=== PATIENT | male | born 1990 | race Caucasian/White ===

== ENCOUNTER 2023-06-27 20:00 | Inpatient (IN) | payer SELFPAY ==
[2023-06-27] VITALS (11 sets, daily range): BP systolic 121–145; BP diastolic 60–82; PULSE 11–70; RESP 13–21; O2SAT 98–100; BMI 26.2
--- NOTE | 2023-06-27 20:37 | P.HP_ITS ---
Providers/Chief Complaint Admitting Physician: Junior Germain MD Primary Care Provider: Juvenal Lancaster Chief Complaint: DKA History of Present Illness Juanjo Baron is a 33 year old male with no pertinent past medical history, who presents to [facility] for polyuria, polydipsia, polyphagia, fatigue, malaise. Patient tells me that he does not have a past medical history of diabetes, he is on to has type 2 diabetes, he has a history of alcoholism, but he quit drinking alcohol roughly 6 months ago, he has a cardiac condition of childhood he is not exactly sure what it was but he followed up with a photographic lithographer and did need a coronary angiogram, once he turned 20 he stopped following up with him. He tells me for the last month or so he has been feeling fatigue, malaise, polyuria, polydipsia, polyphagia, no fevers, no chills, did have some abdominal pain, diffuse, with nausea, patient was transferred from [facility], on his last blood work at 1504 his sodium was 136, potassium 4.1, CO2 11, blood sugar level 414, anion gap 26, last blood sugar at 1741 was 259. Review of Systems Const: Denies: fever(s) or chills Card: Denies: chest pain Resp: Denies: dyspnea GI: Reports: abdominal pain and nausea : Reports: urinary frequency; Denies: difficulty urinating Musc: Denies: back pain Neuro: Denies: headache(s) Medications/Allergies Allergies Allergy/AdvReac Type Severity Reaction Status Date / Time No Known Allergies Allergy Verified 06/27/23 20:22 PFSH Acute PFSH: Medical History (Updated 06/27/23 @ 20:50 by Isaac Nance MD) No pertinent past medical history Surgical History (Updated 06/27/23 @ 20:46 by Isaac Nance MD) History of cardiac catheterization Family History (Updated 06/27/23 @ 20:47 by Isaac Nance MD) Family/Other Diabetes Social History (Updated 06/27/23 @ 20:47 by Isaac Nance MD) Smoking and tobacco status: never smoked Alcohol intake: former Substance/Drug Use: never Vitals/I&O/Wt Weight last 48 hrs Weight 92.533 kg Physical Exam Const: COMMON NORMALS: no acute distress and patient oriented x3 HENMT: COMMON NORMALS: normocephalic HEAD & SCALP: normocephalic Eye: COMMON NORMALS: Equal, round and reactive pupils present and EOMs intact bilaterally Neck/C-Spine: COMMON NORMALS: no JVD Lymph: LYMPHATIC: no lymphadenopathy noted Chest: COMMONS NORMALS: normal inspection of the chest Resp: COMMON NORMALS: normal respiratory effort, No retractions, No use of accessory muscles and clear to auscultation bilaterally AUSCULTATION: clear to auscultation bilaterally Cardio: COMMON NORMALS: regular rate, regular rhythm, S1 normal heart sound present and S2 normal heart sound present RATE: regular rate RHYTHM: regular rhythm HEART SOUNDS: S1 normal heart sound present and S2 normal heart sound present GI: COMMON NORMALS: Normal to inspection, nondistended, normoactive bowel sounds present, Soft to palpation and non-tender : COMMON NORMALS: Yes no CVA tenderness Extremity: COMMON NORMALS: no calf tenderness and no pedal edema Neuro: COMMON NORMALS: patient oriented x3, CN's II-XII intact bilaterally, moves all extremities and no focal motor deficits Psych: COMMON NORMALS: mental status grossly normal A&P Assessment and plan (1) Diabetic ketoacidosis: (2) Elevated blood pressure reading: Plan Diabetic ketoacidosis -Type I versus type 2 diabetes -A1c 13.2 -DKA protocol -Monitor in ICU -Start D5 half-normal saline with 20 KCl at 125 cc an hour -Continue insulin drip -BMP, mag, Phos every 4 hours -Once anion gap closes, transition to subcu insulin, with long-acting insulin -Replete potassium if less than 4.5 if drops below 4.5, hold drip and replete -Currently he is alert awake, following all commands, no headache, blurry vision, no nausea, no vomiting, no chest pain Does have a systolic murmur on examination, will order cardiac echocardiogram Elevated blood pressures, monitor, consider adding blood pressure medications, no history of hypertension Serial EKGs, troponins, telemetry monitoring Attestations Medical Necessity Statement*: Patient requires hospitalization, inpatient, greater than 2 midnights, for diabetic ketoacidosis, Coding Level of Care Code Critical Care >/= 30 minutes Critical care time (in minutes): 45 The high probability of a clinically significant, sudden or life threatening d eterioration, as referenced in this documentation, required my full and direct attention, intervention and personal management. The critical care time shown is in addition to time spent performing any reported separately billable procedures and includes the following: [x] Data and vital sign review and interpretation [x ] Patient assessment, examination and intervention [x] Medication orders and management [x] Patient/Family updates as able [x] Care Coordination and Documentation. Diagnoses Diabetic ketoacidosis E11.10 Elevated blood pressure reading R03.0
[2023-06-27 20:38] LABS: Glucose Point of Care 167 mg/dL (70-110)
[2023-06-27] MEDS: insulin regular-human 250 UNIT in sodium chloride 0.9% 250 ML 6.26 UNIT IV (21:11)
--- NOTE | 2023-06-27 21:21 | PC.NURSE ---
Insulin Humalog drip started at 6.2 units/ hr , the same dose that [facility] last had it at per Dr. Nance's orders. Orders were given to not give Bolus. Orders were also given to keep Dextrose 5% running at 125 ml/hr
[2023-06-27 21:41] LABS: Anion Gap 16.5 (5-19); Blood Urea Nitrogen 7 mg/dL (6-20); Calcium 8.4 mg/dL (8.5-10.5); Carbon Dioxide 18 mmol/L (22-29); Chloride 108 mmol/L (98-107); Glomerular Filtration Rate 87.2 mL/min (90-130); Glucose 150 mg/dL (65-115); Magnesium 2.3 mg/dL (1.7-2.3); Osmolality Calculated 289 mOsm/kg (285-295); Potassium 3.5 mmol/L (3.5-5.1); Sodium 139 mmol/L (136-145)
[2023-06-27 21:48] LABS: Procalcitonin 0.05 ng/mL (0-0.5)
[2023-06-27 21:49] LABS: Thyroid Stimulating Hormone 0.59 uIU/mL (0.27-4.20)
[2023-06-27 21:56] LABS: Troponin(5th) Baseline 15 ng/L (0-15)
[2023-06-27] MEDS: potassium phosphate (mEq K) 40 MEQ in sodium chloride 0.9% (100 ml) 100 ML 27.27 MEQ IV (22:00)
[2023-06-27] MEDS: pantoprazole 40 mg SDV IVP (22:00)
[2023-06-27] MEDS: enoxaparin 40 mg/0.4 mL Syringe SUBCUT (22:01)
[2023-06-27] MEDS: D5-NS 0.45% + KCL 20 mEq 20 MEQ/1,000 ML BAG 100 MEQ IV (22:19)
[2023-06-27 22:51] LABS: Glucose Point of Care 136 mg/dL (70-110)
--- NOTE | 2023-06-27 23:31 | ECG_ITS ---
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 Measurements Intervals [place] Rate: 68 P: 77 [place]: 134 QRS: 60 QRSD: 109 T: 52 QT: 448 QTc: 478 Interpretive Statements SINUS RHYTHM INCOMPLETE RIGHT BUNDLE BRANCH BLOCK [90+ ms QRS DURATION, TERMINAL R IN V1/V2, 40+ ms S IN I/aVL/V4/V5/V6] PROLONGED QT INTERVAL No previous ECG available for comparison Electronically Signed On 06-28-2023 22:58:37 CDT by Michele Jimenez M.D. [email or web address] [email or web address].Ryzing/store/[id number]
[2023-06-27 23:42] LABS: Troponin 5 2HR 15.56 ng/L (0-15)
[2023-06-27 23:43] LABS: Troponin 5 2HR Delta 0.56 ABS# (0-10)
[2023-06-27 23:59] LABS: Glucose Point of Care 166 mg/dL (70-110)
[2023-06-28] VITALS (44 sets, daily range): BP systolic 124–159; BP diastolic 64–95; PULSE 46–73; RESP 11–26; TEMP 36.1–36.9; O2SAT 97–100
[2023-06-28 00:35] LABS: Glucose Point of Care 197 mg/dL (70-110)
[2023-06-28 01:49] LABS: Glucose Point of Care 208 mg/dL (70-110)
[2023-06-28 02:09] LABS: Blood Urea Nitrogen 8 mg/dL (6-20); Calcium 8.6 mg/dL (8.5-10.5); Carbon Dioxide 16 mmol/L (22-29); Chloride 104 mmol/L (98-107); Glomerular Filtration Rate 98.4 mL/min (90-130); Glucose 204 mg/dL (65-115); Magnesium 2.1 mg/dL (1.7-2.3); Osmolality Calculated 290 mOsm/kg (285-295); Phosphorus 3.4 mg/dL (2.5-4.5); Sodium 138 mmol/L (136-145)
[2023-06-28 02:12] LABS: Anion Gap 22.2 (5-19); Potassium 4.2 mmol/L (3.5-5.1)
--- NOTE | 2023-06-28 02:53 | ECG_ITS ---
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 Measurements Intervals [place] Rate: 60 P: 64 NC: 135 QRS: 60 QRSD: 114 T: 29 QT: 459 QTc: 461 Interpretive Statements SINUS RHYTHM INCOMPLETE RIGHT BUNDLE BRANCH BLOCK [90+ ms QRS DURATION, TERMINAL R IN V1/V2, 40+ ms S IN I/aVL/V4/V5/V6] NONSPECIFIC T-WAVE ABNORMALITY Compared to ECG 06/27/2023 23:31:16 T-wave abnormality now present Prolonged QT interval no longer present Electronically Signed On 06-28-2023 22:58:17 CDT by Michele Jimenez M.D. [email or web address].[email or web address]/store/[id number]
[2023-06-28 03:41] LABS: Glucose Point of Care 194 mg/dL (70-110)
[2023-06-28 03:55] LABS: Troponin 5 6HR 13.73 ng/L (0-15); Troponin 5 6HR Delta -1.27 ng/L (0-12)
[2023-06-28 04:04] LABS: Glucose Point of Care 203 mg/dL (70-110)
[2023-06-28 04:04] LABS: Glucose Point of Care 247 mg/dL (70-110)
[2023-06-28 05:01] LABS: Glucose Point of Care 184 mg/dL (70-110)
[2023-06-28 05:51] LABS: Anion Gap 17.8 (5-19); Blood Urea Nitrogen 7 mg/dL (6-20); Calcium 8.4 mg/dL (8.5-10.5); Carbon Dioxide 17 mmol/L (22-29); Chloride 111 mmol/L (98-107); Glomerular Filtration Rate 87.2 mL/min (90-130); Glucose 184 mg/dL (65-115); Magnesium 2.3 mg/dL (1.7-2.3); Osmolality Calculated 297 mOsm/kg (285-295); Phosphorus 1.5 mg/dL (2.5-4.5); Potassium 3.8 mmol/L (3.5-5.1); Sodium 142 mmol/L (136-145)
[2023-06-28 06:06] LABS: Glucose Point of Care 158 mg/dL (70-110)
[2023-06-28 06:37] LABS: Glucose Point of Care 184 mg/dL (70-110)
[2023-06-28 07:54] LABS: Glucose Point of Care 214 mg/dL (70-110)
[2023-06-28 08:43] LABS: Glucose Point of Care 200 mg/dL (70-110)
[2023-06-28] MEDS: D5-NS 0.45% + KCL 20 mEq 20 MEQ/1,000 ML BAG 100 MEQ IV (08:45)
[2023-06-28 09:21] LABS: Anion Gap 23.1 (5-19); Blood Urea Nitrogen 7 mg/dL (6-20); Calcium 8.8 mg/dL (8.5-10.5); Carbon Dioxide 16 mmol/L (22-29); Chloride 105 mmol/L (98-107); Glomerular Filtration Rate 87.2 mL/min (90-130); Glucose 226 mg/dL (65-115); Osmolality Calculated 295 mOsm/kg (285-295); Phosphorus 2.4 mg/dL (2.5-4.5); Potassium 4.1 mmol/L (3.5-5.1); Sodium 140 mmol/L (136-145)
[2023-06-28 09:38] LABS: Glucose Point of Care 242 mg/dL (70-110)
[2023-06-28 11:05] LABS: Glucose Point of Care 231 mg/dL (70-110)
[2023-06-28 12:16] LABS: Anion Gap 25.3 (5-19); Blood Urea Nitrogen 6 mg/dL (6-20); Calcium 8.7 mg/dL (8.5-10.5); Carbon Dioxide 13 mmol/L (22-29); Chloride 104 mmol/L (98-107); Glomerular Filtration Rate 78.1 mL/min (90-130); Glucose 254 mg/dL (65-115); Osmolality Calculated 292 mOsm/kg (285-295); Phosphorus 2.1 mg/dL (2.5-4.5); Potassium 4.3 mmol/L (3.5-5.1); Sodium 138 mmol/L (136-145)
[2023-06-28 13:33] LABS: Glucose Point of Care 231 mg/dL (70-110)
[2023-06-28 14:43] LABS: Glucose Point of Care 246 mg/dL (70-110)
[2023-06-28 15:30] LABS: Glucose Point of Care 220 mg/dL (70-110)
--- NOTE | 2023-06-28 16:15 | P.PN_ITS ---
Subjective Subjective: It appears Lab had closed at around 5 AM this morning at which point insulin drip was turned off, however it does not appear he received a subcutaneous insulin thereafter. Repeat gap Checked at 8:30 AM at 23 with bicarb back at 13. Insulin drip has been restarted with his anion gap reopening. Medications: Reviewed: Yes Vitals/I&O/Wt Last Vital Signs Temp 98.5 F 06/28/23 08:00 Pulse 57 L 06/28/23 15:32 Resp 15 06/28/23 15:01 BP 146/84 06/28/23 15:01 Pulse Ox 98 06/28/23 15:01 O2 Del Method Room Air 06/28/23 15:01 06/28/23 06/28/23 06/28/23 06:59 14:59 22:59 Intake Total 17.953 / 33.289 1031.902 / 1031.902 0.976 / 1032.878 Output Total 2200 / 2200 Balance 17.953 / 33.289 -1168.098 / -1168.098 0.976 / -1167.122 Weight last 48 hrs Weight 92.533 kg Weight 92.533 kg Physical Exam Narrative: General: No acute distress, AO x3 HEENT: PERRLA, pupils bilaterally equal and reactive, pallors not present Chest: Normal vesicular breath sounds, no added sounds, equal good air entry b ilaterally CVS: S1-S2 regular, no murmurs, no tachycardia, no gallops, no rubs Abdomen: Soft, nontender, no organomegaly, bowel sounds present Neuro: No focal deficits, no facial deformity, AO x3, power 5/5 in all limbs Data 06/28/23 11:47 A&P Assessment and plan (1) Diabetic ketoacidosis: Plan Diabetic ketoacidosis -Type I versus type 2 diabetes, unknown past history -Hb A1c 13.2 consistent with a diagnosis of diabetes mellitus -DKA protocol to resume -Monitor in ICU -Continue D5 half-normal saline with 20 KCl at 125 cc an hour -Restart insulin drip -BMP, mag, Phos every 4 hours -Once anion gap closes, transition to subcu insulin, with long-acting insulin -Replete potassium if less than 4.5 if drops below 4.5, hold drip and replete -Currently he is alert awake, following all commands, no headache, blurry vision, no nausea, no vomiting, no chest pain. No obvious precipitant for DKA other than not being on treatment for diabetes mellitus -Continue n.p.o. while he remains on the correct Elevated blood pressures, monitor, consider adding blood pressure medications if persistently elevated Serial EKGs, troponins, telemetry monitoring without evidence of ACS Attestations Medical Necessity Statement*: Continued ICU care needed in view of DKA, need for ongoing insulin drip. Coding Level of Care Code Acute Code for Chg Fwd High MDM includes number and complexity of problems actively addressed during encounter, amount and/or complexity of data reviewed/ordered and described risk of complication, morbidity or mortality of management as documented Diagnoses Diabetic ketoacidosis E11.10
[2023-06-28 16:29] LABS: Glucose Point of Care 200 mg/dL (70-110)
[2023-06-28 17:02] LABS: Alanine Aminotransferase 25 U/L (0-41); Albumin Level 4.3 g/dL (3.5-5.2); Alkaline Phosphatase 103 U/L (40-130); Anion Gap 22.2 (5-19); Aspartate Amino Transferase 17 U/L (0-40); Blood Urea Nitrogen 6 mg/dL (6-20); Calcium 8.7 mg/dL (8.5-10.5); Carbon Dioxide 15 mmol/L (22-29); Chloride 106 mmol/L (98-107); Globulin 2.7 g/dL (1.3-4.6); Glomerular Filtration Rate 78.1 mL/min (90-130); Glucose 243 mg/dL (65-115); Osmolality Calculated 294 mOsm/kg (285-295); Phosphorus 1.9 mg/dL (2.5-4.5); Potassium 4.2 mmol/L (3.5-5.1); Sodium 139 mmol/L (136-145); Total Bilirubin 0.3 mg/dL (0.15-1.2)
[2023-06-28 17:32] LABS: Glucose Point of Care 236 mg/dL (70-110)
[2023-06-28] MEDS: dextrose 10% 1,000 ML 75 ML IV (17:34)
[2023-06-28 18:40] LABS: Glucose Point of Care 223 mg/dL (70-110)
--- NOTE | 2023-06-28 18:42 | PC.NURSE ---
Shift summary: Pt rested in bed throughout the shift. He did make 3 trips to restroom. He remains NPO at this time, unable to advance diet due to anion gap. He denies abdominal pain, nausea or vomiting, or other pains. He is a very difficult finger stick due to calluses. He remains on insulin gtt, adjusted per protocol. Dr Castañeda gave order to have iit run at least at 0.5 unit/hour. IV fluids changed to D10%. . His blood sugars have been 200-254mg/dl this shift. Last anion gap at 22.2. Pt has voided 2200ml of clear pale yellow urine.
[2023-06-28 19:22] LABS: Glucose Point of Care 226 mg/dL (70-110)
[2023-06-28 20:34] LABS: Glucose Point of Care 234 mg/dL (70-110)
[2023-06-28 21:11] LABS: Anion Gap 23.2 (5-19); Blood Urea Nitrogen 6 mg/dL (6-20); Calcium 8.8 mg/dL (8.5-10.5); Carbon Dioxide 16 mmol/L (22-29); Chloride 104 mmol/L (98-107); Glomerular Filtration Rate 78.1 mL/min (90-130); Glucose 262 mg/dL (65-115); Osmolality Calculated 295 mOsm/kg (285-295); Potassium 4.2 mmol/L (3.5-5.1); Sodium 139 mmol/L (136-145)
[2023-06-28] MEDS: enoxaparin 40 mg/0.4 mL Syringe SUBCUT (21:32)
[2023-06-28] MEDS: pantoprazole 40 mg SDV IVP (21:32)
[2023-06-28 21:35] LABS: Glucose Point of Care 211 mg/dL (70-110)
--- NOTE | 2023-06-28 22:04 | PC.NURSE ---
Hospitalist notified of upward trending Anion Gap along with blood glucose holding in an non-titratable insulin pattern. Nurse encouraged addition of dextrose fluids but received orders to decrease d10 to 50ml/hr as hospitalist is concerned patient is receiving too much.
[2023-06-28 22:35] LABS: Glucose Point of Care 221 mg/dL (70-110)
[2023-06-28 23:46] LABS: Glucose Point of Care 240 mg/dL (70-110)
[2023-06-28 23:56] LABS: Alanine Aminotransferase 23 U/L (0-41); Albumin Level 4.3 g/dL (3.5-5.2); Alkaline Phosphatase 96 U/L (40-130); Anion Gap 22.1 (5-19); Aspartate Amino Transferase 16 U/L (0-40); Blood Urea Nitrogen 6 mg/dL (6-20); Calcium 8.7 mg/dL (8.5-10.5); Carbon Dioxide 17 mmol/L (22-29); Chloride 104 mmol/L (98-107); Globulin 2.3 g/dL (1.3-4.6); Glomerular Filtration Rate 78.1 mL/min (90-130); Glucose 277 mg/dL (65-115); Osmolality Calculated 296 mOsm/kg (285-295); Potassium 4.1 mmol/L (3.5-5.1); Sodium 139 mmol/L (136-145); Total Bilirubin 0.4 mg/dL (0.15-1.2); Total Protein 6.6 g/dL (6.6-8.7)
[2023-06-29] VITALS (27 sets, daily range): BP systolic 107–167; BP diastolic 54–96; PULSE 42–62; RESP 11–25; TEMP 36.5–37.1; O2SAT 95–100
[2023-06-29 00:49] LABS: Glucose Point of Care 239 mg/dL (70-110)
[2023-06-29 01:49] LABS: Glucose Point of Care 253 mg/dL (70-110)
[2023-06-29 02:37] LABS: Glucose Point of Care 292 mg/dL (70-110)
[2023-06-29 03:48] LABS: Glucose Point of Care 251 mg/dL (70-110)
[2023-06-29 04:28] LABS: Alanine Aminotransferase 21 U/L (0-41); Albumin Level 4.1 g/dL (3.5-5.2); Alkaline Phosphatase 96 U/L (40-130); Anion Gap 17.5 (5-19); Aspartate Amino Transferase 19 U/L (0-40); Blood Urea Nitrogen 7 mg/dL (6-20); Calcium 8.6 mg/dL (8.5-10.5); Carbon Dioxide 18 mmol/L (22-29); Chloride 105 mmol/L (98-107); Globulin 2.4 g/dL (1.3-4.6); Glomerular Filtration Rate 87.2 mL/min (90-130); Glucose 229 mg/dL (65-115); Osmolality Calculated 289 mOsm/kg (285-295); Potassium 3.5 mmol/L (3.5-5.1); Sodium 137 mmol/L (136-145); Total Bilirubin 0.4 mg/dL (0.15-1.2); Total Protein 6.5 g/dL (6.6-8.7)
[2023-06-29 04:47] LABS: Glucose Point of Care 185 mg/dL (70-110)
--- NOTE | 2023-06-29 05:19 | PC.NURSE ---
Hospitalist notified of morning labs concerning DKA treatment. Nurse received orders to replace potassium and resume insulin drip protocol once administered. Critical message to nurse placed.
[2023-06-29] MEDS: lidocaine 1% 5 ML in potassium chloride premix 100 ML 25 ML IV (05:24)
[2023-06-29 05:42] LABS: Glucose Point of Care 205 mg/dL (70-110)
[2023-06-29 06:53] LABS: Glucose Point of Care 205 mg/dL (70-110)
[2023-06-29 07:49] LABS: Glucose Point of Care 193 mg/dL (70-110)
[2023-06-29] MEDS: potassium chloride ER 20 mEq Tablet PO (08:26)
[2023-06-29] MEDS: insulin lispro 100 unit/1 mL SUBCUT ×4 (08:26→20:45)
[2023-06-29] MEDS: insulin glargine 100 units/1 mL 10 UNIT SUBCUT (08:26)
[2023-06-29 08:57] LABS: Glucose Point of Care 187 mg/dL (70-110)
[2023-06-29 09:44] LABS: Glucose Point of Care 192 mg/dL (70-110)
--- NOTE | 2023-06-29 09:59 | PM.PN ---
Subjective Subjective: Patient is initially sleeping but awakens to verbal stimulation. He denies any fevers, chills, nausea or emesis. Endorses appetite. Discussed plan of care for the day and he is in agreement. Medications: Reviewed: Yes Vitals/I&O/Wt Last Vital Signs Temp 98.8 F 06/29/23 07:30 Pulse 50 L 06/29/23 09:00 Resp 12 06/29/23 09:00 BP 160/90 06/29/23 09:00 Pulse Ox 100 06/29/23 09:00 O2 Del Method Room Air 06/29/23 09:00 06/28/23 06/29/23 06/29/23 22:59 06:59 14:59 Intake Total 1242.114 / 2274.016 10.874 / 2284.890 710.978 / 710.978 Output Total 575 / 2775 800 / 3575 700 / 700 Balance 667.114 / -500.984 -789.126 / -1290.110 10.978 / 10.978 Weight last 48 hrs Weight 92.533 kg Weight 92.533 kg Physical Exam Narrative: General: Patient is slightly lethargic but awakens to stimulation. Head: Normocephalic. Neck: No JVD. Cardiovascular: No gallops. No murmurs. No peripheral edema. Hypertensive. Bradycardic. Lungs: Breath sounds are slightly diminished bilateral bases, no use of accessory muscles, no crackles or wheezes. Skin: No jaundice. No rashes. Abdomen: Hypoactive bowel sounds, abdomen soft and nontender. Genito Urinary: Genital exam not performed since complaints not related. Rectal: Rectal exam not performed since no symptoms indicated blood loss. Extremities: No cyanosis or clubbing. Musculoskeletal: No swollen or erythematous joints. Neurological: Moves all 4 extremities. No myoclonus. Data 06/29/23 03:58 A&P Assessment and plan (1) Diabetic ketoacidosis: Patient on IV insulin infusion Now closed Start Lantus 10 units Overlap insulins by 2 hours Start sliding scale insulin correction with meals Start diet Discontinue IV fluids after oral intake improves (2) Diabetes mellitus: A1c 13.2 at outside hospital Unclear type Management as above RD consult for education Insulin education Diabetes education (3) Hypertension: Blood pressure remains elevated Start JAIRO inhibitor Plan DVT prophylaxis: Lovenox CODE STATUS: Assume full code Attestations Medical Necessity Statement*: Patient requires ongoing hospitalization for transition of IV insulin infusion to subcutaneous insulins in the setting of DKA and newly diagnosed uncontrolled diabetes mellitus. Critical Care Time: The high probability of a clinically significant, sudden or life threatening deterioration of the patient's endocrine system(s) required my full and direct attention, intervention and personal management. The critical care time is as shown. This time is in addition to time spent performing any reported procedures but includes the following: [x] Data and vital sign review and interpretation [x] Patient assessment, examination and intervention [x] Documentation [x] Medication orders and management Critical Care Time (min): 35 Coding Level of Care Code Acute Code for [facility] Fwd Diagnoses Diabetic ketoacidosis E11.10 Diabetes mellitus E11.9 Hypertension I10
[2023-06-29] MEDS: lisinopril 10 mg Tablet PO (10:32)
[2023-06-29 12:04] LABS: Glucose Point of Care 229 mg/dL (70-110)
--- NOTE | 2023-06-29 12:10 | PC.NURSE ---
Diabetes education: Discussed and demonstrated insulin syringe use, How to read the numbers draw back plunger,injection sites and injections. Pt able to verbalize and demonstrate understanding of reading insulin syringe numbers and self-injecting in abdomen.
[2023-06-29 12:25] LABS: Albumin Level 4.1 g/dL (3.5-5.2); Anion Gap 17.1 (5-19); Blood Urea Nitrogen 7 mg/dL (6-20); Calcium 8.8 mg/dL (8.5-10.5); Carbon Dioxide 19 mmol/L (22-29); Chloride 101 mmol/L (98-107); Glomerular Filtration Rate 98.4 mL/min (90-130); Glucose 230 mg/dL (65-115); Potassium 4.1 mmol/L (3.5-5.1); Sodium 133 mmol/L (136-145)
[2023-06-29 17:45] LABS: Glucose Point of Care 209 mg/dL (70-110)
--- NOTE | 2023-06-29 18:16 | PC.NURSE ---
Diabetes education: Pt was able to read insulin syringe with 8 unit and self inject without any difficulties. He declined going over diet for diabetes at this time.
--- NOTE | 2023-06-29 18:19 | PC.NURSE ---
Shift summary: Pt rested in bed throughout the shift except for using restroom. Anion gap 17.5 and blood sugars trending down this am. Pt transitioned to high sliding scale and Lantus. He is tolerating well. His last anion gap at 1230 was 17.1 and his bicarb 19. He had demonstrated insulin syringe reading and injections. No nausea, vomiting or abdominal pains noted after restarting solid foods. VSS. Remains sinus bradycardia on moniker. He has been up to bathroom3-4 times for a total urine ouput of 1950. Bm noted today.
[2023-06-29] MEDS: enoxaparin 40 mg/0.4 mL Syringe SUBCUT (20:43)
[2023-06-29 20:47] LABS: Glucose Point of Care 271 mg/dL (70-110)
[2023-06-30] VITALS (15 sets, daily range): BP systolic 94–124; BP diastolic 47–76; PULSE 48–65; RESP 12–27; TEMP 36.4–36.5; O2SAT 96–99
[2023-06-30 04:46] LABS: Albumin Level 3.7 g/dL (3.5-5.2); Blood Urea Nitrogen 12 mg/dL (6-20); Calcium 8.7 mg/dL (8.5-10.5); Carbon Dioxide 26 mmol/L (22-29); Chloride 102 mmol/L (98-107); Glomerular Filtration Rate 98.4 mL/min (90-130); Glucose 147 mg/dL (65-115); Phosphorus 3.2 mg/dL (2.5-4.5); Sodium 137 mmol/L (136-145)
[2023-06-30] MEDS: potassium chloride ER 20 mEq Tablet 40 MEQ PO ×2 (07:53→12:31)
[2023-06-30] MEDS: insulin lispro 100 unit/1 mL SUBCUT ×2 (08:00→12:31)
[2023-06-30] MEDS: insulin glargine 100 units/1 mL 10 UNIT SUBCUT (08:01)
[2023-06-30] MEDS: lisinopril 10 mg Tablet PO (08:03)
--- NOTE | 2023-06-30 10:00 | P.DS_ITS ---
Discharge Providers Date of Admission: 06/27/23 20:00 Date of Discharge: June 30, 2023 Attending Provider at Admission: Junior Germain MD Attending Provider at Discharge: Kobi Lujan MD Primary Care Provider: Juvenal Lancaster Diagnoses at Discharge Discharge Diagnosis (1) Diabetic ketoacidosis: Status: Acute (2) Diabetes mellitus: Status: Acute (3) Hypertension: Status: Acute Reason for Visit Reason for Visit: DKA Hospital Course Hospital Course Juanjo Baron is a 33-year-old male with a past medical history significant for alcohol use disorder in early remission and childhood cardiac condition of unclear etiology who transferred from [facility] after present with polyuria, polydipsia, polyphagia, fatigue, and malaise. Patient found to have A1c of 13.2 and be in DKA at outside hospital. Patient transferred to [facility] ICU for higher level of care. He was found to have newly diagnosed diabetes mellitus. He was treated with IV insulin drip with DKA resolving. Patient started on long acting Lantus 10 units subcutaneous injection nightly. He was noted to have a reading impairment. He was provided extensive counseling on diabetes, diet, and insulin management/administration. He demonstrated proficiency on his Lantus injections. Patient started on low dose metformin at discharge. This is to be titrated over time. He was started on a JAIRO inhibitor. His urine microalbumin level will need assessed with clinic follow up. Lipid level is pending at time of discharge, he will likely benefit from statin in the future. Symptoms improved and patient discharged to home in stable condition. He will need to establish with PCP for continued diabetes care. Physical Exam Narrative: General: Patient is awake and alert. Pleasant. Head:? Normocephalic. Neck: No JVD. Cardiovascular: No gallops. No murmurs. No peripheral edema.? Lungs: Breath sounds are slightly diminished bilateral bases, no use of accessory muscles, no crackles or wheezes. Skin: No jaundice. No rashes. Abdomen: Normal bowel sounds, abdomen soft and nontender. Extremities: No cyanosis or clubbing. Musculoskeletal: No swollen or erythematous joints. Neurological: Moves all 4 extremities. No myoclonus. Discharge Data Studies Completed and Pending Laboratory Results Sodium 137 mmol/L (136-145) 06/30/23 04:18 Potassium 3.0 mmol/L (3.5-5.1) L 10/10/23 04:18 Chloride 102 mmol/L (98-107) 06/30/23 04:18 Carbon Dioxide 26 mmol/L (22-29) 06/30/23 04:18 Anion Gap 12.0 (5-19) 06/30/23 04:18 BUN 12 mg/dL (6-20) 06/30/23 04:18 Creatinine 0.9 mg/dL (0.7-1.2) 06/30/23 04:18 GFR Calculation 98.4 mL/min (90-130) 06/30/23 04:18 Glucose 147 mg/dL (65-115) H 06/30/23 04:18 POC Glucose 271 mg/dL (70-110) H 06/29/23 20:39 Calculated Osmolality 289 mOsm/kg (285-295) 06/29/23 03:58 Calcium 8.7 mg/dL (8.5-10.5) 06/30/23 04:18 Phosphorus 3.2 mg/dL (2.5-4.5) D 06/30/23 04:18 Magnesium 2.0 mg/dL (1.7-2.3) 06/28/23 16:31 Total Bilirubin 0.4 mg/dL (0.15-1.2) 06/29/23 03:58 AST 19 U/L (0-40) 06/29/23 03:58 ALT 21 U/L (0-41) 06/29/23 03:58 Alkaline Phosphatase 96 U/L (40-130) 06/29/23 03:58 Troponin T Baseline 15 ng/L (0-15) 06/27/23 21:06 Troponin T 120 Minute 15.56 ng/L (0-15) H 06/27/23 23:15 Delta Troponin T 0.56 ABS# (0-10) 06/27/23 23:15 Troponin T Hi Sens 6Hr 13.73 ng/L (0-15) 06/28/23 02:48 Troponin T Hi Sens 6Hr Delta -1.27 ng/L (0-12) L 06/28/23 02:48 Total Protein 6.5 g/dL (6.6-8.7) L 06/29/23 03:58 Albumin 3.7 g/dL (3.5-5.2) 06/30/23 04:18 Globulin 2.4 g/dL (1.3-4.6) 06/29/23 03:58 Procalcitonin 0.05 ng/mL (0-0.5) 06/27/23 21:06 TSH 0.59 uIU/mL (0.27-4.20) 06/27/23 21:06 Vitals Last Vital Signs Temp 97.7 F 06/30/23 08:00 Pulse 57 L 06/30/23 09:00 Resp 21 H 06/30/23 09:00 BP 122/67 06/30/23 09:00 Pulse Ox 96 06/30/23 09:00 O2 Del Method Room Air 06/30/23 09:00 Discharge Plan Discharge Patient Disposition: Home Condition: Stable Prescriptions: New insulin glargine 100 unit/mL Solution 10 unit SUBCUT BEDTIME 90 Days Qty: 9 0RF lisinopril 10 mg Tablet 10 mg PO DAILY 90 Days Qty: 90 0RF metformin 500 mg tablet 500 mg PO BIDWMEAL 90 Days Qty: 180 0RF No Action No Known Home Medications Discharge Orders: Discharge Order (Routine); Ordered 06/30/23 Ordered By: Kobi Lujan Referrals: Tracy June [Other] (She is a Enrollment Contracting Analyst w/ Medicaid and should be able to help with medicaid application.) Family Practice [Provider Group] - 4-7 days Discharge Diet: Diabetic Discharge Activity: Resume usual activity and Increase activity as tolerated Patient Instructions: Lisinopril (By mouth), Metformin (By mouth), Insulin Lispro Protamine/Insulin Lispro (By injection) (HumaLOG Mix..., Insulin Glargine (By injection) (Lantus, Lantus SoloStar, Toujeo, Semglee), Opioid Safety Activity Restrictions/Additional Instructions: 1. Increase activity as tolerated. 2. Take medications as precribed. 3. Monitor blood glucose levels. Keep log of fasting level in AM. Discharge Attestations Time Spent in Discharge Care*: greater than 30 min Quality Metrics Clinical Quality Measures [ No reported AMI, CVA or VTE this stay] Coding Level of Care Code Acute Code for [facility] Fwd Diagnoses Diabetic ketoacidosis E11.10 Diabetes mellitus E11.9 Hypertension I10
[2023-06-30 10:54] LABS: Chol HDL Ratio 2.97 mg/dL (1.0-5.00); Cholesterol 110 mg/dL (0-200); HDL Cholesterol 37 mg/dL (60-100); LDL Cholesterol Calculated 54 mg/dL (50-129); LDL HDL Ratio 1.46 RATIO (0.00-3.22); Triglycerides 94 mg/dL (0-150)
[2023-06-30 12:24] LABS: Glucose Point of Care 199 mg/dL (70-110)
[2023-06-30 12:26] LABS: Glucose Point of Care 214 mg/dL (70-110)
--- NOTE | 2023-06-30 13:28 | PC.NURSE ---
Patient discharged. Bilateral IVs removed. Education provided on upcoming appointments, medications, and diet. Patient has been administering his insulin injections while here to get comfortable with self administering insulin. Nurse set up glucometer and had patient check blood sugar, and nurse demonstrated how to use lantus insulin pen. CUrrently waiting on patient's friend to show up to give ride home.
== END 2023-06-30 15:27 | disposition home or self-care (01) | DRG 639 ==
PROVIDERS: Family Medicine; Student in an Organized Health Care Education/Training Program; Admitting Provider Student in an Organized Health Care Education/Training Program; PCP Nurse Practitioner Family; Visit Provider Internal Medicine
DX: E11.10 Type 2 diabetes mellitus with ketoacidosis without coma (principal); I10 Essential (primary) hypertension; F10.11 Alcohol abuse, in remission; R01.1 Cardiac murmur, unspecified
CPT/HCPCS: 36415; 36416; 80048; 80053; 80061; 80069; 82962; 83735; 84100; 84145; 84443; 84484; 93005; 94664; 96372; 96376; C9113; J1650; J1815; J3480; J7050

== ENCOUNTER → 2023-09-24 16:20 | Outpatient (BNVA) | payer SELFPAY | PROVIDERS: PCP Nurse Practitioner Family; Visit Provider Nurse Practitioner Family | DX: E11.9 Type 2 diabetes mellitus without complications (principal) | CPT/HCPCS: 80053; 83036 ==

== ENCOUNTER 2024-06-07 19:33 | Inpatient (IN) | payer SELFPAY ==
[2024-06-07] VITALS (18 sets, daily range): BP systolic 113–150; BP diastolic 49–96; PULSE 78–114; RESP 16–35; TEMP 36.3; O2SAT 94–100; BMI 26.2
--- NOTE | 2024-06-07 19:35 | PC.NURSE ---
Arrival to ICU 1: Pt arrived to ICU 1 @1930. Continuous cardiac monitoring continued. Pt reporting 8/10 abdominal pain. BG unable to reading HI via fingerstick. Arrived w/ Levophed running @2mcg/min. Levophed stopped @2022. Dr. Nance on unit to see pt shortly after arrival.
--- NOTE | 2024-06-07 20:00 | XRR_ITS ---
PROCEDURE INFORMATION: Exam: XR Chest Exam date and time: 06/07/2024 8:16 PM Age: 34 years old Clinical indication: Shortness of breath; Additional info: SOB TECHNIQUE: Imaging protocol: Radiologic exam of the chest. Views: 1 view. COMPARISON: CR XR chest 1V [id number] 06/27/2023 12:55 PM FINDINGS: Lungs: Unremarkable. No consolidation. Pleural spaces: Unremarkable. No pleural effusion. No pneumothorax. Heart/Mediastinum: Unremarkable. No cardiomegaly. Bones/joints: Unremarkable. XR/XR chest 1V portable [id number] IMPRESSION: No acute findings.
[2024-06-07] MEDS: sodium chloride 0.9% 1,000 ML 150 ML IV (20:21)
[2024-06-07] MEDS: INSULIN REGULAR IN 0.9 % NACL 100 UNIT/100 ML BAG 8.5 UNIT IV (20:24)
[2024-06-07] MEDS: pantoprazole 40 mg SDV IVP (20:31)
[2024-06-07] MEDS: ondansetron 2 mg/ML SDV 2 mL 4 MG IVP (20:38)
--- NOTE | 2024-06-07 20:44 | ECG_ITS ---
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 Measurements Intervals [place] Rate: 106 P: 71 [place]: 139 QRS: 33 QRSD: 97 T: 42 QT: 342 QTc: 456 Interpretive Statements SINUS TACHYCARDIA No previous ECG available for comparison Electronically Signed On 06-08-2024 8:21:19 CDT by Michele Jimenez M.D. [id number]
[2024-06-07 20:52] LABS: Basophils # 0.1 10^3/uL (0.0-0.1); Basophils % 0.4 %; Hematocrit 42.4 % (37-53); Lymphocytes # 0.7 10^3/uL (0.8-4.8); Lymphocytes % 4.8 %; Mean Corpuscular HGB Conc 33.5 g/dL (30-55); Mean Corpuscular Volume 86.5 fl (82-101); Monocytes # 0.5 10^3/uL (0.2-0.9); Monocytes % 3.9 %; Neutrophils # 12.11 10^3/uL (1.8-7.7); Neutrophils % 89.3 %; Nucleated Red Blood Cells % 0 %; Platelet Count 245 10^3/cmm (157-399); Red Cell Distribution Width 11.8 % (12.1-15.1); White Blood Count 13.56 10^3/uL (3.29-11.43)
[2024-06-07 20:52] LABS: ABG PCO2 20.7 mmHg (35-45); Arterial Blood Gas Hematocrit 45.7 % (42-52); Base Excess ABG -18.8 mmol/L (-2.0-2.0); Blood Gas Allen Test Pos; Blood Gas Sample Type Arterial; HCO3 ABG 7.6 mmol/L (22-26)
[2024-06-07 20:53] LABS: ABG PH Result 7.17 (7.35-7.45); Blood Gas Operator Identificat ED; Blood Gas Sample Site Radial, right; Oxygen Device ROOM AIR; PO2 FiO2 Ratio Arterial Blood 576
--- NOTE | 2024-06-07 21:00 | P.HP_ITS ---
Providers/Chief Complaint 2 Admitting Physician: Itzel Woods MD Primary Care Provider: Juanjo Lancaster Chief Complaint: DKA History of Present Illness Juanjo Baron is a 34 year old male with a past medical history of type 2 diabetes mellitus, hypertension, who presents to [facility] for nausea, vomiting, abdominal pain. Patient tells me that for the last day he has had nausea, vomiting, abdominal pain, felt lightheaded, felt dizzy, no constipation no diarrhea, no bloody or black stools. He was transferred from [facility] for concerns for diabetic ketoacidosis started on insulin drip, he was given fluid therapy, he was noted to be persistently hypotensive there so he was placed on Levophed, on Levophed of 2, currently he is normotensive off Levophed, on room air, respiratory rate 22, pulse 97, alert oriented x 4, following all commands, only significant plan is abdominal pain, denies alcoholism Review of Systems 2 Const: Reports: fatigue and malaise; Denies: fever(s) or chills Card: Denies: chest pain Resp: Denies: dyspnea GI: Reports: abdominal pain, nausea and vomiting Medications/Allergies Home Medications Medication Instructions Recorded Confirmed Last Taken Type blood sugar diagnostic (Blood #100 ea 06/30/23 10/22/23 Unknown Rx Glucose Test strips) blood-glucose meter #1 ea 06/30/23 10/22/23 Unknown Rx lancets #100 ea 06/30/23 10/22/23 Unknown Rx blood-glucose meter,continuous #1 ea 07/09/23 10/22/23 Unknown Rx (Dexcom G6 Animal Laboratory Technician) blood-glucose sensor (Dexcom G6 #3 ea 07/09/23 10/22/23 Unknown Rx Sensor device) blood-glucose transmitter (Dexcom #1 ea 07/09/23 10/22/23 Unknown Rx G6 Transmitter device) insulin glargine 100 unit/mL 10 unit SUBCUT DAILY 09/24/23 09/24/23 Unknown History subcutaneous solution (Lantus U-100 Insulin) lisinopril 10 mg tablet 10 mg PO DAILY 09/24/23 06/07/24 06/07/24 History metformin 500 mg tablet 500 mg PO BID 09/24/23 06/07/24 06/07/24 History trazodone 50 mg tablet 50 mg PO .hs PRN sleep #30 tabs 10/22/23 10/22/23 Unknown Rx lisinopril 10 mg tablet 10 mg PO DAILY #90 tabs 10/27/23 Unknown Rx insulin glargine 100 unit/mL (3 25 unit (0.25 mL) SUBCUT DAILY #15 12/09/23 Unknown Rx mL) subcutaneous pen (Lantus mL Solostar U-100 Insulin) metformin 500 mg tablet 500 mg PO BID #180 tabs 12/09/23 Unknown Rx Allergies Allergy/AdvReac Type Severity Reaction Status Date / Time No Known Allergies Allergy Verified 06/07/24 20:09 PFSH Acute 2 PFSH: Medical History (Updated 06/07/24 @ 21:05 by Isaac Nance MD) Diabetic ketoacidosis Elevated blood pressure reading Surgical History History of cardiac catheterization Family History Family/Other Diabetes Denies family history of Heart disease Cancer Social History Smoking and tobacco/nicotine status: never used tobacco/nicotine Alcohol intake: former Substance/Drug Use: never Adopted: No Caregiver/support person: No Lives independently: No Household members: friend(s) service: No Current occupational status: unemployed Current gender identity: Male Vitals/I&O/Wt Last Vital Signs Temp 97.4 F L 06/07/24 20:01 Pulse 97 06/07/24 20:01 Resp 27 H 06/07/24 20:01 BP 118/50 06/07/24 20:01 Pulse Ox 96 06/07/24 20:54 O2 Del Method Room Air 06/07/24 20:54 06/07/24 06/07/24 06/07/24 06:59 14:59 22:59 Output Total 725 / 725 Balance -725 / -725 Weight last 48 hrs Weight 87.589 kg Physical Exam 2 Const: COMMON NORMALS: no acute distress and patient oriented x3 HENMT: COMMON NORMALS: normocephalic HEAD & SCALP: normocephalic Neck/C-Spine: COMMON NORMALS: no JVD Resp: COMMON NORMALS: normal respiratory effort, No retractions, No use of accessory muscles and clear to auscultation bilaterally AUSCULTATION: clear to auscultation bilaterally Cardio: COMMON NORMALS: no JVD, regular rate, regular rhythm, S1 normal heart sound present and S2 normal heart sound present RATE: regular rate RHYTHM: regular rhythm HEART SOUNDS: S1 normal heart sound present and S2 normal heart sound present GI: COMMON NORMALS: Normal to inspection, nondistended, normoactive bowel sounds present, Soft to palpation and non-tender Extremity: COMMON NORMALS: no calf tenderness and no pedal edema Neuro: COMMON NORMALS: patient oriented x3, CN's II-XII intact bilaterally, moves all extremities and no focal motor deficits Psych: COMMON NORMALS: mental status grossly normal Sepsis: Is patient septic: Yes Focused sepsis exam performed: Yes F ocused sepsis exam: DP PT pulses palpable, cap refill greater than 2 seconds no mottling lower extremities Date exam was performed: 06/07/24 Time exam was performed: 21:10 Data 06/07/24 20:32 06/07/24 20:18 Micro: Microbiology 06/07/24 20:32 Blood Culture - Preliminary Blood SPECIMEN COLLECTED 06/07/24 20:18 Blood Culture - Preliminary Blood SPECIMEN COLLECTED A&P Assessment and plan (1) Diabetic ketoacidosis: (2) Shock: (3) UTI (urinary tract infection): (4) Abdominal pain: (5) Lactic acidosis: Plan Diabetic ketoacidosis ? At outside hospital, pH 7.19, WBC 31.7, sodium 105, potassium 7.3, lipase 145, lactic acid 4.4, blood sugar 500, I do not see that a serum ketone was ordered, anion gap 40, bicarb 5, blood sugar 1207 ? UA with evidence of a UTI no antibiotics were given ? No imaging of the abdomen done at outside hospital ? Blood pressure 84/38 on arrival ? Was on Levophed at 2 currently off ? Plan ? DKA protocol ? Continue insulin drip ? Continue normal saline at 150 cc an hour ? Currently Levophed on hold, MAP is greater than 65 ? Monitor blood sugar q. hourly ? BMP every 4 hours ? Once anion gap is around 14, overlap with long-acting insulin, stop drip within an hour, switch to subcu insulin ? Once blood sugars less than 200 switch to D5 half-normal saline with 20 KCl ? Potassium was over 7.3 at outside hospital recheck potassium levels ? Pseudohyponatremia at 105, recheck serum sodium ? Lactic acid outside hospital 4.4 recheck here ? Repeat ABG ? Repeat CBC, BMP, liver function, Pro-Sagar, CRP, repeat UA, repeat chest x-ray ? Full code -Lovenox for DVT prophylaxis Shock -Requiring Levophed -Currently off Levophed -MAP greater than 65 -Repeat chest x-ray, UA, CRP, Pro-Sagar, lactic acid -Monitor hemodynamics closely -Has evidence of UTI, Zosyn Elevated lipase, check lipid panel, repeat liver function, lipase, alcohol levels Abdominal pain CT scan abdomen pelvis Full code Lovenox for DVT prophylaxis Attestations 2 Medical Necessity Statement*: Patient requires hospitalization, inpatient, greater than 2 midnights, for diabetic ketoacidosis, shock, UTI, lactic acidosis, hyperkalemia hyponatremia, leukocytosis Diagnoses Diabetic ketoacidosis E11.10 Shock R57.9 UTI (urinary tract infection) N39.0 Abdominal pain R10.9 Lactic acidosis E87.20
[2024-06-07 21:01] LABS: Glucose Urine UA 4+ (Normal); Protein Urine Trace (Negative); Specific Gravity, Urine 1.015 (1.005-1.030); Urine Appearance Clear (CLEAR); Urine Color Yellow (Yellow); pH Urine 5 (5-7)
[2024-06-07 21:02] LABS: Add Urine Culture? Yes; Add Urine Microscopic? YES; Bacteria Urine TRACE /hpf; Bilirubin Urine Neg (Negative); Blood Urine 2+ (Negative); Ketones Urine 2+ (Negative); Leukocyte Esterase Urine Negative (Negative); Mucus Urine TRACE /hpf; Nitrate Urine Negative (Negative); RBC Urine 0-4 /hpf (0-2); Urobilinogen Urine Neg (Negative); WBC Urine 0-4 /hpf (0-5)
--- NOTE | 2024-06-07 21:04 | CTR_ITS ---
PROCEDURE INFORMATION: Exam: CT Abdomen And Pelvis With Contrast Exam date and time: 06/07/2024 10:13 PM Age: 34 years old Clinical indication: Abdominal pain TECHNIQUE: Imaging protocol: Computed tomography of the abdomen and pelvis with contrast. Radiation optimization: All CT scans at this facility use at least one of these dose optimization techniques: automated exposure control; mA and/or kV adjustment per patient size (includes targeted exams where dose is matched to clinical indication); or iterative reconstruction. Contrast material: OMNI 350; Contrast volume: 100 ml; Contrast route: INTRAVENOUS (IV); COMPARISON: CT abdomen pelvis wo con [id number] 06/27/2023 1:09 PM RADIATION DOSE METRICS: Total DLP (mGy-cm): 1334 FINDINGS: Liver: Numerous branching air densities are seen within the liver, most pronounced along the periphery, compatible with portal venous gas. Gallbladder and biliary ducts: Normal. No calcified stones. No ductal dilation. Pancreas: Normal. No ductal dilation. Spleen: Normal. No splenomegaly. Adrenal glands: Normal. No mass. Kidneys and ureters: Normal. No hydronephrosis. Stomach and bowel: The stomach is moderately to markedly distended with fluid and air. Numerous dilated small bowel loops are seen throughout the abdomen and pelvis. Bowel loops in the lower abdomen and pelvis demonstrate pneumatosis in decreased mural enhancement compared with nondilated small bowel loops. There appears to be a transition point in the right mid abdomen (for example on series 10, image 52). The distal most small bowel appears decompressed, though there is fecalization of the intraluminal contrast. The colon is largely decompressed. Appendix: No evidence of appendicitis. Intraperitoneal space: No fluid collections. Vasculature: Scattered gas seen within the portal venous system, including in the left hemiabdomen (for example on series 10, image 56). No abdominal aortic aneurysm. Lymph nodes: Unremarkable. No enlarged lymph nodes. Urinary bladder: The urinary bladder is moderately distended. Reproductive: Unremarkable as visualized. Bones/joints: Unremarkable. No acute fracture. Soft tissues: Unremarkable. CT/CT abdomen pelvis w con* [id number] IMPRESSION: 1. Findings consistent with high-grade small bowel obstruction with small bowel ischemia, including bowel loops with pneumatosis and presence of portal venous gas. There appears to be a transition point in the right hemiabdomen. Recommend emergent surgical consultation. 2. The distal most small bowel is decompressed. Fecalization of intraluminal contents can be seen with hypomotility. 3. Moderately to markedly dilated stomach filled with fluid and air. Patient may benefit from nasogastric tube decompression.
[2024-06-07 21:05] LABS: Amphetamines Screen Urine Negative (Negative); Barbiturates Screen Urine Negative (Negative); Benzodiazepines Screen Urine Negative (Negative); Cocaine Screen Urine Negative (Negative); Opiate Screen Urine Negative (Negative); PCP Screen Urine Negative (Negative); THC Screen Urine Negative (Negative)
[2024-06-07 21:08] LABS: Glucose Point of Care > 600 mg/dL (70-110)
[2024-06-07] MEDS: acetaminophen 325 mg Tablet 650 MG PO (21:08)
[2024-06-07 21:20] LABS: Lactic Sepsis W/Reflex 2.1 mmol/L (0.5-2.2)
[2024-06-07 21:21] LABS: Troponin(5th) Baseline 26 ng/L (0-15)
[2024-06-07 21:30] LABS: Alanine Aminotransferase 23 U/L (0-41); Albumin Level 4.3 g/dL (3.5-5.2); Alkaline Phosphatase 129 U/L (40-130); Anion Gap 42.6 (5-19); Aspartate Amino Transferase 19 U/L (0-40); Blood Urea Nitrogen 45 mg/dL (6-20); C Reactive Protein 12.6 mg/L (0.0-4.9); Calcium 7.6 mg/dL (8.5-10.5); Chloride 75 mmol/L (98-107); Creatinine Clr Calc Pharmacy 48.9574; Glomerular Filtration Rate 30.1 mL/min (90-130); Lipase 83 U/L (13-60); NT Pro B Type Natriuretic Pept 565 pg/mL (0-125); Potassium 4.6 mmol/L (3.5-5.1); Sodium 120 mmol/L (136-145); Total Bilirubin 0.4 mg/dL (0.15-1.2); Total Protein 6.3 g/dL (6.6-8.7)
[2024-06-07 21:39] LABS: Ketone (Acetest) Serum Positive (Negative); Osmolality Calculated 307 mOsm/kg (285-295)
[2024-06-07 21:42] LABS: Alcohol Level < 10 mg/dL (0-10)
[2024-06-07 21:44] LABS: Carbon Dioxide 7 mmol/L (22-29); Glucose 911 mg/dL (65-115)
[2024-06-07 21:53] LABS: Chol HDL Ratio 4.63 mg/dL (1.0-5.00); Cholesterol 176 mg/dL (0-200); HDL Cholesterol 38 mg/dL (60-100); LDL Cholesterol Calculated 69 mg/dL (50-129); LDL HDL Ratio 1.82 RATIO (0.00-3.22); Triglycerides 346 mg/dL (0-150)
[2024-06-07 21:55] LABS: Estmated Average Glucose 326
[2024-06-07 21:57] LABS: Magnesium 2.2 mg/dL (1.7-2.3); Phosphorus 5.6 mg/dL (2.5-4.5)
[2024-06-07] MEDS: morphine 4 mg/mL SDV 1 mL 1 MG IVP (21:58)
[2024-06-07] MEDS: iohexol 350 mg/mL 500 mL Btl (per mL) IV (22:16)
[2024-06-07 22:26] LABS: Anion Gap 37.8 (5-19); Blood Urea Nitrogen 41 mg/dL (6-20); Calcium 7.7 mg/dL (8.5-10.5); Carbon Dioxide 10 mmol/L (22-29); Chloride 80 mmol/L (98-107); Creatinine Clr Calc Pharmacy 50.9973; Glomerular Filtration Rate 31.5 mL/min (90-130); Osmolality Calculated 304 mOsm/kg (285-295); Potassium 3.8 mmol/L (3.5-5.1); Sodium 124 mmol/L (136-145)
[2024-06-07 22:27] LABS: Troponin 5 2HR 28.37 ng/L (0-15); Troponin 5 2HR Delta 2.37 ABS# (0-10)
--- NOTE | 2024-06-07 22:30 | PC.NURSE ---
IV Infiltrate: R AC IV infiltrated w/ about 70ml of contrast dye, per Tobin from CT. Unable to aspirate, IV removed. Pharmacy notified, reported to place ice pack on affected extremity and elevate arm. Dr. Nance notified @4153.
[2024-06-07 22:34] LABS: Reflex Lactate Order REFLEX LACTIC ORDERD
[2024-06-07 23:09] LABS: Glucose 737 mg/dL (65-115)
[2024-06-07 23:29] LABS: Glucose Point of Care 513 mg/dL (70-110)
[2024-06-07 23:29] LABS: Glucose Point of Care 514 mg/dL (70-110)
--- NOTE | 2024-06-07 23:33 | PC.NURSE ---
NG: Unable to place NG tube at this time. [address] to [address] in both nares. Dr. Romo at bedside and made aware.
[2024-06-07] MEDS: piperacillin-tazobactam 3.375 GM in sodium chloride 0.9% (plus) 50 ML IV (23:42)
--- NOTE | 2024-06-07 23:45 | P.CONIM_ITS ---
Providers/Reason For Consult 2 Consulting Physician/Specialty*: General surgery Reason for Consult*: Small bowel obstruction Attending Physician: Isaac Nance MD Primary Care Provider: Juanjo Lancaster History of Present Illness History of Present Illness Juanjo Baron is a 34 year old male admitted to the hospital with DKA, after hospital admission patient complaining of significant abdominal pain and nausea. A CT scan of the abdomen and pelvis was immediately obtained. CT show evidence of high-grade small bowel obstruction, with evidence of bowel ischemia including pneumatosis and portal venous gas. On my examination of the patient he reports mild to moderate abdominal pain, states that he feels dizzy and has some nausea. Review of Systems 2 General: Reports: 10 or more systems reviewed and unremarkable except in HPI and below Medications/Allergies Home Medications Medication Instructions Recorded Confirmed Last Taken Type blood sugar diagnostic (Blood #100 ea 06/30/23 10/22/23 Unknown Rx Glucose Test strips) blood-glucose meter #1 ea 06/30/23 10/22/23 Unknown Rx lancets #100 ea 06/30/23 10/22/23 Unknown Rx blood-glucose meter,continuous #1 ea 07/09/23 10/22/23 Unknown Rx (Dexcom G6 Account Receivable Clerk) blood-glucose sensor (Dexcom G6 #3 ea 07/09/23 10/22/23 Unknown Rx Sensor device) blood-glucose transmitter (Dexcom #1 ea 07/09/23 10/22/23 Unknown Rx G6 Transmitter device) insulin glargine 100 unit/mL 10 unit SUBCUT DAILY 09/24/23 09/24/23 Unknown History subcutaneous solution (Lantus U-100 Insulin) lisinopril 10 mg tablet 10 mg PO DAILY 09/24/23 06/07/24 06/07/24 History metformin 500 mg tablet 500 mg PO BID 09/24/23 06/07/24 06/07/24 History trazodone 50 mg tablet 50 mg PO .hs PRN sleep #30 tabs 10/22/23 10/22/23 Unknown Rx lisinopril 10 mg tablet 10 mg PO DAILY #90 tabs 10/27/23 Unknown Rx insulin glargine 100 unit/mL (3 25 unit (0.25 mL) SUBCUT DAILY #15 12/09/23 Unknown Rx mL) subcutaneous pen (Lantus mL Solostar U-100 Insulin) metformin 500 mg tablet 500 mg PO BID #180 tabs 12/09/23 Unknown Rx Allergies Allergy/AdvReac Type Severity Reaction Status Date / Time No Known Allergies Allergy Verified 06/07/24 20:09 Current Medications Generic Name Dose Route Start Last Admin Trade Name Freq PRN Reason Stop Dose Admin Acetaminophen 650 mg 06/07/24 19:57 06/07/24 21:08 Acetaminophen 325 Mg Tablet PO 650 mg Q6H PRN Administration Mild/Mod Pain Or Temp >/= 101 Sodium Chloride 1,000 mls @ 150 mls/hr 06/07/24 20:00 06/07/24 23:39 Sodium Chloride 0.9% IV 150 mls/hr .Q6H40M ANA MARÍA Infusion Insulin Human Regular 100 unit in 100 mls @ 0 mls/hr 06/07/24 20:15 06/07/24 23:23 Myxredlin 100 Unit/100 Ml Bag IV 4 unit/hr PROTOCOL ANA MARÍA 4 mls/hr Titration Protocol Per Protocol Piperacillin Sod/Tazobactam 50 mls @ 12.5 mls/hr 06/07/24 23:00 06/07/24 23:42 Sod 3.375 gm/ Sodium Chloride IV 12.5 mls/hr Q8H ANA MARÍA Administration Morphine Sulfate 1 mg 06/07/24 19:57 06/07/24 21:58 Morphine 4 Mg/Ml Sdv 1 Ml IVP 1 mg Q4H PRN Administration SEVERE PAIN Ondansetron HCl 4 mg 06/07/24 19:57 06/07/24 20:38 Ondansetron 2 Mg/Ml Sdv 2 Ml IVP 4 mg Q8H PRN Administration vomiting, or N/V if npo Pantoprazole Sodium 40 mg 06/07/24 21:00 06/07/24 20:31 Pantoprazole 40 Mg Sdv IVP 40 mg Q24H ANA MARÍA Administration PFSH Acute 2 PFSH: Medical History (Updated 06/07/24 @ 23:48 by Aleksandar Romo MD) Diabetic ketoacidosis Elevated blood pressure reading Surgical History History of cardiac catheterization Family History Family/Other Diabetes Denies family history of Heart disease Cancer Social History Smoking and tobacco/nicotine status: never used tobacco/nicotine Alcohol intake: former Substance/Drug Use: never Adopted: No Caregiver/support person: No Lives independently: No Household members: friend(s) service: No Current occupational status: unemployed Current gender identity: Male Vitals/I&O/Wt Last Vital Signs Temp 97.4 F L 06/07/24 20:01 Pulse 93 06/07/24 22:00 Resp 24 H 06/07/24 22:00 BP 126/71 06/07/24 22:00 Pulse Ox 95 06/07/24 22:00 O2 Del Method Room Air 06/07/24 22:00 06/07/24 06/07/24 06/08/24 14:59 22:59 06:59 Intake Total 191.9 / 191.9 337.7 / 529.6 Output Total 1900 / 1900 Balance -1708.1 / -1708.1 337.7 / -1370.4 Weight last 48 hrs Weight 193 lb 1.6 oz Physical Exam 2 Narrative: General : Patient is alert and oriented, he does require some encouragement to answer questions. Head : Normal cephalic, a-traumatic. Nose : Mucous membranes are without erythema. Lungs : Equal chest rise bilaterally, no use of accessory muscles, trachea is midline. CV : Rate and rhythm are normal. Abdomen : Abdominal exam at this moment is benign the abdomen is soft mildly distended mildly tender Extremities : No edema. Upper extremities are normal bilaterally. Back : non-tender to palpation, no CVA tenderness. Data 06/07/24 20:32 06/07/24 21:59 Micro: Microbiology 06/07/24 20:32 Blood Culture - Preliminary Blood SPECIMEN COLLECTED 06/07/24 20:18 Blood Culture - Preliminary Blood SPECIMEN COLLECTED A&P Assessment and plan (1) Abdominal pain: (2) Hypertension: (3) Shock: (4) Diabetic ketoacidosis: (5) Lactic acidosis: (6) Nonocclusive mesenteric ischemia: Plan 34-year-old male admitted with diabetic ketoacidosis, CT of the abdomen pelvis was obtained due to significant abdominal pain, CT was concerning for findings of portal venous gas, small bowel obstruction and hypoattenuation of some of the bowel loops as well as pneumatosis concerning for the possibility of bowel ischemia. While his clinical examination appears to be benign and his lactate level is not exceedingly elevated the radiological impression of ischemic bowel with portal venous gas mandates operative exploration, in the setting of DKA the most likely cause for these imaging findings is nonocclusive mesenteric ischemia. I have offered the patient exploratory laparotomy with possible bowel resection and likely open abdomen, I have explained to the patient the risks of benefits of the procedure, I have explained to the patient that this procedure carries a high risk of mortality due to his clinical condition, I have explained the risks of injury to surrounding structures, need for additional abrasions, ostomy creation, need for resection of large amount of intestine resulting in short-bowel syndrome, coagulopathy and , sepsis, hernia formation, bleeding. Patient shows understanding and is agreeable to proceed. I have also talk over the phone with the patient brother who is listed as a person of contact and have informed him of the patient's clinical condition. He shows understanding is agreeable with us proceeding with a laparotomy. Coding Level of Care Code 48262 Diagnoses Abdominal pain R10.9 Hypertension I10 Shock R57.9 Diabetic ketoacidosis E11.10 Lactic acidosis E87.20 Nonocclusive mesenteric ischemia K55.059
--- NOTE | 2024-06-07 23:53 | ANES.PREANE2 ---
Pre-Anesthetic Assessment Height/Weight: Height 6 ft Weight 193 lb 1.6 oz Temp Pulse Resp BP Pulse Ox O2 Del Method 97.4 F L 93 24 H 126/71 95 Room Air 06/07/24 20:01 06/07/24 22:00 06/07/24 22:00 06/07/24 22:00 06/07/24 22:00 06/07/24 22:00 Preop Diagnosis: Bowel obstruction Was Beta Lulu taken within 24 hours: N/A Was Clonidine taken within 24 hours: N/A Last intake: 24 hours ago Social No alcohol and No tobacco Exam alert, oriented x 3, clear to auscultation bilaterally and regular rate & rhythm Airway Submandibular: within normal limits Cervical ROM: within normal limits Mallampati: Class IV Dentition: other (Missing teeth) Anesthetic Plan ASA status: 4E Anesthesia: General Other: No prior known anesthetic history Very sick individual, presents with small bowel obstruction and DKA History of hypertension Labs reviewed today WBC 13.5, hemoglobin 14.2 Sodium 124, K+ 3.8, anion gap 37.8, creatinine 2.4 Glucose 737, currently on insulin gtt. EKG showing sinus tachycardia Spoke with hospitalist, requesting central line and arterial line access Plan for GETA with a line. Patient will most likely remain intubated following procedure Medications/Allergies Home Medications Medication Instructions Recorded Confirmed Last Taken Type blood sugar diagnostic (Blood #100 ea 06/30/23 10/22/23 Unknown Rx Glucose Test strips) blood-glucose meter #1 ea 06/30/23 10/22/23 Unknown Rx lancets #100 ea 06/30/23 10/22/23 Unknown Rx blood-glucose meter,continuous #1 ea 07/09/23 10/22/23 Unknown Rx (Dexcom G6 Retail Manager In Training) blood-glucose sensor (Dexcom G6 #3 ea 07/09/23 10/22/23 Unknown Rx Sensor device) blood-glucose transmitter (Dexcom #1 ea 07/09/23 10/22/23 Unknown Rx G6 Transmitter device) insulin glargine 100 unit/mL 10 unit SUBCUT DAILY 09/24/23 09/24/23 Unknown History subcutaneous solution (Lantus U-100 Insulin) lisinopril 10 mg tablet 10 mg PO DAILY 09/24/23 06/07/24 06/07/24 History metformin 500 mg tablet 500 mg PO BID 09/24/23 06/07/24 06/07/24 History trazodone 50 mg tablet 50 mg PO .hs PRN sleep #30 tabs 10/22/23 10/22/23 Unknown Rx lisinopril 10 mg tablet 10 mg PO DAILY #90 tabs 10/27/23 Unknown Rx insulin glargine 100 unit/mL (3 25 unit (0.25 mL) SUBCUT DAILY #15 12/09/23 Unknown Rx mL) subcutaneous pen (Lantus mL Solostar U-100 Insulin) metformin 500 mg tablet 500 mg PO BID #180 tabs 12/09/23 Unknown Rx Allergies Allergy/AdvReac Type Severity Reaction Status Date / Time No Known Allergies Allergy Verified 06/07/24 20:09 Current Medications Generic Name Dose Route Start Last Admin Trade Name Freq PRN Reason Stop Dose Admin Acetaminophen 650 mg 06/07/24 19:57 06/07/24 21:08 Acetaminophen 325 Mg Tablet PO 650 mg Q6H PRN Administration Mild/Mod Pain Or Temp >/= 101 Sodium Chloride 1,000 mls @ 150 mls/hr 06/07/24 20:00 06/07/24 23:39 Sodium Chloride 0.9% IV 150 mls/hr .Q6H40M ANA MARÍA Infusion Insulin Human Regular 100 unit in 100 mls @ 0 mls/hr 06/07/24 20:15 06/07/24 23:23 Myxredlin 100 Unit/100 Ml Bag IV 4 unit/hr PROTOCOL ANA MARÍA 4 mls/hr Titration Protocol Per Protocol Piperacillin Sod/Tazobactam 50 mls @ 12.5 mls/hr 06/07/24 23:00 06/07/24 23:42 Sod 3.375 gm/ Sodium Chloride IV 12.5 mls/hr Q8H ANA MARÍA Administration Morphine Sulfate 1 mg 06/07/24 19:57 06/07/24 21:58 Morphine 4 Mg/Ml Sdv 1 Ml IVP 1 mg Q4H PRN Administration SEVERE PAIN Ondansetron HCl 4 mg 06/07/24 19:57 06/07/24 20:38 Ondansetron 2 Mg/Ml Sdv 2 Ml IVP 4 mg Q8H PRN Administration vomiting, or N/V if npo Pantoprazole Sodium 40 mg 06/07/24 21:00 06/07/24 20:31 Pantoprazole 40 Mg Sdv IVP 40 mg Q24H ANA MARÍA Administration PFSH Anesthesia Medical History (Updated 06/07/24 @ 23:48 by Aleksandar Romo MD) Diabetic ketoacidosis Elevated blood pressure reading Surgical History History of cardiac catheterization Family History Family/Other Diabetes Denies family history of Heart disease Cancer Social History Smoking and tobacco/nicotine status: never used tobacco/nicotine Alcohol intake: former Substance/Drug Use: never Adopted: No Caregiver/support person: No Lives independently: No Household members: friend(s) service: No Current occupational status: unemployed Current gender identity: Male Data Anesthesia 06/07/24 20:32 06/08/24 00:15 Short CBC 06/07/24 Range/Units 20:32 WBC 13.56 H (3.29-11.43) 10^3/uL Hgb 14.20 (11.27-16.99) g/dL Hct 42.4 (37-53) % MCV 86.5 (82-101) fl Plt Count 245 (157-399) 10^3/cmm Neut % (Auto) 89.3 % Neut # (Auto) 12.11 H (1.8-7.7) 10^3/uL BMP 06/07/24 06/07/24 06/07/24 20:18 20:32 21:59 Sodium Cancelled 120 L 124 L Potassium Cancelled 4.6 3.8 Chloride Cancelled 75 L 80 L Carbon Dioxide Cancelled 7 L* 10 L BUN Cancelled 45 H 41 H Creatinine Cancelled 2.5 H 2.4 H Glucose Cancelled 911 H* 737 H* Calcium Cancelled 7.6 L 7.7 L Cardiac Enzymes 06/07/24 06/07/24 06/07/24 Range/Units 20:18 20:32 21:59 Troponin T Baseline 26 H (0-15) ng/L Troponin T 120 Minute 28.37 H (0-15) ng/L Delta Troponin T 2.37 (0-10) ABS# NT-Pro-B Natriuret Pep 565 H (0-125) pg/mL Liver Function 06/07/24 Range/Units 20:32 Total Bilirubin 0.4 (0.15-1.2) mg/dL Direct Bilirubin 0.20 (0.00-0.30) mg/dL AST 19 (0-40) U/L ALT 23 (0-41) U/L Alkaline Phosphatase 129 (40-130) U/L Albumin 4.3 (3.5-5.2) g/dL Urine 06/07/24 Range/Units 20:41 Urine Color Yellow (Yellow) Urine Appearance Clear (CLEAR) Urine pH 5 (5-7) Ur Specific [place] 1.015 (1.005-1.030) Urine Protein Trace (Negative) Urine Glucose (UA) 4+ H (Normal) Urine Ketones 2+ H (Negative) Urine Nitrate Negative (Negative) Urine Bilirubin Neg (Negative) Ur Leukocyte Esterase Negative (Negative) Urine RBC 0-4 H (0-2) /hpf Urine WBC 0-4 H (0-5) /hpf Coags 06/07/24 20:32 C-Reactive Protein 12.6 H ABG 06/07/24 20:42 Specimen Type Arterial Sample Site Radial, right ABG pH 7.17 L* ABG pCO2 20.7 L ABG pO2 121.0 H ABG PO2/FiO2 Ratio 576 ABG HCO3 7.6 L ABG Base Excess -18.8 L O2 Delivery Device Room air FiO2 21.0 Microbiology 06/07/24 20:32 Blood Culture - Preliminary Blood SPECIMEN COLLECTED 06/07/24 20:18 Blood Culture - Preliminary Blood SPECIMEN COLLECTED Cardiac Studies: No Data to Display
[2024-06-08] VITALS (97 sets, daily range): BP systolic 88–150; BP diastolic 44–93; PULSE 86–128; RESP 14–25; TEMP 36.6–38.7; O2SAT 93–100
[2024-06-08 00:16] LABS: Glucose Point of Care 446 mg/dL (70-110)
[2024-06-08] MEDS: lidocaine 1% 5 ML in potassium chloride premix 100 ML 25 ML IV (00:27)
--- NOTE | 2024-06-08 00:42 | PC.NURSE ---
Addendum entered by Marlene March RN 06/08/24 05:32: @0315 Dr. Nance at bedside, pt began to wake up/increased agitation, approved sedation to be titrated up greater than protocol to reach Pino sedation score goal. Addendum entered by Marlene March RN 06/08/24 03:55: Pt returned from surgery @0252 to ICU 2, continuous cardiac monitoring continued. Levophed running @16mcg/min, verbal order from anaesthesia to place order in chart and change to premixed bag, see MAR . Dr. Nance on unit shortly after return to see pt. Original Note: Surgery: Left for surgery @0030. Verbal order from Dr. Son for propofol and fentanyl drip post opverative.
[2024-06-08 00:55] LABS: Anion Gap 28.6 (5-19); Blood Urea Nitrogen 36 mg/dL (6-20); Carbon Dioxide 14 mmol/L (22-29); Chloride 89 mmol/L (98-107); Creatinine Clr Calc Pharmacy 61.1967; Glomerular Filtration Rate 38.9 mL/min (90-130); Glucose 494 mg/dL (65-115); Osmolality Calculated 296 mOsm/kg (285-295); Potassium 3.6 mmol/L (3.5-5.1); Sodium 128 mmol/L (136-145)
[2024-06-08 00:56] LABS: Lactic Acid level (Lactate) 1.7 mmol/L (0.5-2.2)
--- NOTE | 2024-06-08 02:01 | ECG_ITS ---
[facility] Test Date: 2024-06-08 Pat Name: Juanjo Baron Department: Room: ICU02 Gender: Male [employer] Design: : 1990 Requested By: Isaac Nance Order Number: [id number] Celso MD: Shalonda Storey M.D. Measurements Intervals Gans Rate: 89 P: 73 VA: 127 QRS: 51 QRSD: 96 T: 51 QT: 332 QTc: 405 Interpretive Statements SINUS RHYTHM INDETERMINATE AXIS INCOMPLETE RIGHT BUNDLE BRANCH BLOCK [90+ ms QRS DURATION, TERMINAL R IN V1/V2, 40+ ms S IN I/aVL/V4/V5/V6] Compared to ECG 06/07/2024 20:44:03 Indeterminate axis now present Incomplete right bundle-branch block now present Sinus tachycardia no longer present Electronically Signed On 06-09-2024 0:26:43 CDT by Shalonda Storey M.D. [id number]
--- NOTE | 2024-06-08 02:11 | PM.OP ---
Operative Report Date of procedure: June 08, 2024 Pre-op diagnosis: Small bowel obstruction Post-op diagnosis: Nonocclusive mesenteric ischemia Post-op findings: There was around 100 cm of devitalized small bowel, the small bowel had several patches of necrosis with no evidence of perforation. Stomach duodenum proximal jejunum were healthy terminal ileum was healthy as well as the colon. Procedure done: Exploratory laparotomy, bowel resection and ABThera placement Specimens removed/disposition: Portion of the small bowel Surgeon: Aleksandar Romo MD Estimated blood loss: 10 cc Complications: None apparent Brief History: 34-year-old male with DKA who presented with abdominal pain CT scan done show evidence of pneumatosis intestinalis and suspected ischemia as well as portal gas, exploratory laparotomy was indicated, after discussion of all risk and benefits with the patient and family members decided to proceed. Procedure: Patient was brought into the OR, he was placed in the supine position. General anesthesia was given. Arterial line and Ye catheter were placed. The abdomen was prepped and draped in the usual sterile fashion. Timeout was conducted. I made a 20 cm laparotomy incision in the midline, the incision was carried down to the level of the fascia with electrocautery, the fascia was opened in the level of the linea alba with electrocautery, no evidence of visceral injury during entry was noted, once the laparotomy was created and Roberto wound retractor was placed. I then proceeded to every serrated the small bowel, the small bowel was ran from the ligament of Treitz to the level of the terminal ileum. The bowel was noted to be distended up to the level of the distal jejunum, at this point it tapered down to a normal caliber without any obvious transition point, after extensive evaluation of the bowel I noted several patches of ischemia and early necrotic changes in the mid jejunum, this changes unfortunately involves almost the majority of the jejunum. I proceeded to wrap the bowel with some warm compresses to allow for return of circulation, after 5 minutes of wrapping there was no changes in the bowel, no visible peristalsis and several areas of the all appear devitalized. I therefore proceeded with a resection of this segment of bowel, I did this using a 75 mm blue load RUMA stapler to transect at the proximal and distal margins of viability. I then used LigaSure to transect the mesentery and the specimen was liberated. The specimen measured a total of 130 cm. I then proceeded to reexamining the small bowel, around the bowel from the level of the ligament of Treitz to the area of transection and it appeared healthy with no evidence of necrosis and then from the area of distal transection to the terminal ileum the bowel also appeared healthy there was no evidence of pathology at this level. The colon was examined and was normal the stomach was examined and was normal and the position of the NG tube was verified. The liver appeared normal to palpation. At this point we decided to proceed with ABThera placement to return to the OR in the next 48 hours for second look some possible bowel anastomosis. The ABThera wound VAC was placed in the standard fashion and seal was verified. At the end of the procedure all counts were correct, the patient tolerated well the procedure and remained in the operative room for central line placement by anesthesia team. Patient will be then transferred to the ICU intubated and with open abdomen.
--- NOTE | 2024-06-08 02:30 | ANES.PROC ---
Anesthesia Procedures Procedure/Date: 06/08/24 Central Venous Insert: Time Out Performed: Yes Consent: requested by attending/covering physician Central Line: New Anesthesia monitors: pulse oximetry, EKG, BP cuff and oxygen Vein cannulated: right internal jugular Ultrasound used: to identify patency to vessel and to visualize needle entry to vein Post procedure: Obtain Chest X-Ray
--- NOTE | 2024-06-08 02:53 | XRR_ITS ---
PROCEDURE INFORMATION: Exam: XR Chest Exam date and time: 06/08/2024 3:40 AM Age: 34 years old Clinical indication: Other vascular access device placement or adjustment; Central line, non-tunnelled; Additional info: Verify central line placement TECHNIQUE: Imaging protocol: Radiologic exam of the chest. Views: 1 view. COMPARISON: CR (CHEST, ) 06/07/2024 8:16 PM FINDINGS: Tubes, catheters and devices: Interval placement of right central venous catheter with tip at the distal superior vena cava. Interval placement endotracheal tube which projects 3.0 cm from the marialuisa. Interval placement of enteric tube, side fenestration and catheter tip not within field of view. Lungs: Unremarkable. No consolidation. Pleural spaces: Unremarkable. No pleural effusion. No pneumothorax. Heart/Mediastinum: Unremarkable. No cardiomegaly. Bones/joints: Unremarkable. XR/XR chest 1V portable [id number] IMPRESSION: 1. Medical devices as above, intervally placed. 2. No acute cardiopulmonary findings.
[2024-06-08] MEDS: propofol 1,000 MG/100 ML INJ 5.26 MG IV (02:58)
[2024-06-08] MEDS: fentaNYL 1,000 MCG/100 ML BAG 2.5 MCG IV (02:59)
--- NOTE | 2024-06-08 03:01 | ANE.PACU2 ---
Inpatient post-anesthesia follow up: Airway intact: No Vital signs: Temperature 101.6 F Pulse Rate 120 Respiratory Rate 16 Blood Pressure 99/59 Pulse Oximetry 93 Oxygen Delivery Me thod Mechanical Ventila tion Oxygen Flow Rate Fraction of Inspir ed Oxygen 21 Hydration adequate: Yes Nausea and vomiting: No Pain level: 1 Mental status: Baseline Additional Comments: Patient remains intubated on vasopressor support
[2024-06-08 03:27] LABS: Glucose Point of Care 400 mg/dL (70-110)
[2024-06-08 03:27] LABS: Glucose Point of Care 396 mg/dL (70-110)
[2024-06-08 03:53] LABS: Troponin 5 6HR 27.49 ng/L (0-15); Troponin 5 6HR Delta 1.49 ng/L (0-12)
[2024-06-08 03:53] LABS: Anion Gap 23.5 (5-19); Blood Urea Nitrogen 36 mg/dL (6-20); Calcium 7.1 mg/dL (8.5-10.5); Carbon Dioxide 18 mmol/L (22-29); Chloride 97 mmol/L (98-107); Creatinine Clr Calc Pharmacy 64.4176; Glomerular Filtration Rate 41.3 mL/min (90-130); Glucose 380 mg/dL (65-115); Osmolality Calculated 302 mOsm/kg (285-295); Potassium 4.5 mmol/L (3.5-5.1); Sodium 134 mmol/L (136-145)
[2024-06-08] MEDS: norepinephrine 4 MG/250 ML BAG 60 MG IV (04:02)
[2024-06-08 04:22] LABS: Glucose Point of Care 385 mg/dL (70-110)
[2024-06-08 04:22] LABS: Glucose Point of Care 346 mg/dL (70-110)
[2024-06-08] MEDS: sodium chloride 0.9% 1,000 ML 150 ML IV (04:39)
[2024-06-08 05:03] LABS: ABG PCO2 34.6 mmHg (35-45); ABG PH Result 7.32 (7.35-7.45); Arterial Blood Gas Hematocrit 42.6 % (42-52); Base Excess ABG -7.3 mmol/L (-2.0-2.0); Blood Gas Sample Type Arterial; Carboxyhemoglobin < 0.3 %THgb (0.4-20.1); HCO3 ABG 17.9 mmol/L (22-26); HGB O2 Sat 94.9 % (95-100); Methemoglobin 1.5 % (0.4-1.5); Oxygen Saturation ABG 95.9; Potassium Level - ABG 3.5 mmol/L (3.5-5.0); Total Hemoglobin 13.9 g/dL (14-18)
[2024-06-08 05:05] LABS: Alveolar-Arterial Oxygen Gradi 2.5 mmHg (5-10); Blood Gas Operator Identificat ED; Blood Gas Sample Site Not specified; Oxygen Device VENT; PO2 FiO2 Ratio Arterial Blood 445
--- NOTE | 2024-06-08 05:18 | PM.CCNAC ---
Critical Care Event Note The high probability of a clinically significant, sudden or life threatening deterioration of the patient's [] system(s) required my full and direct attention, intervention and personal management. The critical care time is as shown. This time is in addition to time spent performing any reported procedures but includes the following: [x] Data and vital sign review and interpretation [x] Patient assessment, examination and intervention [x] Documentation [x] Medication orders and management Critical Care Time Code activated: No Critical Care Time (min): 35 Additional information about critical care time: -Spoke to anesthesia about placing a central line, arterial line, will remain intubated after procedure plan on ABThera placement - Spoke to general surgery, patient was found to have 100 cm of devitalized small bowel, with several patches of necrosis, no evidence of perforation, status post exploratory laparotomy and bowel resection ABThera placement -Patient will be moved to the ICU, with ABThera in place, plan on going back for closure in 48 hours and second look -Patient was examined postoperatively -Currently intubated, sedated on propofol, fentanyl -He is on 16 of Levophed, septic shock, DP PT pulses palpable, mild mottling bilateral lower extremity, cap refill greater than 2 seconds -Receiving IV fluids, potassium -Surgical site looks clean and dry -Intubated, sedated, on 35% FiO2 -Discussed with nursing staff to monitor blood sugar q. hourly, repeat BMP -Zosyn added for antibiotic coverage, added vancomycin -Monitor for fevers -Intubated, sedated on mechanical ventilation, minimize tidal volume, otherwise FiO2 -Repeat ABG ? Ye catheter placed, monitor urine output ? Arterial line in place, central line in place Coding Level of Care Code Acute Code for Chg Fwd
[2024-06-08 06:05] LABS: Glucose Point of Care 307 mg/dL (70-110)
[2024-06-08 06:05] LABS: Glucose Point of Care 279 mg/dL (70-110)
[2024-06-08 06:05] LABS: Glucose Point of Care 261 mg/dL (70-110)
[2024-06-08] MEDS: vancomycin 2,000 MG/400 ML PIGGYBACK 200 MG IV (06:16)
[2024-06-08] MEDS: piperacillin-tazobactam 3.375 GM in sodium chloride 0.9% (plus) 50 ML IV ×3 (06:24→21:38)
[2024-06-08] MEDS: propofol 1,000 MG/100 ML INJ 26.28 MG IV ×2 (06:27→10:33)
[2024-06-08] MEDS: enoxaparin 40 mg/0.4 mL Syringe SUBCUT (06:28)
[2024-06-08 06:48] LABS: Basophils % 0.2 %; Mean Platelet Volume 9.7 fL (7.4-10.4); Nucleated Red Blood Cells % 0 %; Red Cell Distribution Width 11.9 % (12.1-15.1)
[2024-06-08 06:56] LABS: Hematocrit 37.8 % (37-53); Lymphocytes # 0.3 10^3/uL (0.8-4.8); Mean Corpuscular HGB Conc 35.7 g/dL (30-55); Mean Corpuscular Hemoglobin 29.3 pg (27-33); Mean Corpuscular Volume 82.2 fl (82-101); Monocytes # 0.9 10^3/uL (0.2-0.9); Monocytes % 9.2 %; Neutrophils # 8.47 10^3/uL (1.8-7.7); Neutrophils % 87.1 %; Platelet Count 217 10^3/cmm (157-399); White Blood Count 9.72 10^3/uL (3.29-11.43)
--- NOTE | 2024-06-08 06:57 | PHA.VACGOAL ---
Vancomycin Goal - Goal Vancomycin Goal:: 15-20 mg/L Vancomycin Indication:: Other (SEPSIS) - Therapy Current therapy:: Pip/Tazo Day of therpy:: Day [1]of [] . Actual body weight (kg): 85.321 kg - Data Labs: WBC 13.56 10^3/uL (3.29-11.43) H 06/07/24 20:32 RBC 4.90 10^6/uL (3.85-5.65) 06/07/24 20:32 Hgb 14.20 g/dL (11.27-16.99) 06/07/24 20:32 Hct 42.4 % (37-53) 06/07/24 20:32 MCV 86.5 fl (82-101) 06/07/24 20:32 MCH 29.0 pg (27-33) 06/07/24 20:32 MCHC 33.5 g/dL (30-55) 06/07/24 20:32 RDW 11.8 % (12.1-15.1) L 06/07/24 20:32 Sodium 134 mmol/L (136-145) L 06/08/24 03:09 Potassium 4.5 mmol/L (3.5-5.1) 06/08/24 03:09 Chloride 97 mmol/L (98-107) L 06/08/24 03:09 Carbon Dioxide 18 mmol/L (22-29) L 06/08/24 03:09 Anion Gap 23.5 (5-19) H 06/08/24 03:09 BUN 36 mg/dL (6-20) H 06/08/24 03:09 Creatinine 1.9 mg/dL (0.7-1.2) H 06/08/24 03:09 GFR Calculation 41.3 mL/min (90-130) L 06/08/24 03:09 Treatment plan:: new consult Regimen:: Telepharmacy dosing. Comments: 1250 mg IV Q24hr (infused over 1.5 hr) AUC/ELIAZAR 546 mcg*hr/mL (goal 400 to 600 mcg*hr/mL) Peak 27.4 mcg/mL Trough 18.6 mcg/m Serum Creatinine: 1.9 CrCL: 64.4176 Indication: SEPSIS Dose (mg): 1250MG Frequency: Q24 HOURS Height (cm): 182.88 CM Weight (kg): 87.589 KG Age (Years): 34 Did you include on daily report?: Yes First Dose Time and Date: LOADING DOSE 2000MG 06/08 0600
[2024-06-08 07:23] LABS: Slide Review Slide Review Perform
[2024-06-08] MEDS: norepinephrine 4 MG/250 ML BAG 48.75 MG IV (07:44)
--- NOTE | 2024-06-08 08:14 | P.PN_ITS ---
Subjective 2 Subjective: Operative day 0 status post proctoscopy laparotomy bowel resection for possible nonocclusive mesenteric ischemia due to DKA. Patient is doing well, is intubated breath is waking up and following commands, does not complain of significant abdominal pain, ABThera output has been 150 cc since we left OR. Vitals/I&O/Wt Last Vital Signs Temp 97.8 F 06/08/24 03:15 Pulse 103 H 06/08/24 06:46 Resp 16 06/08/24 07:47 BP 113/67 06/08/24 06:46 Pulse Ox 94 06/08/24 07:47 O2 Del Method Mechanical Ventilation 06/08/24 06:46 FiO2 21 06/08/24 07:47 06/07/24 06/08/24 06/08/24 22:59 06:59 14:59 Intake Total 191.9 / 191.9 1421.109 / 1613.009 77.275 / 77.275 Output Total 1900 / 1900 1550 / 3450 Balance -1708.1 / -1708.1 -128.891 / -1836.991 77.275 / 77.275 Weight last 48 hrs Weight 188 lb 1.6 oz Weight 193 lb 1.6 oz Physical Exam 2 Narrative: Patient is intubated, following commands and opening eyes. No significant abdominal pain, abdomen is nondistended, ABThera dressing is in place effluent is serosanguineous. NG tube is in place has had additional 500 cc of bilious fluid overnight Urinary Catheter Management: Ye: Cath Placed During This Visit: yes Reason for Continuing Indwelling Catheter: Accurate Measurement of Urinary Output in Critically Ill Patients Urinary Catheter Date of Insertion: 06/08/24 Urinary Catheter Time of Insertion: 00:50 Data 06/08/24 03:04 06/08/24 03:09 Micro: Microbiology 06/07/24 20:32 Blood Culture - Preliminary Blood SPECIMEN COLLECTED 06/07/24 20:18 Blood Culture - Preliminary Blood SPECIMEN COLLECTED A&P Assessment and plan (1) Abdominal pain: (2) Nonocclusive mesenteric ischemia: (3) Shock: (4) Lactic acidosis: Plan 34-year-old male with DKA and suspected nonocclusive mesenteric ischemia requiring exploratory laparotomy and bowel resection. Patient is doing well overnight, vital signs are improving as well as laboratory workup. The plan from the general surgery standpoint will be to return to the OR tomorrow for reexploration and possible anastomosis and closure. All other management per hospitalist team. Attestations 2 Medical Necessity Statement*: Per hospitalist team Coding Level of Care Code Acute Code for Chg Fwd Diagnoses Abdominal pain R10.9 Nonocclusive mesenteric ischemia K55.059 Shock R57.9 Lactic acidosis E87.20
[2024-06-08 08:40] LABS: Glucose Point of Care 162 mg/dL (70-110)
[2024-06-08 08:40] LABS: Glucose Point of Care 235 mg/dL (70-110)
[2024-06-08 08:44] LABS: Anion Gap 18.9 (5-19); Blood Urea Nitrogen 26 mg/dL (6-20); Calcium 7.2 mg/dL (8.5-10.5); Carbon Dioxide 20 mmol/L (22-29); Chloride 102 mmol/L (98-107); Creatinine Clr Calc Pharmacy 80.6884; Glomerular Filtration Rate 54.2 mL/min (90-130); Glucose 195 mg/dL (65-115); Osmolality Calculated 294 mOsm/kg (285-295); Potassium 3.9 mmol/L (3.5-5.1); Sodium 137 mmol/L (136-145)
[2024-06-08] MEDS: dextrose 5%-ns + KCl 20 20 MEQ/1,000 ML BAG 150 MEQ IV ×2 (09:44→17:19)
[2024-06-08 09:45] LABS: Glucose Point of Care 179 mg/dL (70-110)
[2024-06-08] MEDS: fentaNYL 1,000 MCG/100 ML BAG 10 MCG IV ×2 (10:07→10:12)
[2024-06-08 10:22] LABS: Iron 20 ug/dL (59-158); Percent Saturation 12.5 % (20-50); Total Iron Binding Capacity 160 mcg/dl; Unsaturated Iron Binding 140 ug/dL (112-347)
[2024-06-08 10:35] LABS: Procalcitonin 6.68 ng/mL (0-0.5); Vitamin B12 1930 pg/mL (232-1245)
[2024-06-08] MEDS: acetaminophen 1,000 MG/100 ML PIGGYBACK 400 MG IV (12:21)
[2024-06-08 12:22] LABS: Glucose Point of Care 206 mg/dL (70-110)
[2024-06-08 12:32] LABS: Anion Gap 21.1 (5-19); Blood Urea Nitrogen 22 mg/dL (6-20); Calcium 7.2 mg/dL (8.5-10.5); Carbon Dioxide 18 mmol/L (22-29); Chloride 100 mmol/L (98-107); Creatinine Clr Calc Pharmacy 86.4519; Glomerular Filtration Rate 58.7 mL/min (90-130); Glucose 271 mg/dL (65-115); Osmolality Calculated 293 mOsm/kg (285-295); Potassium 4.1 mmol/L (3.5-5.1); Sodium 135 mmol/L (136-145)
[2024-06-08] MEDS: INSULIN REGULAR IN 0.9 % NACL 100 UNIT/100 ML BAG IV (12:44)
[2024-06-08] MEDS: ipratropium-albuterol 3 mL Neb INHALATION ×2 (13:01→19:40)
--- NOTE | 2024-06-08 13:05 | PC.NURSE ---
Patient has an Art line, but it is not functional. Showing blood pressures much lower than the non invasive BP cuff. Nurse zeroed artline but it did not resolve the discrepancy. Nurse checked a manual blood pressure and it matches the automated NIBP which is within normal limits. Another nurse checked a manual blood pressure to double check and it matches the automated NIBP. NIBP also raises or lowers with the titration of levophed while the art line BP does not. Nurse is titrating levophed using NIBP recordings.
--- NOTE | 2024-06-08 13:10 | PC.NURSE ---
Addendum entered by Ruddy Swan RN 06/08/24 19:30: Patient has had multiple visitors today, most related through marriage or friends. Received conflicting stories on patient's living arrangements and locations of brothers previously mentioned (see amended note). Different visitors wanting different people added or removed from the contact list. I cannot remember which family/friend i have told this to, but I advised that i will keep Renay Baltazar (niece) as the primary contact as she is the only blood relative to have physically been here, is easy to reach, and is comfortable making medical decisions, and I am Keeping Guillaume Baron (uncle) as he is also a relative. Will remove other names/contacts. It is getting too confusing and time consuming to update multiple people who may receive different updates as the condition changes, also concerns for privacy as we are receiving conflicting stories on who is a relative. Original Note: Niece Renay Baltazar will be decision maker for the patient, she is the closest living blood relative we can contact. Patient's parents are , he has a daughter but she is a child, his brother is in [place] [facility] at an unknown location, patient has a younger brother but no one knows where he is or how to reach him. Renay is over 18, and states she is comfortable making decisions since the patient is incapacitated temporarily. Patient has not made any wishes known to her before hospitalization. Added Ignacio to contact list
[2024-06-08] MEDS: norepinephrine 4 MG/250 ML BAG 45 MG IV (13:24)
[2024-06-08 13:35] LABS: Glucose Point of Care 269 mg/dL (70-110)
[2024-06-08 13:35] LABS: Glucose Point of Care 254 mg/dL (70-110)
--- NOTE | 2024-06-08 13:49 | P.PN_ITS ---
Subjective 2 Subjective: Admitted overnight. H&P and labs appreciated. On examination patient intubated and sedated. Currently on 100 of fentanyl, 45 of propofol, 2 of Levophed, 0.5 of insulin drip. Current ventilator settings of FiO2 of 24, tidal 0.500 with PEEP of 5 saturating 95%. Tmax of 100.3. Mean artery pressure maintained at 65 mmHg. Urine output of around 3.7 L since admission. Vitals/I&O/Wt Last Vital Signs Temp 100.3 F H 06/08/24 12:30 Pulse 99 06/08/24 13:01 Resp 16 06/08/24 13:05 BP 105/55 06/08/24 13:00 Pulse Ox 95 06/08/24 13:05 O2 Del Method Mechanical Ventilation 06/08/24 13:01 FiO2 21 06/08/24 13:05 06/07/24 06/08/24 06/08/24 22:59 06:59 14:59 Intake Total 191.9 / 191.9 1421.109 / 6414.480 6949.141 / 1547.141 Output Total 1900 / 1900 1550 / 3450 250 / 250 Balance -1708.1 / -1708.1 -128.891 / -1379.661 7797.141 / 1297.141 Weight last 48 hrs Weight 85.321 kg Weight 87.589 kg Physical Exam 2 Narrative: General: Intubated, sedated, on wound VAC HEENT: PERRLA, pupils bilaterally equal and reactive Chest: Normal vesicular breath sounds, no added sounds, equal good air entry bilaterally CVS: S1-S2 regular, no murmurs, no tachycardia, no gallops, no rubs Abdomen: Central wound VAC present, bowel sounds sluggish Neuro: Intubated, sedated Urinary Catheter Management: Ye: Cath Placed During This Visit: yes Reason for Continuing Indwelling Catheter: Accurate Measurement of Urinary Output in Critically Ill Patients Urinary Catheter Date of Insertion: 06/08/24 Urinary Catheter Time of Insertion: 00:50 Data 06/08/24 03:04 06/08/24 11:59 Micro: Microbiology 06/08/24 07:58 Gram Stain - Final Sputum - Endotracheal Tube Aspirate 06/07/24 20:41 Bacterial Antigens - Final Urine Kidney 06/07/24 20:32 Blood Culture - Preliminary Blood SPECIMEN COLLECTED 06/07/24 20:18 Blood Culture - Preliminary Blood SPECIMEN COLLECTED A&P Assessment and plan (1) Shock: (2) Diabetic ketoacidosis: (3) Nonocclusive mesenteric ischemia: (4) S/P exploratory laparotomy: (5) S/P small bowel resection: (6) Lactic acidosis: Plan Diabetic ketoacidosis: A1c of 13. Continue with insulin drip for now. Monitor potassium and BMP every 4 hours. Target potassium over 4. Continue with normal saline at 150 cc/h. Switch to D5 NS once blood sugar less than 250. Monitor anion gap. NPO. Septic shock: Most likely in setting of nonocclusive mesenteric ischemia. Cannot rule out peritonitis. Keep mean artery pressure 65. Wean Levophed accordingly. Follow-up blood culture, check MRSA swab. Follow-up urine culture. Continue with empiric vancomycin and Zosyn for now. Mesenteric ischemia: Nonocclusive: Post exploratory laparotomy and small bowel resection day 0. Wound VAC in place. Possible repeat visit to the OR in next 24 hours. Appreciate surgical recommendations. Anticoagulation as per surgical team. Keep n.p.o. for now. Respiratory failure: Currently on minimal ventilator settings. Will keep ventilated without sedation vacation for next 24 hours as patient would most likely go back to the OR. Maintain fentanyl over 100 for pain control. Wean propofol accordingly. Anesthesia: Propofol, fentanyl Glycemic control: Insulin drip Nutrition: N.p.o. CODE STATUS: Full code PUD prophylaxis: Protonix DVT prophylaxis: SCD Discharge planning: Depending on the clinical picture going forward. Continue with care at ICU This documentation was created by [employer] cnc mill set up operator software. Every effort was made to ensure accuracy of cnc mill set up operator. Any obvious errors or omissions should be clarified with the author of the document. Patient's care discussed in detail with niece Ms. Niño over the phone. Patient does not have a direct family relation available. Has a daughter but is minor. Parents are . Has a brother whose whereabouts are unknown. Ms. Niño is agreeable to make medical decisions. All the questions were answered. Attestations 2 Medical Necessity Statement*: Requires further hospitalization for management of septic shock, DKA in setting of mesenteric ischemia post laparotomy and bowel resection as patient remains mechanically ventilated and will need repeat visit to the OR Critical Care Time: The high probability of a clinically significant, sudden or life threatening deterioration of the patient's [endocrine, respiratory, GI, ID] system(s) required my full and direct attention, intervention and personal management. The critical care time is as shown. This time is in addition to time spent performing any reported procedures but includes the following: [x] Data and vital sign review and interpretation [x] Patient assessment, examination and intervention [x] Documentation [x] Medication orders and management Critical Care Time (min): 90 Coding Level of Care Code Critical Care >/= 30 minutes Critical care time (in minutes): 90 The high probability of a clinically significant, sudden or life threatening deterioration, as referenced in this documentation, required my full and direct attention, intervention and personal management. The critical care time shown is in addition to time spent performing any reported separately billable procedures and includes the following: [x] Data and vital sign review and interpretation [x ] Patient assessment, examination and intervention [x] Medication orders and management [x] Patient/Family updates as able [x] Care Coordination and Documentation. Other Coding Information This patient has a high probability of clinically significant, sudden or life threatening deterioration of the patient's (neurological/pulmonary/cardiac/renal/ID/endocrine) systems required my full, direct attention, the highest level of physician preparedness for urgent intervention and personal management. I managed/supervised life or organ supporting interventions that required frequent physician assessment. I devoted my full attention in the ICU to the direct care of this patient for the period of time indicated above. Time I spent with family or surrogate(s) is included only if the patient was incapable of providing necessary information or participating in decision making. This time includes the following services provided: Telemetry review Mechanical Ventilation Hemodynamic interpretation, assessment and management Review and interpretation of CXR Review and interpretation of lab values Review and interpretation of microbiologic data and culture results Review of medications and administration Review and interpretation of Nutrition requirements and management Discussion of management with other consultants and services Clinical update to family members Diagnoses Shock R57.9 Diabetic ketoacidosis E11.10 Nonocclusive mesenteric ischemia K55.059 S/P exploratory laparotomy Z98.890 S/P small bowel resection Z90.49 Lactic acidosis E87.20
--- NOTE | 2024-06-08 13:58 | USCV_ITS ---
Juanjo Baron Age: 34 Gender: M : 1990 Exam Date: 06/08/2024 19:10 Ordering Phys: Junior Germain MD Technologist: AMILCAR Exam Location: [facility] [place] Indication: septic shock s/p exploratory laparotomy with 130mm of necrotic bowel excision. Patien is on ventilator in ICU 2. BP: 105 / 54 HR: 107 Rhythm: Sinus Technical Quality: Adequate MEASUREMENTS (Male / Female) Normal Values 2D ECHO LV Diastolic Diameter PLAX 3.9 cm 4.2 - 5.9 / 3.9 - 5.3 cm IVS Diastolic Thickness 1.4 cm 0.6 - 1.0 / 0.6 - 0.9 cm IVS Systolic Thickness 1.6 cm LVPW Diastolic Thickness 1.0 cm 0.6 - 1.0 / 0.6 - 0.9 cm LVPW Systolic Thickness 1.4 cm LVOT Diameter 1.7 cm LV Ejection Fraction 2D Teich 67.7 % LV Ejection Fraction MOD 4C 59.6 % LV Ejection Fraction MOD 2C 38.3 % LV Ejection Fraction 2C AL 36.5 % LA Diameter 2.6 cm Aorta at Sinotubular Diameter 2.0 cm IVC Diameter 1.0 cm M-MODE LA Ao Ratio MM 1.0 AV Cusp Separation MM 2.5 cm DOPPLER AV Peak Velocity 203.0 cm/s LVOT Peak Velocity 152.0 cm/s AV Area Cont Eq vti 1.8 cm squared AV Area Cont Eq pk 1.7 cm squared MV Area PHT 4.4 cm squared Mitral E to A Ratio 0.8 TR Peak Velocity 214.0 cm/s TR Peak Gradient 18.3 mmHg TV Peak E Velocity 43.0 cm/s Right Atrial Pressure 3.0 mmHg Pulmonary Artery Systolic Pressu 21.3 mmHg PV Peak Velocity 201.0 cm/s FINDINGS Left Ventricle Technically limited quality echocardiogram because of tachycardia. Left ventricle is normal in size. LV systolic function is grossly normal. Right Ventricle Grossly normal Right Atrium Normal in size Left Atrium Normal in size Mitral Valve Structurally normal mitral valve. Aortic Valve Grossly normal Tricuspid Valve Insufficient TR jet to calculate RVSP Pulmonic Valve Not well visualized Pericardium Possible small sized pericardial effusion Aorta Normal in size IVC Appears to be normal CONCLUSIONS Technically limited quality echocardiogram because of tachycardia. LV systolic function is grossly normal. Possible small sized pericardial effusion. No gross valvular abnormalities. No comparison studies are available. Michele Jimenez MD (Electronically Signed) Final Date: 09 June 2024 12:26 S
[2024-06-08] MEDS: propofol 1,000 MG/100 ML INJ 28.9 MG IV (14:24)
[2024-06-08 14:52] LABS: Glucose Point of Care 248 mg/dL (70-110)
[2024-06-08 14:52] LABS: Glucose Point of Care 213 mg/dL (70-110)
[2024-06-08 15:53] LABS: Glucose Point of Care 256 mg/dL (70-110)
[2024-06-08 15:56] LABS: ABG PCO2 37.4 mmHg (35-45); ABG PH Result 7.39 (7.35-7.45); Alveolar-Arterial Oxygen Gradi 2.6 mmHg (5-10); Arterial Blood Gas Hematocrit 40.8 % (42-52); Base Excess ABG -2.1 mmol/L (-2.0-2.0); Blood Gas Sample Type Arterial; Carboxyhemoglobin 0.9 %THgb (0.4-20.1); HCO3 ABG 22.5 mmol/L (22-26); Methemoglobin 2.3 % (0.4-1.5); Oxygen Saturation ABG 97.1; PO2 ABG 82.3 mmHg (80.0-100.0); Potassium Level - ABG 3.8 mmol/L (3.5-5.0); Total Hemoglobin 13.3 g/dL (14-18)
[2024-06-08 16:01] LABS: Blood Gas Operator Identificat MONRO; Blood Gas Sample Site A LINE; Oxygen Device VENT; PO2 FiO2 Ratio Arterial Blood 391
[2024-06-08 16:09] LABS: Anion Gap 17.2 (5-19); Blood Urea Nitrogen 21 mg/dL (6-20); Calcium 7.2 mg/dL (8.5-10.5); Carbon Dioxide 21 mmol/L (22-29); Chloride 104 mmol/L (98-107); Creatinine Clr Calc Pharmacy 86.4519; Glomerular Filtration Rate 58.7 mL/min (90-130); Glucose 301 mg/dL (65-115); Osmolality Calculated 300 mOsm/kg (285-295); Potassium 4.2 mmol/L (3.5-5.1); Sodium 138 mmol/L (136-145)
[2024-06-08] MEDS: propofol 1,000 MG/100 ML INJ 31.53 MG IV ×2 (17:26→20:35)
[2024-06-08] MEDS: fentaNYL 1,000 MCG/100 ML BAG 12.5 MCG IV (18:15)
[2024-06-08 18:32] LABS: Glucose Point of Care 239 mg/dL (70-110)
[2024-06-08 18:32] LABS: Glucose Point of Care 284 mg/dL (70-110)
[2024-06-08 19:05] LABS: Glucose Point of Care 235 mg/dL (70-110)
--- NOTE | 2024-06-08 19:22 | PC.NURSE ---
SHift SUmmary: remains intubated. On levophed, requirements ranging between 8-12 mcg/min. Sedated with propofol and fentanyl. WIll open eyes to his name, answer yes/no questions, follow basic commands. Fever today as high as 101.6, treated with IV tylenol. Urine output: 1375mL NG tube output: 250mL WOund vac: 350mL Woundvac drainage has changed in quality throughout the day. Started off serosanguinous, slowly changed to contain more blood. Nurse would still describe as serousanguinous, but it is significantly more bloody. Physician made aware, CBC ordered at 8pm. Lovenox orders placed on hold. Elevated heart rate has delayed echocardiogram, HR is 115-120. Physician made aware, was advised to not delay echo for tachycardia.
[2024-06-08] MEDS: norepinephrine 4 MG/250 ML BAG 37.5 MG IV (19:49)
[2024-06-08 20:14] LABS: Glucose Point of Care 190 mg/dL (70-110)
[2024-06-08] MEDS: pantoprazole 40 mg SDV IVP (20:23)
[2024-06-08 20:41] LABS: Mean Corpuscular HGB Conc 34.7 g/dL (30-55); Mean Corpuscular Volume 86.5 fl (82-101); Mean Platelet Volume 9.5 fL (7.4-10.4); Platelet Count 172 10^3/cmm (157-399); Red Blood Count 4.16 10^6/uL (3.85-5.65); White Blood Count 8.13 10^3/uL (3.29-11.43)
[2024-06-08 20:59] LABS: Blood Urea Nitrogen 19 mg/dL (6-20); Calcium 7.1 mg/dL (8.5-10.5); Carbon Dioxide 21 mmol/L (22-29); Chloride 106 mmol/L (98-107); Creatinine Clr Calc Pharmacy 100.8605; Glomerular Filtration Rate 70.2 mL/min (90-130); Glucose 256 mg/dL (65-115); Osmolality Calculated 293 mOsm/kg (285-295); Sodium 136 mmol/L (136-145)
[2024-06-08 21:03] LABS: Anion Gap 13.1 (5-19); Potassium 4.1 mmol/L (3.5-5.1)
[2024-06-08 21:27] LABS: Slide Review Slide Review Perform
--- NOTE | 2024-06-08 21:27 | PC.NURSE ---
Stop Insulin Drip: Dr. Nance notified of new BMP results @2119. New order @2122 to stop IV fluids (D5NS w/ KCL), stop insulin drip, and start low dose sliding scale insulin TID and bedtime. See MAR for medication start and stop times.
[2024-06-08 21:28] LABS: Absolute Segmented Neutrophil 4.1 10/cmm (1.6-7.1); Eosinophils 0 %; Lymphocytes 4 %; Monocytes Absolute 0.2 10^3/cmm (0.1-0.6); Total Cells Counted 100 (0-100)
[2024-06-08 21:29] LABS: Platelet Estimate Normal (Normal)
[2024-06-08 21:32] LABS: Segmented Neutrophils 50 %
[2024-06-08 21:34] LABS: Absolute Neutrophil 7.2 10^3/cmm (1.4-6.5); Band Neutrophils Absolute 3.1 10^3/cmm (0.0-1.2)
[2024-06-08 21:50] LABS: Glucose Point of Care 220 mg/dL (70-110)
[2024-06-08 22:11] LABS: Glucose Point of Care 237 mg/dL (70-110)
[2024-06-08] MEDS: insulin lispro 100 unit/1 mL SUBCUT (22:14)
[2024-06-09] VITALS (91 sets, daily range): BP systolic 90–143; BP diastolic 44–73; PULSE 89–110; RESP 16–17; TEMP 36.6–37.5; O2SAT 93–98
[2024-06-09 00:11] LABS: Glucose Point of Care 219 mg/dL (70-110)
[2024-06-09 01:00] LABS: Blood Urea Nitrogen 17 mg/dL (6-20); Calcium 7.3 mg/dL (8.5-10.5); Carbon Dioxide 23 mmol/L (22-29); Chloride 105 mmol/L (98-107); Creatinine Clr Calc Pharmacy 100.8605; Glomerular Filtration Rate 70.2 mL/min (90-130); Glucose 246 mg/dL (65-115); Osmolality Calculated 296 mOsm/kg (285-295); Sodium 138 mmol/L (136-145)
[2024-06-09 01:01] LABS: Anion Gap 13.9 (5-19); Potassium 3.9 mmol/L (3.5-5.1)
[2024-06-09] MEDS: fentaNYL 1,000 MCG/100 ML BAG 12.5 MCG IV ×2 (02:14→21:09)
[2024-06-09] MEDS: ipratropium-albuterol 3 mL Neb INHALATION ×4 (02:22→19:24)
[2024-06-09] MEDS: propofol 1,000 MG/100 ML INJ 31.53 MG IV ×2 (02:51)
[2024-06-09] MEDS: norepinephrine 4 MG/250 ML BAG 15 MG IV (03:21)
[2024-06-09 04:27] LABS: Basophils % 0.1 %; Eosinophils % 0.2 %; Hematocrit 34.9 % (37-53); Lymphocytes # 0.8 10^3/uL (0.8-4.8); Lymphocytes % 8.9 %; Mean Corpuscular HGB Conc 35.2 g/dL (30-55); Mean Corpuscular Hemoglobin 29.7 pg (27-33); Mean Corpuscular Volume 84.3 fl (82-101); Mean Platelet Volume 9.8 fL (7.4-10.4); Monocytes # 0.6 10^3/uL (0.2-0.9); Monocytes % 7.6 %; Neutrophils % 82.7 %; Nucleated Red Blood Cells % 0 %; Platelet Count 146 10^3/cmm (157-399); Red Blood Count 4.14 10^6/uL (3.85-5.65); White Blood Count 8.46 10^3/uL (3.29-11.43)
[2024-06-09 04:28] LABS: ABG PCO2 39.4 mmHg (35-45); Alveolar-Arterial Oxygen Gradi 1.6 mmHg (5-10); Base Excess ABG -0.3 mmol/L (-2.0-2.0); Blood Gas Operator Identificat JDB; Blood Gas Sample Site Not specified; Blood Gas Sample Type Arterial; Carboxyhemoglobin 0.9 %THgb (0.4-20.1); HCO3 ABG 24.4 mmol/L (22-26); HGB O2 Sat 94.6 % (95-100); Ionized Calcium Level - ABG 1.1 mmol/L (1.1-1.4); Oxygen Device VENT; Oxygen Saturation ABG 97.4; PO2 ABG 87.2 mmHg (80.0-100.0); Potassium Level - ABG 3.7 mmol/L (3.5-5.0); Total Hemoglobin 12.4 g/dL (14-18)
[2024-06-09 04:29] LABS: PO2 FiO2 Ratio Arterial Blood 415
[2024-06-09 05:01] LABS: Lactic Sepsis W/Reflex 0.9 mmol/L (0.5-2.2)
[2024-06-09 05:05] LABS: Magnesium 1.9 mg/dL (1.7-2.3)
[2024-06-09 05:06] LABS: Albumin Level 3.1 g/dL (3.5-5.2); Alkaline Phosphatase 64 U/L (40-130); Blood Urea Nitrogen 14 mg/dL (6-20); Calcium 7.3 mg/dL (8.5-10.5); Carbon Dioxide 23 mmol/L (22-29); Chloride 104 mmol/L (98-107); Creatinine Clr Calc Pharmacy 110.0296; Globulin 1.6 g/dL (1.3-4.6); Glomerular Filtration Rate 77.6 mL/min (90-130); Glucose 246 mg/dL (65-115); Osmolality Calculated 297 mOsm/kg (285-295); Sodium 139 mmol/L (136-145); Total Bilirubin 0.3 mg/dL (0.15-1.2); Total Protein 4.7 g/dL (6.6-8.7)
[2024-06-09 05:09] LABS: Slide Review Slide Review Perform
[2024-06-09 05:21] LABS: Folate Level 5.5 ng/mL (4.5-32.2)
[2024-06-09] MEDS: propofol 1,000 MG/100 ML INJ 28.9 MG IV ×4 (06:11→21:58)
[2024-06-09] MEDS: piperacillin-tazobactam 3.375 GM in sodium chloride 0.9% (plus) 50 ML IV ×3 (06:15→23:21)
[2024-06-09 06:17] LABS: Anion Gap 16.1 (5-19); Potassium 4.1 mmol/L (3.5-5.1)
[2024-06-09 06:18] LABS: Alanine Aminotransferase 19 U/L (0-41); Aspartate Amino Transferase 32 U/L (0-40)
[2024-06-09 06:22] LABS: Vancomycin Random < 4.0 ug/mL (20.0-40.0)
[2024-06-09] MEDS: vancomycin 1,250 MG/250 ML PIGGYBACK 166.67 MG IV (07:31)
--- NOTE | 2024-06-09 08:00 | XRR_ITS ---
PROCEDURE INFORMATION: Exam: XR Chest Exam date and time: 06/09/2024 7:48 AM Age: 34 years old Clinical indication: Device placement; Ett placement (vent status) TECHNIQUE: Imaging protocol: Radiologic exam of the chest. Views: 1 view. COMPARISON: CR (CHEST, ) 06/08/2024 3:40 AM FINDINGS: Tubes, catheters and devices: Enteric tube traverses midline, catheter tip and side frustration not within field of view. Endotracheal tube projects 3.8 cm from the marialuisa. Right internal jugular central venous line is present, catheter tip at the distal superior vena cava. Lungs: No interval change to the lung leach. Pleural spaces: Unremarkable. No pleural effusion. No pneumothorax. Heart/Mediastinum: No interval change to the cardiomediastinal silhouette. Bones/joints: No interval change to the visualized osseous structures. XR/XR chest 1V portable [id number] IMPRESSION: 1. Medical devices as above. 2. No acute change from most recent prior comparison.
[2024-06-09 08:52] LABS: Glucose Point of Care 217 mg/dL (70-110)
[2024-06-09 09:50] LABS: Anion Gap 19.1 (5-19); Blood Urea Nitrogen 13 mg/dL (6-20); Calcium 7.5 mg/dL (8.5-10.5); Carbon Dioxide 20 mmol/L (22-29); Chloride 104 mmol/L (98-107); Creatinine Clr Calc Pharmacy 120.4338; Glomerular Filtration Rate 86.6 mL/min (90-130); Glucose 294 mg/dL (65-115); Osmolality Calculated 299 mOsm/kg (285-295); Potassium 4.1 mmol/L (3.5-5.1); Sodium 139 mmol/L (136-145)
[2024-06-09] MEDS: insulin lispro 100 unit/1 mL SUBCUT ×4 (09:52→23:46)
[2024-06-09] MEDS: sodium chloride 0.9% 1,000 ML 75 ML IV ×2 (09:53→21:08)
[2024-06-09] MEDS: fentaNYL 1,000 MCG/100 ML BAG 10 MCG IV (11:52)
[2024-06-09 12:09] LABS: Glucose Point of Care 214 mg/dL (70-110)
[2024-06-09 12:21] LABS: Blood Urea Nitrogen 13 mg/dL (6-20); Calcium 7.8 mg/dL (8.5-10.5); Carbon Dioxide 23 mmol/L (22-29); Chloride 103 mmol/L (98-107); Creatinine Clr Calc Pharmacy 120.4338; Glomerular Filtration Rate 86.6 mL/min (90-130); Glucose 238 mg/dL (65-115); Osmolality Calculated 296 mOsm/kg (285-295); Sodium 139 mmol/L (136-145)
[2024-06-09 12:42] LABS: Anion Gap 17.2 (5-19); Potassium 4.2 mmol/L (3.5-5.1)
--- NOTE | 2024-06-09 13:24 | W.PM.OPSFHP ---
Same Day Surgery H&P Indication for Procedure/HPI DATE OF PROCEDURE: June 09, 2024 CHIEF COMPLAINT/INDICATIONFOR SURGICAL PROCEDURE: 34-year-old male currently admitted with DKA and was noted to have intestinal ischemia with pneumatosis and portal venous gas, he underwent exploratory laparotomy bowel resection was left with an open abdomen, patient will return to the OR for washout possible bowel anastomosis and possible abdominal wall closure. I have discussed the case with Guillaume Baron who is the patient's ankle and who has provided consent to the procedure. I discussed all recent benefits of the procedure including the risks of bleeding, infection, need for additional operations, possibility of , hernia, short-bowel syndrome, need for additional bowel resection, intra-abdominal access. Patient shows understanding agrees. PREOP DIAGNOSIS: Bowel obstruction PLANNED PROCEDURE: Operation Date: 06/08/24 00:45 Proposed Procedures p Exploratory Laparotomy(Not Applicable) - Aleksandar Romo MD Operation Date: 06/09/24 12:00 Proposed Procedures p Exploratory Laparotomy(Not Applicable) - Aleksandar Romo MD s Possible bowel Resection w/ Anastomosis(Not Applicable) - Aleksandar Romo MD Medications/Allergies* Home Medications Medication Instructions Recorded Confirmed Type lisinopril 10 mg tablet 10 mg PO DAILY 09/24/23 06/07/24 History metformin 500 mg tablet 500 mg PO BID 09/24/23 06/07/24 History Allergies/Adverse Reactions Allergy/AdvReac Type Severity Reaction Status Date / Time No Known Allergies Allergy Verified 06/07/24 20:09 Current Medications: Generic Name Dose Route Start Last Admin Trade Name Freq PRN Reason Stop Dose Admin Acetaminophen 650 mg 06/07/24 19:57 06/07/24 21:08 Acetaminophen 325 Mg Tablet PO 650 mg Q6H PRN Administration Mild/Mod Pain Or Temp >/= 101 Albuterol/Ipratropium 3 ml 06/08/24 14:00 06/09/24 07:43 Ipratropium-Albuterol 3 Ml Neb INHALATION 3 ml Q6H.RESP ANA MARÍA Administration Chlorhexidine Gluconate 1 applic 06/09/24 01:00 06/09/24 04:08 Chlorhexidine Gluconate 4% Btl 118 Ml TOPICAL Not Given Q24H ANA MARÍA Piperacillin Sod/Tazobactam 50 mls @ 12.5 mls/hr 06/07/24 23:00 06/09/24 10:31 Sod 3.375 gm/ Sodium Chloride IV Infused Q8H ANA MARÍA Infusion Propofol 1,000 mg in 100 mls @ 0 mls/hr 06/08/24 00:45 06/09/24 12:59 Diprivan IV 55 mcg/kg/min .Q0M ANA MARÍA 28.9 mls/hr Administration Protocol Per Protocol Fentanyl 1,000 mcg in 100 mls @ 0 mls/hr 06/08/24 00:45 06/09/24 11:52 Sublimaze IV 100 mcg/hr .Q0M ANA MARÍA 10 mls/hr Administration Protocol Per Protocol Norepinephrine Bitartrate 4 mg in 250 mls @ 0 mls/hr 06/08/24 03:00 06/09/24 04:51 Levophed IV 0 mcg/min .Q0M ANA MARÍA 0 mls/hr Titration Protocol Per Protocol Vancomycin HCl 1,250 mg in 250 mls @ 166.667 mls/hr 06/09/24 06:00 06/09/24 07:31 Vancocin IV 166.67 mls/hr Q24H ANA MARÍA Administration Sodium Chloride 1,000 mls @ 75 mls/hr 06/09/24 08:45 06/09/24 09:53 Sodium Chloride 0.9% IV 75 mls/hr .[id number] ANA MARÍA Administration Insulin Human Lispro 0 unit 06/08/24 22:00 06/09/24 11:57 Insulin Lispro 100 Unit/1 Ml SUBCUT 4 unit WM&BEDTIME ANA MARÍA Administration Protocol Morphine Sulfate 1 mg 06/07/24 19:57 06/07/24 21:58 Morphine 4 Mg/Ml Sdv 1 Ml IVP 1 mg Q4H PRN Administration SEVERE PAIN Ondansetron HCl 4 mg 06/07/24 19:57 06/07/24 20:38 Ondansetron 2 Mg/Ml Sdv 2 Ml IVP 4 mg Q8H PRN Administration vomiting, or N/V if npo Pantoprazole Sodium 40 mg 06/07/24 21:00 06/08/24 20:23 Pantoprazole 40 Mg Sdv IVP 40 mg Q24H ANA MARÍA Administration Pertinent History/Comorbid Conditions* Medical History (Updated 06/08/24 @ 13:58 by Junior Germain MD) Diabetic ketoacidosis Elevated blood pressure reading Surgical History (Updated 06/08/24 @ 13:52 by Junior Germain MD) 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 History of cardiac catheterization Family History (Updated 09/24/23 @ 15:00 by Marlene Penaloza LPN) Diabetes Family/Other Denies family history of Heart disease Cancer Social History Smoking and tobacco/nicotine status: never used tobacco/nicotine Alcohol intake: former Substance/Drug Use: never Adopted: No Caregiver/support person: No Lives independently: No Household members: friend(s) service: No Current occupational status: unemployed Current gender identity: Male Pertinent Exam Findings alert (intubated but follows commands), clear to auscultation bilaterally and regular rate & rhythm Recommendations Surgery/Procedure today Other Plans: for OR today Coding Level of Care Code Acute Code for Sravan Oliver
--- NOTE | 2024-06-09 13:56 | PM.PN ---
Subjective Subjective: No acute events overnight. Levophed has been turned off. Currently on examination patient is on ventilator settings with tidal volume of 500, PEEP of 5, FiO2 of 21% saturating more than 95%. Mean artery pressure have maintained over 65. Levophed was turned off. Currently on fentanyl of 100, propofol of 55. Insulin drip was discontinued Vitals/I&O/Wt Last Vital Signs Temp 99.5 F 06/09/24 12:30 Pulse 93 06/09/24 13:36 Resp 16 06/09/24 13:36 BP 90/52 06/09/24 13:00 Pulse Ox 97 06/09/24 13:36 O2 Del Method Mechanical Ventilation 06/09/24 13:36 FiO2 21 06/09/24 13:36 06/08/24 06/09/24 06/09/24 22:59 06:59 14:59 Intake Total 2524.995 / 4172.428 591.334 / 4763.762 315.423 / 315.423 Output Total 700 / 2075 1500 / 3575 975 / 975 Balance 1824.995 / 2097.428 -908.666 / 1188.762 -659.577 / -659.577 Weight last 48 hrs Weight 84.323 kg Weight 85.321 kg Weight 87.589 kg Physical Exam Narrative: General: Intubated, sedated, on wound VAC, on waking up following simple directions HEENT: PERRLA, pupils bilaterally equal and reactive Chest: Normal vesicular breath sounds, no added sounds, equal good air entry bilaterally CVS: S1-S2 regular, no murmurs, no tachycardia, no gallops, no rubs Abdomen: Central wound VAC present, bowel sounds sluggish Neuro: Intubated, sedated Urinary Catheter Management: Ye: Cath Placed During This Visit: yes Reason for Continuing Indwelling Catheter: Accurate Measurement of Urinary Output in Critically Ill Patients Urinary Catheter Date of Insertion: 06/08/24 Urinary Catheter Time of Insertion: 00:50 Data 06/09/24 04:01 06/09/24 11:55 Micro: Microbiology 06/08/24 07:58 Gram Stain - Final Sputum - Endotracheal Tube Aspirate Sputum Culture - Preliminary 06/07/24 20:41 Urine Culture - Preliminary Urine,Clean Catch 06/07/24 20:32 Blood Culture - Preliminary Blood NEGATIVE TO DATE 06/07/24 20:18 Blood Culture - Preliminary Blood NEGATIVE TO DATE 06/07/24 20:41 Bacterial Antigens - Final Urine Kidney A&P Assessment and plan (1) Shock: (2) Diabetic ketoacidosis: (3) Nonocclusive mesenteric ischemia: (4) S/P exploratory laparotomy: (5) S/P small bowel resection: (6) Lactic acidosis: Plan Diabetic ketoacidosis: A1c of 13. DKA resolved. Anion gap resolved. Continue to monitor BMP every 8 hours. Restart normal saline at 75 cc/h. Continue with insulin sliding scale low-dose protocol Q6 hourly. NPO. Septic shock: Resolved His brother most likely in setting of nonocclusive mesenteric ischemia. Cannot rule out peritonitis. Keep mean artery pressure 65. Wean Levophed accordingly. Follow-up blood culture, MRSA swab pending. Follow-up urine culture. Continue with empiric vancomycin and Zosyn for now. Strict and proper charting. Try to maintain euvolemic. In last 24 hours patient ins and outs have almost been similar. Mesenteric ischemia: Nonocclusive: Post exploratory laparotomy and small bowel resection day 1. Plan for revisit to the OR today for further reexploration and possible reanastomosis Wound VAC in place. Appreciate surgical recommendations. Anticoagulation as per surgical team. Keep n.p.o. for now. Respiratory failure: Currently on minimal ventilator settings. Will keep ventilated without sedation vacation for next 24 hours as patient would most likely go back to the OR. Sedation vacation. Plan for further weaning once patient is more stable surgically. Anesthesia: Propofol, fentanyl Glycemic control: Insulin drip Nutrition: N.p.o. will discuss further with surgical team regarding TPN if there is any further plan for revisit to the OR after today as DKA has resolved. CODE STATUS: Full code PUD prophylaxis: Protonix DVT prophylaxis: SCD Discharge planning: Depending on the clinical picture going forward. Continue with care at ICU This documentation was created by [employer] co founder and chief strategy officer software. Every effort was made to ensure accuracy of co founder and chief strategy officer. Any obvious errors or omissions should be clarified with the author of the document. Patient's care discussed in detail with niece Ms. Niño over the phone. Patient does not have a direct family relation available. Has a daughter but is minor. Parents are . Has a brother whose whereabouts are unknown. Ms. Niño is agreeable to make medical decisions. All the questions were answered. Attestations Medical Necessity Statement*: Requires further hospitalization for management of mesenteric ischemia post expiratory laparotomy with bowel resection as patient requires further reexploration, on mechanical ventilation, resolving diabetic ketoacidosis in setting of uncontrolled type 2 diabetes mellitus. Critical Care Time: The high probability of a clinically significant, sudden or life threatening deterioration of the patient's [cardiac, pulmonary, renal, ID, GI, endocrine] system(s) required my full and direct attention, intervention and personal management. The critical care time is as shown. This time is in addition to time spent performing any reported procedures but includes the following: [x] Data and vital sign review and interpretation [x] Patient assessment, examination and intervention [x] Documentation [x] Medication orders and management Critical Care Time (min): 90 Coding Level of Care Code Critical Care >/= 30 minutes Critical care time (in minutes): 90 The high probability of a clinically significant, sudden or life threatening deterioration, as referenced in this documentation, required my full and direct attention, intervention and personal management. The critical care time shown is in addition to time spent performing any reported separately billable procedures and includes the following: [x] Data and vital sign review and interpretation [x] Patient assessment, examination and intervention [x] Medication orders and management [x] Patient/Family updates as able [x] Care Coordination and Documentation. Other Coding Information This patient has a high probability of clinically significant, sudden or life threatening deterioration of the patient's (neurological/pulmonary/cardiac/renal/ID/endocrine) systems required my full, direct attention, the highest level of physician preparedness for urgent intervention and personal management. I managed/supervised life or organ supporting interventions that required frequent physician assessment. I devoted my full attention in the ICU to the direct care of this patient for the period of time indicated above. Time I spent with family or surrogate(s) is included only if the patient was incapable of providing necessary information or participating in decision making. This time includes the following services provided: Telemetry review Mechanical Ventilation Hemodynamic interpretation, assessment and management Review and interpretation of CXR Review and interpretation of lab values Review and interpretation of microbiologic data and culture results Review of medications and administration Review and interpretation of Nutrition requirements and management Discussion of management with other consultants and services Clinical update to family members Diagnoses Shock R57.9 Diabetic ketoacidosis E11.10 Nonocclusive mesenteric ischemia K55.059 S/P exploratory laparotomy Z98.890 S/P small bowel resection Z90.49 Lactic acidosis E87.20
--- NOTE | 2024-06-09 14:20 | ANES.PAUD2 ---
Pre-Anesthetic Update Pre-Anesthetic Assessment: Date of Surgery/Procedure: 06/09/24 Preop Diagnosis: Bowel obstruction Proposed Procedure: Operation Date: 06/08/24 00:45 Proposed Procedures p Exploratory Laparotomy(Not Applicable) - Aleksandar Romo MD Operation Date: 06/09/24 12:00 Proposed Procedures p Exploratory Laparotomy(Not Applicable) - Aleksandar Romo MD s Possible bowel Resection w/ Anastomosis(Not Applicable) - Aleksandar Romo MD Changes from Pre-Anesthetic Assessment: Patient remains intubated and sedated on propofol and fentanyl DKA has resolved with a closed anion gap Off Levophed currently, ICU using the NIPPV due to in discrepancy with radial arterial line. Requesting we place femoral arterial line IntraOp Labs reviewed today pH 7.4, pCO2 39 Kidney function has rebounded Spoke with patient's uncle Guillaume who consented for anesthesia Plan for GETA, patient will remain intubated following surgery and go back to the ICU Labs Last 48hrs: Short CBC 06/07/24 06/08/24 06/08/24 Range/Units 20:32 03:04 20:16 WBC 13.56 H 9.72 8.13 (3.29-11.43) 10^ 3/uL Hgb 14.20 13.50 12.50 (11.27-16.99) g/ dL Hct 42.4 37.8 36.0 L (37-53) % MCV 86.5 82.2 86.5 D (82-101) fl Plt Count 245 217 172 (157-399) 10^3/c mm Neut % (Auto) 89.3 87.1 % Neut # (Auto) 12.11 H 8.47 H (1.8-7.7) 10^3/u L 06/09/24 Range/Units 04:01 WBC 8.46 (3.29-11.43) 10^ 3/uL Hgb 12.30 (11.27-16.99) g/ dL Hct 34.9 L (37-53) % MCV 84.3 (82-101) fl Plt Count 146 L (157-399) 10^3/c mm Neut % (Auto) 82.7 % Neut # (Auto) 7.00 (1.8-7.7) 10^3/u L BMP 06/07/24 06/07/2406/07/24 20:18 20:32 21:59 Sodium Cancelled 120 L 124 L Potassium Cancelled 4.6 3.8 Chloride Cancelled 75 L 80 L Carbon Dioxide Cancelled 7 L* 10 L BUN Cancelled 45 H 41 H Creatinine Cancelled 2.5 H 2.4 H Glucose Cancelled 911 H* 737 H* Calcium Cancelled 7.6 L 7.7 L 06/08/24 06/08/24 06/08/24 00:15 03:09 08:19 Sodium 128 L 134 L 137 Potassium 3.6 4.5 3.9 Chloride 89 L 97 L 102 Carbon Dioxide 14 L 18 L 20 L BUN 36 H 36 H 26 H Creatinine 2.0 H 1.9 H 1.5 H Glucose 494 H 380 H 195 H Calcium 8.0 L 7.1 L 7.2 L 06/08/24 06/08/24 06/08/24 11:59 15:36 20:16 Sodium 135 L 138 136 Potassium 4.1 4.2 4.1 Chloride 100 104 106 Carbon Dioxide 18 L 21 L 21 L BUN 22 H 21 H 19 Creatinine 1.4 H 1.4 H 1.2 Glucose 271 H 301 H 256 H Calcium 7.2 L 7.2 L 7.1 L 06/08/24 06/09/24 06/09/24 23:53 04:01 08:59 Sodium 138 139 139 Potassium 3.9 4.1 4.1 Chloride 105 104 104 Carbon Dioxide 23 23 20 L BUN 17 14 13 Creatinine 1.2 1.1 1.0 Glucose 246 H 246 H 294 H Calcium 7.3 L 7.3 L 7.5 L 06/09/24 11:55 Sodium 139 Potassium 4.2 Chloride 103 Carbon Dioxide 23 BUN 13 Creatinine 1.0 Glucose 238 H Calcium 7.8 L Cardiac Enzymes 06/07/24 06/07/24 06/07/24 Range/Units 20:18 20:32 21:59 Troponin T Baselin e 26 H (0-15) ng/L Troponin T 120 Min t[place] 28.37 H (0-15) ng/L Delta Troponin T 2.37 (0-10) ABS# Troponin T Hi Sens 6Hr (0-15) ng/L Troponin T Hi Sens 6Hr Delta (0-12) ng/L NT-Pro-B Natriuret Pep 565 H (0-125) pg/mL 06/08/24 Range/Units 03:04 Troponin T Baselin e (0-15) ng/L Troponin T 120 Min [place] (0-15) ng/L Delta Troponin T (0-10) ABS# Troponin T Hi Sens 6Hr 27.49 H (0-15) ng/L Troponin T Hi Sens 6Hr Delta 1.49 (0-12) ng/L NT-Pro-B Natriuret Pep (0-125) pg/mL Liver Function 06/07/24 06/09/24 Range/Units 20:32 04:01 Total Bilirubin 0.4 0.3 (0.15-1.2) mg/dL Direct Bilirubin 0.20 (0.00-0.30) mg/d L AST 19 32 (0-40) U/L ALT 23 19 (0-41) U/L Alkaline Phosphata se 129 64 (40-130) U/L Albumin 4.3 3.1 L (3.5-5.2) g/dL Urine 06/07/24 Range/Units 20:41 Urine Color Yellow (Yellow) Urine Appearance Clear (CLEAR) Urine pH 5 (5-7) Ur Specific Gravit y 1.015 (1.005-1.030) Urine Protein Trace (Negative) Urine Glucose (UA) 4+ H (Normal) Urine Ketones 2+ H (Negative) Urine Nitrate Negative (Negative) Urine Bilirubin Neg (Negative) Ur Leukocyte Krystal ase Negative (Negative) Urine RBC 0-4 H (0-2) /hpf Urine WBC 0-4 H (0-5) /hpf Coags 06/07/24 20:32 C-Reactive Protein 12.6 H ABG 06/07/24 06/08/24 06/08/24 20:42 04:53 15:45 Specimen Type Arterial Arterial Arterial Sample Site Radial, right Not specified A line ABG pH 7.17 L* 7.32 L 7.39 ABG pCO2 20.7 L 34.6 L 37.4 ABG pO2 121.0 H 107.0 H 82.3 ABG PO2/FiO2 Ratio 576 445 391 ABG HCO3 7.6 L 17.9 L 22.5 ABG O2 Saturation 95.9 97.1 ABG Base Excess -18.8 L -7.3 L -2.1 L A-a O2 Gradient 2.5 L 2.6 L O2 Delivery Device Room air Vent Vent FiO2 21.0 24.0 21.0 Tidal Volume 0.50 0.50 PEEP 5.0 5.0 06/09/24 04:08 Specimen Type Arterial Sample Site Not specified ABG pH 7.40 ABG pCO2 39.4 ABG pO2 87.2 ABG PO2/FiO2 Ratio 415 ABG HCO3 24.4 ABG O2 Saturation 97.4 ABG Base Excess -0.3 A-a O2 Gradient 1.6 L O2 Delivery Device Vent FiO2 21.0 Tidal Volume 0.50 PEEP 5.0 Vitals: Temperature 99.5 F 06/09/24 12:30 Temperature Source Axillary 06/09/24 12:30 Pulse Rate 93 06/09/24 13:36 Pulse Rhythm Regular 06/08/24 20:00 Pulse Strength 3+ Normal 06/09/24 12:00 Respiratory Rate 16 06/09/24 13:36 Respiratory Effort Spontaneous, Non- Labored 06/09/24 12:00 Respiratory Depth Normal 06/09/24 12:00 Blood Pressure 90/52 06/09/24 13:00 Blood Pressure Rula n 64 06/09/24 13:00 Blood Pressure Pos ition Semi Fowlers 06/09/24 12:30 Pulse Oximetry 97 06/09/24 13:36 Oxygen Delivery Me thod Mechanical Ventil ation 06/09/24 13:36 Fraction of Inspir ed Oxygen 21 06/09/24 13:36 Sepsis Action Take n by Nursing Physician Notifie d 06/07/24 19:57 Cardiac Studies: Echocardiogram 06/08/24
--- NOTE | 2024-06-09 16:07 | PM.OP ---
Operative Report Date of procedure: June 09, 2024 Pre-op diagnosis: Small bowel obstruction Post-op diagnosis: Mesenteric ischemia Post-op findings: There was a new focus of transmural necrosis at the level of the terminal ileum involving about 20 cm of the small bowel, there was a local inflammatory reaction in the pelvis due to this area of necrosis with a very small abscess forming around it. The proximal and distal staple lines of the small bowel that were done during the previous surgical intervention were viable, no additional bowel necrosis was noted. Procedure done: Ileocecectomy, exploratory laparotomy, ABThera VAC placement Specimens removed/disposition: Terminal ileum and cecum Surgeon: Aleksandar Romo MD Clinical Documentation Clerk: YRIS OR STaff Estimated blood loss: 150cc Complications: none Brief History: 34-year-old male admitted with DKA and noted to have small bowel obstruction, and the CT scan show evidence of pneumatosis intestinalis and portal venous gas. Patient is status post prior to laparotomy bowel resection and open abdomen, has been doing okay over the last 24 hours and decided to proceed to the OR for possible anastomosis and closure. Procedure: Patient was brought into the OR, he was already intubated, general anesthesia was given. ABThera VAC was removed. The abdomen was prepped and draped in the usual sterile fashion. A timeout was conducted. The inner portion of the ABThera VAC was then removed. I then proceeded with systematic exploration of the abdomen, the proximal bowel and the proximal staple line appeared healthy, distal staple line appeared healthy I then ran the bowel from the level of the distal staple line to the terminal ileum once I was approaching the terminal ileum I realized that there was some inflammatory adhesions in the right lower quadrant as well as a local inflammatory reaction, with careful blunt dissection I was able to mobilize the terminal ileum towards the midline and it was immediately apparent that there was transmural necrosis of the terminal ileum on a portion of about 10 to 15 cm, to the local inflammatory reaction there was also a small abscess forming at this level. I then proceeded to examine the colon which appeared healthy. Due to this finding of additional necrotic intestine I decided that the best option was to proceed with additional resection and to keep the patient in discontinuity with the plans of anastomosis once we come back to the OR for possible closure. While ideally I wanted to preserve the ileocecal valve, the area of necrosis was too close to the bowel for me to be able to preserve it, therefore I decided to proceed with ileocecectomy. I proceeded to mildly lyse the right colon by sharply incising the white line of Toldt, I then bluntly dissected the colon and mesocolon towards the midline until enough mobilization was achieved to be able to approximate the colon to the midline incision. I then proceeded to identify the proximal margin of resection, 15 cm of the terminal ileum that had several areas of necrosis and an additional 5 cm were significantly thickened and with superficial changes, I decided to proceed with transection proximal to this level, I did this by creating a window of the mesentery with a hemostat and then I proceeded to transect the small bowel using a 100 mm blue load RUMA stapler. I then proceeded to create a window behind the ascending colon trying to preserve as much colon length as possible. The window was created with a hemostat and then I passed 100 mm blue load RUMA stapler and proceeded with transection. The mesentery and the mesocolon of the specimen were then taken down using LigaSure, I remain very close to the small bowel and the colon to try to preserve as much vascularity of the mesentery. The specimen was then passed to be sent as a pathology specimen. At this point I decided to irrigate the abdomen, I profusely irrigated the 4 quadrants of the abdomen with saline. I then verified hemostasis. At this point I will check 1 more time in the whole small bowel no evidence of additional necrosis was noted, the staple lines from the distal small bowel and descending colon appear intact. At this point we proceeded with a count which was correct. I then proceeded to place the ABThera dressing in in the standard fashion. At the end of the procedure all counts were correct the patient tolerated the procedure was transferred to the ICU in critical but stable condition
--- NOTE | 2024-06-09 16:18 | ANE.PACU2 ---
Inpatient post-anesthesia follow up: Airway intact: No Vital signs: Temperature 99.5 F Pulse Rate 126 Respiratory Rate 20 Blood Pressure 109/50 Pulse Oximetry 93 Oxygen Delivery Me thod Mechanical Ventila tion Oxygen Flow Rate Fraction of Inspir ed Oxygen 28 Hydration adequate: Yes Nausea and vomiting: No Pain level: 1 Mental status: Baseline
[2024-06-09 16:40] LABS: Glucose Point of Care 183 mg/dL (70-110)
[2024-06-09 16:45] LABS: Blood Gas CCRB By MAHMI; Blood Gas CCRB Time 2052
[2024-06-09 16:52] LABS: Basophils # 0.1 10^3/uL (0.0-0.1); Basophils % 0.8 %; Eosinophils % 0.2 %; Hematocrit 36.1 % (37-53); Lymphocytes # 0.9 10^3/uL (0.8-4.8); Lymphocytes % 8.6 %; Mean Corpuscular HGB Conc 34.3 g/dL (30-55); Mean Corpuscular Volume 87.2 fl (82-101); Mean Platelet Volume 9.7 fL (7.4-10.4); Monocytes # 0.3 10^3/uL (0.2-0.9); Monocytes % 3.5 %; Neutrophils # 8.51 10^3/uL (1.8-7.7); Neutrophils % 86.5 %; Nucleated Red Blood Cells % 0 %; Platelet Count 170 10^3/cmm (157-399); Red Blood Count 4.14 10^6/uL (3.85-5.65); Red Cell Distribution Width 13.7 % (12.1-15.1); White Blood Count 9.84 10^3/uL (3.29-11.43)
[2024-06-09] MEDS: vancomycin 1,500 MG/300 ML PIGGYBACK 200 MG IV (16:54)
[2024-06-09 17:21] LABS: Albumin Level 2.9 g/dL (3.5-5.2); Alkaline Phosphatase 70 U/L (40-130); Anion Gap 18.2 (5-19); Blood Urea Nitrogen 12 mg/dL (6-20); Calcium 7.7 mg/dL (8.5-10.5); Carbon Dioxide 21 mmol/L (22-29); Chloride 105 mmol/L (98-107); Creatinine Clr Calc Pharmacy 133.8153; Globulin 2.4 g/dL (1.3-4.6); Glomerular Filtration Rate 97.8 mL/min (90-130); Glucose 204 mg/dL (65-115); Osmolality Calculated 296 mOsm/kg (285-295); Potassium 4.2 mmol/L (3.5-5.1); Sodium 140 mmol/L (136-145); Total Bilirubin 0.3 mg/dL (0.15-1.2); Total Protein 5.3 g/dL (6.6-8.7)
[2024-06-09 18:02] LABS: Slide Review Slide Review Perform
[2024-06-09 18:07] LABS: Alanine Aminotransferase 27 U/L (0-41); Aspartate Amino Transferase 54 U/L (0-40)
[2024-06-09 18:07] LABS: Lactic Sepsis W/Reflex 0.9 mmol/L (0.5-2.2)
--- NOTE | 2024-06-09 19:09 | PC.NURSE ---
REceived patient back from surgery at 1610. Patient is unresponsive, on a ventilator. Levophed at 8mcg/min. propofol at 30, and fentanyl at 100mcg/hr. BP: 108/53, SPO2: 100%, Temp: 97.9. RR: 16 (mechanical ventilation). Wound vac is functional at 125mm hg and serousanguinous drainage. over the next 30-45 minutes, Levophed was titrated off. Patient has gradually began to wake up more, propofol was increased as indicated per protocol. Patient now is calm, sleeping mostly, will occasionally open eyes and look in direction of noise. When asked if he is in pain he shakes his head no. Will follow commands. Radial art line nonfuncitonal. REmoved per Dr cordon orders.
--- NOTE | 2024-06-09 19:15 | PC.NURSE ---
Addendum entered by Ruddy Swan RN 06/09/24 19:30: SHift SUmmary: went to surgery, another 7 inches of necrotic bowel removed. CUrrent plan is likely to do another washout/revision on thursday. Has remained off of levophed except when in surgery. total urine output: 1450 Abdomen wound vac output: 250 Vanc trough is ordered before the morning dose of vancomycin is due. Original Note: SHift SUmmary: went to surgery, another 7 inches of necrotic bowel removed. CUrrent plan is likely to do another washout/revision on thursday. Has remained off of levophed except when in surgery.
[2024-06-09] MEDS: propofol 1,000 MG/100 ML INJ 23.65 MG IV (19:36)
[2024-06-09] MEDS: pantoprazole 40 mg SDV IVP (21:08)
[2024-06-09 23:43] LABS: Glucose Point of Care 194 mg/dL (70-110)
[2024-06-09] MEDS: chlorhexidine gluconate 4% Btl 118 mL 1 APPLIC TOPICAL (23:47)
[2024-06-10] VITALS (106 sets, daily range): BP systolic 81–137; BP diastolic 43–89; PULSE 83–126; RESP 14–22; TEMP 37.4–39.4; O2SAT 90–100
[2024-06-10] MEDS: propofol 1,000 MG/100 ML INJ 28.9 MG IV (01:34)
[2024-06-10] MEDS: ipratropium-albuterol 3 mL Neb INHALATION ×4 (01:50→20:23)
[2024-06-10] MEDS: acetaminophen 650 mg Supp PR (03:18)
[2024-06-10] MEDS: fentaNYL 1,000 MCG/100 ML BAG 15 MCG IV ×4 (03:26→21:53)
--- NOTE | 2024-06-10 03:53 | PC.NURSE ---
Dr. Nance notified of 101.1 temp. order received for 650mg Tylenol AL
[2024-06-10 04:09] LABS: Basophils # 0.1 10^3/uL (0.0-0.1); Eosinophils % 0.4 %; Hematocrit 33.7 % (37-53); Lymphocytes # 0.7 10^3/uL (0.8-4.8); Lymphocytes % 9.3 %; Mean Corpuscular HGB Conc 32.9 g/dL (30-55); Mean Corpuscular Hemoglobin 29.9 pg (27-33); Mean Corpuscular Volume 90.8 fl (82-101); Mean Platelet Volume 9.8 fL (7.4-10.4); Monocytes # 0.3 10^3/uL (0.2-0.9); Monocytes % 3.8 %; Neutrophils # 6.65 10^3/uL (1.8-7.7); Neutrophils % 85.2 %; Nucleated Red Blood Cells % 0 %; Platelet Count 135 10^3/cmm (157-399); Red Blood Count 3.71 10^6/uL (3.85-5.65); Red Cell Distribution Width 14.2 % (12.1-15.1); White Blood Count 7.81 10^3/uL (3.29-11.43)
[2024-06-10 04:27] LABS: ABG PCO2 36.6 mmHg (35-45); Alveolar-Arterial Oxygen Gradi 9.4 mmHg (5-10); Arterial Blood Gas Hematocrit 34.6 % (42-52); Base Excess ABG -7.6 mmol/L (-2.0-2.0); Blood Gas Allen Test Pos; Blood Gas Sample Site Brachial, right; Blood Gas Sample Type Arterial; HCO3 ABG 18.1 mmol/L (22-26); Ionized Calcium Level - ABG 1.2 mmol/L (1.1-1.4); Methemoglobin 2.3 % (0.4-1.5); Oxygen Device VENT; Oxygen Saturation ABG 96.1; PO2 ABG 79.8 mmHg (80.0-100.0); PO2 FiO2 Ratio Arterial Blood 285; Potassium Level - ABG 4.2 mmol/L (3.5-5.0); Total Hemoglobin 11.3 g/dL (14-18)
[2024-06-10 04:44] LABS: Lactic Sepsis W/Reflex 1.1 mmol/L (0.5-2.2); Vancomycin Random 4.4 ug/mL (20.0-40.0)
[2024-06-10 04:45] LABS: Alanine Aminotransferase 23 U/L (0-41); Albumin Level 2.6 g/dL (3.5-5.2); Alkaline Phosphatase 57 U/L (40-130); Anion Gap 23.3 (5-19); Aspartate Amino Transferase 51 U/L (0-40); Blood Urea Nitrogen 12 mg/dL (6-20); Calcium 7.9 mg/dL (8.5-10.5); Carbon Dioxide 18 mmol/L (22-29); Chloride 103 mmol/L (98-107); Creatinine Clr Calc Pharmacy 109.4853; Globulin 2.8 g/dL (1.3-4.6); Glomerular Filtration Rate 77.6 mL/min (90-130); Glucose 199 mg/dL (65-115); Magnesium 2.1 mg/dL (1.7-2.3); Osmolality Calculated 295 mOsm/kg (285-295); Potassium 4.3 mmol/L (3.5-5.1); Sodium 140 mmol/L (136-145); Total Bilirubin 0.3 mg/dL (0.15-1.2); Total Protein 5.4 g/dL (6.6-8.7)
[2024-06-10 04:53] LABS: Slide Review Slide Review Perform
[2024-06-10] MEDS: propofol 1,000 MG/100 ML INJ 31.53 MG IV ×5 (05:08→17:18)
[2024-06-10] MEDS: vancomycin 2,000 MG/400 ML PIGGYBACK 200 MG IV ×3 (05:09→20:38)
[2024-06-10 05:29] LABS: Glucose Point of Care 177 mg/dL (70-110)
[2024-06-10] MEDS: insulin lispro 100 unit/1 mL SUBCUT ×2 (06:02→12:37)
[2024-06-10] MEDS: piperacillin-tazobactam 3.375 GM in sodium chloride 0.9% (plus) 50 ML IV (06:02)
--- NOTE | 2024-06-10 08:00 | XR_ITS ---
WS: [id number] Portable AP upright chest, 06/10/2024 Clinical Data: vent Comparison: Portable chest, 06/09/2024 Findings: The endotracheal tube remains above the marialuisa. The right internal jugular venous catheter and monitor leads remain the same. The nasogastric tube appears to end in the body of the stomach. Th e heart is normal. No pneumonia or pneumothorax is seen. The pulmonary vascularity is not remarkable. No nodules, masses or effusions are seen. XR/XR chest 1V portable [id number] Impression: No change in position of multiple tubes and lines.
[2024-06-10] MEDS: sodium chloride 0.9% 1,000 ML 999 ML IV ×2 (09:14→10:30)
[2024-06-10] MEDS: meropenem 1,000 mg SDV 1000 MG IVP ×2 (09:19→16:41)
[2024-06-10] MEDS: fluconazole premix 200 MG/100 ML PREMIX 100 MG IV (09:27)
--- NOTE | 2024-06-10 09:28 | PM.PN ---
Subjective Subjective: 34-year-old male who was admitted with DKA and was noted to have a small bowel obstruction with pneumatosis and portal venous gas, he was taken to the OR for laparotomy was found to have around 100 cm of devitalized bowel that was resected he was left with an upper abdomen, he was taken back to the operating room yesterday for possible anastomosis and closure, unfortunately additional that bowel was noted with about 20 cm of the terminal ileum compromise, therefore I proceeded with a ileocecectomy and left the patient with an open abdomen with the plan to return to the OR tomorrow for possible anastomosis. In the last 24 hours he has remained slightly acidotic, he is tachycardic and has been spiking low-grade fevers. Clinical condition remains guarded. Currently off pressors. Vitals/I&O/Wt Last Vital Signs Temp 99.5 F 06/10/24 05:19 Pulse 115 H 06/10/24 08:30 Resp 16 06/10/24 08:35 BP 109/50 06/10/24 06:00 Pulse Ox 96 06/10/24 08:35 O2 Del Method Mechanical Ventilation 06/10/24 08:00 FiO2 28 06/10/24 08:35 06/09/24 06/10/24 06/10/24 22:59 06:59 14:59 Intake Total 1707.363 / 2022.786 391.250 / 2414.036 140.090 / 140.090 Output Total 800 / 1775 1850 / 3625 Balance 907.363 / 247.786 -1458.750 / -1210.964 140.090 / 140.090 Weight last 48 hrs Weight 187 lb Weight 185 lb 14.4 oz Physical Exam Narrative: Patient is intubated and sedated, without sedation he does open the eyes and follows commands. Abdominal examination is benign at this point there is an ABThera VAC that has serosanguineous effluent. Urinary Catheter Management: Ye: Cath Placed During This Visit: yes Reason for Continuing Indwelling Catheter: Accurate Measurement of Urinary Output in Critically Ill Patients Urinary Catheter Date of Insertion: 06/08/24 Urinary Catheter Time of Insertion: 00:50 Data 06/10/24 03:39 06/10/24 03:39 Micro: Microbiology 06/07/24 20:41 Urine Culture - Final Urine,Clean Catch 06/08/24 07:58 Gram Stain - Final Sputum - Endotracheal Tube Aspirate Sputum Culture - Preliminary A&P Assessment and plan (1) Nonocclusive mesenteric ischemia: (2) S/P exploratory laparotomy: (3) S/P small bowel resection: (4) Diabetic ketoacidosis: Plan Plan is to return to the OR tomorrow for possible anastomosis and closure, I had had extensive discussion with the family members regarding the patient clinical condition, I have explained to the family members that his condition is guarded, even if we return to the operating room tomorrow and there is no any additional that bowel and were able to create anastomosis patient is high risk for postoperative complications including anastomotic leak due to clinical condition. We have explained to the family that his prognosis is guarded. I discussed with Gamal who is his brother all the risk and benefits of returning to the OR including the risks of need for additional resection, need for open abdomen, hernia formation, intra-abdominal abscess formation, wound infection, injury to surrounding structures, anastomotic leakage, family member shows understanding and agrees to proceed to the OR. In the interim we will proceed with fluid resuscitate shown and supportive care by ICU team to correct acidosis. Patient will remain on broad-spectrum antibiotics. Attestations Medical Necessity Statement*: Per medical team Coding Level of Care Code Acute Code for [facility] Fwd Diagnoses Nonocclusive mesenteric ischemia K55.059 S/P exploratory laparotomy Z98.890 S/P small bowel resection Z90.49 Diabetic ketoacidosis E11.10
[2024-06-10] MEDS: sodium chloride 0.9% 1,000 ML 150 ML IV (09:45)
[2024-06-10] MEDS: acetaminophen 1,000 MG/100 ML PIGGYBACK 400 MG IV (09:51)
[2024-06-10 12:41] LABS: Glucose Point of Care 200 mg/dL (70-110)
[2024-06-10 13:25] LABS: Blood Urea Nitrogen 11 mg/dL (6-20); Calcium 7.8 mg/dL (8.5-10.5); Carbon Dioxide 11 mmol/L (22-29); Chloride 106 mmol/L (98-107); Creatinine Clr Calc Pharmacy 92.8717; Glucose 236 mg/dL (65-115); Osmolality Calculated 301 mOsm/kg (285-295); Sodium 142 mmol/L (136-145)
[2024-06-10 13:29] LABS: Anion Gap 29.7 (5-19); Potassium 4.7 mmol/L (3.5-5.1)
[2024-06-10 14:14] LABS: Blood Urea Nitrogen 11 mg/dL (6-20); Calcium 7.8 mg/dL (8.5-10.5); Carbon Dioxide 10 mmol/L (22-29); Chloride 108 mmol/L (98-107); Glomerular Filtration Rate 70.2 mL/min (90-130); Glucose 218 mg/dL (65-115); Osmolality Calculated 300 mOsm/kg (285-295); Sodium 142 mmol/L (136-145)
[2024-06-10] MEDS: dextrose 5%-sod chloride 0.9% 1,000 ML 150 ML IV (14:18)
[2024-06-10 14:21] LABS: Anion Gap 28.6 (5-19); Potassium 4.6 mmol/L (3.5-5.1)
[2024-06-10] MEDS: INSULIN REGULAR IN 0.9 % NACL 100 UNIT/100 ML BAG IV (14:25)
[2024-06-10 15:03] LABS: Glucose Point of Care 162 mg/dL (70-110)
--- NOTE | 2024-06-10 15:16 | P.PN_ITS ---
Subjective 2 Subjective: No acute events overnight. Patient underwent OR for the second time yesterday in which he was found to have further bowel necrosis and further bowel resection was done. Overnight patient has remained on 60 of propofol, 175 of fentanyl. He has not required any further Levophed. Urine output of 3100 cc with 425 through the wound VAC. He remains on minimal ventilator settings with PEEP of 5, tidal volume of 500, FiO2 28%. Vitals/I&O/Wt Last Vital Signs Temp 102.9 F H 06/10/24 07:00 Pulse 111 H 06/10/24 13:16 Resp 22 H 06/10/24 13:16 BP 113/48 06/10/24 10:30 Pulse Ox 98 06/10/24 13:16 O2 Del Method Mechanical Ventilation 06/10/24 13:16 FiO2 28 06/10/24 13:16 06/10/24 06/10/24 06/10/24 06:59 14:59 22:59 Intake Total 391.250 / 2414.036 3479.692 / 3479.692 0.817 / 3480.509 Output Total 1850 / 3625 1100 / 1100 Balance -1458.750 / -5269.484 3577.692 / 2379.692 0.817 / 2380.509 Weight last 48 hrs Weight 84.822 kg Weight 84.323 kg Physical Exam 2 Narrative: General: Intubated, sedated, on wound VAC, on waking up following simple directions HEENT: PERRLA, pupils bilaterally equal and reactive Chest: Normal vesicular breath sounds, no added sounds, equal good air entry bilaterally CVS: S1-S2 regular, no murmurs, no tachycardia, no gallops, no rubs Abdomen: Central wound VAC present, bowel sounds sluggish Neuro: Intubated, sedated Urinary Catheter Management: Ye: Cath Placed During This Visit: yes Reason for Continuing Indwelling Catheter: Accurate Measurement of Urinary Output in Critically Ill Patients Urinary Catheter Date of Insertion: 06/08/24 Urinary Catheter Time of Insertion: 00:50 Data 06/10/24 03:39 06/10/24 13:54 Micro: Microbiology 06/10/24 12:40 Blood Culture - Preliminary Blood SPECIMEN COLLECTED 06/10/24 12:36 Blood Culture - Preliminary Blood SPECIMEN COLLECTED 06/08/24 07:58 Gram Stain - Final Sputum - Endotracheal Tube Aspirate Sputum Culture - Preliminary Coag positive Staphylococcus 06/07/24 20:41 Urine Culture - Final Urine,Clean Catch A&P Assessment and plan (1) Shock: (2) Diabetic ketoacidosis: (3) Nonocclusive mesenteric ischemia: (4) S/P exploratory laparotomy: (5) S/P small bowel resection: (6) Lactic acidosis: Plan Diabetic ketoacidosis: A1c of 13. Patient seems to be going back in diabetic ketoacidosis today. ABG showing acidosis, anion gap of 23. Patient net negative of around 2 L yesterday. Will give 2 L of IV fluid bolus after which we will repeat BMP in 2 hours. If continues to have worsening acidosis and anion gap will start on insulin drip. If goes back on insulin drip will need to check BMP every 4 hours to monitor potassium. Increase fluid to normal saline at 150 cc/h. Switch to D5 NS at 150 cc/h with blood sugar less than 250. Continue NPO. If not in DKA will start on TPN otherwise we will hold off. Septic shock: Resolved Most likely in setting of nonocclusive mesenteric ischemia. Cannot rule out peritonitis. Keep mean artery pressure 65. Levophed weaned off. Follow-up blood culture, urine culture. MRSA swab not collected. Patient continues to spike high-grade fever going up to 102. Repeat blood culture. Continue vancomycin. Escalate Zosyn to meropenem. Start on IV fluconazole 200 mg daily to cover for fungal infection given possibility of peritonitis Mesenteric ischemia: Nonocclusive: Post exploratory laparotomy and small bowel resection on 06/08 and 06/09. Required further bowel resection on the second visit to the OR. Given significant nonocclusive mesenteric ischemia seen in the OR will check for CORAL panel. Appreciate surgical recommendations. Possible revisit to the OR next 24 hours for further reexploration and possible reanastomosis. Wound VAC in place. Respiratory failure: Currently on minimal ventilator settings. Will keep ventilated without sedation vacation for next 24 hours as patient would most likely go back to the OR. Sedation vacation. Plan for further weaning once patient is more stable surgically. Anesthesia: Propofol, fentanyl Glycemic control: Insulin drip Nutrition: N.p.o. hold off on TPN with concerns for DKA CODE STATUS: Full code PUD prophylaxis: Protonix DVT prophylaxis: SCD Discharge planning: Depending on the clinical picture going forward. Continue with care at ICU This documentation was created by [employer] early childhood services coordinator software. Every effort was made to ensure accuracy of early childhood services coordinator. Any obvious errors or omissions should be clarified with the author of the document. Patient's care discussed in detail with niece Ms. Niño over the phone. Patient does not have a direct family relation available. Has a daughter but is minor. Parents are . Has a brother whose whereabouts are unknown. Ms. Niño is agreeable to make medical decisions. All the questions were answered. 06/10: Patient's brother Gamal is available today along with his significant other. Gamal is agreeable to make patient's medical decision. He will be the DPOA going forward. We discussed in detail given significantly guarded prognosis with concerns for further bowel necrosis seen on the second visit to the OR. Gamal phone number of [phone] present in the chart. All the questions were answered. Attestations 2 Medical Necessity Statement*: Requires further hospitalization for management of postoperative care and patient who underwent expiratory laparotomy, bowel resection currently on mechanical ventilation, DKA Critical Care Time: The high probability of a clinically significant, sudden or life threatening deterioration of the patient's [GI, surgical, endocrine, pulmonary, renal] s ystem(s) required my full and direct attention, intervention and personal management. The critical care time is as shown. This time is in addition to time spent performing any reported procedures but includes the following: [x] Data and vital sign review and interpretation [x] Patient assessment, examination and intervention [x] Documentation [x] Medication orders and management Critical Care Time (min): 80 Coding Level of Care Code Critical Care >/= 30 minutes Critical care time (in minutes): 80 The high probability of a clinically significant, sudden or life threatening deterioration, as referenced in this documentation, required my full and direct attention, intervention and personal management. The critical care time shown is in addition to time spent performing any reported separately billable procedures and includes the following: [x] Data and vital sign review and interpretation [x ] Patient assessment, examination and intervention [x] Medication orders and management [x] Patient/Family updates as able [x] Care Coordination and Documentation. Other Coding Information This patient has a high probability of clinically significant, sudden or life threatening deterioration of the patient's (neurological/pulmonary/cardiac/renal/ID/endocrine) systems required my full, direct attention, the highest level of physician preparedness for urgent intervention and personal management. I managed/supervised life or organ supporting interventions that required frequent physician assessment. I devoted my full attention in the ICU to the direct care of this patient for the period of time indicated above. Time I spent with family or surrogate(s) is included only if the patient was incapable of providing necessary information or participating in decision making. This time includes the following services provided: Telemetry review Mechanical Ventilation Hemodynamic interpretation, assessment and management Review and interpretation of CXR Review and interpretation of lab values Review and interpretation of microbiologic data and culture results Review of medications and administration Review and interpretation of Nutrition requirements and management Discussion of management with other consultants and services Clinical update to family members Diagnoses Shock R57.9 Diabetic ketoacidosis E11.10 Nonocclusive mesenteric ischemia K55.059 S/P exploratory laparotomy Z98.890 S/P small bowel resection Z90.49 Lactic acidosis E87.20
[2024-06-10 15:19] LABS: Glucose Point of Care 178 mg/dL (70-110)
[2024-06-10 16:23] LABS: Glucose Point of Care 186 mg/dL (70-110)
[2024-06-10 17:39] LABS: Glucose Point of Care 178 mg/dL (70-110)
[2024-06-10 18:00] LABS: Blood Urea Nitrogen 9 mg/dL (6-20); Calcium 7.9 mg/dL (8.5-10.5); Carbon Dioxide 15 mmol/L (22-29); Chloride 110 mmol/L (98-107); Creatinine Clr Calc Pharmacy 109.7575; Glomerular Filtration Rate 77.6 mL/min (90-130); Glucose 194 mg/dL (65-115); Osmolality Calculated 300 mOsm/kg (285-295); Sodium 143 mmol/L (136-145)
[2024-06-10 18:30] LABS: Glucose Point of Care 193 mg/dL (70-110)
[2024-06-10 19:08] LABS: Glucose Point of Care 188 mg/dL (70-110)
--- NOTE | 2024-06-10 19:10 | PC.NURSE ---
SHift SUmmary: patient received 2L fluid bolus in the morning. Started on insulin drip due to anion gap increasing to 29.7. TMAX of 102.9, received IV tylenol. Cooling blanket available in ICU if needed (see critical care message to nurse order). SUrgery tommorow morning.
[2024-06-10] MEDS: propofol 1,000 MG/100 ML INJ 34.16 MG IV ×2 (20:37→23:28)
[2024-06-10] MEDS: pantoprazole 40 mg SDV IVP (20:37)
[2024-06-10] MEDS: dextrose 5%-sod chloride 0.9% 1,000 ML 175 ML IV (20:38)
[2024-06-10 20:53] LABS: Glucose Point of Care 174 mg/dL (70-110)
[2024-06-10 22:02] LABS: Glucose Point of Care 189 mg/dL (70-110)
[2024-06-10 22:05] LABS: Blood Urea Nitrogen 8 mg/dL (6-20); Calcium 7.9 mg/dL (8.5-10.5); Carbon Dioxide 17 mmol/L (22-29); Chloride 111 mmol/L (98-107); Creatinine Clr Calc Pharmacy 120.7332; Glomerular Filtration Rate 86.6 mL/min (90-130); Glucose 207 mg/dL (65-115); Osmolality Calculated 300 mOsm/kg (285-295); Sodium 143 mmol/L (136-145)
[2024-06-10 22:15] LABS: Anion Gap 19.1 (5-19); Potassium 4.1 mmol/L (3.5-5.1)
[2024-06-10 23:03] LABS: Glucose Point of Care 192 mg/dL (70-110)
[2024-06-11] VITALS (75 sets, daily range): BP systolic 95–141; BP diastolic 46–89; PULSE 60–96; RESP 16–18; TEMP 36.4–37.4; O2SAT 93–98
[2024-06-11 00:18] LABS: Glucose Point of Care 176 mg/dL (70-110)
[2024-06-11] MEDS: meropenem 1,000 mg SDV 1000 MG IVP ×3 (01:17→16:42)
[2024-06-11 01:27] LABS: Glucose Point of Care 205 mg/dL (70-110)
[2024-06-11 02:07] LABS: Anion Gap 17.8 (5-19); Blood Urea Nitrogen 7 mg/dL (6-20); Calcium 7.8 mg/dL (8.5-10.5); Carbon Dioxide 18 mmol/L (22-29); Chloride 112 mmol/L (98-107); Creatinine Clr Calc Pharmacy 120.7332; Glomerular Filtration Rate 86.6 mL/min (90-130); Glucose 213 mg/dL (65-115); Osmolality Calculated 302 mOsm/kg (285-295); Potassium 3.8 mmol/L (3.5-5.1); Sodium 144 mmol/L (136-145)
[2024-06-11] MEDS: propofol 1,000 MG/100 ML INJ 34.16 MG IV (02:14)
[2024-06-11] MEDS: dextrose 5%-sod chloride 0.9% 1,000 ML 175 ML IV ×2 (02:42→09:01)
[2024-06-11] MEDS: fentaNYL 1,000 MCG/100 ML BAG 15 MCG IV (02:45)
[2024-06-11 02:57] LABS: Glucose Point of Care 202 mg/dL (70-110)
[2024-06-11] MEDS: ipratropium-albuterol 3 mL Neb INHALATION ×3 (03:20→19:54)
[2024-06-11 04:28] LABS: Hematocrit 30.7 % (37-53); Mean Corpuscular HGB Conc 30.9 g/dL (30-55); Mean Corpuscular Hemoglobin 29.4 pg (27-33); Mean Platelet Volume 9.5 fL (7.4-10.4); Platelet Count 142 10^3/cmm (157-399); Red Blood Count 3.23 10^6/uL (3.85-5.65); Red Cell Distribution Width 15.4 % (12.1-15.1); White Blood Count 9.76 10^3/uL (3.29-11.43)
[2024-06-11 04:34] LABS: Glucose Point of Care 189 mg/dL (70-110)
[2024-06-11 04:41] LABS: Alanine Aminotransferase 24 U/L (0-41); Albumin Level 2.5 g/dL (3.5-5.2); Alkaline Phosphatase 70 U/L (40-130); Anion Gap 17.7 (5-19); Aspartate Amino Transferase 45 U/L (0-40); Blood Urea Nitrogen 6 mg/dL (6-20); Calcium 7.7 mg/dL (8.5-10.5); Carbon Dioxide 18 mmol/L (22-29); Chloride 112 mmol/L (98-107); Globulin 1.9 g/dL (1.3-4.6); Glomerular Filtration Rate 97.8 mL/min (90-130); Glucose 210 mg/dL (65-115); Magnesium 1.8 mg/dL (1.7-2.3); Osmolality Calculated 302 mOsm/kg (285-295); Potassium 3.7 mmol/L (3.5-5.1); Sodium 144 mmol/L (136-145); Total Bilirubin 0.3 mg/dL (0.15-1.2); Total Protein 4.4 g/dL (6.6-8.7)
[2024-06-11 04:43] LABS: Lactic Sepsis W/Reflex 0.7 mmol/L (0.5-2.2)
[2024-06-11 04:45] LABS: Slide Review Slide Review Perform
[2024-06-11 04:48] LABS: Absolute Neutrophil 9.1 10^3/cmm (1.4-6.5); Absolute Segmented Neutrophil 7.3 10/cmm (1.6-7.1); Band Neutrophils Absolute 1.8 10^3/cmm (0.0-1.2); Eosinophils 0 %; Lymphocytes 5 %; Lymphocytes Absolute 0.5 10^3/cmm (1.2-3.4); Monocytes Absolute 0.2 10^3/cmm (0.1-0.6); Platelet Estimate Normal (Normal); Segmented Neutrophils 75 %; Total Cells Counted 100 (0-100)
[2024-06-11] MEDS: propofol 1,000 MG/100 ML INJ 31.53 MG IV ×5 (05:07→21:10)
[2024-06-11] MEDS: vancomycin 2,000 MG/400 ML PIGGYBACK 200 MG IV ×2 (05:29→16:43)
[2024-06-11 05:50] LABS: Anion Gap 20.6 (5-19); Blood Urea Nitrogen 6 mg/dL (6-20); Carbon Dioxide 16 mmol/L (22-29); Chloride 113 mmol/L (98-107); Glomerular Filtration Rate 97.8 mL/min (90-130); Glucose 221 mg/dL (65-115); Osmolality Calculated 306 mOsm/kg (285-295); Potassium 3.6 mmol/L (3.5-5.1); Sodium 146 mmol/L (136-145); Vancomycin Trough 10.9 ug/mL (10-15)
[2024-06-11 06:03] LABS: Glucose Point of Care 190 mg/dL (70-110)
--- NOTE | 2024-06-11 07:18 | P.HP_ITS ---
Same Day Surgery H&P Indication for Procedure/HPI DATE OF PROCEDURE: June 11, 2024 CHIEF COMPLAINT/INDICATIONFOR SURGICAL PROCEDURE: bowel ischemia PREOP DIAGNOSIS: Bowel obstruction PLANNED PROCEDURE: Operation Date: 06/08/24 00:45 Proposed Procedures p Exploratory Laparotomy(Not Applicable) - Aleksandar Romo MD Operation Date: 06/09/24 12:00 Proposed Procedures p Exploratory Laparotomy(Not Applicable) - Aleksandar Romo MD s Possible bowel Resection w/ Anastomosis(Not Applicable) - Aleksandar Romo MD Operation Date: 06/11/24 08:00 Proposed Procedures p Exploratory Laparotomy(Not Applicable) - Aleksandar Romo MD s Possible bowel Resection w/ Anastomosis(Not Applicable) - Aleksandar Romo MD Medications/Allergies* Home Medications Medication Instructions Recorded Confirmed Type lisinopril 10 mg tablet 10 mg PO DAILY 09/24/23 06/07/24 History metformin 500 mg tablet 500 mg PO BID 09/24/23 06/07/24 History Allergies/Adverse Reactions 3 Allergy/AdvReac Type Severity Reaction Status Date / Time No Known Allergies Allergy Verified 06/07/24 20:09 Current Medications: Generic Name Dose Route Start Last Admin Trade Name Freq PRN Reason Stop Dose Admin Albuterol/Ipratropium 3 ml 06/08/24 14:00 06/11/24 03:20 Ipratropium-Albuterol 3 Ml Neb INHALATION 3 ml Q6H.RESP ANA MARÍA Administration Chlorhexidine Gluconate 1 applic 06/09/24 01:00 06/11/24 02:16 Chlorhexidine Gluconate 4% Btl 118 Ml TOPICAL Not Given Q24H ANA MARÍA Propofol 1,000 mg in 100 mls @ 0 mls/hr 06/08/24 00:45 06/11/24 05:07 Diprivan IV 60 mcg/kg/min .Q0M ANA MARÍA 31.53 mls/hr Administration Protocol Per Protocol Fentanyl 1,000 mcg in 100 mls @ 0 mls/hr 06/08/24 00:45 06/11/24 02:45 Sublimaze IV 06/11/24 09:00 150 mcg/hr .Q0M ANA MARÍA 15 mls/hr Administration Protocol Per Protocol Norepinephrine Bitartrate 4 mg in 250 mls @ 0 mls/hr 06/08/24 03:00 06/10/24 20:16 Levophed IV Infused .Q0M ANA MARÍA Titration Protocol Per Protocol Sodium Chloride 1,000 mls @ 150 mls/hr 06/09/24 08:45 06/10/24 14:18 Sodium Chloride 0.9% IV 0 mls/hr .Q6H40M ANA MARÍA Infusion Vancomycin HCl 2,000 mg in 400 mls @ 200 mls/hr 06/10/24 05:15 06/11/24 05:29 Vancocin IV 200 mls/hr Q8H ANA MARÍA Administration Acetaminophen 1,000 mg in 100 mls @ 400 mls/hr 06/10/24 08:38 06/10/24 11:45 Acetaminophen IV Infused Q8H PRN Infusion ALLERGIES Fluconazole 200 mg in 100 mls @ 100 mls/hr 06/10/24 09:00 06/10/24 11:45 Diflucan Premix IV Infused Q24H ANA MARÍA Infusion Insulin Human Regular 100 unit in 100 mls @ 0 mls/hr 06/10/24 13:45 06/11/24 06:03 Myxredlin 100 Unit/100 Ml Bag IV 1 unit/hr PROTOCOL ANA MARÍA 1 mls/hr Titration Protocol Per Protocol Dextrose/Sodium Chloride 1,000 mls @ 175 mls/hr 06/10/24 13:43 06/11/24 02:42 Dextrose 5%-Sod Chloride 0.9% IV 175 mls/hr .Q5H43M PRN Administration blood glucose less than or equal to 250 mg/dL Meropenem 1,000 mg 06/10/24 09:00 06/11/24 01:17 Meropenem 1,000 Mg Sdv IVP 1,000 mg Q8H ANA MARÍA Administration Protocol Ondansetron HCl 4 mg 06/07/24 19:57 06/07/24 20:38 Ondansetron 2 Mg/Ml Sdv 2 Ml IVP 4 mg Q8H PRN Administration vomiting, or N/V if npo Pantoprazole Sodium 40 mg 06/07/24 21:00 06/10/24 20:37 Pantoprazole 40 Mg Sdv IVP 40 mg Q24H ANA MARÍA Administration Pertinent History/Comorbid Conditions* Medical History (Updated 06/08/24 @ 13:58 by Junior Germain MD) Diabetic ketoacidosis Elevated blood pressure reading Surgical History (Updated 06/08/24 @ 13:52 by Junior Germain MD) 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 History of cardiac catheterization Family History (Updated 09/24/23 @ 15:00 by Marlene Penaloza LPN) Diabetes Family/Other Denies family history of Heart disease Cancer Social History Smoking and tobacco/nicotine status: never used tobacco/nicotine Alcohol intake: former Substance/Drug Use: never Adopted: No Caregiver/support person: No Lives independently: No Household members: friend(s) service: No Current occupational status: unemployed Current gender identity: Male Pertinent Exam Findings alert (intubated but follows commands), clear to auscultation bilaterally and regular rate & rhythm Recommendations Surgery/Procedure today Coding Level of Care Code Acute Code for [facility]
[2024-06-11 07:39] LABS: Glucose Point of Care 249 mg/dL (70-110)
--- NOTE | 2024-06-11 08:00 | XRR_ITS ---
PROCEDURE INFORMATION: Exam: XR Chest Exam date and time: 06/11/2024 4:31 AM Age: 34 years old Clinical indication: Prior surgery; Surgery date: 6+ months; Surgery type: Coronary stent; Patient HX: F/u resp failure. Intubated. ; Additional info: Vent TECHNIQUE: Imaging protocol: Radiologic exam of the chest. Views: 1 view. COMPARISON: CR XR chest 1V portable [id number] 06/10/2024 8:49 AM FINDINGS: Lungs: Mild bibasilar atelectasis. Pleural spaces: Unremarkable. No pleural effusion. No pneumothorax. Heart/Mediastinum: Unremarkable. No cardiomegaly. Bones/joints: Unremarkable. Other findings: Stable life support lines. XR/XR chest 1V portable [id number] IMPRESSION: Bibasilar hypoventilatory changes.
[2024-06-11 08:15] LABS: Anti-Double Strand DNA AB <1 IU/mL; Jo-1 Antibody <1.0 NEG AI (<1.0 NEG); SS-B/LA IGG <1.0 NEG AI (<1.0 NEG); Scleroderma Ab(Scl-70) Ab <1.0 NEG AI (<1.0 NEG); Ss-A/Ro Igg <1.0 NEG AI (<1.0 NEG)
[2024-06-11] MEDS: fluconazole premix 200 MG/100 ML PREMIX 100 MG IV (08:31)
[2024-06-11 08:50] LABS: Glucose Point of Care 176 mg/dL (70-110)
[2024-06-11] MEDS: fentaNYL 2,500 MCG/250 ML BAG 15 MCG IV (09:01)
[2024-06-11 09:24] LABS: ABG PCO2 40.9 mmHg (35-45); ABG PH Result 7.22 (7.35-7.45); Alveolar-Arterial Oxygen Gradi 6.1 mmHg (5-10); Arterial Blood Gas Hematocrit 30.5 % (42-52); Base Excess ABG -10.6 mmol/L (-2.0-2.0); Blood Gas Allen Test Pos; Blood Gas Operator Identificat CAK; Blood Gas Sample Site Radial, left; Blood Gas Sample Type Arterial; Carboxyhemoglobin 0.9 %THgb (0.4-20.1); HCO3 ABG 16.6 mmol/L (22-26); HGB O2 Sat 94.6 % (95-100); Ionized Calcium Level - ABG 1.3 mmol/L (1.1-1.4); Methemoglobin 2.4 % (0.4-1.5); Oxygen Device VENT; Oxygen Saturation ABG 97.8; PO2 FiO2 Ratio Arterial Blood 357; Potassium Level - ABG 3.2 mmol/L (3.5-5.0)
--- NOTE | 2024-06-11 09:28 | P.ANESUD_ITS ---
Pre-Anesthetic Update Pre-Anesthetic Assessment: Date of Surgery/Procedure: 06/11/24 Preop Danielle gnosis: Bowel obstruction Proposed Procedure: Operation Date: 06/08/24 00:45 Proposed Procedures p Exploratory Laparotomy(Not Applicable) - Aleksandar Romo MD Operation Date: 06/09/24 12:00 Proposed Procedures p Exploratory Laparotomy(Not Applicable) - Aleksandar Romo MD s Possible bowel Resection w/ Anastomosis(Not Applicable) - Aleksandar Romo MD Operation Date: 06/11/24 08:00 Proposed Procedures p Exploratory Laparotomy(Not Applicable) - Aleksandar Romo MD s Possible bowel Resection w/ Anastomosis(Not Applicable) - Aleksandar Romo MD Any changes to Pre-Anesthetic Assessment?: Yes Changes from Pre- Anesthetic Assessment: worsening DKA Labs Last 48hrs: Short CBC 06/09/24 06/10/24 06/11/24 Range/Units 16:35 03:39 03:44 WBC 9.84 7.81 9.76 (3.29-11.43) 10^ 3/uL Hgb 12.40 11.10 L 9.50 L (11.27-16.99) g/ dL Hct 36.1 L 33.7 L 30.7 L (37-53) % MCV 87.2 90.8 95.0 (82-101) fl Plt Count 170 135 L 142 L (157-399) 10^3/c mm Neut % (Auto) 86.5 85.2 % Neut # (Auto) 8.51 H 6.65 (1.8-7.7) 10^3/u L BMP 06/09/24 06/09/24 06/09/24 08:59 11:55 16:35 Sodium 139 139 140 Potassium 4.1 4.2 4.2 Chloride 104 103 105 Carbon Dioxide 20 L 23 21 L BUN 13 13 12 Creatinine 1.0 1.0 0.9 Glucose 294 H 238 H 204 H Calcium 7.5 L 7.8 L 7.7 L 06/10/24 06/10/24 06/10/24 03:39 12:36 13:54 Sodium 140 142 142 Potassium 4.3 4.7 4.6 Chloride 103 106 108 H Carbon Dioxide 18 L 11 L 10 L BUN 12 11 11 Creatinine 1.1 1.3 H 1.2 Glucose 199 H 236 H 218 H Calcium 7.9 L 7.8 L 7.8 L 06/10/24 06/10/24 06/10/24 17:25 17:25 17:25 Sodium 143 Cancelled Potassium 4.0 Cancelled Chloride 110 H Carbon Dioxide BUN Creatinine Glucose Calcium 06/10/24 06/10/24 06/10/24 17:25 17:25 17:25 Sodium Potassium Chloride Cancelled Carbon Dioxide 15 L Cancelled BUN 9 Cancelled Creatinine 1.1 Glucose Calcium 06/10/24 06/10/24 06/10/24 17:25 17:25 17:25 Sodium Potassium Chloride Carbon Dioxide BUN Creatinine Cancelled Glucose 194 H Cancelled Calcium 7.9 L Cancelled 06/10/24 06/11/24 06/11/24 21:28 01:28 03:44 Sodium 143 144 144 Potassium 4.1 3.8 3.7 Chloride 111 H 112 H 112 H Carbon Dioxide 17 L 18 L 18 L BUN 8 7 6 Creatinine 1.0 1.0 0.9 Glucose 207 H 213 H 210 H Calcium 7.9 L 7.8 L 7.7 L 06/11/24 05:23 Sodium 146 H Potassium 3.6 Chloride 113 H Carbon Dioxide 16 L BUN 6 Creatinine 0.9 Glucose 221 H Calcium 8.0 L Liver Function 06/09/24 06/10/24 06/11/24 Range/Units 16:35 03:39 03:44 Total Bilirubin 0.3 0.3 0.3 (0.15-1.2) mg/dL AST 54 H 51 H 45 H (0-40) U/L ALT 27 23 24 (0-41) U/L Alkaline Phosphata se 70 57 70 (40-130) U/L Albumin 2.9 L 2.6 L 2.5 L (3.5-5.2) g/dL ABG 06/07/24 06/10/24 06/11/24 20:42 04:15 09:12 Specimen Type Arterial Arterial Arterial Sample Site Radial, right Brachial, right Radial, left ABG pH 7.17 L* 7.30 L 7.22 L ABG pCO2 20.7 L 36.6 40.9 ABG pO2 121.0 H 79.8 L 100.0 ABG PO2/FiO2 Ratio 576 285 357 ABG HCO3 7.6 L 18.1 L 16.6 L ABG O2 Saturation 96.1 97.8 ABG Base Excess -18.8 L -7.6 L -10.6 L A-a O2 Gradient 9.4 6.1 O2 Delivery Device Room air Vent Vent FiO2 21.0 28.0 28.0 Tidal Volume 0.50 0.50 PEEP 5.0 5.0 Vitals: Temperature 98.2 F 06/11/24 05:54 Temperature Source Core 06/11/24 05:54 Pulse Rate 71 06/11/24 08:00 Pulse Rhythm Regular 06/10/24 20:00 Pulse Strength 3+ Normal 06/10/24 20:00 Respiratory Rate 16 06/11/24 08:00 Respiratory Effort Mechanically Vent ilated 06/10/24 20:00 Respiratory Depth Normal 06/10/24 20:00 Blood Pressure 121/61 06/11/24 05:45 Blood Pressure Rula n 81 06/11/24 05:45 Blood Pressure Pos ition Semi Fowlers 06/10/24 18:30 Pulse Oximetry 97 06/11/24 08:00 Oxygen Delivery Me thod Mechanical Ventil ation 06/11/24 08:00 Fraction of Inspir ed Oxygen 28 06/11/24 08:00 Sepsis Action Take n by Nursing Physician Notifie d 06/07/24 19:57 Exam: Pre-Anes Outpt Exam: alert, oriented x 3, clear to auscultation bilaterally and regular rate & rhythm Cardiac Studies: Echocardiogram 06/08/24
[2024-06-11 09:33] LABS: Glucose Point of Care 201 mg/dL (70-110)
[2024-06-11 09:57] LABS: Anion Gap 19.3 (5-19); Blood Urea Nitrogen 6 mg/dL (6-20); Carbon Dioxide 17 mmol/L (22-29); Chloride 114 mmol/L (98-107); Creatinine Clr Calc Pharmacy 151.2908; Glucose 226 mg/dL (65-115); Osmolality Calculated 309 mOsm/kg (285-295); Potassium 3.3 mmol/L (3.5-5.1); Sodium 147 mmol/L (136-145)
[2024-06-11] MEDS: lidocaine 1% 5 ML in potassium chloride premix 100 ML 26.25 ML IV ×2 (09:59→16:44)
--- NOTE | 2024-06-11 11:21 | PC.NURSE ---
To OR with OR staff
--- NOTE | 2024-06-11 14:24 | PM.OP ---
Operative Report Date of procedure: June 11, 2024 Pre-op diagnosis: Small bowel obstruction Post-op diagnosis: Mesenteric ischemia Post-op findings: No further necrotic bowel, no intra-abdominal abscess, bowel was ran from the ligament of Treitz to the terminal ileum all segments appear viable, total of 150 cm of viable bowel was left. Procedure done: Exploratory laparotomy, enteroenteric anastomosis, enterocolonic anastomosis, abdominal wall closure Specimens removed/disposition: Enteroenteric anastomosis residual tissue, enterocolonic anastomosis residual tissue Surgeon: Aleksandar Romo MD Estimated blood loss: 50 Complications: none Brief History: 34-year-old male with suspected nonocclusive mesenteric ischemia due to DKA, he has come to the OR for laparotomy 2 times on each time necrotic bowel was noted the first time he underwent a small bowel resection the second time he required an ileocecectomy. Return to the OR today for possible anastomosis and closure. Procedure: Patient was brought into the OR, he was already intubated, general anesthesia was given. ABThera bag was removed and the abdomen was prepped and draped in usual sterile fashion. Timeout was conducted. The inner portion of the ABThera VAC was removed. The abdominal cavity was explored, no evidence of necrotic viscera was noted, staple lines appeared healthy, no evidence of intra-abdominal abscess was noted. I then proceeded with anastomosis. I started with the anastomosis between the ileum and ascending colon, I aligned the limbs of the ascending colon with the small bowel, #3-0 Vicryl was used to put some stay sutures to keep this alignment. I then proceeded to transect the edges of the staple line about the ascending colon and the small bowel, adequate access to the lumen of the colon and the bowel was verified with a clamp. And then advanced a 100 mm blue load RUMA stapler into the newly created enterotomies, adequate alignment was achieved, the mesentery on the back was completely free and then I proceeded to fire the stapler, after the stapler was fired no evidence of bleeding from the staple line was noted. The common channel enterotomy was then aligned using Allis clamps, I then used a 60 mm blue load TA stapler to staple the common channel enterotomy, residual tissue was cut with a scalpel and the TA was released. The anastomosis appeared intact, no evidence of significant bleeding. Due to high risk in this patient I decided to reinforce the anastomosis with #3-0 Vicryl interrupted sutures, I then closed the mesenteric defect with #3-0 Vicryl. We changed gloves and instruments, I then placed my attention to the proximal small bowel where enteric enteric anastomosis was required between the proximal jejunum and mid jejunum this anastomosis was completed in a standard fashion. Follow-up using the same steps as we did with the ileocolonic anastomosis. Once anastomosis was created there was no evidence of bleeding from the staple line I decided to reinforce the corners and areas were multiple staple lines came together with #3-0 Vicryl and I closed the mesentery with #3-0 Vicryl. We change gloves, I then proceeded to washout the abdomen, four-quadrant irrigation was done around 6 L of saline was used for this. Hemostasis was verified. A 19 Mongolian channel drain was then placed in the right paracolic gutter and pelvis and delivered through the abdominal wall of the right lower quadrant. The drain was fixed to the skin with #2-0 nylon. Due to the high risk nature of this patient I decided to ring for the anastomotic lines with fibrin glue. I did this on the enterocolonic anastomosis and the enteroenteric anastomosis. I then proceeded with closure of the abdomen, I used omentum to completely cover the small bowel and the enterocolic anastomosis, I then closed the abdominal wall using #1 looped PDS for the fascia. The subcutaneous tissue was profusely irrigated with saline and the skin was closed with a helena leaving some spacing between 4/2 inch iodoform packing. A sterile dressing was then applied. No significant contamination was noted in the abdomen during anastomosis creation. At the end of the procedure all counts were correct, the patient tolerated well the procedure was transferred to the ICU in critical but stable condition still intubated.
--- NOTE | 2024-06-11 14:34 | PC.NURSE ---
Back from OR Pt back from OR with OR team. Pt remains intubated, ng to right nare, IV drips remain the same levels as sending to OR. gruber to gravity. Wound vac is removed and incision closed. abdominal incision unable to visualize due to abdominal binder in place. CIARA drain noted to bulb suction with serosangineous fluid noted.
[2024-06-11 14:54] LABS: ABG PCO2 38.9 mmHg (35-45); ABG PH Result 7.26 (7.35-7.45); Alveolar-Arterial Oxygen Gradi 4.8 mmHg (5-10); Arterial Blood Gas Hematocrit 30.7 % (42-52); Base Excess ABG -9.1 mmol/L (-2.0-2.0); Blood Gas Operator Identificat CAK; Blood Gas Sample Site ALINE; Blood Gas Sample Type Arterial; Carboxyhemoglobin 1.1 %THgb (0.4-20.1); HCO3 ABG 17.4 mmol/L (22-26); HGB O2 Sat 95.2 % (95-100); Ionized Calcium Level - ABG 1.3 mmol/L (1.1-1.4); Oxygen Device VENT; Oxygen Saturation ABG 98.3; PO2 FiO2 Ratio Arterial Blood 403; Potassium Level - ABG 3.4 mmol/L (3.5-5.0)
[2024-06-11 15:02] LABS: Basophils # 0.1 10^3/uL (0.0-0.1); Basophils % 0.9 %; Eosinophils # 0.1 10^3/uL (0.0-0.8); Eosinophils % 1.4 %; Hematocrit 33.2 % (37-53); Lymphocytes # 0.7 10^3/uL (0.8-4.8); Lymphocytes % 9.1 %; Mean Corpuscular Hemoglobin 29.3 pg (27-33); Mean Corpuscular Volume 94.3 fl (82-101); Mean Platelet Volume 9.5 fL (7.4-10.4); Monocytes # 0.3 10^3/uL (0.2-0.9); Neutrophils # 5.94 10^3/uL (1.8-7.7); Neutrophils % 78.3 %; Nucleated Red Blood Cells % 0 %; Platelet Count 179 10^3/cmm (157-399); Red Blood Count 3.52 10^6/uL (3.85-5.65); Red Cell Distribution Width 15.7 % (12.1-15.1); White Blood Count 7.59 10^3/uL (3.29-11.43)
[2024-06-11 15:18] LABS: Alanine Aminotransferase 25 U/L (0-41); Albumin Level 2.3 g/dL (3.5-5.2); Alkaline Phosphatase 70 U/L (40-130); Anion Gap 19.7 (5-19); Aspartate Amino Transferase 43 U/L (0-40); Blood Urea Nitrogen 5 mg/dL (6-20); Calcium 7.9 mg/dL (8.5-10.5); Carbon Dioxide 15 mmol/L (22-29); Chloride 115 mmol/L (98-107); Creatinine Clr Calc Pharmacy 172.9037; Glomerular Filtration Rate 130.7 mL/min (90-130); Glucose 218 mg/dL (65-115); Osmolality Calculated 306 mOsm/kg (285-295); Potassium 3.7 mmol/L (3.5-5.1); Sodium 146 mmol/L (136-145); Total Bilirubin 0.2 mg/dL (0.15-1.2); Total Protein 5.3 g/dL (6.6-8.7)
[2024-06-11 15:21] LABS: Glucose Point of Care 239 mg/dL (70-110)
[2024-06-11 15:21] LABS: Glucose Point of Care 199 mg/dL (70-110)
--- NOTE | 2024-06-11 15:38 | PM.PN ---
Subjective Subjective: No acute vents overnight. Patient has remained hemodynamically stable. Tmax in last 24 hours 100.6 Fahrenheit. Fever curve improving. Has remained on 175 of fentanyl and 60 of propofol. Currently on minimal ventilator settings with FiO2 28%, tidal volume of 500. Continues to remain on insulin drip of 1. Appreciate intake output. 300 cc from the wound VAC. Urine output of around 4.5 L Vitals/I&O/Wt Last Vital Signs Temp 97.5 F L 06/11/24 14:45 Pulse 84 06/11/24 15:15 Resp 16 06/11/24 15:15 BP 137/81 06/11/24 15:15 Pulse Ox 98 06/11/24 15:15 O2 Del Method Mechanical Ventilation 06/11/24 15:15 O2 Flow Rate 15 06/11/24 14:34 FiO2 28 06/11/24 15:15 06/11/24 06/11/24 06/11/24 06:59 14:59 22:59 Intake Total 1768.239 / 8147.598 2090.433 / 2090.433 109.367 / 2199.800 Output Total 2125 / 5220 1780 / 1780 Balance -356.761 / 2927.598 310.433 / 310.433 109.367 / 419.800 Weight last 48 hrs Weight 85.321 kg Weight 84.822 kg Physical Exam Narrative: General: Intubated, sedated, on wound VAC, on waking up following simple directions HEENT: PERRLA, pupils bilaterally equal and reactive Chest: Normal vesicular breath sounds, no added sounds, equal good air entry bilaterally CVS: S1-S2 regular, no murmurs, no tachycardia, no gallops, no rubs Abdomen: Central wound VAC present, bowel sounds sluggish Neuro: Intubated, sedated Urinary Catheter Management: Ye: Cath Placed During This Visit: yes Reason for Continuing Indwelling Catheter: Accurate Measurement of Urinary Output in Critically Ill Patients Urinary Catheter Date of Insertion: 06/08/24 Urinary Catheter Time of Insertion: 00:50 Data 06/11/24 14:47 06/11/24 14:47 Micro: Microbiology 06/10/24 12:40 Blood Culture - Preliminary Blood NEGATIVE TO DATE 06/10/24 12:36 Blood Culture - Preliminary Blood NEGATIVE TO DATE 06/08/24 07:58 Gram Stain - Final Sputum - Endotracheal Tube Aspirate Sputum Culture - Final Methicillin Resis Staph Aureus A&P Assessment and plan (1) Shock: (2) Diabetic ketoacidosis: (3) Nonocclusive mesenteric ischemia: (4) S/P exploratory laparotomy: (5) S/P small bowel resection: (6) Lactic acidosis: Plan Diabetic ketoacidosis: A1c of 13. Patient seems to be going back in diabetic ketoacidosis today. Repeat ABG. Anion gap improving. Continue to monitor BMP every 4 hours. Showing mild hypernatremia today. Switch to D5 half NS. Increase fluids 200 cc/h. Strict intake and output. Continue with insulin drip. Maintain potassium around 4. Replete with 80 mg of IV for now. Septic shock: Resolved Most likely in setting of nonocclusive mesenteric ischemia. Cannot rule out peritonitis. Keep mean artery pressure 65. Levophed weaned off. Follow-up blood culture, urine culture. MRSA swab not collected. Patient continues to spike high-grade fever going up to 102. Repeat blood culture. Continue vancomycin, meropenem. Continue with fluconazole. Will plan to continue overall 7 to 10 days of antimicrobials. Will de-escalate as per culture results if any positive. Mesenteric ischemia: Nonocclusive: Post exploratory laparotomy and small bowel resection on 06/08 and 06/09. Plan for revisit to the OR today for possible closure anastomosis. Appreciate surgical recommendations. Wound VAC in place. Respiratory failure: Currently on minimal ventilator settings. Will keep ventilated without sedation vacation for next 24 hours as patient would most likely go back to the OR. Sedation vacation. Plan for further weaning once patient is more stable surgically. Hypernatremia Hypokalemia Anesthesia: Propofol, fentanyl Glycemic control: Insulin drip Nutrition: N.p.o. hold off on TPN with concerns for DKA CODE STATUS: Full code PUD prophylaxis: Protonix DVT prophylaxis: SCD Discharge planning: Depending on the clinical picture going forward. Continue with care at ICU This documentation was created by [employer] information services vice president software. Every effort was made to ensure accuracy of information services vice president. Any obvious errors or omissions should be clarified with the author of the document. Patient's care discussed in detail with niece Ms. Niño over the phone. Patient does not have a direct family relation available. Has a daughter but is minor. Parents are . Has a brother whose whereabouts are unknown. Ms. Niño is agreeable to make medical decisions. All the questions were answered. 06/10: Patient's brother Gamal is available today along with his significant other. Gamal is agreeable to make patient's medical decision. He will be the DPOA going forward. We discussed in detail given significantly guarded prognosis with concerns for further bowel necrosis seen on the second visit to the OR. Gamal phone number of [phone] present in the chart. All the questions were answered. Attestations Medical Necessity Statement*: Requires further hospitalization for management of DKA, postoperative care in a patient with nonocclusive mesenteric ischemia postop care for expert laparotomy and bowel resection, hypernatremia, hypokalemia Critical Care Time: The high probability of a clinically significant, sudden or life threatening deterioration of the patient's [surgical, endocrine, pulmonary, renal] system(s) required my full and direct attention, intervention and personal management. The critical care time is as shown. This time is in addition to time spent performing any reported procedures but includes the following: [x] Data and vital sign review and interpretation [x] Patient assessment, examination and intervention [x] Documentation [x] Medication orders and management Critical Care Time (min): 80 Coding Level of Care Code Critical Care >/= 30 minutes Critical care time (in minutes): 80 The high probability of a clinically significant, sudden or life threatening deterioration, as referenced in this documentation, required my full and direct attention, intervention and personal management. The critical care time shown is in addition to time spent performing any reported separately billable procedures and includes the following: [x] Data and vital sign review and interpretation [x] Patient assessment, examination and intervention [x] Medication orders and management [x] Patient/Family updates as able [x] Care Coordination and Documentation. Other Coding Information This patient has a high probability of clinically significant, sudden or life threatening deterioration of the patient's (neurological/pulmonary/cardiac/renal/ID/endocrine) systems required my full, direct attention, the highest level of physician preparedness for urgent intervention and personal management. I managed/supervised life or organ supporting interventions that required frequent physician assessment. I devoted my full attention in the ICU to the direct care of this patient for the period of time indicated above. Time I spent with family or surrogate(s) is included only if the patient was incapable of providing necessary information or participating in decision making. This time includes the following services provided: Telemetry review Mechanical Ventilation Hemodynamic interpretation, assessment and management Review and interpretation of CXR Review and interpretation of lab values Review and interpretation of microbiologic data and culture results Review of medications and administration Review and interpretation of Nutrition requirements and management Discussion of management with other consultants and services Clinical update to family members Diagnoses Shock R57.9 Diabetic ketoacidosis E11.10 Nonocclusive mesenteric ischemia K55.059 S/P exploratory laparotomy Z98.890 S/P small bowel resection Z90.49 Lactic acidosis E87.20
[2024-06-11] MEDS: dextrose 5%-sod chloride 0.45% 1,000 ML 200 ML IV ×2 (16:16→21:48)
[2024-06-11 17:18] LABS: Glucose Point of Care 201 mg/dL (70-110)
[2024-06-11 18:40] LABS: Anion Gap 16.6 (5-19); Blood Urea Nitrogen 5 mg/dL (6-20); Calcium 7.8 mg/dL (8.5-10.5); Carbon Dioxide 17 mmol/L (22-29); Chloride 115 mmol/L (98-107); Creatinine Clr Calc Pharmacy 151.2908; Glucose 231 mg/dL (65-115); Osmolality Calculated 305 mOsm/kg (285-295); Potassium 3.6 mmol/L (3.5-5.1); Sodium 145 mmol/L (136-145)
[2024-06-11 19:16] LABS: Glucose Point of Care 208 mg/dL (70-110)
[2024-06-11 20:17] LABS: Glucose Point of Care 204 mg/dL (70-110)
[2024-06-11 21:05] LABS: Glucose Point of Care 204 mg/dL (70-110)
[2024-06-11] MEDS: pantoprazole 40 mg SDV IVP (21:07)
[2024-06-11 21:59] LABS: Glucose Point of Care 194 mg/dL (70-110)
[2024-06-11 23:30] LABS: Glucose Point of Care 220 mg/dL (70-110)
[2024-06-12] VITALS (71 sets, daily range): BP systolic 100–166; BP diastolic 50–97; PULSE 77–124; RESP 0–26; TEMP 36.4–39; O2SAT 93–100
[2024-06-12 00:09] LABS: Glucose Point of Care 220 mg/dL (70-110)
[2024-06-12] MEDS: propofol 1,000 MG/100 ML INJ 31.53 MG IV ×5 (00:34→12:57)
[2024-06-12] MEDS: fentaNYL 2,500 MCG/250 ML BAG 17.5 MCG IV ×2 (00:44→14:12)
[2024-06-12] MEDS: vancomycin 2,000 MG/400 ML PIGGYBACK 200 MG IV ×4 (00:47→23:53)
[2024-06-12] MEDS: ipratropium-albuterol 3 mL Neb INHALATION ×4 (01:04→20:28)
[2024-06-12 01:17] LABS: Anion Gap 17.8 (5-19); Blood Urea Nitrogen 5 mg/dL (6-20); Carbon Dioxide 18 mmol/L (22-29); Chloride 110 mmol/L (98-107); Creatinine Clr Calc Pharmacy 151.2908; Glucose 253 mg/dL (65-115); Osmolality Calculated 300 mOsm/kg (285-295); Potassium 3.8 mmol/L (3.5-5.1); Sodium 142 mmol/L (136-145)
[2024-06-12 01:35] LABS: Glucose Point of Care 232 mg/dL (70-110)
[2024-06-12 02:23] LABS: Glucose Point of Care 212 mg/dL (70-110)
[2024-06-12] MEDS: meropenem 1,000 mg SDV 1000 MG IVP ×3 (03:04→18:30)
[2024-06-12 03:24] LABS: Glucose Point of Care 229 mg/dL (70-110)
[2024-06-12 04:06] LABS: ABG PCO2 38.7 mmHg (35-45); ABG PH Result 7.31 (7.35-7.45); Alveolar-Arterial Oxygen Gradi 5.4 mmHg (5-10); Arterial Blood Gas Hematocrit 30.2 % (42-52); Base Excess ABG -6.4 mmol/L (-2.0-2.0); Blood Gas Allen Test Pos; Blood Gas Sample Site ARTLINE; Blood Gas Sample Type Arterial; Carboxyhemoglobin 0.9 %THgb (0.4-20.1); HCO3 ABG 19.4 mmol/L (22-26); HGB O2 Sat 95.5 % (95-100); Ionized Calcium Level - ABG 1.2 mmol/L (1.1-1.4); Methemoglobin 2.1 % (0.4-1.5); Oxygen Device VENT; Oxygen Saturation ABG 98.4; PO2 FiO2 Ratio Arterial Blood 385; Potassium Level - ABG 3.6 mmol/L (3.5-5.0); Total Hemoglobin 9.8 g/dL (14-18)
[2024-06-12 04:13] LABS: Glucose Point of Care 227 mg/dL (70-110)
[2024-06-12 04:31] LABS: Basophils # 0.1 10^3/uL (0.0-0.1); Eosinophils # 0.2 10^3/uL (0.0-0.8); Eosinophils % 3.1 %; Hematocrit 30.4 % (37-53); Lymphocytes # 0.8 10^3/uL (0.8-4.8); Lymphocytes % 10.9 %; Mean Corpuscular HGB Conc 31.6 g/dL (30-55); Mean Platelet Volume 9.4 fL (7.4-10.4); Monocytes # 0.4 10^3/uL (0.2-0.9); Monocytes % 5.4 %; Neutrophils # 5.38 10^3/uL (1.8-7.7); Neutrophils % 70.7 %; Nucleated Red Blood Cells % 0 %; Platelet Count 196 10^3/cmm (157-399); White Blood Count 7.62 10^3/uL (3.29-11.43)
[2024-06-12] MEDS: acetaminophen 1,000 MG/100 ML PIGGYBACK 400 MG IV (04:53)
[2024-06-12 05:04] LABS: Alanine Aminotransferase 23 U/L (0-41); Albumin Level 2.3 g/dL (3.5-5.2); Alkaline Phosphatase 69 U/L (40-130); Aspartate Amino Transferase 28 U/L (0-40); Blood Urea Nitrogen 5 mg/dL (6-20); C Reactive Protein 258.2 mg/L (0.0-4.9); Calcium 7.7 mg/dL (8.5-10.5); Carbon Dioxide 18 mmol/L (22-29); Chloride 115 mmol/L (98-107); Creatinine Clr Calc Pharmacy 134.4807; Globulin 2.7 g/dL (1.3-4.6); Glomerular Filtration Rate 97.8 mL/min (90-130); Glucose 264 mg/dL (65-115); Osmolality Calculated 312 mOsm/kg (285-295); Sodium 148 mmol/L (136-145); Total Bilirubin 0.2 mg/dL (0.15-1.2)
[2024-06-12 05:07] LABS: Anion Gap 18.9 (5-19); Potassium 3.9 mmol/L (3.5-5.1)
[2024-06-12] MEDS: dextrose 5%-sod chloride 0.45% 1,000 ML 200 ML IV (05:12)
[2024-06-12 05:23] LABS: Slide Review Slide Review Perform
[2024-06-12 05:23] LABS: Glucose Point of Care 238 mg/dL (70-110)
[2024-06-12 06:45] LABS: Glucose Point of Care 219 mg/dL (70-110)
[2024-06-12 07:11] LABS: Glucose Point of Care 229 mg/dL (70-110)
--- NOTE | 2024-06-12 09:03 | P.PN_ITS ---
Subjective 2 Subjective: Postoperative day4 status post exploratory laparotomy and bowel resection, postoperative day 3 status post washout and ileocecectomy and now postoperative day 1 status post exploratory laparotomy creation of enteroenteric anastomosis enterocolic anastomosis washout and closure. Patient remains intubated and sedated, continues to be with acidosis and continues to be febrile. Effluent from the CIARA drain has been clear around 40 cc overnight. Vitals/I&O/Wt Last Vital Signs Temp 101.7 F H 06/12/24 06:00 Pulse 100 06/12/24 07:40 Resp 16 06/12/24 07:38 BP 109/56 06/12/24 06:00 Pulse Ox 96 06/12/24 07:38 O2 Del Method Mechanical Ventilation 06/12/24 07:37 O2 Flow Rate 15 06/11/24 14:34 FiO2 28 06/12/24 07:38 06/11/24 06/12/24 06/12/24 22:59 06:59 14:59 Intake Total 1877.215 / 4681.815 1966.073 / 6647.888 2.566 / 2.566 Output Total 1710 / 3490 615 / 4105 Balance 167.215 / 6292.871 7654.073 / 2542.888 2.566 / 2.566 Weight last 48 hrs Weight 206 lb 2.115 oz Weight 188 lb 1.6 oz Physical Exam 2 GI: OTHER: Surgical incision covered with dressing, packing was removed and replaced no evidence of current infection at this level. CIARA drain effluent appears to be serous. Urinary Catheter Management: Ye: Cath Placed During This Visit: yes Reason for Continuing Indwelling Catheter: Accurate Measurement of Urinary Output in Critically Ill Patients Urinary Catheter Date of Insertion: 06/08/24 Urinary Catheter Time of Insertion: 00:50 Data 06/12/24 04:19 06/12/24 04:19 Micro: Microbiology 06/10/24 12:40 Blood Culture - Preliminary Blood NEGATIVE TO DATE 06/10/24 12:36 Blood Culture - Preliminary Blood NEGATIVE TO DATE 06/08/24 07:58 Gram Stain - Final Sputum - Endotracheal Tube Aspirate Sputum Culture - Final Methicillin Resis Staph Aureus A&P Assessment and plan (1) Abdominal pain: (2) Nonocclusive mesenteric ischemia: (3) S/P exploratory laparotomy: (4) S/P small bowel resection: (5) Lactic acidosis: Plan Patient is stable from the general surgery standpoint, continues to spike fevers, at this moment it is difficult to determine if these are inflammatory or infectious in nature, is too early after laparotomy for the fevers to be justified for an intra-abdominal source. He is NG effluent has been around 400 cc over the last 12 hours CIARA effluent has been serous and about 40 cc overnight. No other significant findings from the surgical standpoint, we we will continue management with broad-spectrum antibiotics, NG to low intermittent suction and we will attempt to wean of ventilation. The plan will be to wait for return of bowel function before we can start p.o. intake. Patient is high risk for intra- abdominal complications after surgery due to baseline pathology and need to return to the OR for multiple trips during this week. I will continue to follow-up on a daily basis. -N.p.o. with NG tube to low intermittent wall suction -Continue to trend labs -Will monitor CIARA drain output -Pain control -Weane off sedation as tolerated -We appreciate management per medical ICU team Attestations 2 Medical Necessity Statement*: Per medical ICU Coding Level of Care Code Acute Code for Chg Fwd Diagnoses Abdominal pain R10.9 Nonocclusive mesenteric ischemia K55.059 S/P exploratory laparotomy Z98.890 S/P small bowel resection Z90.49 Lactic acidosis E87.20
[2024-06-12] MEDS: fluconazole premix 200 MG/100 ML PREMIX 100 MG IV (10:03)
[2024-06-12] MEDS: dextrose 5% 1,000 ML 200 ML IV (10:04)
[2024-06-12] MEDS: ketorolac 30 mg/mL INJ IVP (10:13)
[2024-06-12 10:56] LABS: Glucose Point of Care 237 mg/dL (70-110)
[2024-06-12 10:56] LABS: Glucose Point of Care 228 mg/dL (70-110)
[2024-06-12 10:56] LABS: Glucose Point of Care 250 mg/dL (70-110)
[2024-06-12 10:56] LABS: Glucose Point of Care 239 mg/dL (70-110)
[2024-06-12 12:12] LABS: Glucose Point of Care 236 mg/dL (70-110)
[2024-06-12 13:46] LABS: Blood Urea Nitrogen 5 mg/dL (6-20); Calcium 7.9 mg/dL (8.5-10.5); Carbon Dioxide 13 mmol/L (22-29); Chloride 109 mmol/L (98-107); Creatinine Clr Calc Pharmacy 139.9333; Glomerular Filtration Rate 97.8 mL/min (90-130); Glucose 268 mg/dL (65-115); Osmolality Calculated 303 mOsm/kg (285-295); Sodium 143 mmol/L (136-145)
[2024-06-12 13:47] LABS: Vancomycin Trough 9.7 ug/mL (10-15)
--- NOTE | 2024-06-12 13:48 | P.PN_ITS ---
Subjective 2 Subjective: No acute events overnight. Patient has remained hemodynamically stable. Tmax in last 24 hours 101.7 Fahrenheit. Patient is not on Levophed. Underwent anastomosis and closure with OR yesterday. Remains on 1 of insulin. Currently on 150 of fentanyl, 60 of propofol. On minimal ventilator settings. Vitals/I&O/Wt Last Vital Signs Temp 101.7 F H 06/12/24 06:00 Pulse 100 06/12/24 07:40 Resp 19 H 06/12/24 12:00 BP 109/56 06/12/24 06:00 Pulse Ox 95 06/12/24 11:25 O2 Del Method Mechanical Ventilation 06/12/24 07:37 O2 Flow Rate 15 06/11/24 14:34 FiO2 28 06/12/24 11:25 06/11/24 06/12/24 06/12/24 22:59 06:59 14:59 Intake Total 1877.215 / 4681.815 1966.073 / 6647.888 1798.423 / 1798.423 Output Total 1710 / 3490 615 / 4105 Balance 167.215 / 3576.775 0744.073 / 2542.888 1798.423 / 1798.423 Weight last 48 hrs Weight 93.5 kg Weight 85.321 kg Physical Exam 2 Narrative: General: Intubated, sedated, on wound VAC, on waking up following simple directions HEENT: PERRLA, pupils bilaterally equal and reactive Chest: Normal vesicular breath sounds, no added sounds, equal good air entry bilaterally CVS: S1-S2 regular, no murmurs, no tachycardia, no gallops, no rubs Abdomen: Central wound VAC present, bowel sounds sluggish Neuro: Intubated, sedated Urinary Catheter Management: Ye: Cath Placed During This Visit: yes Reason for Continuing Indwelling Catheter: Accurate Measurement of Urinary Output in Critically Ill Patients Urinary Catheter Date of Insertion: 06/08/24 Urinary Catheter Time of Insertion: 00:50 Data 06/12/24 04:19 06/12/24 12:31 Micro: Microbiology 06/10/24 12:40 Blood Culture - Preliminary Blood NEGATIVE TO DATE 06/10/24 12:36 Blood Culture - Preliminary Blood NEGATIVE TO DATE A&P Assessment and plan (1) Shock: (2) Diabetic ketoacidosis: (3) Nonocclusive mesenteric ischemia: (4) S/P exploratory laparotomy: (5) S/P small bowel resection: (6) Lactic acidosis: Plan Diabetic ketoacidosis: A1c of 13. Anion gap improving. pH improving. Continue with insulin drip for now. Patient having mild hypernatremia. Switch to D5W at 200 cc/h. Monitor BMP 4 hours. Target potassium around 4. Replete accordingly. Strict input output charting. Currently patient's 24 hours intake and output is almost equal. If anion gap closes for now plan will be to continue with insulin drip and D5W fluid because of ongoing hypernatremia and as patient cannot be started on free water flushes for now given post bowel resection and anastomosis status. If anion gap closes can possibly transition over to TPN along with insulin drip within next 24 hours. Septic shock: Resolved Most likely in setting of nonocclusive mesenteric ischemia. Cannot rule out peritonitis. Keep mean artery pressure 65. Levophed weaned off. Follow-up blood culture, urine culture. Sputum culture growing MRSA.. Patient continues to spike high-grade fever going up to 102. High concerns for noninfectious or inflammatory fevers. Will give a trial of 1 dose of Toradol. Confirm with surgeon given postoperative status. Continue vancomycin, meropenem. Continue with fluconazole. Will plan to continue overall 7 to 10 days of antimicrobials. Will de-escalate as per culture results if any positive. Mesenteric ischemia: Nonocclusive: Post exploratory laparotomy and small bowel resection on 06/08 and 06/09 and enterocolonic enteroenteric anastomosis along with abdominal wall closure on 06/11. CIARA drain in place. Appreciate surgical recommendations. Wound care as per surgical team. Respiratory failure: Currently on minimal ventilator settings. Plan for sedation vacation in next 24 hours. For now we will plan to continue to remain on mechanical ventilator for next 24 to 48 hours to facilitate healing of abdominal wound. Sputum culture growing MRSA. Current IV antibiotics. Hypernatremia: Treatment as above. Switching fluid to D5W. Hypokalemia Anesthesia: Propofol, fentanyl Glycemic control: Insulin drip Nutrition: N.p.o. hold off on TPN with concerns for DKA CODE STATUS: Full code PUD prophylaxis: Protonix DVT prophylaxis: SCD Discharge planning: Depending on the clinical picture going forward. Continue with care at ICU This documentation was created by [employer] controller software. Every effort was made to ensure accuracy of chemical equipment controller. Any obvious errors or omissions should be clarified with the author of the document. Patient's care discussed in detail with niece Ms. Niño over the phone. Patient does not have a direct family relation available. Has a daughter but is minor. Parents are . Has a brother whose whereabouts are unknown. Ms. Niño is agreeable to make medical decisions. All the questions were answered. 06/10: Patient's brother Gamal is available today along with his significant other. Gamal is agreeable to make patient's medical decision. He will be the DPOA going forward. We discussed in detail given significantly guarded prognosis with concerns for further bowel necrosis seen on the second visit to the OR. Gamal phone number of [phone] present in the chart. All the questions were answered. Attestations 2 Medical Necessity Statement*: Requires further hospitalization for management of diabetic ketoacidosis leading to nonocclusive mesenteric ischemia post bowel resection expiratory laparotomy, enterocolonic and enteroenteric anastomosis as patient remains critically sick on mechanical ventilator Critical Care Time: The high probability of a clinically significant, sudden or life threatening deterioration of the patient's [cardiac, pulmonary, endocrine, GI, renal] s ystem(s) required my full and direct attention, intervention and personal management. The critical care time is as shown. This time is in addition to time spent performing any reported procedures but includes the following: [x] Data and vital sign review and interpretation [x] Patient assessment, examination and intervention [x] Documentation [x] Medication orders and management Critical Care Time (min): 80 Coding Level of Care Code Critical Care >/= 30 minutes Critical care time (in minutes): 80 The high probability of a clinically significant, sudden or life threatening deterioration, as referenced in this documentation, required my full and direct attention, intervention and personal management. The critical care time shown is in addition to time spent performing any reported separately billable procedures and includes the following: [x] Data and vital sign review and interpretation [x ] Patient assessment, examination and intervention [x] Medication orders and management [x] Patient/Family updates as able [x] Care Coordination and Documentation. Other Coding Information This patient has a high probability of clinically significant, sudden or life threatening deterioration of the patient's (neurological/pulmonary/cardiac/renal/ID/endocrine) systems required my full, direct attention, the highest level of physician preparedness for urgent intervention and personal management. I managed/supervised life or organ supporting interventions that required frequent physician assessment. I devoted my full attention in the ICU to the direct care of this patient for the period of time indicated above. Time I spent with family or surrogate(s) is included only if the patient was incapable of providing necessary information or participating in decision making. This time includes the following services provided: Telemetry review Mechanical Ventilation Hemodynamic interpretation, assessment and management Review and interpretation of CXR Review and interpretation of lab values Review and interpretation of microbiologic data and culture results Review of medications and administration Review and interpretation of Nutrition requirements and management Discussion of management with other consultants and services Clinical update to family members Diagnoses Shock R57.9 Diabetic ketoacidosis E11.10 Nonocclusive mesenteric ischemia K55.059 S/P exploratory laparotomy Z98.890 S/P small bowel resection Z90.49 Lactic acidosis E87.20
[2024-06-12 13:59] LABS: Anion Gap 24.6 (5-19); Potassium 3.6 mmol/L (3.5-5.1)
[2024-06-12 14:11] LABS: Glucose Point of Care 256 mg/dL (70-110)
[2024-06-12 14:11] LABS: Glucose Point of Care 260 mg/dL (70-110)
[2024-06-12] MEDS: D5-NS 0.45% + KCL 20 mEq 20 MEQ/1,000 ML BAG 200 MEQ IV ×2 (14:28→19:58)
[2024-06-12 15:07] LABS: Glucose Point of Care 234 mg/dL (70-110)
[2024-06-12] MEDS: propofol 1,000 MG/100 ML INJ 36.79 MG IV ×3 (16:03→23:37)
[2024-06-12 17:11] LABS: Glucose Point of Care 228 mg/dL (70-110)
[2024-06-12 17:11] LABS: Glucose Point of Care 266 mg/dL (70-110)
[2024-06-12 18:21] LABS: Adenovirus Not Detected (NOT DETECT); Chlamydia Pneumoniae Not Detected (NOT DETECT); Coronavirus 229E,HKU1,NL63,OC4 Not Detected (NOT DETECT); Human Metapneumovirus Not Detected (NOT DETECT); Human Rhinovirus/Enterovirus Not Detected (NOT DETECT); Influenza A Not Detected (NOT DETECT); Influenza A H1 Not Detected (NOT DETECT); Influenza A H1-2009 Not Detected (NOT DETECT); Influenza A H3 Not Detected (NOT DETECT); Influenza B Not Detected (NOT DETECT); Mycoplasma Pneumoniae Not Detected (NOT DETECT); Parainfluenza Virus Type 1 Not Detected (NOT DETECT); Parainfluenza Virus Type 2 Not Detected (NOT DETECT); Parainfluenza Virus Type 3 Not Detected (NOT DETECT); Parainfluenza Virus Type 4 Not Detected (NOT DETECT); Respiratory Syncytial Virus A Not Detected (NOT DETECT); Respiratory Syncytial Virus B Not Detected (NOT DETECT); SARS-COV-2 Not Detected (NOT DETECT)
[2024-06-12 18:25] LABS: Anion Gap 25.4 (5-19); Blood Urea Nitrogen 6 mg/dL (6-20); Calcium 7.9 mg/dL (8.5-10.5); Carbon Dioxide 12 mmol/L (22-29); Chloride 111 mmol/L (98-107); Creatinine Clr Calc Pharmacy 139.9333; Glomerular Filtration Rate 97.8 mL/min (90-130); Glucose 280 mg/dL (65-115); Osmolality Calculated 308 mOsm/kg (285-295); Potassium 3.4 mmol/L (3.5-5.1); Sodium 145 mmol/L (136-145)
[2024-06-12 19:21] LABS: Glucose Point of Care 286 mg/dL (70-110)
[2024-06-12 19:21] LABS: Glucose Point of Care 293 mg/dL (70-110)
[2024-06-12] MEDS: lidocaine 1% 5 ML in potassium chloride premix 100 ML 26.25 ML IV (20:01)
--- NOTE | 2024-06-12 20:03 | PC.NURSE ---
Shift summary: Pt rested in bed throughout the shift. He spontaneously opens his eyes. Does not track people does not follow commands or appear to hear people speaking to him. He does localizes to some discomfort like biting the Yankuer or Jese swab and bending his neck towards the CVL when dressing change (tape removed) was being done. CVL dressing, biopatch and hep caps changed today. He was febrile this am, did not respond to the Tylenol given by manager night. Toradol admin for inflammation fever went from 102.2 to 101.8. Cooling blanket started. Laid across pt at first, he became agitated and squirming. He tolerated it underneath him. Sedation needed increased this shift due to his agitation. It helped some. Removing gown , just having sheet across him private area, helped his comfort. He remains on Fentanyl, Propofol and Insulin.. IV fluids changed twice today due to his anion gap. 2200 ml of urine output this shift. NG drainage green, slightly brown, 275 ml of output. Incision dressing changed by Dr philip, helena intact. CIARA draining pink tinges yellow fluid, 190ml output. No BM or flatus noted. RLQ bowel sounds greater than the other 3 quadrants, but all remain hypoactive.
[2024-06-12 20:14] LABS: Glucose Point of Care 302 mg/dL (70-110)
[2024-06-12] MEDS: pantoprazole 40 mg SDV IVP (20:30)
[2024-06-12] MEDS: INSULIN REGULAR IN 0.9 % NACL 100 UNIT/100 ML BAG 7.5 UNIT IV (20:30)
[2024-06-12] MEDS: propofol 1,000 MG/100 ML INJ 42.04 MG IV (21:03)
[2024-06-12 21:04] LABS: Glucose Point of Care 294 mg/dL (70-110)
[2024-06-12 22:18] LABS: Glucose Point of Care 290 mg/dL (70-110)
[2024-06-12 23:17] LABS: Glucose Point of Care 283 mg/dL (70-110)
[2024-06-12 23:56] LABS: Glucose Point of Care 319 mg/dL (70-110)
[2024-06-13] VITALS (58 sets, daily range): BP systolic 95–140; BP diastolic 45–72; PULSE 65–125; RESP 10–22; TEMP 36.3–39; O2SAT 93–100
[2024-06-13 00:38] LABS: Blood Urea Nitrogen 8 mg/dL (6-20); Chloride 112 mmol/L (98-107); Creatinine Clr Calc Pharmacy 114.4909; Glomerular Filtration Rate 77.6 mL/min (90-130); Glucose 343 mg/dL (65-115); Osmolality Calculated 312 mOsm/kg (285-295); Sodium 145 mmol/L (136-145)
[2024-06-13 00:46] LABS: Anion Gap 28.9 (5-19); Carbon Dioxide 9 mmol/L (22-29); Potassium 4.9 mmol/L (3.5-5.1)
[2024-06-13] MEDS: D5-NS 0.45% + KCL 20 mEq 20 MEQ/1,000 ML BAG 200 MEQ IV (00:58)
[2024-06-13 01:10] LABS: Glucose Point of Care 327 mg/dL (70-110)
[2024-06-13 01:11] LABS: ABG PCO2 27.6 mmHg (35-45); Arterial Blood Gas Hematocrit 30.4 % (42-52); Base Excess ABG -20.5 mmol/L (-2.0-2.0); Blood Gas Allen Test Pos; Blood Gas Sample Type Arterial; HCO3 ABG 8.1 mmol/L (22-26)
[2024-06-13 01:15] LABS: Blood Gas Operator Identificat SAM; Blood Gas Sample Site Radial, left; Oxygen Device VENT; PO2 FiO2 Ratio Arterial Blood 453
[2024-06-13] MEDS: sodium chloride 0.9% 1,000 ML 200 ML IV (01:41)
[2024-06-13] MEDS: meropenem 1,000 mg SDV 1000 MG IVP ×3 (01:58→17:05)
[2024-06-13 02:14] LABS: Glucose Point of Care 277 mg/dL (70-110)
[2024-06-13] MEDS: sodium bicarbonate 50 MEQ in sodium chloride 0.45% 1,000 ML 200 MEQ IV (02:27)
[2024-06-13] MEDS: propofol 1,000 MG/100 ML INJ 31.53 MG IV ×3 (02:27→12:02)
[2024-06-13] MEDS: ipratropium-albuterol 3 mL Neb INHALATION ×4 (02:36→20:07)
[2024-06-13] MEDS: fentaNYL 2,500 MCG/250 ML BAG 15 MCG IV (02:46)
[2024-06-13 03:05] LABS: Glucose Point of Care 235 mg/dL (70-110)
[2024-06-13 04:01] LABS: MRSA PCR OZH (swab) NOT DETECTED (Negative)
[2024-06-13 04:11] LABS: Glucose Point of Care 194 mg/dL (70-110)
[2024-06-13] MEDS: SODIUM CHLORIDE 0.45% IV (04:42)
[2024-06-13] MEDS: DEXTROSE 5% IV ×2 (04:42→15:39)
[2024-06-13] MEDS: SODIUM BICARBONATE 50 MEQ IV (04:42)
[2024-06-13 05:03] LABS: Glucose Point of Care 172 mg/dL (70-110)
[2024-06-13 06:12] LABS: ABG PCO2 32.2 mmHg (35-45); ABG PH Result 7.26 (7.35-7.45); Alveolar-Arterial Oxygen Gradi 8.8 mmHg (5-10); Arterial Blood Gas Hematocrit 20.4 % (42-52); Base Excess ABG -11.5 mmol/L (-2.0-2.0); Blood Gas Allen Test Pos; Blood Gas Operator Identificat SAM; Blood Gas Sample Site Radial, left; Blood Gas Sample Type Arterial; Carboxyhemoglobin 1.1 %THgb (0.4-20.1); HCO3 ABG 14.5 mmol/L (22-26); HGB O2 Sat 95.8 % (95-100); Ionized Calcium Level - ABG 1.2 mmol/L (1.1-1.4); Methemoglobin 1.4 % (0.4-1.5); Oxygen Device VENT; Oxygen Saturation ABG 98.2; PO2 ABG 89.9 mmHg (80.0-100.0); PO2 FiO2 Ratio Arterial Blood 321; Total Hemoglobin 6.7 g/dL (14-18)
[2024-06-13 06:15] LABS: Glucose Point of Care 196 mg/dL (70-110)
[2024-06-13 06:45] LABS: Glucose Point of Care 182 mg/dL (70-110)
[2024-06-13 06:48] LABS: Hematocrit 28.3 % (37-53); Mean Corpuscular HGB Conc 30.7 g/dL (30-55); Mean Corpuscular Hemoglobin 29.5 pg (27-33); Mean Corpuscular Volume 95.9 fl (82-101); Mean Platelet Volume 9.4 fL (7.4-10.4); Platelet Count 228 10^3/cmm (157-399); Red Blood Count 2.95 10^6/uL (3.85-5.65); Red Cell Distribution Width 15.7 % (12.1-15.1); White Blood Count 6.27 10^3/uL (3.29-11.43)
[2024-06-13 07:08] LABS: Alanine Aminotransferase 20 U/L (0-41); Albumin Level 2.3 g/dL (3.5-5.2); Alkaline Phosphatase 82 U/L (40-130); Anion Gap 16.3 (5-19); Aspartate Amino Transferase 20 U/L (0-40); Blood Urea Nitrogen 9 mg/dL (6-20); Calcium 7.9 mg/dL (8.5-10.5); Carbon Dioxide 17 mmol/L (22-29); Chloride 120 mmol/L (98-107); Globulin 2.7 g/dL (1.3-4.6); Glomerular Filtration Rate 86.6 mL/min (90-130); Glucose 200 mg/dL (65-115); Osmolality Calculated 316 mOsm/kg (285-295); Sodium 151 mmol/L (136-145); Total Bilirubin 0.2 mg/dL (0.15-1.2)
[2024-06-13 07:11] LABS: Potassium 2.3 mmol/L (3.5-5.1)
[2024-06-13] MEDS: lidocaine 1% 5 ML in potassium chloride premix 100 ML 26.25 ML IV ×3 (07:15→22:41)
--- NOTE | 2024-06-13 07:20 | PC.NURSE ---
0049 --Notified Dr. Goldsmith of CO2 of 9 on current BMP and Anion gap continues to increase and is [id number]. Notified of currently insulin drip at 10 units/hr and current IVF D51/2 with 20meq KCL at 200mL/h. Order given to change IVF to NS at 200mL/h and obtain an ABG. 0203 -- ABG results pH 7.08 and HCO3 8.1. Notified Dr. Goldsmith, IVF changed to 1/2NS with 50meq HCO3 at 200mL/h. 0408 -- Blood Glucose 194, changed IVF to D51/2NS with 50meq HCO3 at 20mL/h.
--- NOTE | 2024-06-13 07:23 | PC.NURSE ---
Critical potassium of 2.3 was passed on to Dr. Nance. Doctor ordered to stop insulin drip and give 80 meq of potassium.
[2024-06-13 07:30] LABS: Slide Review Slide Review Perform
[2024-06-13] MEDS: vancomycin 2,000 MG/400 ML PIGGYBACK 200 MG IV ×3 (07:34→23:30)
[2024-06-13 07:35] LABS: Absolute Eosinophils 0.1 10^3/cmm (0.0-0.7); Band Neutrophils Absolute 0.6 10^3/cmm (0.0-1.2); Eosinophils 2 %; Lymphocytes 10 %; Lymphocytes Absolute 0.7 10^3/cmm (1.2-3.4); Monocytes Absolute 0.4 10^3/cmm (0.1-0.6); Segmented Neutrophils 48 %; Total Cells Counted 100 (0-100)
[2024-06-13 07:36] LABS: Absolute Neutrophil 3.6 10^3/cmm (1.4-6.5); Platelet Estimate Normal (Normal)
[2024-06-13] MEDS: norepinephrine 4 MG/250 ML BAG 7.5 MG IV (07:41)
[2024-06-13] MEDS: propofol 1,000 MG/100 ML INJ 28.9 MG IV (09:13)
[2024-06-13] MEDS: fluconazole premix 200 MG/100 ML PREMIX 100 MG IV (09:16)
[2024-06-13 10:36] LABS: Glucose Point of Care 248 mg/dL (70-110)
[2024-06-13 10:36] LABS: Glucose Point of Care 173 mg/dL (70-110)
[2024-06-13 10:36] LABS: Glucose Point of Care 235 mg/dL (70-110)
[2024-06-13 11:12] LABS: ABG PH Result 7.08 (7.35-7.45)
[2024-06-13 11:55] LABS: Glucose Point of Care 218 mg/dL (70-110)
[2024-06-13 14:24] LABS: Anion Gap 28.4 (5-19); Blood Urea Nitrogen 9 mg/dL (6-20); Chloride 115 mmol/L (98-107); Creatinine Clr Calc Pharmacy 112.0364; Glomerular Filtration Rate 77.6 mL/min (90-130); Glucose 260 mg/dL (65-115); Osmolality Calculated 312 mOsm/kg (285-295); Potassium 5.4 mmol/L (3.5-5.1); Sodium 147 mmol/L (136-145)
[2024-06-13 14:35] LABS: Carbon Dioxide 9 mmol/L (22-29)
[2024-06-13] MEDS: dexmedeTOMIDine 0.9 % NaCL 400 MCG/100 ML PREMIX IV (15:15)
[2024-06-13] MEDS: SOD CHLORIDE 0.45% IV (15:39)
[2024-06-13] MEDS: SODIUM BICARBONATE IV (15:39)
[2024-06-13 15:52] LABS: Glucose Point of Care 241 mg/dL (70-110)
[2024-06-13 16:14] LABS: Glucose Point of Care 248 mg/dL (70-110)
[2024-06-13] MEDS: fentaNYL 2,500 MCG/250 ML BAG 17.5 MCG IV (16:46)
[2024-06-13] MEDS: propofol 1,000 MG/100 ML INJ 34.16 MG IV ×2 (17:48→21:06)
[2024-06-13 17:50] LABS: Glucose Point of Care 263 mg/dL (70-110)
--- NOTE | 2024-06-13 18:00 | P.PN_ITS ---
Subjective 2 Subjective: Postoperative day5 status post exploratory laparotomy and bowel resection, postoperative day 4 status post washout and ileocecectomy and now postoperative day 2 status post exploratory laparotomy creation of enteroenteric anastomosis enterocolic anastomosis washout and closure. Patient remains intubated and sedated, has been stable and afebrile in the last 12 hours. Vitals/I&O/Wt Last Vital Signs Temp 102.2 F H 06/13/24 16:30 Pulse 125 H 06/13/24 16:30 Resp 17 06/13/24 17:03 BP 126/61 06/13/24 16:30 Pulse Ox 96 06/13/24 17:03 O2 Del Method Mechanical Ventilation 06/13/24 16:30 O2 Flow Rate 06/13/24 13:57 FiO2 06/13/24 17:03 06/13/24 06/13/24 06/13/24 06:59 14:59 22:59 Intake Total 2262.183 / 7030.602 1643.622 / 1643.622 276.407 / 1920.029 Output Total 2415 / 6155 2180 / 2180 Balance -152.817 / 875.602 -536.378 / -536.378 276.407 / -259.971 Weight last 48 hrs Weight 196 lb 3.382 oz Weight 206 lb 2.115 oz Physical Exam 2 GI: OTHER: Surgical incision covered with dressing, packing was removed and replaced no evidence of current infection at this level. CIARA drain effluent appears to be serosanguinous. Urinary Catheter Management: Ye: Cath Placed During This Visit: yes Reason for Continuing Indwelling Catheter: Accurate Measurement of Urinary Output in Critically Ill Patients Urinary Catheter Date of Insertion: 06/08/24 Urinary Catheter Time of Insertion: 00:50 Data 06/13/24 06:20 06/13/24 14:01 Micro: Microbiology 06/07/24 20:32 Blood Culture - Final Blood NO GROWTH AFTER 5 DAYS 06/07/24 20:18 Blood Culture - Final Blood NO GROWTH AFTER 5 DAYS A&P Assessment and plan (1) Abdominal pain: (2) Nonocclusive mesenteric ischemia: (3) S/P exploratory laparotomy: (4) S/P small bowel resection: (5) Lactic acidosis: Plan Patient is stable from the general surgery standpoint, fever has improved, abdominal exam is benign. No other significant findings from the surgical standpoint, we we will continue management with broad-spectrum antibiotics, NG to low intermittent suction and we will attempt to wean of ventilation. The plan will be to wait for return of bowel function before we can start p.o. intake. Patient is high risk for intra-abdominal complications after surgery due to baseline pathology and need to return to the OR for multiple trips during this week. I will continue to follow-up on a daily basis. -N.p.o. with NG tube to low intermittent wall suction -Continue to trend labs -Will monitor CIARA drain output -Pain control -Weane off sedation as tolerated plan is to attempt extubation in the next 48 hours -We appreciate management per medical ICU team Attestations 2 Medical Necessity Statement*: per medical ICU Coding Level of Care Code Acute Code for Chg Fwd Diagnoses Abdominal pain R10.9 Nonocclusive mesenteric ischemia K55.059 S/P exploratory laparotomy Z98.890 S/P small bowel resection Z90.49 Lactic acidosis E87.20
[2024-06-13 18:40] LABS: Glucose Point of Care 274 mg/dL (70-110)
--- NOTE | 2024-06-13 18:55 | P.PN_ITS ---
Subjective 2 Subjective: Patient was seen this morning, currently intubated on sedation, he does move his head from [id number], pupils equal round reactive to light, afebrile throughout the night, on 28% FiO2, off pressors, c currently insulin drip is on hold as potassium is being repleted, Vitals/I&O/Wt Last Vital Signs Temp 100 F H 06/13/24 18:00 Pulse 108 H 06/13/24 18:00 Resp 17 06/13/24 17:03 BP 137/61 06/13/24 18:00 Pulse Ox 96 06/13/24 18:00 O2 Del Method Mechanical Ventilation 06/13/24 18:00 O2 Flow Rate 28 06/13/24 13:57 FiO2 28 06/13/24 18:00 06/13/24 06/13/24 06/13/24 06:59 14:59 22:59 Intake Total 2262.183 / 7030.602 1643.622 / 1643.622 278.007 / 1921.629 Output Total 2415 / 6155 2180 / 2180 Balance -152.817 / 875.602 -536.378 / -536.378 278.007 / -258.371 Weight last 48 hrs Weight 89 kg Weight 93.5 kg Physical Exam 2 Const: COMMON NORMALS: no acute distress Eye: COMMON NORMALS: Equal, round and reactive pupils present PUPIL: Yes Equal, round and reactive pupils present Resp: COMMON NORMALS: normal respiratory effort, No retractions, No use of accessory muscles and clear to auscultation bilaterally AUSCULTATION: clear to auscultation bilaterally Cardio: COMMON NORMALS: regular rate, regular rhythm, S1 normal heart sound present and S2 normal heart sound present RATE: regular rate RHYTHM: r egular rhythm HEART SOUNDS: S1 normal heart sound present and S2 normal heart sound present GI: COMMON NORMALS: Normal to inspection, nondistended, normoactive bowel sounds present and non-tender OTHER: Surgical site looks clean and dry, CIARA drain in place, good bowel sounds Extremity: COMMON NORMALS: no pedal edema Neuro: OTHER: Withdraws from pain, and rotates his head from [id number] does not follow commands Psych: COMMON NORMALS: mental status grossly normal Urinary Catheter Management: Ye: Cath Placed During This Visit: yes Reason for Continuing Indwelling Catheter: Accurate Measurement of Urinary Output in Critically Ill Patients Urinary Catheter Date of Insertion: 06/08/24 Urinary Catheter Time of Insertion: 00:50 Data 06/13/24 06:20 06/13/24 14:01 Micro: Microbiology 06/07/24 20:32 Blood Culture - Final Blood NO GROWTH AFTER 5 DAYS 06/07/24 20:18 Blood Culture - Final Blood NO GROWTH AFTER 5 DAYS A&P Assessment and plan (1) Shock: (2) Diabetic ketoacidosis: (3) Nonocclusive mesenteric ischemia: (4) S/P exploratory laparotomy: (5) S/P small bowel resection: (6) Lactic acidosis: Plan Diabetic ketoacidosis: A1c of 13. Monitor anion gap, once less than 14 will turn off insulin drip pH 7.26 Drip on hold as potassium is being repleted, resume thereafter continue with insulin drip for now. Monitor BMP every 4 hours Strict input output charting. Currently patient's 24 hours intake and output is almost equal. Septic shock: Resolved Continues to have intermittent fevers Most likely in setting of nonocclusive mesenteric ischemia. Cannot rule out peritonitis. Keep mean artery pressure 65. Levophed weaned off. Follow-up blood culture, urine culture. Sputum culture growing MRSA.. Continue vancomycin, meropenem. Continue with fluconazole. Will plan to continue overall 7 to 10 days of antimicrobials. Will de-escalate as per culture results if any positive. Mesenteric ischemia: Nonocclusive: Post exploratory laparotomy and small bowel resection on 06/08 and 06/09 and enterocolonic enteroenteric anastomosis along with abdominal wall closure on 06/11. CIARA drain in place. Appreciate surgical recommendations. Wound care as per surgical team. Respiratory failure: Currently on minimal ventilator settings. Plan for sedation vacation in next 24 hours. For now we will plan to continue to remain on mechanical ventilator for next 24 to 48 hours to facilitate healing of abdominal wound. Sputum culture growing MRSA. Current IV antibiotics. Hypernatremia: Treatment as above. Off D5 water Hypokalemia replace IV Anesthesia: Propofol, fentanyl Glycemic control: Insulin drip Nutrition: N.p.o. hold off on TPN with concerns for DKA CODE STATUS: Full code PUD prophylaxis: Protonix DVT prophylaxis: SCD Discharge planning: Depending on the clinical picture going forward. Continue with care at ICU Plan for today replace IV potassium, resume insulin drip thereafter, wean off sedation, monitor blood pressures, continue IV antibiotics, spontaneous breathing trial monitor BMP every 6 hours, order venous ultrasound for DVT, start Lovenox Attestations 2 Medical Necessity Statement*: Patient requires hospitalization for diabetic ketoacidosis, acute respiratory failure, septic shock, mesenteric ischemia hyponatremia, hypokalemia Coding Level of Care Code Critical Care >/= 30 minutes Critical care time (in minutes): 45 The high probability of a clinically significant, sudden or life threatening deterioration, as referenced in this documentation, required my full and direct attention, intervention and personal management. The critical care time shown is in addition to time spent performing any reported separately billable procedures and includes the following: [x] Data and vital sign review and interpretation [x ] Patient assessment, examination and intervention [x] Medication orders and management [x] Patient/Family updates as able [x] Care Coordination and Documentation. Diagnoses Shock R57.9 Diabetic ketoacidosis E11.10 Nonocclusive mesenteric ischemia K55.059 S/P exploratory laparotomy Z98.890 S/P small bowel resection Z90.49 Lactic acidosis E87.20
--- NOTE | 2024-06-13 19:00 | USCV_ITS ---
Juanjo Baron Age: 34 Gender: M : 1990 Exam Date: 06/13/2024 20:42 Ordering Phys: Isaac Nance MD Technologist: AMILCAR Exam Location: [facility] – [place] Indication: dvt - Patient is s/p exploratory bowel surgery and excision of 130mm of necrotic bowel. Patient is on ventilator in ICU-2 HISTORY: dvt - Patient is s/p exploratory bowel surgery and excision of 130mm of necrotic bowel. Patient is on ventilator in ICU-2 PROCEDURES: Venous duplex imaging was performed in bilateral lower extremities. The following venous structures were evaluated: common femoral vein, profunda vein, proximal portion of the greater saphenous vein, superficial femoral vein, and the popliteal vein. In addition, the posterior tibial veins were evaluated. FINDINGS: Normal 2-D Doppler and augmentation and compressibility throughout the lower extremity venous structures. Additional imaging through the proximal calf veins also reveals no thrombus. Limited evaluation of the greater saphenous vein is patent with no thrombus. CONCLUSIONS No DVT bilateral lower extremities. Dr. Jeri Calloway DO (Electronically Signed) Final Date: 14 June 2024 07:21 S
--- NOTE | 2024-06-13 19:12 | PC.NURSE ---
Patient was trialled for a sedation vacation. This nurse was able to titrate propofol down to 20 mcg per protocol but patient was beginning to run tachycardic in the 120 HR range. Patient was trying to pull too big of volumes apart from the ventilator and was not taking breaths therapeutically. Respiratory therapist was informed and they talked to Dr. Nance which ordered to sedate patient again until 4 am and try to start titrating the sedation back down and try to titrate fentanyl down to 25 mcg. Patient is resting in bed.
[2024-06-13 19:40] LABS: Glucose Point of Care 199 mg/dL (70-110)
[2024-06-13] MEDS: enoxaparin 40 mg/0.4 mL Syringe SUBCUT (19:44)
[2024-06-13 20:29] LABS: Glucose Point of Care 202 mg/dL (70-110)
[2024-06-13] MEDS: pantoprazole 40 mg SDV IVP (20:29)
[2024-06-13 21:37] LABS: Glucose Point of Care 182 mg/dL (70-110)
[2024-06-13 22:08] LABS: Anion Gap 25.8 (5-19); Blood Urea Nitrogen 9 mg/dL (6-20); Calcium 7.8 mg/dL (8.5-10.5); Carbon Dioxide 10 mmol/L (22-29); Chloride 116 mmol/L (98-107); Glomerular Filtration Rate 70.2 mL/min (90-130); Glucose 241 mg/dL (65-115); Osmolality Calculated 313 mOsm/kg (285-295); Potassium 3.8 mmol/L (3.5-5.1); Sodium 148 mmol/L (136-145)
[2024-06-13 22:48] LABS: Glucose Point of Care 205 mg/dL (70-110)
[2024-06-13] MEDS: INSULIN REGULAR IN 0.9 % NACL 100 UNIT/100 ML BAG IV (23:31)
[2024-06-13 23:53] LABS: Glucose Point of Care 209 mg/dL (70-110)
[2024-06-14] VITALS (58 sets, daily range): BP systolic 87–130; BP diastolic 40–83; PULSE 68–92; RESP 11–22; TEMP 36.1–38.2; O2SAT 94–100
[2024-06-14] MEDS: propofol 1,000 MG/100 ML INJ 26.28 MG IV (00:33)
[2024-06-14 00:36] LABS: Glucose Point of Care 211 mg/dL (70-110)
[2024-06-14] MEDS: chlorhexidine gluconate 4% Btl 118 mL 1 APPLIC TOPICAL (01:24)
[2024-06-14 01:28] LABS: Glucose Point of Care 196 mg/dL (70-110)
[2024-06-14] MEDS: meropenem 1,000 mg SDV 1000 MG IVP ×3 (01:35→17:54)
[2024-06-14] MEDS: SOD CHLORIDE 0.45% IV ×2 (01:50→12:59)
[2024-06-14] MEDS: SODIUM BICARBONATE IV ×2 (01:50→12:59)
[2024-06-14] MEDS: DEXTROSE 5% IV ×2 (01:50→12:59)
[2024-06-14] MEDS: ipratropium-albuterol 3 mL Neb INHALATION ×4 (02:06→20:25)
[2024-06-14 02:23] LABS: Glucose Point of Care 209 mg/dL (70-110)
[2024-06-14 03:07] LABS: ABG PCO2 38.2 mmHg (35-45); ABG PH Result 7.23 (7.35-7.45); Arterial Blood Gas Hematocrit 27.7 % (42-52); Base Excess ABG -10.6 mmol/L (-2.0-2.0); Blood Gas Allen Test Pos; Blood Gas Sample Type Arterial; Carboxyhemoglobin 0.9 %THgb (0.4-20.1); HCO3 ABG 16.1 mmol/L (22-26); HGB O2 Sat 95.7 % (95-100); Ionized Calcium Level - ABG 1.2 mmol/L (1.1-1.4); Methemoglobin 2.2 % (0.4-1.5); Oxygen Saturation ABG 98.7; Potassium Level - ABG 3.3 mmol/L (3.5-5.0)
[2024-06-14 03:10] LABS: Alveolar-Arterial Oxygen Gradi 2.6 mmHg (5-10); Blood Gas Operator Identificat ED; Oxygen Device VENT; PO2 FiO2 Ratio Arterial Blood 460
[2024-06-14 03:16] LABS: Basophils % 0.4 %; Eosinophils # 0.1 10^3/uL (0.0-0.8); Eosinophils % 2.3 %; Hematocrit 28.2 % (37-53); Lymphocytes # 0.9 10^3/uL (0.8-4.8); Mean Corpuscular HGB Conc 30.9 g/dL (30-55); Mean Corpuscular Hemoglobin 29.9 pg (27-33); Mean Corpuscular Volume 96.9 fl (82-101); Mean Platelet Volume 9.1 fL (7.4-10.4); Monocytes # 0.4 10^3/uL (0.2-0.9); Monocytes % 7.2 %; Neutrophils # 2.58 10^3/uL (1.8-7.7); Neutrophils % 45.4 %; Nucleated Red Blood Cells % 0.7 %; Platelet Count 288 10^3/cmm (157-399); Red Blood Count 2.91 10^6/uL (3.85-5.65); Red Cell Distribution Width 15.7 % (12.1-15.1); White Blood Count 5.68 10^3/uL (3.29-11.43)
[2024-06-14 03:44] LABS: Lactate (Lactic Acid level) 0.5 mmol/L (0.5-2.2)
[2024-06-14 04:11] LABS: NT Pro B Type Natriuretic Pept 340 pg/mL (0-125); Procalcitonin 0.37 ng/mL (0-0.5)
[2024-06-14 04:22] LABS: Alanine Aminotransferase 19 U/L (0-41); Albumin Level 2.4 g/dL (3.5-5.2); Alkaline Phosphatase 65 U/L (40-130); Anion Gap 19.4 (5-19); Aspartate Amino Transferase 14 U/L (0-40); Blood Urea Nitrogen 8 mg/dL (6-20); C Reactive Protein 164.3 mg/L (0.0-4.9); Calcium 7.8 mg/dL (8.5-10.5); Carbon Dioxide 14 mmol/L (22-29); Chloride 118 mmol/L (98-107); Creatine Phosphokinase 198 U/L (39-308); Creatinine Clr Calc Pharmacy 112.0364; Globulin 2.9 g/dL (1.3-4.6); Glomerular Filtration Rate 77.6 mL/min (90-130); Glucose 225 mg/dL (65-115); Osmolality Calculated 311 mOsm/kg (285-295); Phosphorus 1.3 mg/dL (2.5-4.5); Potassium 3.4 mmol/L (3.5-5.1); Sodium 148 mmol/L (136-145); Total Bilirubin 0.2 mg/dL (0.15-1.2); Total Protein 5.3 g/dL (6.6-8.7)
[2024-06-14 04:31] LABS: Slide Review Slide Review Perform
[2024-06-14] MEDS: lidocaine 1% 5 ML in potassium chloride premix 100 ML 26.26 ML IV ×2 (04:33→22:29)
[2024-06-14 04:36] LABS: Glucose Point of Care 208 mg/dL (70-110)
[2024-06-14 04:36] LABS: Glucose Point of Care 205 mg/dL (70-110)
[2024-06-14 05:58] LABS: Glucose Point of Care 223 mg/dL (70-110)
[2024-06-14] MEDS: propofol 1,000 MG/100 ML INJ 5.26 MG IV (06:24)
[2024-06-14 06:29] LABS: Glucose Point of Care 218 mg/dL (70-110)
--- NOTE | 2024-06-14 07:00 | XRR_ITS ---
PROCEDURE INFORMATION: Exam: XR Chest Exam date and time: 06/14/2024 7:06 AM Age: 34 years old Clinical indication: Shortness of breath; Prior surgery; Surgery date: 6+ months; Surgery type: Cardiac stents; Additional info: SOB TECHNIQUE: Imaging protocol: Radiologic exam of the chest. Views: 1 view. COMPARISON: CR XR chest 1V portable [id number] 06/11/2024 4:31 AM FINDINGS: Tubes, catheters and devices: Endotracheal tube is present with its tip 4.8 cm above the marialuisa. Nasogastric tube is present with its tip below the level of the film. Central venous catheter seen on the right with its tip overlying the SVC. Lungs: There is retrocardiac infiltrate or atelectasis. Lungs are otherwise clear. Pleural spaces: Unremarkable. No pleural effusion. No pneumothorax. Heart/Mediastinum: Unremarkable. No cardiomegaly. Bones/joints: Unremarkable. XR/XR chest 1V portable [id number] IMPRESSION: 1. Retrocardiac infiltrate and/or atelectasis.
[2024-06-14 07:46] LABS: Glucose Point of Care 203 mg/dL (70-110)
[2024-06-14] MEDS: vancomycin 2,000 MG/400 ML PIGGYBACK 200 MG IV ×2 (08:04→15:09)
[2024-06-14] MEDS: fluconazole premix 200 MG/100 ML PREMIX 100 MG IV (08:04)
[2024-06-14] MEDS: dexmedeTOMIDine 0.9 % NaCL 400 MCG/100 ML PREMIX 8.9 MCG IV (08:08)
[2024-06-14 08:57] LABS: Glucose Point of Care 206 mg/dL (70-110)
[2024-06-14 09:35] LABS: Blood Urea Nitrogen 8 mg/dL (6-20); Calcium 7.9 mg/dL (8.5-10.5); Carbon Dioxide 19 mmol/L (22-29); Chloride 118 mmol/L (98-107); Creatinine Clr Calc Pharmacy 135.2667; Glomerular Filtration Rate 97.8 mL/min (90-130); Glucose 225 mg/dL (65-115); Osmolality Calculated 315 mOsm/kg (285-295); Sodium 150 mmol/L (136-145)
[2024-06-14] MEDS: dextrose 5%-ns 0.45% + KCl 40 1,000 ML 50 MEQ IV (10:07)
[2024-06-14] MEDS: fentaNYL 2,500 MCG/250 ML BAG IV (10:07)
[2024-06-14 10:15] LABS: Glucose Point of Care 188 mg/dL (70-110)
--- NOTE | 2024-06-14 13:42 | P.PN_ITS ---
Subjective 2 Subjective: Postoperative day6 status post exploratory laparotomy and bowel resection, postoperative day 5 status post washout and ileocecectomy and now postoperative day 3 status post exploratory laparotomy creation of enteroenteric anastomosis enterocolic anastomosis washout and closure. Patient remains intubated and sedated, has been stable and afebrile in the last 12 hours. Vitals/I&O/Wt Last Vital Signs Temp 99.3 F 06/14/24 12:00 Pulse 78 06/14/24 13:10 Resp 12 06/14/24 13:10 BP 114/62 06/14/24 13:00 Pulse Ox 96 06/14/24 13:10 O2 Del Method Mechanical Ventilation 06/14/24 13:10 O2 Flow Rate 06/13/24 13:57 FiO2 28 06/14/24 13:10 06/13/24 06/14/24 06/14/24 22:59 06:59 14:59 Intake Total 949.547 / 2693.169 1929.710 / 4622.879 1711.946 / 1711.946 Output Total 1970 / 4150 1025 / 5175 Balance -1020.453 / -1456.831 904.710 / -930.478 8119.946 / 1711.946 Weight last 48 hrs Weight 190 lb 11.198 oz Weight 196 lb 3.382 oz Physical Exam 2 GI: OTHER: Surgical incision covered with dressing, packing was removed and replaced no evidence of current infection at this level. CIARA drain effluent appears to be serosanguinous. Urinary Catheter Management: Ye: Cath Placed During This Visit: yes Reason for Continuing Indwelling Catheter: Accurate Measurement of Urinary Output in Critically Ill Patients Urinary Catheter Date of Insertion: 06/08/24 Urinary Catheter Time of Insertion: 00:50 Data 06/14/24 03:01 06/14/24 08:52 A&P Assessment and plan (1) Abdominal pain: (2) Nonocclusive mesenteric ischemia: (3) S/P exploratory laparotomy: (4) S/P small bowel resection: (5) Lactic acidosis: Plan Patient is stable from the general surgery standpoint, fever has improved, abdominal exam is benign. No other significant findings from the surgical standpoint, we we will continue management with broad-spectrum antibiotics, NG to low intermittent suction and we will attempt to wean of ventilation. The plan will be to wait for return of bowel function before we can start p.o. intake. -N.p.o. with NG tube to low intermittent wall suction -Continue to trend labs -Will monitor CIARA drain output -Pain control -Wean off sedation as tolerated plan is to attempt extubation in the next 48 hours -We appreciate management per medical ICU team Attestations 2 Medical Necessity Statement*: per ICU team Coding Level of Care Code Acute Code for Chg Fwd Diagnoses Abdominal pain R10.9 Nonocclusive mesenteric ischemia K55.059 S/P exploratory laparotomy Z98.890 S/P small bowel resection Z90.49 Lactic acidosis E87.20
[2024-06-14 13:58] LABS: Glucose Point of Care 243 mg/dL (70-110)
[2024-06-14 14:25] LABS: Blood Gas Sample Site aline
--- NOTE | 2024-06-14 14:54 | P.PN_ITS ---
Subjective 2 Subjective: Patient was examined multiple times throughout the morning -Early in the morning he was seen, afebr ile throughout the night -He is requiring Levophed at 4 -Insulin drip is running -Still sedated, weaning off propofol, on Precedex and fentanyl -Blood sugars in the 200s -Still on 28% FiO2 -Later in the morning he was examined, h e moves his head from [id number] he follows my voice, pupils equal round reactive to light, withdraws from pain, has a pupillary reflex, has a gag reflex, withdraws from pain, Babinski's upward going bilaterally -Spoke to nursing staff, respiratory the rapy, continue spontaneous breathing trial -Last anion gap 17, continue insulin dri p, add on D5 half-normal saline with 20 KCl, will consider D5 water as sodium is going up to 150 Vitals/I&O/Wt Last Vital Signs Temp 99.3 F 06/14/24 12:00 Pulse 78 06/14/24 13:10 Resp 12 06/14/24 13:10 BP 114/62 06/14/24 13:00 Pulse Ox 96 06/14/24 13:10 O2 Del Method Mechanical Ventilation 06/14/24 13:10 O2 Flow Rate 28 06/13/24 13:57 FiO2 28 06/14/24 13:10 06/13/24 06/14/24 06/14/24 22:59 06:59 14:59 Intake Total 949.547 / 2693.169 1929.710 / 4622.879 1711.946 / 1711.946 Output Total 1970 / 4150 1025 / 5175 Balance -1020.453 / -1456.831 904.710 / -361.133 8090.946 / 1711.946 Weight last 48 hrs Weight 86.5 kg Weight 89 kg Physical Exam 2 Const: COMMON NORMALS: no acute distress ORIENTATION/CONSCIOUSNESS: Yes awake Eye: COMMON NORMALS: Equal, round and reactive pupils present PUPIL: Yes Equal, round and reactive pupils present Neck/C-Spine: COMMON NORMALS: no lymphadenopathy Resp: COMMON NORMALS: normal respiratory effort, No retractions, No use of accessory muscles and clear to auscultation bilaterally AUSCULTATION: clear to auscultation bilaterally Cardio: COMMON NORMALS: regular rate, regular rhythm, S1 normal heart sound present and S2 normal heart sound present RATE: regular rate RHYTHM: r egular rhythm HEART SOUNDS: S1 normal heart sound present and S2 normal heart sound present GI: COMMON NORMALS: Normal to inspection, nondistended, normoactive bowel sounds present and non-tender OTHER: Abdominal binder in place, CIARA drain in place, surgical site looks clean and dry Psych: COMMON NORMALS: mental status grossly normal Urinary Catheter Management: Ye: Cath Placed During This Visit: yes Reason for Continuing Indwelling Catheter: Accurate Measurement of Urinary Output in Critically Ill Patients Urinary Catheter Date of Insertion: 06/08/24 Urinary Catheter Time of Insertion: 00:50 Data 06/14/24 03:01 06/14/24 08:52 A&P Assessment and plan (1) Shock: (2) Diabetic ketoacidosis: (3) Nonocclusive mesenteric ischemia: (4) S/P exploratory laparotomy: (5) S/P small bowel resection: (6) Lactic acidosis: Plan Acute encephalopathy -Monitor mentation closely -Neurochecks -Has a gag reflex, withdraws from pain, pupils equal round reactive to light -Monitor mentation closely Diabetic ketoacidosis: A1c of 13. Anion gap 17, blood sugar 243, bicarb 19 Monitor anion gap, once less than 14 will turn off insulin drip pH 7.23 Potassium repleted this morning Continue insulin drip Monitor BMP every 6 hours Strict input output charting. Currently patient's 24 hours intake and output is almost equal. Septic shock: Requiring 4 Levophed will wean off Continues to have intermittent fevers Most likely in setting of nonocclusive mesenteric ischemia. Cannot rule out peritonitis. Keep mean artery pressure 65. Follow-up blood culture, urine culture. Sputum culture growing MRSA. Continue vancomycin, meropenem. Continue with fluconazole. Will plan to continue overall 7 to 10 days of antimicrobials. Will de-escalate as per culture results if any positive. Mesenteric ischemia: Nonocclusive: Post exploratory laparotomy and small bowel resection on 06/08 and 06/09 and enterocolonic enteroenteric anastomosis along with abdominal wall closure on 06/11. CIARA drain in place. Appreciate surgical recommendations. Wound care as per surgical team. Respiratory failure: Currently on minimal ventilator settings. Respiratory cultures, growing MRSA Currently on sedation vacation, spontaneous breathing trial Plan extubating in the next 24 to 48 hours healing of abdominal wound. Sputum culture growing MRSA. Current IV antibiotics. Hypernatremia: Treatment as above. Will consider D5 water based on blood sugars, anion gap Hypokalemia replace IV Anesthesia: Propofol, fentanyl Glycemic control: Insulin drip Nutrition: N.p.o. hold off on TPN with concerns for DKA CODE STATUS: Full code PUD prophylaxis: Protonix DVT prophylaxis: SCD Discharge planning: Depending on the clinical picture going forward. Continue with care at ICU Plan for today for agitation, Spontaneous breathing trial, Precedex, fentanyl for pain, continue insulin drip, electrolyte replacement, monitor mentation, continue IV antibiotics, Attestations 2 Medical Necessity Statement*: Patient requires hospitalization for acute encephalopathy, septic shock, mesenteric ischemia, requiring exploratory laparotomy, septic shock, DKA, respiratory failure Coding Level of Care Code Critical Care >/= 30 minutes Critical care time (in minutes): 45 The high probability of a clinically significant, sudden or life threatening deterioration, as referenced in this documentation, required my full and direct attention, intervention and personal management. The critical care time shown is in addition to time spent performing any reported separately billable procedures and includes the following: [x] Data and vital sign review and interpretation [x ] Patient assessment, examination and intervention [x] Medication orders and management [x] Patient/Family updates as able [x] Care Coordination and Documentation. Diagnoses Shock R57.9 Diabetic ketoacidosis E11.10 Nonocclusive mesenteric ischemia K55.059 S/P exploratory laparotomy Z98.890 S/P small bowel resection Z90.49 Lactic acidosis E87.20
[2024-06-14 15:21] LABS: Glucose Point of Care 258 mg/dL (70-110)
[2024-06-14 15:44] LABS: Anion Gap 20.7 (5-19); Blood Urea Nitrogen 8 mg/dL (6-20); Carbon Dioxide 18 mmol/L (22-29); Chloride 116 mmol/L (98-107); Glucose 260 mg/dL (65-115); Osmolality Calculated 319 mOsm/kg (285-295); Potassium 3.7 mmol/L (3.5-5.1); Sodium 151 mmol/L (136-145)
[2024-06-14 16:27] LABS: Glucose Point of Care 226 mg/dL (70-110)
[2024-06-14 17:53] LABS: Glucose Point of Care 232 mg/dL (70-110)
[2024-06-14] MEDS: dexmedeTOMIDine 0.9 % NaCL 400 MCG/100 ML PREMIX 11.13 MCG IV (17:53)
[2024-06-14] MEDS: linezolid premix 600 MG/300 ML PREMIX 300 MG IV (17:54)
[2024-06-14] MEDS: enoxaparin 40 mg/0.4 mL Syringe SUBCUT (18:02)
[2024-06-14 19:15] LABS: Glucose Point of Care 254 mg/dL (70-110)
[2024-06-14] MEDS: pantoprazole 40 mg SDV IVP (20:01)
[2024-06-14 20:03] LABS: Glucose Point of Care 249 mg/dL (70-110)
[2024-06-14 21:39] LABS: Glucose Point of Care 265 mg/dL (70-110)
[2024-06-14 22:02] LABS: Glucose Point of Care 221 mg/dL (70-110)
[2024-06-14 22:15] LABS: Blood Urea Nitrogen 7 mg/dL (6-20); Calcium 7.9 mg/dL (8.5-10.5); Carbon Dioxide 22 mmol/L (22-29); Chloride 118 mmol/L (98-107); Glucose 249 mg/dL (65-115); Osmolality Calculated 322 mOsm/kg (285-295); Sodium 153 mmol/L (136-145)
[2024-06-14 22:18] LABS: Anion Gap 16.3 (5-19); Potassium 3.3 mmol/L (3.5-5.1)
[2024-06-14] MEDS: propofol 1,000 MG/100 ML INJ 10.51 MG IV (22:55)
[2024-06-14 23:59] LABS: Glucose Point of Care 207 mg/dL (70-110)
[2024-06-14 23:59] LABS: Glucose Point of Care 190 mg/dL (70-110)
[2024-06-15] VITALS (61 sets, daily range): BP systolic 105–131; BP diastolic 52–79; PULSE 63–94; RESP 13–26; TEMP 37.4–38; O2SAT 88–99
[2024-06-15] MEDS: chlorhexidine gluconate 4% Btl 118 mL 1 APPLIC TOPICAL (00:47)
[2024-06-15] MEDS: meropenem 1,000 mg SDV 1000 MG IVP ×3 (01:22→17:58)
[2024-06-15] MEDS: dexmedeTOMIDine 0.9 % NaCL 400 MCG/100 ML PREMIX 13.35 MCG IV (01:30)
[2024-06-15] MEDS: ipratropium-albuterol 3 mL Neb INHALATION ×4 (01:43→19:09)
[2024-06-15] MEDS: DEXTROSE 5% IV (01:49)
[2024-06-15] MEDS: SOD CHLORIDE 0.45% IV (01:49)
[2024-06-15] MEDS: SODIUM BICARBONATE IV (01:49)
[2024-06-15 02:00] LABS: Glucose Point of Care 172 mg/dL (70-110)
[2024-06-15 02:00] LABS: Glucose Point of Care 158 mg/dL (70-110)
[2024-06-15 03:13] LABS: Glucose Point of Care 181 mg/dL (70-110)
[2024-06-15 03:29] LABS: C Reactive Protein 84.8 mg/L (0.0-4.9); Lactate (Lactic Acid level) 0.7 mmol/L (0.5-2.2); Phosphorus 1.7 mg/dL (2.5-4.5)
[2024-06-15 03:39] LABS: Procalcitonin 0.21 ng/mL (0-0.5)
[2024-06-15 03:40] LABS: NT Pro B Type Natriuretic Pept 195 pg/mL (0-125)
[2024-06-15 03:51] LABS: Anion Gap 14.7 (5-19); Blood Urea Nitrogen 7 mg/dL (6-20); Calcium 7.7 mg/dL (8.5-10.5); Carbon Dioxide 24 mmol/L (22-29); Chloride 117 mmol/L (98-107); Creatine Phosphokinase 149 U/L (39-308); Creatinine Clr Calc Pharmacy 173.9143; Glomerular Filtration Rate 130.7 mL/min (90-130); Glucose 204 mg/dL (65-115); Osmolality Calculated 318 mOsm/kg (285-295); Potassium 3.7 mmol/L (3.5-5.1); Sodium 152 mmol/L (136-145)
[2024-06-15] MEDS: lidocaine 1% 5 ML in potassium chloride premix 100 ML 25 ML IV (04:08)
[2024-06-15 04:20] LABS: Glucose Point of Care 202 mg/dL (70-110)
[2024-06-15] MEDS: dextrose 5%-ns 0.45% + KCl 40 1,000 ML 50 MEQ IV (04:47)
[2024-06-15] MEDS: linezolid premix 600 MG/300 ML PREMIX 300 MG IV ×2 (04:50→17:58)
[2024-06-15 04:52] LABS: Glucose Point of Care 193 mg/dL (70-110)
[2024-06-15 06:01] LABS: Glucose Point of Care 239 mg/dL (70-110)
[2024-06-15 07:29] LABS: Glucose Point of Care 221 mg/dL (70-110)
--- NOTE | 2024-06-15 07:56 | P.PN_ITS ---
Subjective 2 Subjective: Postoperative day 7 status post exploratory laparotomy and bowel resection, postoperative day 6 status post washout and ileocecectomy and postoperative day 4 status post exploratory laparotomy creation of enteroenteric anastomosis enterocolic anastomosis washout and closure. Patient remains intubated and sedated, has been stable more awake and alert in the last 12 hours. Did had a low grade fever overnight. Vitals/I&O/Wt Last Vital Signs Temp 99.5 F 06/15/24 04:00 Pulse 67 06/15/24 07:25 Resp 13 06/15/24 07:20 BP 124/72 06/15/24 06:00 Pulse Ox 97 06/15/24 07:20 O2 Del Method Mechanical Ventilation 06/15/24 07:20 O2 Flow Rate 28 06/13/24 13:57 FiO2 28 06/15/24 07:20 06/14/24 06/15/24 06/15/24 22:59 06:59 14:59 Intake Total 1708.716 / 3602.993 1933.515 / 5536.508 Output Total 4385 / 4385 1015 / 5400 Balance -2676.284 / -782.007 918.515 / 136.508 Weight last 48 hrs Weight 189 lb 9.561 oz Weight 190 lb 11.198 oz Physical Exam 2 GI: OTHER: Surgical incision covered with dressing, packing was removed and replaced no evidence of current infection at this level. CIARA drain effluent serosanguinous. Urinary Catheter Management: Ye: Cath Placed During This Visit: yes Reason for Continuing Indwelling Catheter: Accurate Measurement of Urinary Output in Critically Ill Patients Urinary Catheter Date of Insertion: 06/08/24 Urinary Catheter Time of Insertion: 00:50 Data 06/14/24 03:01 06/15/24 03:01 A&P Assessment and plan (1) Abdominal pain: (2) Nonocclusive mesenteric ischemia: (3) S/P exploratory laparotomy: (4) S/P small bowel resection: (5) Lactic acidosis: Plan Patient is stable from the general surgery standpoint, abdominal exam is benign. CRP is trending down. no other significant findings from the surgical standpoint, we we will continue management with broad-spectrum antibiotics, NG to low intermittent suction and we will attempt to wean of ventilation. The plan will be to wait for return of bowel function before we can start p.o. intake. -N.p.o. with NG tube to low intermittent wall suction -Continue to trend labs -Will monitor CIARA drain output -Pain control -Wean off sedation as tolerated plan is to attempt extubation in the next 24 hours -We appreciate management per medical ICU team Attestations 2 Medical Necessity Statement*: Per medical team Coding Level of Care Code Acute Code for Chg Fwd Diagnoses Abdominal pain R10.9 Nonocclusive mesenteric ischemia K55.059 S/P exploratory laparotomy Z98.890 S/P small bowel resection Z90.49 Lactic acidosis E87.20
[2024-06-15] MEDS: FUROsemide 10 mg/mL SDV 4mL 40 MG IVP (08:08)
[2024-06-15] MEDS: fluconazole premix 200 MG/100 ML PREMIX 100 MG IV (08:09)
[2024-06-15] MEDS: dextrose 5% 1,000 ML 30 ML IV (08:10)
[2024-06-15] MEDS: dexmedeTOMIDine 0.9 % NaCL 400 MCG/100 ML PREMIX 17.8 MCG IV ×2 (08:18→13:00)
[2024-06-15 09:05] LABS: Basophils # 0.1 10^3/uL (0.0-0.1); Basophils % 1.1 %; Eosinophils # 0.2 10^3/uL (0.0-0.8); Eosinophils % 4.6 %; Hematocrit 31.2 % (37-53); Lymphocytes # 0.9 10^3/uL (0.8-4.8); Lymphocytes % 18.1 %; Mean Corpuscular HGB Conc 30.4 g/dL (30-55); Mean Corpuscular Hemoglobin 29.4 pg (27-33); Mean Corpuscular Volume 96.6 fl (82-101); Monocytes # 0.3 10^3/uL (0.2-0.9); Monocytes % 7.2 %; Neutrophils # 2.84 10^3/uL (1.8-7.7); Neutrophils % 59.7 %; Nucleated Red Blood Cells % 0.6 %; Platelet Count 334 10^3/cmm (157-399); Red Blood Count 3.23 10^6/uL (3.85-5.65); Red Cell Distribution Width 15.6 % (12.1-15.1); White Blood Count 4.75 10^3/uL (3.29-11.43)
[2024-06-15 09:14] LABS: ABG PCO2 33.9 mmHg (35-45); ABG PH Result 7.47 (7.35-7.45); Arterial Blood Gas Hematocrit 31.9 % (42-52); Base Excess ABG 1.3 mmol/L (-2.0-2.0); Blood Gas Operator Identificat CAK; Blood Gas Sample Site ALINE; Blood Gas Sample Type Arterial; HCO3 ABG 24.7 mmol/L (22-26); Oxygen Device VENT; PO2 ABG 96.2 mmHg (80.0-100.0); PO2 FiO2 Ratio Arterial Blood 343
[2024-06-15 09:26] LABS: Anion Gap 17.9 (5-19); Blood Urea Nitrogen 8 mg/dL (6-20); Carbon Dioxide 23 mmol/L (22-29); Chloride 113 mmol/L (98-107); Glomerular Filtration Rate 156.1 mL/min (90-130); Glucose 290 mg/dL (65-115); Osmolality Calculated 319 mOsm/kg (285-295); Potassium 3.9 mmol/L (3.5-5.1); Slide Review Slide Review Perform; Sodium 150 mmol/L (136-145)
[2024-06-15 09:43] LABS: Glucose Point of Care 298 mg/dL (70-110)
[2024-06-15 09:43] LABS: Glucose Point of Care 263 mg/dL (70-110)
[2024-06-15 12:05] LABS: Glucose Point of Care 304 mg/dL (70-110)
[2024-06-15] MEDS: insulin glargine 100 units/1 mL 10 UNIT SUBCUT (12:25)
[2024-06-15] MEDS: insulin lispro 100 unit/1 mL SUBCUT ×3 (12:25→20:34)
[2024-06-15] MEDS: acetaminophen 1,000 MG/100 ML PIGGYBACK 400 MG IV ×2 (13:02→22:33)
[2024-06-15] MEDS: AA-Dex 4.25%-5% w/Lytes 1,000 ML 10.5 ML IV (13:02)
[2024-06-15] MEDS: HYDROmorphone 1 mg/mL INJ 1 mL IVP (13:49)
--- NOTE | 2024-06-15 14:59 | PM.MISC ---
Miscellaneous Note Purpose of Documentation: Update on patient care Note: Patient was extubated today, is awake and follow commands. No changes in physical examination, abdominal exam is benign and CIARA output is serosanguineous.
--- NOTE | 2024-06-15 15:25 | P.PN_ITS ---
Subjective 2 Subjective: - Patient was examined this [facility] and throughout the afternoon -Early in the morning he was seen, he is a bit drowsy, on 25 of fentanyl he is able to follow commands, able to squeeze my fingers bilaterally able to nod his head, to yes or no questions, he is off Levophed, 28% FiO2 anion gap has closed -Reassessed, doing well on a spontaneous breathing trial -Plan on extubating early this morning -Was given 40 mg IV push Lasix, has abou t 2 L urine output -Patient was extubated to nasal cannula this morning -Reexamined, continues to follow command s, alert to person, not to place, not to time, moves bilateral upper lower extremities, able to nod to yes or no questions, he is a bit encephalopathic -Spoke to general surgery patient contin ues to be n.p.o. -Start patient on TPN -Monitor blood sugars closely wean off i nsulin drip start Lantus and insulin sliding scale -Keep patient n.p.o. -Continue IV antibiotics, so far remains afebrile Vitals/I&O/Wt Last Vital Signs Temp 99.9 F H 06/15/24 08:00 Pulse 71 06/15/24 15:00 Resp 19 H 06/15/24 15:00 BP 118/67 06/15/24 15:00 Pulse Ox 98 06/15/24 13:32 O2 Del Method Nasal Cannula 06/15/24 13:32 O2 Flow Rate 2 06/15/24 13:32 FiO2 28 06/15/24 09:19 06/15/24 06/15/24 06/15/24 06:59 14:59 22:59 Intake Total 1933.515 / 5536.508 3554.561 / 3554.561 Output Total 1015 / 5400 Balance 918.515 / 857.726 1947.561 / 3554.561 Weight last 48 hrs Weight 86 kg Weight 86.5 kg Physical Exam 2 Const: COMMON NORMALS: no acute distress Eye: COMMON NORMALS: Equal, round and reactive pupils present PUPIL: Yes Equal, round and reactive pupils present OTHER: Nasogastric tube in place Resp: COMMON NORMALS: normal respiratory effort, No retractions, No use of accessory muscles and clear to auscultation bilaterally AUSCULTATION: clear to auscultation bilaterally Cardio: COMMON NORMALS: regular rate, regular rhythm, S1 normal heart sound present and S2 normal heart sound present RATE: regular rate RHYTHM: r egular rhythm HEART SOUNDS: S1 normal heart sound present and S2 normal heart sound present GI: COMMON NORMALS: Normal to inspection, nondistended, normoactive bowel sounds present and non-tender OTHER: Surgical site looks clean and dry, good bowel sounds, CIARA drain in place Extremity: COMMON NORMALS: no pedal edema Psych: COMMON NORMALS: mental status grossly normal Urinary Catheter Management: Ye: Cath Placed During This Visit: yes Reason for Continuing Indwelling Catheter: Accurate Measurement of Urinary Output in Critically Ill Patients Urinary Catheter Date of Insertion: 06/08/24 Urinary Catheter Time of Insertion: 00:50 Data 06/15/24 08:44 06/15/24 08:44 Micro: Microbiology 06/10/24 12:40 Blood Culture - Final Blood NO GROWTH AFTER 5 DAYS 06/10/24 12:36 Blood Culture - Final Blood NO GROWTH AFTER 5 DAYS A&P Assessment and plan (1) Shock: (2) Diabetic ketoacidosis: (3) Nonocclusive mesenteric ischemia: (4) S/P exploratory laparotomy: (5) S/P small bowel resection: (6) Lactic acidosis: Plan Acute encephalopathy -Monitor mentation closely -Neurochecks -Has a gag reflex, withdraws from pain, pupils equal round reactive to light -Monitor mentation closely -Precedex for agitation, Haldol as needed -Dilaudid for pain control Diabetic ketoacidosis: A1c of 13. Anion gap closed, -Transition off insulin drip 10 units of Lantus Insulin sliding scale, low-dose Continue to monitor BMP Starting on TPN Septic shock: Resolved Continues to have intermittent fevers Most likely in setting of nonocclusive mesenteric ischemia. Cannot rule out peritonitis. Keep mean artery pressure 65. Follow-up blood culture, urine culture. Sputum culture growing MRSA. Continue vancomycin, meropenem. Continue with fluconazole. Will plan to continue overall 7 to 10 days of antimicrobials. Will de-escalate as per culture results if any positive. Mesenteric ischemia: Nonocclusive: Post exploratory laparotomy and small bowel resection on 06/08 and 06/09 and enterocolonic enteroenteric anastomosis along with abdominal wall closure on 06/11. CIARA drain in place. Appreciate surgical recommendations. Wound care as per surgical team. Respiratory failure: Extubated to nasal cannula Respiratory cultures, growing MRSA Sputum culture growing MRSA. Current IV antibiotics. Hypernatremia: Was on D5 water, start TPN, stop D5 water Hypokalemia replace IV Anesthesia: Precedex Glycemic control: Insulin sliding scale Nutrition: TPN CODE STATUS: Full code PUD prophylaxis: Protonix DVT prophylaxis: SCD Discharge planning: Depending on the clinical picture going forward. Continue with care at ICU As above - Patient was examined this morning multiple times and throughout the afternoon -Early in the morning he was seen, he is a bit drowsy, on 25 of fentanyl he is able to follow commands, able to squeeze my fingers bilaterally able to nod his head, to yes or no questions, he is off Levophed, 28% FiO2 anion gap has closed -Reassessed, doing well on a spontaneous breathing trial -Plan on extubating early this morning -Was given 40 mg IV push Lasix, has about 2 L urine output -Patient was extubated to nasal cannula this morning -Reexamined, continues to follow commands, alert to person, not to place, not to time, moves bilateral upper lower extremities, able to nod to yes or no questions, he is a bit encephalopathic -Spoke to general surgery patient continues to be n.p.o. -Start patient on TPN -Monitor blood sugars closely wean off insulin drip start Lantus and insulin sliding scale -Keep patient n.p.o. -Continue IV antibiotics, so far remains afebrile Attestations 2 Medical Necessity Statement*: Patient requires hospitalization for acute respiratory failure, acute encephalopathy, mesenteric ischemia noninclusive, Coding Level of Care Code Critical Care >/= 30 minutes Critical care time (in minutes): 45 The high probability of a clinically significant, sudden or life threatening deterioration, as referenced in this documentation, required my full and direct attention, intervention and personal management. The critical care time shown is in addition to time spent performing any reported separately billable procedures and includes the following: [x] Data and vital sign review and interpretation [x ] Patient assessment, examination and intervention [x] Medication orders and management [x] Patient/Family updates as able [x] Care Coordination and Documentation. Diagnoses Shock R57.9 Diabetic ketoacidosis E11.10 Nonocclusive mesenteric ischemia K55.059 S/P exploratory laparotomy Z98.890 S/P small bowel resection Z90.49 Lactic acidosis E87.20
[2024-06-15 15:49] LABS: Anion Gap 16.5 (5-19); Blood Urea Nitrogen 11 mg/dL (6-20); Calcium 8.3 mg/dL (8.5-10.5); Carbon Dioxide 30 mmol/L (22-29); Chloride 110 mmol/L (98-107); Creatinine Clr Calc Pharmacy 173.4857; Glomerular Filtration Rate 130.7 mL/min (90-130); Glucose 236 mg/dL (65-115); Osmolality Calculated 323 mOsm/kg (285-295); Potassium 3.5 mmol/L (3.5-5.1); Sodium 153 mmol/L (136-145)
--- NOTE | 2024-06-15 17:28 | PC.NURSE ---
Addendum entered by Willian Gibson RN 06/15/24 17:39: This nurse witnessed SHERLYN Flanagan waist propofol and fentanyl. Original Note: Fentanyl and Propofol wasted with Manav Ragland RN.
[2024-06-15] MEDS: enoxaparin 40 mg/0.4 mL Syringe SUBCUT (18:00)
--- NOTE | 2024-06-15 20:00 | PC.NURSE ---
Patient restless, yelling why wont you give me a drink? Explained his surgeon's order for NPO.
[2024-06-15] MEDS: pantoprazole 40 mg SDV IVP (20:23)
[2024-06-15 22:06] LABS: Blood Urea Nitrogen 14 mg/dL (6-20); Calcium 8.3 mg/dL (8.5-10.5); Carbon Dioxide 30 mmol/L (22-29); Chloride 110 mmol/L (98-107); Creatinine Clr Calc Pharmacy 173.4857; Glomerular Filtration Rate 130.7 mL/min (90-130); Glucose 209 mg/dL (65-115); Osmolality Calculated 323 mOsm/kg (285-295); Sodium 153 mmol/L (136-145)
[2024-06-15 22:08] LABS: Anion Gap 16.5 (5-19); Potassium 3.5 mmol/L (3.5-5.1)
[2024-06-15] MEDS: dexmedeTOMIDine 0.9 % NaCL 400 MCG/100 ML PREMIX 8.9 MCG IV (22:33)
[2024-06-16] VITALS (58 sets, daily range): BP systolic 99–138; BP diastolic 45–78; PULSE 63–103; RESP 13–31; TEMP 37.1–38.8; O2SAT 96–100
[2024-06-16] MEDS: HYDROmorphone 1 mg/mL INJ 1 mL IVP ×3 (00:10→22:58)
[2024-06-16] MEDS: ipratropium-albuterol 3 mL Neb INHALATION ×4 (01:56→19:58)
[2024-06-16] MEDS: meropenem 1,000 mg SDV 1000 MG IVP ×3 (02:02→17:08)
--- NOTE | 2024-06-16 02:48 | PC.NURSE ---
Patient temp is 101.8 rectally. Iniated cooling blanket .
--- NOTE | 2024-06-16 04:15 | PC.NURSE ---
Cooling blanket off. Rectal temp is 99.3
[2024-06-16] MEDS: linezolid premix 600 MG/300 ML PREMIX 300 MG IV ×2 (04:27→16:32)
[2024-06-16 05:55] LABS: Basophils # 0.1 10^3/uL (0.0-0.1); Basophils % 0.8 %; Eosinophils % 0.4 %; Hematocrit 35.6 % (37-53); Lymphocytes # 0.9 10^3/uL (0.8-4.8); Lymphocytes % 12.3 %; Mean Corpuscular HGB Conc 30.3 g/dL (30-55); Mean Corpuscular Volume 95.4 fl (82-101); Mean Platelet Volume 9.2 fL (7.4-10.4); Monocytes # 0.5 10^3/uL (0.2-0.9); Monocytes % 6.4 %; Neutrophils # 5.19 10^3/uL (1.8-7.7); Neutrophils % 72.8 %; Nucleated Red Blood Cells % 0 %; Platelet Count 385 10^3/cmm (157-399); Red Blood Count 3.73 10^6/uL (3.85-5.65); Red Cell Distribution Width 15.3 % (12.1-15.1); White Blood Count 7.14 10^3/uL (3.29-11.43)
[2024-06-16 06:14] LABS: Slide Review Slide Review Perform
[2024-06-16 06:22] LABS: NT Pro B Type Natriuretic Pept 123 pg/mL (0-125); Procalcitonin 0.22 ng/mL (0-0.5)
[2024-06-16 06:38] LABS: C Reactive Protein 55.9 mg/L (0.0-4.9); Magnesium 2.1 mg/dL (1.7-2.3); Phosphorus 3.7 mg/dL (2.5-4.5)
[2024-06-16] MEDS: insulin glargine 100 units/1 mL 10 UNIT SUBCUT (06:39)
--- NOTE | 2024-06-16 07:04 | P.PN_ITS ---
Subjective 2 Subjective: Postoperative day 8 status post exploratory laparotomy and bowel resection, postoperative day 7 status post washout and ileocecectomy and postoperative day 5 status post exploratory laparotomy creation of enteroenteric anastomosis enterocolic anastomosis washout and closure. Extubated yesterday, is alert and follows commands. NG output continues to be hide was around 500 cc overnight Vitals/I&O/Wt Last Vital Signs Temp 99.0 F 06/16/24 06:30 Pulse 80 06/16/24 06:30 Resp 20 H 06/16/24 06:30 BP 117/58 06/16/24 06:30 Pulse Ox 98 06/16/24 06:30 O2 Del Method Nasal Cannula 06/16/24 01:56 O2 Flow Rate 1 06/16/24 01:56 FiO2 28 06/15/24 09:19 06/15/24 06/16/24 06/16/24 22:59 06:59 14:59 Intake Total 535.130 / 4113.056 535.905 / 4648.961 Output Total 5200 / 5200 1680 / 6880 Balance -4664.870 / -1086.944 -1144.095 / -2231.039 Weight last 48 hrs Weight 180 lb 12.465 oz Weight 189 lb 9.561 oz Physical Exam 2 GI: OTHER: Abdomen is soft, appropriately tender, nondistended, surgical incisions are healing well, no evidence of purulence. CIARA drain with serosanguineous output. Urinary Catheter Management: Ye: Cath Placed During This Visit: yes Reason for Continuing Indwelling Catheter: Accurate Measurement of Urinary Output in Critically Ill Patients Urinary Catheter Date of Insertion: 06/08/24 Urinary Catheter Time of Insertion: 00:50 Data 06/16/24 05:32 06/15/24 21:37 Micro: Microbiology 06/10/24 12:40 Blood Culture - Final Blood NO GROWTH AFTER 5 DAYS 06/10/24 12:36 Blood Culture - Final Blood NO GROWTH AFTER 5 DAYS A&P Assessment and plan (1) Abdominal pain: (2) Nonocclusive mesenteric ischemia: (3) S/P exploratory laparotomy: (4) S/P small bowel resection: (5) Lactic acidosis: Plan Patient is stable from the general surgery standpoint, abdominal exam is benign. CRP is trending down. no other significant findings from the surgical standpoint, we we will continue management with broad-spectrum antibiotics, NG to low intermittent suction. We we will attempt to move the patient into sitting position today this may help with bowel motility. While I would prefer to wait until there is return of bowel function before starting diet at least I would like to have lower NG output before decide to discontinue. -N.p.o. with NG tube to low intermittent wall suction, We may attempt a clamping trial overnight -Continue to trend labs, White count has been normal and CRP is trending down -Will monitor CIARA drain output -Pain control -Wean off sedation as tolerated plan is to attempt extubation in the next 24 hours -We appreciate management per medical ICU team Attestations 2 Medical Necessity Statement*: Per medical ICU team Coding Level of Care Code Acute Code for Chg Fwd Diagnoses Abdominal pain R10.9 Nonocclusive mesenteric ischemia K55.059 S/P exploratory laparotomy Z98.890 S/P small bowel resection Z90.49 Lactic acidosis E87.20
[2024-06-16] MEDS: insulin lispro 100 unit/1 mL SUBCUT ×2 (07:43→12:08)
[2024-06-16] MEDS: fluconazole premix 200 MG/100 ML PREMIX 100 MG IV (07:44)
[2024-06-16 07:47] LABS: Glucose Point of Care 311 mg/dL (70-110)
[2024-06-16 07:53] LABS: Glucose Point of Care 224 mg/dL (70-110)
[2024-06-16 07:53] LABS: Glucose Point of Care 344 mg/dL (70-110)
[2024-06-16 07:53] LABS: Glucose Point of Care 231 mg/dL (70-110)
[2024-06-16 07:53] LABS: Glucose Point of Care 224 mg/dL (70-110)
--- NOTE | 2024-06-16 08:22 | CT_ITS ---
WS: [id number] CT CHEST, ABDOMEN, AND PELVIS TECHNIQUE: Contrast-enhanced CT of the chest, abdomen, and pelvis with coronal and sagittal reformatt ed images. CLINICAL INFORMATION: persistet fevers s/p ex lap COMPARISON: CT 06/07/2024 DLP: 1336.[address] scans at [facility] use at least one of these dose optimization techniques: automated e xposure control; mA and/or kV adjustment per patient size (includes targeted exams where dose is matc hed to clinical indication); or iterative reconstruction. CT CHEST: Lungs are well aerated. No acute pulmonary infiltrates. Subsegmental atelectasis in the lung bases. T race LEFT pleural fluid. Normal caliber thoracic aorta. Enteric tube with tip in the duodenum. No pne umothorax. CT ABDOMEN AND PELVIS: Status post recent postoperative changes exploratory laparotomy with small bowel resection for ischem ia. Surgical drain in the RIGHT lower abdomen extending into the pelvis. No drainable fluid collectio ns. Air-fluid level in the bladder with Ye catheter. Colon appears decompressed. Small bowel anast omosis appears normal. No evidence of recurrent small bowel obstruction. CT/CT chest abdpel w/*[id number] IMPRESSION: 1. No acute findings in the chest abdomen or pelvis. 2. Slight bibasal atelectasis. 3. Normal postoperative changes small bowel resection with anastomosis 4. Ye catheter.
[2024-06-16 09:18] LABS: Anion Gap 36.1 (5-19); Blood Urea Nitrogen 21 mg/dL (6-20); Calcium 8.4 mg/dL (8.5-10.5); Carbon Dioxide 11 mmol/L (22-29); Chloride 109 mmol/L (98-107); Glomerular Filtration Rate 86.6 mL/min (90-130); Glucose 332 mg/dL (65-115); Osmolality Calculated 330 mOsm/kg (285-295); Potassium 4.1 mmol/L (3.5-5.1); Sodium 152 mmol/L (136-145)
--- NOTE | 2024-06-16 09:18 | CT_ITS ---
WS: [id number] CT HEAD TECHNIQUE: Noncontrast CT of the head obtained from the skullbase to the vertex. CLINICAL INFORMATION: ams COMPARISON: 2022 DLP: 1151.[address] scans at [facility] use at least one of these dose optimization techniques: automated e xposure control; mA and/or kV adjustment per patient size (includes targeted exams where dose is matc hed to clinical indication); or iterative reconstruction. FINDINGS: No evidence of intracranial hemorrhage or mass effect. Ventricular system and basal cisterns are akhtar nt. No extra-axial fluid collections. No evidence of mass or mass effect. Normal sanchez-white different iation. Moderate vessel thickening in the paranasal sinuses. Small amount of fluid in the sphenoid sinuses. M astoid air cells are well aerated. CT/CT head wo con* [id number] IMPRESSION: 1. No evidence of intracranial hemorrhage or mass effect. 2. No acute intracranial findings.
[2024-06-16] MEDS: dexmedeTOMIDine 0.9 % NaCL 400 MCG/100 ML PREMIX 6.68 MCG IV ×2 (09:50→16:26)
[2024-06-16 09:51] LABS: Bilirubin Urine Negative (Negative); Blood Urine Negative (Negative); Glucose Urine UA 3+ (Normal); Ketones Urine 4+ (Negative); Leukocyte Esterase Urine Negative (Negative); Nitrate Urine Negative (Negative); Protein Urine Trace (Negative); Urine Appearance Clear (CLEAR); Urine Color Yellow (Yellow); pH Urine 5.5 (5-7)
[2024-06-16 09:53] LABS: Add Urine Microscopic? YES; Bacteria Urine None Seen /hpf; Hyaline Casts Urine 4.11 /lpf; RBC Urine 0-2 /hpf (0-2); Squamous Epithelial Cell Urine 0-5 /hpf (0-5); WBC Urine 0-5 /hpf (0-5)
--- NOTE | 2024-06-16 10:09 | XR_ITS ---
WS: [id number] Portable AP upright chest, 06/16/2024 Clinical Data: Post PICC insertion Comparison: Portable chest, 06/14/2024 Findings: The right PICC line enters the superior vena cava and ends in its midportion. There is no p neumothorax. The right internal jugular venous catheter and nasogastric tube remain in the same posit ion. No nodules, masses or effusions are seen. The heart is normal. The pulmonary vascularity is not increased. There is a patchy opacity in the right hilum extending into the right lower lobe and sligh t fullness of the left hilum unchanged. XR/XR chest 1V portable [id number] Impression: Satisfactory insertion of right PICC line.
[2024-06-16 11:43] LABS: Adenovirus Not Detected (NOT DETECT); Chlamydia Pneumoniae Not Detected (NOT DETECT); Coronavirus 229E,HKU1,NL63,OC4 Not Detected (NOT DETECT); Human Metapneumovirus Not Detected (NOT DETECT); Human Rhinovirus/Enterovirus Not Detected (NOT DETECT); Influenza A Not Detected (NOT DETECT); Influenza A H1 Not Detected (NOT DETECT); Influenza A H1-2009 Not Detected (NOT DETECT); Influenza A H3 Not Detected (NOT DETECT); Influenza B Not Detected (NOT DETECT); Mycoplasma Pneumoniae Not Detected (NOT DETECT); Parainfluenza Virus Type 1 Not Detected (NOT DETECT); Parainfluenza Virus Type 2 Not Detected (NOT DETECT); Parainfluenza Virus Type 3 Not Detected (NOT DETECT); Parainfluenza Virus Type 4 Not Detected (NOT DETECT); Respiratory Syncytial Virus A Not Detected (NOT DETECT); Respiratory Syncytial Virus B Not Detected (NOT DETECT); SARS-COV-2 Not Detected (NOT DETECT)
[2024-06-16 12:04] LABS: Glucose Point of Care 212 mg/dL (70-110)
--- NOTE | 2024-06-16 12:04 | PICC.NOTE ---
Triple lumen PICC placed to right basilic vein. Referred to vascular access nurse for PICC placement due to need for TPN. Consent obtained urgently per Dr. Nance. Pt oriented to person, but not place or time. Unable to reach next of kin via phone. Right arm assessed with right basilic vein measuring 4.8 mm, straight, and apparent best choice for placement. Using sterile technique and MST, right basilic vein accessed x 1 stick. Mid-arm circumference measured 10 cm from right AC 29 cm. Trimmed cath 45 cm with 3 cm external length noted. CXR shows tip in SVC, in good position for use per radiologist. Line secured with stat-lock. Insertion site covered with Biopatch and TSM. Report given to bedside nurse, SHERLYN Donato.
[2024-06-16] MEDS: iohexol 350 mg/mL 500 mL Btl (per mL) IV (12:30)
[2024-06-16 13:32] LABS: ABG PCO2 29.9 mmHg (35-45); ABG PH Result 7.42 (7.35-7.45); Arterial Blood Gas Hematocrit 32.3 % (42-52); Blood Gas Allen Test Pos; Blood Gas Operator Identificat AMH; Blood Gas Sample Site Radial, right; Blood Gas Sample Type Arterial; HCO3 ABG 19.5 mmol/L (22-26); Oxygen Device NC; PO2 FiO2 Ratio Arterial Blood 410
[2024-06-16 14:17] LABS: Ketone (Acetest) Serum Positive (Negative)
[2024-06-16 14:18] LABS: Blood Urea Nitrogen 21 mg/dL (6-20); Calcium 8.3 mg/dL (8.5-10.5); Carbon Dioxide 19 mmol/L (22-29); Chloride 114 mmol/L (98-107); Creatinine Clr Calc Pharmacy 132.2667; Glomerular Filtration Rate 97.8 mL/min (90-130); Glucose 234 mg/dL (65-115); Osmolality Calculated 325 mOsm/kg (285-295); Sodium 152 mmol/L (136-145)
[2024-06-16 14:23] LABS: Anion Gap 23.2 (5-19); Potassium 4.2 mmol/L (3.5-5.1)
[2024-06-16] MEDS: acetaminophen 1,000 MG/100 ML PIGGYBACK 400 MG IV (14:24)
[2024-06-16] MEDS: sodium bicarbonate 50 MEQ in sodium chloride 0.45% 1,000 ML IV (15:01)
--- NOTE | 2024-06-16 16:24 | P.PN_ITS ---
Subjective 2 Subjective: - Patient was examined earlier this morn ing he is alert to person, not to place, not to time he follows commands pupil equal round reactive light, he has equal strength bilateral lower EXTR extremities, equal strength bilateral upper extremities, but more generalized weakness, able to smile for me, able to move his extremities, overnight he was febrile, normotensive remains off Levophed, he is on 2 L, urine output over 7 L -Plan on PT OT -Plan on speech therapy tomorrow -Patient was started on TPN yesterday -Given patient's persistent fevers, repe ated blood cultures, urine culture, UA, respiratory viral panel, CT chest abdomen pelvis -Discussed patient's case with general s emperatriz, Dr. Early, CT chest abdomen pelvis, no evidence of abscess, recommended continue TPN, no oral feedings for now due to increased output from o nasogastric tube, possible trial of oral intake tomorrow -Patient was seen again in the afternoon , does have a weak cough -Repeat BMP showed anion gap up to 23.2, bicarb 19, sodium 152, blood sugar 234, ABG pH 7.42, ketones are positive -Will treat for recurrent diabetic ketoa cidosis -Started on insulin drip protocol -Patient was started on a bicarb drip -Place IV potassium is 4.2 -Due to persistent fevers, patient centr al line was not removed due to concerns for possible infection as source of his recurrent fevers, culture the tip, PICC line placed -Repeat UA within normal limits, Pro-Sagar trending down to 0.22, CRP 55.9, ? Due to encephalopathy CT head was ordered which was within normal limits ? Respiratory viral panel within normal limits Vitals/I&O/Wt Last Vital Signs Temp 100.8 F H 06/16/24 14:00 Pulse 75 06/16/24 14:42 Resp 20 H 06/16/24 14:42 BP 116/70 06/16/24 14:00 Pulse Ox 96 06/16/24 14:42 O2 Del Method Room Air 06/16/24 14:42 O2 Flow Rate 2 06/16/24 14:00 FiO2 28 06/15/24 09:19 06/16/24 06/16/24 06/16/24 06:59 14:59 22:59 Intake Total 535.905 / 4648.961 569.558 / 569.558 Output Total 1680 / 6880 800 / 800 Balance -1144.095 / -2231.039 -230.442 / -230.442 Weight last 48 hrs Weight 82 kg Weight 86 kg Physical Exam 2 Const: COMMON NORMALS: no acute distress EXAM LIMITATIONS: altered mental status ORIENTATION/CONSCIOUSNESS: Yes awake, Yes oriented to person and Yes confused; not oriented to place and not oriented to time Resp: COMMON NORMALS: normal respiratory effort, No retractions, No use of accessory muscles and clear to auscultation bilaterally AUSCULTATION: clear to auscultation bilaterally Cardio: COMMON NORMALS: regular rate, regular rhythm, S1 normal heart sound present and S2 normal heart sound present RATE: regular rate RHYTHM: r egular rhythm HEART SOUNDS: S1 normal heart sound present and S2 normal heart sound present GI: COMMON NORMALS: Normal to inspection, nondistended, normoactive bowel sounds present and non-tender OTHER: Abdominal binder in place, surgical site looks clean and dry, CIARA drain in place Extremity: COMMON NORMALS: no calf tenderness and no pedal edema Neuro: SENSORIUM/ORIENTATION: Yes oriented to person, No oriented to place and No oriented to time Urinary Catheter Management: Ye: Cath Placed During This Visit: yes Reason for Continuing Indwelling Catheter: Accurate Measurement of Urinary Output in Critically Ill Patients Urinary Catheter Date of Insertion: 06/08/24 Urinary Catheter Time of Insertion: 00:50 Data 06/16/24 05:32 06/16/24 13:47 Micro: Microbiology 06/16/24 08:45 Blood Culture - Preliminary Blood SPECIMEN COLLECTED 06/16/24 08:42 Blood Culture - Preliminary Blood SPECIMEN COLLECTED 06/10/24 12:40 Blood Culture - Final Blood NO GROWTH AFTER 5 DAYS 06/10/24 12:36 Blood Culture - Final Blood NO GROWTH AFTER 5 DAYS A&P Assessment and plan (1) Shock: (2) Diabetic ketoacidosis: (3) Nonocclusive mesenteric ischemia: (4) S/P exploratory laparotomy: (5) S/P small bowel resection: (6) Lactic acidosis: Plan Acute encephalopathy ? CT head within normal limits ? Continues to be febrile -Monitor mentation closely -Neurochecks -Alert to person, not to place, to time can follow commands -Monitor mentation closely -Precedex for agitation, Haldol as needed -Dilaudid for pain control Diabetic ketoacidosis: Increased anion gap, positive ketones, decrease CO2, breakthrough diabetic ketoacidosis A1c of 13. Resume DKA protocol Continue to monitor BMP Due to poor nutrition, 7 days on the vent, will continue TPN, but will consider holding them as patient is in DKA, but from prior experience with patient's care, he has required insulin drip for a prolonged period of time for recurrent and resistant DKA Septic shock: Resolved Continues to have intermittent fevers -Repeat blood cultures -UA within normal limits -CT chest abdomen pelvis no acute findings, no abscess -Right internal jugular central line removed, catheter tip cultured -Prior sputum cultures growing MRSA, probably covered -Continue broad-spectrum antibiotic therapy Continue vancomycin, meropenem. Continue with fluconazole. Will plan to continue overall 7 to 10 days of antimicrobials. Mesenteric ischemia: Nonocclusive: Post exploratory laparotomy and small bowel resection on 06/08 and 06/09 and enterocolonic enteroenteric anastomosis along with abdominal wall closure on 06/11. CIARA drain in place. Appreciate surgical recommendations. Wound care as per surgical team. Respiratory failure: Extubated to nasal cannula, status post Lasix dose, 7 L negative Respiratory cultures, growing MRSA Sputum culture growing MRSA. Current IV antibiotics. Hypernatremia: Continue TPN, monitor serum sodium Hypokalemia replace IV Anesthesia: Precedex Glycemic control: Insulin sliding scale Nutrition: TPN CODE STATUS: Full code PUD prophylaxis: Protonix DVT prophylaxis: SCD Discharge planning: Depending on the clinical picture going forward. Continue with care at ICU - Patient was examined earlier this morning he is alert to person, not to place, not to time he follows commands pupil equal round reactive light, he has equal strength bilateral lower EXTR extremities, equal strength bilateral upper extremities, but more generalized weakness, able to smile for me, able to move his extremities, overnight he was febrile, normotensive remains off Levophed, he is on 2 L, urine output over 7 L -Plan on PT OT -Plan on speech therapy tomorrow -Patient was started on TPN yesterday -Given patient's persistent fevers, repeated blood cultures, urine culture, UA, respiratory viral panel, CT chest abdomen pelvis -Discussed patient's case with general surgery, Dr. Early, CT chest abdomen pelvis, no evidence of abscess, recommended continue TPN, no oral feedings for now due to increased output from o nasogastric tube, possible trial of oral intake tomorrow -Patient was seen again in the afternoon, does have a weak cough -Repeat BMP showed anion gap up to 23.2, bicarb 19, sodium 152, blood sugar 234, ABG pH 7.42, ketones are positive -Will treat for recurrent diabetic ketoacidosis -Started on insulin drip protocol -Patient was started on a bicarb drip -Place IV potassium is 4.2 -Due to persistent fevers, patient central line was not removed due to concerns for possible infection as source of his recurrent fevers, culture the tip, PICC line placed -Repeat UA within normal limits, Pro-Sagar trending down to 0.22, CRP 55.9, ? Due to encephalopathy CT head was ordered which was within normal limits ? Respiratory viral panel within normal limits Attestations 2 Medical Necessity Statement*: Patient requires hospitalization for acute encephalopathy, exploratory laparotomy, now with recurrent DKA, persistent fevers Coding Level of Care Code Critical Care >/= 30 minutes Critical care time (in minutes): 45 The high probability of a clinically significant, sudden or life threatening deterioration, as referenced in this documentation, required my full and direct attention, intervention and personal management. The critical care time shown is in addition to time spent performing any reported separately billable procedures and includes the following: [x] Data and vital sign review and interpretation [x ] Patient assessment, examination and intervention [x] Medication orders and management [x] Patient/Family updates as able [x] Care Coordination and Documentation. Diagnoses Shock R57.9 Diabetic ketoacidosis E11.10 Nonocclusive mesenteric ischemia K55.059 S/P exploratory laparotomy Z98.890 S/P small bowel resection Z90.49 Lactic acidosis E87.20
[2024-06-16] MEDS: AA-Dex 4.25%-5% w/Lytes 1,000 ML 42 ML IV (16:27)
[2024-06-16] MEDS: lidocaine 1% 5 ML in potassium chloride premix 100 ML 52.5 ML IV (17:00)
[2024-06-16 17:23] LABS: Glucose Point of Care 294 mg/dL (70-110)
[2024-06-16] MEDS: INSULIN REGULAR IN 0.9 % NACL 100 UNIT/100 ML BAG 8 UNIT IV (17:26)
--- NOTE | 2024-06-16 18:20 | PC.NURSE ---
NG tube clamped per order.
[2024-06-16] MEDS: enoxaparin 40 mg/0.4 mL Syringe SUBCUT (18:26)
[2024-06-16 18:41] LABS: Glucose Point of Care 262 mg/dL (70-110)
[2024-06-16 19:41] LABS: Blood Urea Nitrogen 23 mg/dL (6-20); Calcium 8.2 mg/dL (8.5-10.5); Carbon Dioxide 21 mmol/L (22-29); Chloride 115 mmol/L (98-107); Creatinine Clr Calc Pharmacy 132.2667; Glomerular Filtration Rate 97.8 mL/min (90-130); Glucose 256 mg/dL (65-115); Osmolality Calculated 328 mOsm/kg (285-295); Sodium 153 mmol/L (136-145)
[2024-06-16 19:45] LABS: Anion Gap 21.7 (5-19); Potassium 4.7 mmol/L (3.5-5.1)
[2024-06-16 19:50] LABS: Glucose Point of Care 223 mg/dL (70-110)
[2024-06-16] MEDS: dextrose 5%-sod chloride 0.45% 1,000 ML 75 ML IV (20:00)
[2024-06-16] MEDS: pantoprazole 40 mg SDV IVP (20:07)
[2024-06-16 20:34] LABS: Glucose Point of Care 174 mg/dL (70-110)
[2024-06-16] MEDS: ondansetron 2 mg/ML SDV 2 mL 4 MG IVP (20:37)
[2024-06-16 22:05] LABS: Glucose Point of Care 196 mg/dL (70-110)
[2024-06-16 23:36] LABS: Blood Urea Nitrogen 23 mg/dL (6-20); Calcium 8.2 mg/dL (8.5-10.5); Carbon Dioxide 21 mmol/L (22-29); Chloride 115 mmol/L (98-107); Glucose 246 mg/dL (65-115); Osmolality Calculated 330 mOsm/kg (285-295); Sodium 154 mmol/L (136-145)
[2024-06-16 23:38] LABS: Anion Gap 22.2 (5-19); Potassium 4.2 mmol/L (3.5-5.1)
[2024-06-16 23:54] LABS: Glucose Point of Care 201 mg/dL (70-110)
[2024-06-17] VITALS (52 sets, daily range): BP systolic 112–145; BP diastolic 55–95; PULSE 61–104; RESP 10–22; TEMP 36.2–38; O2SAT 95–100; BMI 24.5
[2024-06-17 00:54] LABS: Glucose Point of Care 205 mg/dL (70-110)
[2024-06-17] MEDS: ipratropium-albuterol 3 mL Neb INHALATION ×4 (01:31→20:02)
[2024-06-17] MEDS: meropenem 1,000 mg SDV 1000 MG IVP ×3 (02:00→17:12)
--- NOTE | 2024-06-17 02:38 | PC.NURSE ---
NPO: Patient has repeatedly yelled from room is anyone going to give me a drink? , patient reminded of surgeon's NPO order and offered oral swabs as an alternative.
[2024-06-17 03:13] LABS: Basophils % 0.4 %; Eosinophils % 0.5 %; Hematocrit 31.1 % (37-53); Lymphocytes # 1.2 10^3/uL (0.8-4.8); Lymphocytes % 15.5 %; Mean Corpuscular HGB Conc 30.9 g/dL (30-55); Mean Platelet Volume 9.1 fL (7.4-10.4); Monocytes # 0.5 10^3/uL (0.2-0.9); Monocytes % 5.8 %; Neutrophils # 5.61 10^3/uL (1.8-7.7); Neutrophils % 72.9 %; Nucleated Red Blood Cells % 0 %; Platelet Count 346 10^3/cmm (157-399); Red Blood Count 3.31 10^6/uL (3.85-5.65); Red Cell Distribution Width 14.8 % (12.1-15.1)
[2024-06-17 03:29] LABS: Alanine Aminotransferase 14 U/L (0-41); Albumin Level 2.7 g/dL (3.5-5.2); Alkaline Phosphatase 68 U/L (40-130); Aspartate Amino Transferase 19 U/L (0-40); Blood Urea Nitrogen 21 mg/dL (6-20); C Reactive Protein 37.4 mg/L (0.0-4.9); Calcium 8.2 mg/dL (8.5-10.5); Carbon Dioxide 20 mmol/L (22-29); Chloride 115 mmol/L (98-107); Globulin 2.9 g/dL (1.3-4.6); Glucose 277 mg/dL (65-115); Osmolality Calculated 331 mOsm/kg (285-295); Phosphorus 1.9 mg/dL (2.5-4.5); Sodium 154 mmol/L (136-145); Total Bilirubin 0.2 mg/dL (0.15-1.2); Total Protein 5.6 g/dL (6.6-8.7)
[2024-06-17 03:31] LABS: Anion Gap 23.6 (5-19); Potassium 4.6 mmol/L (3.5-5.1)
[2024-06-17 03:50] LABS: NT Pro B Type Natriuretic Pept 68 pg/mL (0-125)
[2024-06-17] MEDS: linezolid premix 600 MG/300 ML PREMIX 300 MG IV ×2 (04:07→17:12)
[2024-06-17 04:12] LABS: Glucose Point of Care 276 mg/dL (70-110)
[2024-06-17 04:22] LABS: Procalcitonin 0.18 ng/mL (0-0.5)
[2024-06-17 04:58] LABS: Glucose Point of Care 202 mg/dL (70-110)
[2024-06-17 04:58] LABS: Glucose Point of Care 229 mg/dL (70-110)
[2024-06-17 04:58] LABS: Glucose Point of Care 220 mg/dL (70-110)
[2024-06-17 05:00] LABS: Glucose Point of Care 261 mg/dL (70-110)
[2024-06-17 06:04] LABS: Glucose Point of Care 279 mg/dL (70-110)
[2024-06-17 07:14] LABS: Blood Urea Nitrogen 20 mg/dL (6-20); Calcium 8.1 mg/dL (8.5-10.5); Carbon Dioxide 25 mmol/L (22-29); Chloride 114 mmol/L (98-107); Creatinine Clr Calc Pharmacy 170.0571; Glomerular Filtration Rate 130.7 mL/min (90-130); Glucose 275 mg/dL (65-115); Osmolality Calculated 328 mOsm/kg (285-295); Sodium 153 mmol/L (136-145)
[2024-06-17 07:19] LABS: Anion Gap 17.6 (5-19); Potassium 3.6 mmol/L (3.5-5.1)
--- NOTE | 2024-06-17 08:01 | P.PN_ITS ---
Subjective 2 Subjective: Postoperative day 9 status post exploratory laparotomy and bowel resection, postoperative day 8 status post washout and ileocecectomy and postoperative day 6 status post exploratory laparotomy creation of enteroenteric anastomosis enterocolic anastomosis washout and closure. Very good progression remains alert and oriented, had a bowel movement overnight. No abdominal pain. NG output after clamping overnight is minimal Vitals/I&O/Wt Last Vital Signs Temp 97.1 F L 06/17/24 07:30 Pulse 71 06/17/24 07:30 Resp 18 06/17/24 07:30 BP 137/71 06/17/24 07:30 Pulse Ox 99 06/17/24 07:30 O2 Del Method Room Air 06/17/24 07:30 O2 Flow Rate 2 06/16/24 14:00 FiO2 28 06/15/24 09:19 06/16/24 06/17/24 06/17/24 22:59 06:59 14:59 Intake Total 457.888 / 1027.446 310.492 / 1337.938 4.492 / 4.492 Output Total 1170 / 1970 1830 / 3800 Balance -712.112 / -942.554 -1519.508 / -2462.062 4.492 / 4.492 Weight last 48 hrs Weight 180 lb 12.465 oz Weight 180 lb 12.465 oz Physical Exam 2 GI: OTHER: Abdomen is soft, minimally tender nondistended. CIARA drain is serosanguineous. Positive bowel sounds. Urinary Catheter Management: Ye: Cath Placed During This Visit: yes Reason for Continuing Indwelling Catheter: Accurate Measurement of Urinary Output in Critically Ill Patients Urinary Catheter Date of Insertion: 06/08/24 Urinary Catheter Time of Insertion: 00:50 Data 06/17/24 03:01 06/17/24 06:40 Micro: Microbiology 06/16/24 08:45 Blood Culture - Preliminary Blood SPECIMEN COLLECTED 06/16/24 08:42 Blood Culture - Preliminary Blood SPECIMEN COLLECTED A&P Assessment and plan (1) Nonocclusive mesenteric ischemia: (2) S/P exploratory laparotomy: (3) S/P small bowel resection: (4) Shock: (5) Diabetic ketoacidosis: Plan Patient showing very good progression over the last 24 hours. The NG tube was clamped overnight and no residual was noted this morning. He had a bowel movement overnight. He is alert and oriented. White count is 7 CRP has trended down. He continues to have low-grade fevers overnight but there is no other clear source. We have gonzalez scan him yesterday and there is no evidence of thoracic of intra-abdominal pathology, anastomosis between the small bowel and small bowel and colon look healthy. At this point I will think that probably his low-grade fevers are inflammatory in nature, hopefully with improvement of his overall clinical status and after the access right seen him he will be feeling much better and the low-grade fevers will subside. Patient is hungry this morning. I agree with advancing diet to clear liquid diet as tolerated, he may need a speech and swallow if unable to tolerate p.o. diet due to long standing intubation. We should attempt to remove Ye catheter today ambulate him. If he tolerates clear liquids and continues to have bowel function he can be advanced to full liquid diet and regular diet as tolerated. -NG tube was removed this morning at the bedside. -Can advance diet as tolerated. -Ambulate as tolerated. -Consider DC Ye catheter -CIARA drain in place, will likely remove once the patient is close to be discharged home. Attestations 2 Medical Necessity Statement*: Per medical team Coding Level of Care Code 56994 Diagnoses Nonocclusive mesenteric ischemia K55.059 S/P exploratory laparotomy Z98.890 S/P small bowel resection Z90.49 Shock R57.9 Diabetic ketoacidosis E11.10
[2024-06-17 08:21] LABS: Glucose Point of Care 155 mg/dL (70-110)
[2024-06-17] MEDS: dextrose 5%-sod chloride 0.45% 1,000 ML 75 ML IV (09:42)
[2024-06-17] MEDS: fluconazole premix 200 MG/100 ML PREMIX 100 MG IV (09:45)
[2024-06-17 12:17] LABS: Glucose Point of Care 216 mg/dL (70-110)
[2024-06-17 12:21] LABS: Glucose Point of Care 233 mg/dL (70-110)
[2024-06-17 12:21] LABS: Glucose Point of Care 264 mg/dL (70-110)
--- NOTE | 2024-06-17 12:37 | P.PN_ITS ---
Subjective 2 Subjective: Patient was seen this morning, he sitting up in bed, on room air, normotensive, did have fevers throughout the night he is alert to person, to place, not to time he does follow commands, but at times remains encephalopathic, does have a weak cough, he tells me that he spoke to speech therapy, and he promises to adhere to chin tucking, he wants me to advance his diet, we discussed that as he is a high aspiration risk, will continue to have speech therapy see him, I am going to keep him on a dysphagia level 4 diet and he is only allowed thickened liquids for now on that diet until his bowel function continues to improve, we can advance as tolerated as per surgery's recommendations, he remains on an insulin drip, anion gap is improving, goal for today is to transition him off insulin drip, monitor his blood sugars closely, his serum sodium is also 153 we discussed potentially monitoring more closely, as his oral intake should improve the hypernatremia should also improve, likely free water deficit, he voiced understanding, all questions answered, Vitals/I&O/Wt Last Vital Signs Temp 97.1 F L 06/17/24 07:30 Pulse 82 06/17/24 12:00 Resp 20 H 06/17/24 12:00 BP 145/88 06/17/24 12:00 Pulse Ox 98 06/17/24 12:00 O2 Del Method Room Air 06/17/24 12:00 O2 Flow Rate 2 06/16/24 14:00 FiO2 28 06/15/24 09:19 06/16/24 06/17/24 06/17/24 22:59 06:59 14:59 Intake Total 457.888 / 1027.446 310.492 / 1058.852 9400.309 / 1111.309 Output Total 0 / 1970 1830 / 3800 Balance -712.112 / -942.554 -1519.508 / -2462.062 1111.309 / 1111.309 Weight last 48 hrs Weight 82 kg Weight 82 kg Physical Exam 2 Const: COMMON NORMALS: no acute distress ORIENTATION/CONSCIOUSNESS: Yes awake, Yes oriented to person, Yes oriented to place and Yes confused; not oriented to time Neck/C-Spine: COMMON NORMALS: no JVD Resp: COMMON NORMALS: normal respiratory effort, No retractions, No use of accessory muscles and clear to auscultation bilaterally AUSCULTATION: clear to auscultation bilaterally Cardio: COMMON NORMALS: no JVD, regular rate, regular rhythm, S1 normal heart sound present and S2 normal heart sound present RATE: regular rate RHYTHM: regular rhythm HEART SOUNDS: S1 normal heart sound present and S2 normal heart sound present GI: COMMON NORMALS: Normal to inspection, nondistended, normoactive bowel sounds present and non-tender OTHER: Surgical site looks clean and dry, Extremity: COMMON NORMALS: no pedal edema Neuro: SENSORIUM/ORIENTATION: Yes oriented to person, Yes oriented to place and No oriented to time Urinary Catheter Management: Ye: Cath Placed During This Visit: yes Reason for Continuing Indwelling Catheter: Accurate Measurement of Urinary Output in Critically Ill Patients Urinary Catheter Date of Insertion: 06/08/24 Urinary Catheter Time of Insertion: 00:50 Data 06/17/24 03:01 06/17/24 06:40 Micro: Microbiology 06/16/24 09:30 Urine Culture - Preliminary Urine Catheterized 06/16/24 08:45 Blood Culture - Preliminary Blood NEGATIVE TO DATE 06/16/24 08:42 Blood Culture - Preliminary Blood NEGATIVE TO DATE A&P Assessment and plan (1) Shock: (2) Diabetic ketoacidosis: (3) Nonocclusive mesenteric ischemia: (4) S/P exploratory laparotomy: (5) S/P small bowel resection: (6) Lactic acidosis: Plan Acute encephalopathy, improving ? CT head within normal limits ? Continues to have febrile episodes -Monitor mentation closely -Neurochecks -Alert to person, to place, can follow commands, -Monitor mentation closely -Precedex for agitation, Haldol as needed -Dilaudid for pain control Diabetic ketoacidosis: Increased anion gap, positive ketones, decrease CO2, breakthrough diabetic ketoacidosis A1c of 13. Resume DKA protocol Continue to monitor BMP Due to poor nutrition, 7 days on the vent, will continue TPN, but will consider holding them as patient is in DKA, but from prior experience with patient's care, he has required insulin drip for a prolonged period of time for recurrent and resistant DKA Septic shock: Resolved Continues to have intermittent fevers -Repeat blood cultures -UA within normal limits -CT chest abdomen pelvis no acute findings, no abscess -Right internal jugular central line removed, catheter tip cultured -Prior sputum cultures growing MRSA, probably covered -Continue broad-spectrum antibiotic therapy -Continue vancomycin, meropenem. Continue with fluconazole. Will plan to continue overall 7 to 10 days of antimicrobials. -Possible drug fevers Mesenteric ischemia: Nonocclusive: Post exploratory laparotomy and small bowel resection on 06/08 and 06/09 and enterocolonic enteroenteric anastomosis along with abdominal wall closure on 06/11. CIARA drain in place. Appreciate surgical recommendations. Wound care as per surgical team. Currently on TPN Speech therapy eval, spoke to general surgery, started on liquid diet Respiratory failure: Extubated to nasal cannula, status post Lasix dose, appears euvolemic Respiratory cultures, growing MRSA Sputum culture growing MRSA. Current IV antibiotics. Hypernatremia: Continue TPN, monitor serum sodium, started on dysphagia level 4 diet Hypokalemia replace IV Anesthesia: Precedex Glycemic control: Insulin sliding scale Nutrition: TPN CODE STATUS: Full code PUD prophylaxis: Protonix DVT prophylaxis: SCD Discharge planning: Depending on the clinical picture going forward. -Plan for today continue insulin drip, once anion gap closed transition to subcu insulin -Continue TPN, will wean as tolerated as oral diet improves -Wean off bicarb drip -PT OT -Therapy eval -Continues to have persistent fevers, follow cultures -BMPs every 6 hours -Monitor clinically -Continue neurochecks, monitor mentation Attestations 2 Medical Necessity Statement*: Patient requires hospitalization, for acute encephalopathy, DKA, persistent fevers, mesenteric ischemia status post exploratory laparotomy Diagnoses Shock R57.9 Diabetic ketoacidosis E11.10 Nonocclusive mesenteric ischemia K55.059 S/P exploratory laparotomy Z98.890 S/P small bowel resection Z90.49 Lactic acidosis E87.20
[2024-06-17] MEDS: sodium bicarbonate 50 MEQ in sodium chloride 0.45% 1,000 ML IV (12:47)
[2024-06-17 13:15] LABS: Blood Urea Nitrogen 21 mg/dL (6-20); Calcium 8.4 mg/dL (8.5-10.5); Carbon Dioxide 26 mmol/L (22-29); Chloride 114 mmol/L (98-107); Glomerular Filtration Rate 156.1 mL/min (90-130); Glucose 300 mg/dL (65-115); Osmolality Calculated 330 mOsm/kg (285-295); Sodium 153 mmol/L (136-145)
[2024-06-17 13:17] LABS: Anion Gap 17.7 (5-19); Potassium 4.7 mmol/L (3.5-5.1)
[2024-06-17 13:40] LABS: Glucose Point of Care 275 mg/dL (70-110)
--- NOTE | 2024-06-17 14:09 | PC.NURSE ---
Darlene (PAULA) called for update but not on chart. Patient gives permission to give update. Update given.
[2024-06-17] MEDS: AA-Dex 4.25%-5% w/Lytes 1,000 ML 42 ML IV (15:08)
[2024-06-17 16:46] LABS: Glucose Point of Care 290 mg/dL (70-110)
[2024-06-17 16:46] LABS: Glucose Point of Care 296 mg/dL (70-110)
[2024-06-17] MEDS: insulin glargine 100 units/1 mL 20 UNIT SUBCUT (17:11)
[2024-06-17] MEDS: insulin lispro 100 unit/1 mL SUBCUT ×2 (18:17→21:06)
[2024-06-17] MEDS: enoxaparin 40 mg/0.4 mL Syringe SUBCUT (18:18)
[2024-06-17 19:24] LABS: Glucose Point of Care 315 mg/dL (70-110)
[2024-06-17 19:24] LABS: Glucose Point of Care 239 mg/dL (70-110)
[2024-06-17 20:08] LABS: Anion Gap 10.9 (5-19); Blood Urea Nitrogen 20 mg/dL (6-20); Calcium 8.6 mg/dL (8.5-10.5); Carbon Dioxide 31 mmol/L (22-29); Chloride 111 mmol/L (98-107); Glomerular Filtration Rate 156.1 mL/min (90-130); Glucose 207 mg/dL (65-115); Osmolality Calculated 319 mOsm/kg (285-295); Sodium 150 mmol/L (136-145)
[2024-06-17 20:08] LABS: Glucose Point of Care 188 mg/dL (70-110)
[2024-06-17 20:10] LABS: Potassium 2.9 mmol/L (3.5-5.1)
[2024-06-17] MEDS: lidocaine 1% 5 ML in potassium chloride premix 100 ML 50 ML IV (21:07)
[2024-06-17] MEDS: pantoprazole 40 mg SDV IVP (21:07)
[2024-06-17 22:02] LABS: Glucose Point of Care 141 mg/dL (70-110)
[2024-06-18] VITALS (33 sets, daily range): BP systolic 117–167; BP diastolic 66–102; PULSE 60–90; RESP 0–25; TEMP 36.4–36.6; O2SAT 96–100; BMI 3530.2
[2024-06-18 00:52] LABS: Glucose Point of Care 156 mg/dL (70-110)
[2024-06-18 01:32] LABS: Blood Urea Nitrogen 21 mg/dL (6-20); Calcium 8.3 mg/dL (8.5-10.5); Carbon Dioxide 30 mmol/L (22-29); Chloride 113 mmol/L (98-107); Glomerular Filtration Rate 192.7 mL/min (90-130); Glucose 144 mg/dL (65-115); Osmolality Calculated 318 mOsm/kg (285-295); Sodium 151 mmol/L (136-145)
[2024-06-18] MEDS: meropenem 1,000 mg SDV 1000 MG IVP ×3 (01:33→17:17)
[2024-06-18 01:35] LABS: Anion Gap 11.4 (5-19); Potassium 3.4 mmol/L (3.5-5.1)
[2024-06-18 04:14] LABS: Basophils % 0.3 %; Eosinophils # 0.1 10^3/uL (0.0-0.8); Eosinophils % 1.6 %; Hematocrit 28.4 % (37-53); Lymphocytes # 1.3 10^3/uL (0.8-4.8); Lymphocytes % 21.9 %; Mean Corpuscular Hemoglobin 28.9 pg (27-33); Mean Corpuscular Volume 93.4 fl (82-101); Mean Platelet Volume 9.2 fL (7.4-10.4); Monocytes # 0.4 10^3/uL (0.2-0.9); Neutrophils # 3.82 10^3/uL (1.8-7.7); Neutrophils % 66.4 %; Nucleated Red Blood Cells % 0 %; Platelet Count 309 10^3/cmm (157-399); Red Blood Count 3.04 10^6/uL (3.85-5.65); Red Cell Distribution Width 14.1 % (12.1-15.1); White Blood Count 5.75 10^3/uL (3.29-11.43)
[2024-06-18 04:48] LABS: NT Pro B Type Natriuretic Pept 68 pg/mL (0-125); Procalcitonin 0.11 ng/mL (0-0.5)
[2024-06-18 05:00] LABS: Alanine Aminotransferase 18 U/L (0-41); Albumin Level 2.4 g/dL (3.5-5.2); Alkaline Phosphatase 60 U/L (40-130); Aspartate Amino Transferase 26 U/L (0-40); Blood Urea Nitrogen 23 mg/dL (6-20); C Reactive Protein 19.1 mg/L (0.0-4.9); Calcium 8.1 mg/dL (8.5-10.5); Carbon Dioxide 29 mmol/L (22-29); Chloride 110 mmol/L (98-107); Globulin 2.5 g/dL (1.3-4.6); Glomerular Filtration Rate 249.3 mL/min (90-130); Glucose 182 mg/dL (65-115); Magnesium 1.8 mg/dL (1.7-2.3); Osmolality Calculated 312 mOsm/kg (285-295); Phosphorus 2.5 mg/dL (2.5-4.5); Sodium 147 mmol/L (136-145); Total Bilirubin 0.2 mg/dL (0.15-1.2); Total Protein 4.9 g/dL (6.6-8.7)
[2024-06-18] MEDS: linezolid premix 600 MG/300 ML PREMIX 300 MG IV ×2 (05:01→17:16)
[2024-06-18 05:06] LABS: Anion Gap 11.5 (5-19); Potassium 3.5 mmol/L (3.5-5.1)
[2024-06-18 07:10] LABS: Anion Gap 12.6 (5-19); Blood Urea Nitrogen 24 mg/dL (6-20); Carbon Dioxide 28 mmol/L (22-29); Chloride 111 mmol/L (98-107); Glomerular Filtration Rate 249.3 mL/min (90-130); Glucose 282 mg/dL (65-115); Osmolality Calculated 320 mOsm/kg (285-295); Potassium 3.6 mmol/L (3.5-5.1); Sodium 148 mmol/L (136-145)
[2024-06-18] MEDS: ipratropium-albuterol 3 mL Neb INHALATION (08:02)
[2024-06-18 08:06] LABS: Glucose Point of Care 246 mg/dL (70-110)
[2024-06-18] MEDS: fluconazole premix 200 MG/100 ML PREMIX 100 MG IV (08:08)
[2024-06-18] MEDS: insulin lispro 100 unit/1 mL SUBCUT ×3 (08:09→21:27)
[2024-06-18] MEDS: insulin glargine 100 units/1 mL 20 UNIT SUBCUT (09:37)
[2024-06-18] MEDS: lidocaine 1% 5 ML in potassium chloride premix 100 ML 52.5 ML IV (09:43)
--- NOTE | 2024-06-18 11:27 | PM.PN ---
Subjective Subjective: Patient seen and examined. Pain controlled. Having bowel movements and tolerating diet Vitals/I&O/Wt Last Vital Signs Temp 97.7 F 06/18/24 08:00 Pulse 90 06/18/24 10:00 Resp 18 06/18/24 10:00 BP 136/75 06/18/24 10:00 Pulse Ox 98 06/18/24 10:00 O2 Del Method Room Air 06/18/24 08:05 O2 Flow Rate 2 06/16/24 14:00 FiO2 28 06/15/24 09:19 06/17/24 06/18/24 06/18/24 22:59 06:59 14:59 Intake Total 2372.40 / 5124.676 1178.867 / 6303.543 284.433 / 284.433 Output Total 1460 / 1460 450 / 1910 90 / 90 Balance 912.40 / 3664.676 728.867 / 4393.543 194.433 / 194.433 Weight last 48 hrs Weight 180 lb 12.465 oz Weight 180 lb 12.465 oz Physical Exam Narrative: General: No acute distress, awake alert and oriented x 3 Abdomen: Soft, nondistended, appropriately tender without guarding or rebound Incision intact without erythema or exudate Drain: Serosanguineous Urinary Catheter Management: Ye: Cath Placed During This Visit: yes Reason for Continuing Indwelling Catheter: Accurate Measurement of Urinary Output in Critically Ill Patients Urinary Catheter Date of Insertion: 06/08/24 Urinary Catheter Time of Insertion: 00:50 Data 06/18/24 03:43 06/18/24 06:44 Micro: Microbiology 06/16/24 09:30 Urine Culture - Final Urine Catheterized 06/16/24 14:05 Catheter Tip Culture - Preliminary Central Line 06/16/24 08:45 Blood Culture - Preliminary Blood NEGATIVE TO DATE 06/16/24 08:42 Blood Culture - Preliminary Blood NEGATIVE TO DATE A&P Assessment and plan (1) Nonocclusive mesenteric ischemia: (2) S/P exploratory laparotomy: (3) S/P small bowel resection: (4) Shock: (5) Diabetic ketoacidosis: Plan Status post exploratory laparotomy x 2 with bowel resections for ischemic bowel and final closure Advance diet as tolerated. -Ambulate as tolerated. -CIARA drain in place, will likely remove once the patient is close to be [facility]*: Per primary Coding Level of Care Code Acute Code for Chg Fwd Diagnoses Nonocclusive mesenteric ischemia K55.059 S/P exploratory laparotomy Z98.890 S/P small bowel resection Z90.49 Shock R57.9 Diabetic ketoacidosis E11.10
[2024-06-18 12:10] LABS: Glucose Point of Care 208 mg/dL (70-110)
--- NOTE | 2024-06-18 13:03 | PC.NURSE ---
[facility] Note [facility] Handoff report given to SHERLYN Kline. Patient oriented to environment and equipment. Covering service notified. Orders reviewed and will continue to monitor. All patient belongings transferred with patient upon transfer to [facility]. Upon transfer patient is alert/oriented x3 on room air, surgical incision noted to medial abdomen-please see wound assessment for further details.
--- NOTE | 2024-06-18 13:35 | P.PN_ITS ---
Subjective 2 Subjective: Patient was seen this morning he is much more alert awake alert to person, to place, not to time he follows all commands, denies any fevers, no chills, no cough, no abdominal pain he reports several bowel movements overnight, passing gas no abdominal pain no nausea, no vomiting, continues to have a weak cough although improved compared to yesterday, denies choking or coughing after his meals, is adhering to his thickened liquid diet for now, Vitals/I&O/Wt Last Vital Signs Temp 97.7 F 06/18/24 08:00 Pulse 66 06/18/24 12:00 Resp 17 06/18/24 12:00 BP 126/68 06/18/24 12:00 Pulse Ox 98 06/18/24 12:00 O2 Del Method Room Air 06/18/24 08:05 O2 Flow Rate 2 06/16/24 14:00 FiO2 28 06/15/24 09:19 06/17/24 06/18/24 06/18/24 22:59 06:59 14:59 Intake Total 2372.40 / 5124.676 1178.867 / 6303.543 524.433 / 524.433 Output Total 1460 / 1460 450 / 1910 90 / 90 Balance 912.40 / 3664.676 728.867 / 4393.543 434.433 / 434.433 Weight last 48 hrs Weight 82 kg Weight 82 kg Physical Exam 2 Const: COMMON NORMALS: no acute distress ORIENTATION/CONSCIOUSNESS: Yes awake, Yes oriented to person and Yes oriented to place; not oriented to time Resp: COMMON NORMALS: normal respiratory effort, No retractions, No use of accessory muscles and clear to auscultation bilaterally AUSCULTATION: clear to auscultation bilaterally Cardio: COMMON NORMALS: regular rate, regular rhythm, S1 normal heart sound present and S2 normal heart sound present RATE: regular rate RHYTHM: r egular rhythm HEART SOUNDS: S1 normal heart sound present and S2 normal heart sound present GI: COMMON NORMALS: Normal to inspection, nondistended, normoactive bowel sounds present and non-tender OTHER: Surgical site looks clean and dry, CIARA drain in place Extremity: COMMON NORMALS: no pedal edema Neuro: SENSORIUM/ORIENTATION: Yes oriented to person, Yes oriented to place and No oriented to time Urinary Catheter Management: Ye: Cath Placed During This Visit: yes Reason for Continuing Indwelling Catheter: Accurate Measurement of Urinary Output in Critically Ill Patients Urinary Catheter Date of Insertion: 06/08/24 Urinary Catheter Time of Insertion: 00:50 Data 06/18/24 03:43 06/18/24 06:44 Micro: Microbiology 06/16/24 09:30 Urine Culture - Final Urine Catheterized 06/16/24 14:05 Catheter Tip Culture - Preliminary Central Line 06/16/24 08:45 Blood Culture - Preliminary Blood NEGATIVE TO DATE 06/16/24 08:42 Blood Culture - Preliminary Blood NEGATIVE TO DATE A&P Assessment and plan (1) Shock: (2) Diabetic ketoacidosis: (3) Nonocclusive mesenteric ischemia: (4) S/P exploratory laparotomy: (5) S/P small bowel resection: (6) Lactic acidosis: Plan Acute encephalopathy, improving ? CT head within normal limits ? Continues to have febrile episodes -Monitor mentation closely -Neurochecks -Alert to person, to place, can follow commands, -Monitor mentation closely - Haldol as needed -Dilaudid for pain control Diabetic ketoacidosis: Resolved Lantus 20 units every morning High-dose insulin sliding scale Weaning off TPN Septic shock: Resolved Continues to have intermittent fevers, resolving -Repeat blood cultures -UA within normal limits -CT chest abdomen pelvis no acute findings, no abscess -Right internal jugular central line removed, catheter tip cultured -Prior sputum cultures growing MRSA, probably covered -Continue broad-spectrum antibiotic therapy -Continue vancomycin, meropenem. Continue with fluconazole. Will plan to continue overall 7 to 10 days of antimicrobials. -Possible drug fevers Mesenteric ischemia: Nonocclusive: Post exploratory laparotomy and small bowel resection on 06/08 and 06/09 and enterocolonic enteroenteric anastomosis along with abdominal wall closure on 06/11. CIARA drain in place. Appreciate surgical recommendations. Wound care as per surgical team. Currently on TPN, weaning off Speech therapy eval, spoke to general surgery, started on a full liquid diet, moderately thickened Respiratory failure: Extubated to nasal cannula, status post Lasix dose, appears euvolemic Respiratory cultures, growing MRSA Sputum culture growing MRSA. Current IV antibiotics. Hypernatremia: Continue TPN, monitor serum sodium, started on dysphagia level 4 diet Hypokalemia replace IV Anesthesia: Precedex Glycemic control: Insulin sliding scale Nutrition: TPN CODE STATUS: Full code PUD prophylaxis: Protonix DVT prophylaxis: SCD Discharge planning: Depending on the clinical picture going forward. -Plan for today -Continue Lantus, high-dose sliding scale, IV replacement continue IV antibiotics, PT OT, speech therapy eval, monitor nutrition wean off TPN, PT OT, will monitor cultures monitor for fevers moved to medical floors Attestations 2 Medical Necessity Statement*: Patient requires hospitalization for mesenteric ischemia nonischemic status post exploratory laparotomy, postoperative, respiratory failure, extubated, DKA resolved, currently required IV antibiotics, blood sugar control, PT OT, deconditioned, up episodes of encephalopathy monitoring mentation Diagnoses Shock R57.9 Diabetic ketoacidosis E11.10 Nonocclusive mesenteric ischemia K55.059 S/P exploratory laparotomy Z98.890 S/P small bowel resection Z90.49 Lactic acidosis E87.20
[2024-06-18 16:54] LABS: Glucose Point of Care 128 mg/dL (70-110)
[2024-06-18] MEDS: enoxaparin 40 mg/0.4 mL Syringe SUBCUT (19:36)
[2024-06-18] MEDS: pantoprazole 40 mg SDV IVP (20:36)
[2024-06-18 20:41] LABS: Glucose Point of Care 246 mg/dL (70-110)
[2024-06-19] VITALS (9 sets, daily range): BP systolic 100–124; BP diastolic 63–74; PULSE 63–82; RESP 15–18; TEMP 36.4–36.8; O2SAT 95–97
[2024-06-19] MEDS: meropenem 1,000 mg SDV 1000 MG IVP ×3 (01:14→17:17)
[2024-06-19 04:30] LABS: Basophils # 0.1 10^3/uL (0.0-0.1); Basophils % 0.8 %; Eosinophils # 0.2 10^3/uL (0.0-0.8); Eosinophils % 3.4 %; Hematocrit 28.8 % (37-53); Lymphocytes # 1.5 10^3/uL (0.8-4.8); Lymphocytes % 24.4 %; Mean Corpuscular HGB Conc 32.3 g/dL (30-55); Mean Corpuscular Hemoglobin 29.2 pg (27-33); Mean Corpuscular Volume 90.6 fl (82-101); Monocytes # 0.4 10^3/uL (0.2-0.9); Monocytes % 5.9 %; Neutrophils # 3.76 10^3/uL (1.8-7.7); Neutrophils % 63.1 %; Nucleated Red Blood Cells % 0 %; Platelet Count 256 10^3/cmm (157-399); Red Blood Count 3.18 10^6/uL (3.85-5.65); Red Cell Distribution Width 13.2 % (12.1-15.1); White Blood Count 5.95 10^3/uL (3.29-11.43)
[2024-06-19 04:49] LABS: Alanine Aminotransferase 25 U/L (0-41); Albumin Level 2.3 g/dL (3.5-5.2); Alkaline Phosphatase 58 U/L (40-130); Anion Gap 10.9 (5-19); Aspartate Amino Transferase 47 U/L (0-40); Blood Urea Nitrogen 21 mg/dL (6-20); C Reactive Protein 11.8 mg/L (0.0-4.9); Calcium 7.6 mg/dL (8.5-10.5); Carbon Dioxide 29 mmol/L (22-29); Chloride 106 mmol/L (98-107); Creatinine Clr Calc Pharmacy 329.4788; Globulin 2.5 g/dL (1.3-4.6); Glomerular Filtration Rate 249.3 mL/min (90-130); Glucose 103 mg/dL (65-115); Magnesium 1.7 mg/dL (1.7-2.3); Osmolality Calculated 299 mOsm/kg (285-295); Phosphorus 3.5 mg/dL (2.5-4.5); Sodium 143 mmol/L (136-145); Total Bilirubin 0.3 mg/dL (0.15-1.2); Total Protein 4.8 g/dL (6.6-8.7)
[2024-06-19 04:54] LABS: Procalcitonin 0.08 ng/mL (0-0.5)
[2024-06-19 04:55] LABS: NT Pro B Type Natriuretic Pept 69 pg/mL (0-125)
[2024-06-19 05:00] LABS: Potassium 2.9 mmol/L (3.5-5.1)
[2024-06-19] MEDS: linezolid premix 600 MG/300 ML PREMIX 300 MG IV ×2 (05:11→17:16)
[2024-06-19] MEDS: magnesium sulfate premix 2 GM/50 ML PIGGYBACK IV (06:20)
[2024-06-19] MEDS: potassium chloride ER 20 mEq Tablet 40 MEQ PO (06:25)
[2024-06-19 06:32] LABS: Glucose Point of Care 153 mg/dL (70-110)
[2024-06-19] MEDS: insulin lispro 100 unit/1 mL SUBCUT ×3 (08:56→21:20)
[2024-06-19] MEDS: fluconazole premix 200 MG/100 ML PREMIX 100 MG IV (08:58)
[2024-06-19] MEDS: insulin glargine 100 units/1 mL 25 UNIT SUBCUT (09:01)
--- NOTE | 2024-06-19 09:40 | P.PN_ITS ---
Subjective 2 Subjective: Patient seen and examined. Tolerating diet and pain controlled. Having bowel movements Vitals/I&O/Wt Last Vital Signs Temp 97.9 F 06/19/24 08:00 Pulse 82 06/19/24 08:20 Resp 18 06/19/24 08:20 BP 116/70 06/19/24 08:00 Pulse Ox 97 06/19/24 08:20 O2 Del Method Room Air 06/19/24 08:20 O2 Flow Rate 2 06/16/24 14:00 FiO2 28 06/15/24 09:19 06/18/24 06/19/24 06/19/24 22:59 06:59 14:59 Intake Total 540 / 1169.433 300 / 1469.433 50 / 50 Output Total 100 / 815 580 / 1395 280 / 280 Balance 440 / 354.433 -280 / 74.433 -230 / -230 Weight last 48 hrs Weight 193 lb 11.2 oz Weight 180 lb 12.465 oz Physical Exam 2 Narrative: General: No acute distress, awake alert and oriented x 3 Abdomen: Soft, nondistended, appropriately tender without guarding or rebound Incision intact without erythema or exudate Drain: Serous Urinary Catheter Management: Ye: Cath Placed During This Visit: yes Reason for Continuing Indwelling Catheter: Required Immobilization for Trauma or Surgery or Anesthesia Urinary Catheter Date of Insertion: 06/08/24 Urinary Catheter Time of Insertion: 00:50 Data 06/19/24 04:02 06/19/24 04:02 Micro: Microbiology 06/16/24 14:05 Catheter Tip Culture - Preliminary Central Line 06/16/24 09:30 Urine Culture - Final Urine Catheterized A&P Assessment and plan (1) Nonocclusive mesenteric ischemia: (2) S/P exploratory laparotomy: (3) S/P small bowel resection: (4) Shock: (5) Diabetic ketoacidosis: Plan Status post exploratory laparotomy x 2 with bowel resections for ischemic bowel and final closure Diet as tolerated -Ambulate as tolerated. -CIARA drain in place, will have nursing remove drain prior to discharge Surgically stable for discharge Medical management per hospitalist Attestations 2 Medical Necessity Statement*: Per primary Coding Level of Care Code Acute Code for Chg Fwd Diagnoses Nonocclusive mesenteric ischemia K55.059 S/P exploratory laparotomy Z98.890 S/P small bowel resection Z90.49 Shock R57.9 Diabetic ketoacidosis E11.10
[2024-06-19 11:37] LABS: Glucose Point of Care 196 mg/dL (70-110)
[2024-06-19 13:12] LABS: C.Diff PCR (Lab) NEGATIVE (Negative)
--- NOTE | 2024-06-19 15:11 | P.PN_ITS ---
Subjective 2 Subjective: Patient was seen this morning he is alert awake, following all commands, denies any fevers, no chills, no cough, having bowel movements, passing gas, does report generalized weakness, weakness in terms of ambulating Vitals/I&O/Wt Last Vital Signs Temp 98.2 F 06/19/24 11:24 Pulse 69 06/19/24 14:00 Resp 18 06/19/24 08:20 BP 124/74 06/19/24 11:24 Pulse Ox 97 06/19/24 11:24 O2 Del Method Room Air 06/19/24 11:24 O2 Flow Rate 2 06/16/24 14:00 FiO2 28 06/15/24 09:19 06/19/24 06/19/24 06/19/24 06:59 14:59 22:59 Intake Total 300 / 1469.433 390 / 390 Output Total 580 / 1395 315 / 315 Balance -280 / 74.433 75 / 75 Weight last 48 hrs Weight 87.861 kg Weight 82 kg Physical Exam 2 Const: COMMON NORMALS: no acute distress and patient oriented x3 Resp: COMMON NORMALS: normal respiratory effort, No retractions, No use of accessory muscles and clear to auscultation bilaterally AUSCULTATION: clear to auscultation bilaterally Cardio: COMMON NORMALS: regular rate, regular rhythm, S1 normal heart sound present and S2 normal heart sound present RATE: regular rate RHYTHM: r egular rhythm HEART SOUNDS: S1 normal heart sound present and S2 normal heart sound present GI: COMMON NORMALS: Normal to inspection, nondistended, normoactive bowel sounds present and non-tender Extremity: COMMON NORMALS: no pedal edema Neuro: COMMON NORMALS: patient oriented x3 Psych: COMMON NORMALS: mental status grossly normal Urinary Catheter Management: Ye: Cath Placed During This Visit: yes Reason for Continuing Indwelling Catheter: Required Immobilization for Trauma or Surgery or Anesthesia Urinary Catheter Date of Insertion: 06/08/24 Urinary Catheter Time of Insertion: 00:50 Data 06/19/24 04:02 06/19/24 04:02 Micro: Microbiology 06/16/24 14:05 Catheter Tip Culture - Preliminary Central Line 06/16/24 09:30 Urine Culture - Final Urine Catheterized A&P Assessment and plan (1) Shock: (2) Diabetic ketoacidosis: (3) Nonocclusive mesenteric ischemia: (4) S/P exploratory laparotomy: (5) S/P small bowel resection: (6) Lactic acidosis: Plan Acute encephalopathy, improving ? CT head within normal limits ? Continues to have febrile episodes -Monitor mentation closely -Neurochecks -Alert to person, to place, can follow commands, -Monitor mentation closely - Haldol as needed -Dilaudid for pain control Diabetic ketoacidosis: Resolved Lantus 20 units every morning High-dose insulin sliding scale Weaning off TPN Septic shock: Resolved Continues to have intermittent fevers, resolving -Repeat blood cultures -UA within normal limits -CT chest abdomen pelvis no acute findings, no abscess -Right internal jugular central line removed, catheter tip cultured -Prior sputum cultures growing MRSA, probably covered -Continue broad-spectrum antibiotic therapy -Continue vancomycin, meropenem. Continue with fluconazole. Will plan to continue overall 7 to 10 days of antimicrobials. -Possible drug fevers Mesenteric ischemia: Nonocclusive: Post exploratory laparotomy and small bowel resection on 06/08 and 06/09 and enterocolonic enteroenteric anastomosis along with abdominal wall closure on 06/11. CIARA drain in place. Appreciate surgical recommendations. Wound care as per surgical team. Currently on TPN, weaning off Speech therapy eval, spoke to general surgery, started on a full liquid diet, moderately thickened Respiratory failure: Extubated to nasal cannula, status post Lasix dose, appears euvolemic Respiratory cultures, growing MRSA Sputum culture growing MRSA. Current IV antibiotics. Hypernatremia: Continue TPN, monitor serum sodium, started on dysphagia level 4 diet Hypokalemia replace IV Anesthesia: Precedex Glycemic control: Insulin sliding scale Nutrition: TPN CODE STATUS: Full code PUD prophylaxis: Protonix DVT prophylaxis: SCD Discharge planning: Depending on the clinical picture going forward. -Plan for today -Monitor blood sugars closely, PT OT, speech therapy eval, advance diet as tolerated, will consider de-escalating antibiotics, C. difficile studies Attestations 2 Medical Necessity Statement*: Patient requires hospitalization for status post exploratory laparotomy, DKA, intermittent fevers, hypokalemia, respiratory failure Diagnoses Shock R57.9 Diabetic ketoacidosis E11.10 Nonocclusive mesenteric ischemia K55.059 S/P exploratory laparotomy Z98.890 S/P small bowel resection Z90.49 Lactic acidosis E87.20
[2024-06-19 16:27] LABS: Glucose Point of Care 76 mg/dL (70-110)
[2024-06-19] MEDS: enoxaparin 40 mg/0.4 mL Syringe SUBCUT (18:35)
[2024-06-19 20:54] LABS: Glucose Point of Care 253 mg/dL (70-110)
[2024-06-19] MEDS: pantoprazole 40 mg SDV IVP (21:20)
[2024-06-20] VITALS (9 sets, daily range): BP systolic 100–122; BP diastolic 66–74; PULSE 65–89; RESP 15–18; TEMP 36.5–36.9; O2SAT 92–99
[2024-06-20] MEDS: meropenem 1,000 mg SDV 1000 MG IVP ×3 (01:09→17:21)
[2024-06-20 04:36] LABS: Basophils % 0.4 %; Eosinophils # 0.2 10^3/uL (0.0-0.8); Eosinophils % 3.9 %; Hematocrit 26.8 % (37-53); Lymphocytes # 1.3 10^3/uL (0.8-4.8); Lymphocytes % 28.6 %; Mean Corpuscular HGB Conc 32.8 g/dL (30-55); Mean Corpuscular Hemoglobin 29.7 pg (27-33); Mean Corpuscular Volume 90.5 fl (82-101); Mean Platelet Volume 9.1 fL (7.4-10.4); Monocytes # 0.3 10^3/uL (0.2-0.9); Monocytes % 6.7 %; Neutrophils # 2.72 10^3/uL (1.8-7.7); Neutrophils % 58.5 %; Nucleated Red Blood Cells % 0 %; Platelet Count 238 10^3/cmm (157-399); Red Blood Count 2.96 10^6/uL (3.85-5.65); Red Cell Distribution Width 12.8 % (12.1-15.1); White Blood Count 4.65 10^3/uL (3.29-11.43)
[2024-06-20 04:56] LABS: Alanine Aminotransferase 27 U/L (0-41); Albumin Level 2.3 g/dL (3.5-5.2); Alkaline Phosphatase 61 U/L (40-130); Anion Gap 10.9 (5-19); Aspartate Amino Transferase 48 U/L (0-40); Blood Urea Nitrogen 16 mg/dL (6-20); Calcium 7.4 mg/dL (8.5-10.5); Carbon Dioxide 28 mmol/L (22-29); Chloride 106 mmol/L (98-107); Creatinine Clr Calc Pharmacy 306.1875; Globulin 1.8 g/dL (1.3-4.6); Glomerular Filtration Rate 249.3 mL/min (90-130); Glucose 97 mg/dL (65-115); Magnesium 1.8 mg/dL (1.7-2.3); Osmolality Calculated 295 mOsm/kg (285-295); Phosphorus 4.5 mg/dL (2.5-4.5); Sodium 142 mmol/L (136-145); Total Bilirubin 0.3 mg/dL (0.15-1.2); Total Protein 4.1 g/dL (6.6-8.7)
[2024-06-20 04:59] LABS: Potassium 2.9 mmol/L (3.5-5.1)
[2024-06-20] MEDS: linezolid premix 600 MG/300 ML PREMIX 300 MG IV (05:39)
[2024-06-20] MEDS: potassium chloride oral liq 20 mEq/15 mL UDC 40 MEQ PO (05:40)
[2024-06-20 06:26] LABS: Glucose Point of Care 151 mg/dL (70-110)
--- NOTE | 2024-06-20 07:00 | P.PN_ITS ---
Subjective 2 Subjective: Postoperative day 12 status post exploratory laparotomy and bowel resection, postoperative day 11 status post washout and ileocecectomy and postoperative day 9 status post exploratory laparotomy creation of enteroenteric anastomosis enterocolic anastomosis washout and closure. Very good progression remains alert and oriented, has been having bowel movements and no abdominal pain. Vitals/I&O/Wt Last Vital Signs Temp 97.7 F 06/20/24 04:00 Pulse 68 06/20/24 06:35 Resp 15 06/20/24 04:00 BP 111/67 06/20/24 04:00 Pulse Ox 96 06/20/24 04:00 O2 Del Method Room Air 06/20/24 04:00 O2 Flow Rate 2 06/16/24 14:00 FiO2 28 06/15/24 09:19 06/19/24 06/20/24 06/20/24 22:59 06:59 14:59 Intake Total 2795 / 3185 1050 / 4235 Output Total 655 / 970 490 / 1460 Balance 2140 / 2215 560 / 2775 Weight last 48 hrs Weight 193 lb 6.4 oz Weight 193 lb 11.2 oz Physical Exam 2 GI: OTHER: Abdomen is soft, nontender, nondistended, surgical incision is well-healed and there isto continue to pack the wound anymore. CIARA drain has been putting serous drainage, it was removed at the bedside today. Urinary Catheter Management: Ye: Cath Placed During This Visit: yes Reason for Continuing Indwelling Catheter: Required Immobilization for Trauma or Surgery or Anesthesia Urinary Catheter Date of Insertion: 06/08/24 Urinary Catheter Time of Insertion: 00:50 Data 06/20/24 04:07 06/20/24 04:07 Micro: Microbiology 06/16/24 14:05 Catheter Tip Culture - Final Central Line Methicillin Resis Staph Aureus A&P Assessment and plan (1) Nonocclusive mesenteric ischemia: (2) S/P exploratory laparotomy: (3) S/P small bowel resection: Plan Patient is showing very good progression after exploratory laparotomy and bowel resection x 2 for nonocclusive mesenteric ischemia. He continues to tolerate diet and have regular bowel movements, has been having around 4 bowel movements daily but he states that the quality of the bowel movements continues to improve and is more consistent in nature. I have extensive discussion with the patient regarding his prognosis I have explained that at this point he has enough small bowel to sustain long-term nutrition if he continues to have diarrhea we might require to give him some medication to slow down the intestinal transit. I have also Splane to the patient that he needs to keep a very tight control over his blood sugar as he this happens in the future unfortunately if many morning testing needs to be removed he is a significant risk for short-bowel syndrome. Patient shows understanding. Patient is stable for discharge from the surgical standpoint at this time. He can follow-up with me in 2 weeks in the clinic for staple removal. -Continue with low residue diet -Pain control as needed -Ambulate as tolerated -CIARA drain was removed -Return to clinic in 2 weeks for staple removal Attestations 2 Medical Necessity Statement*: Per medical Coding Level of Care Code Acute Code for Chg Fwd Diagnoses Nonocclusive mesenteric ischemia K55.059 S/P exploratory laparotomy Z98.890 S/P small bowel resection Z90.49
[2024-06-20] MEDS: insulin lispro 100 unit/1 mL SUBCUT ×3 (08:16→21:34)
[2024-06-20] MEDS: fluconazole premix 200 MG/100 ML PREMIX 100 MG IV (08:18)
[2024-06-20] MEDS: insulin glargine 100 units/1 mL 25 UNIT SUBCUT (08:23)
[2024-06-20 11:14] LABS: Glucose Point of Care 210 mg/dL (70-110)
--- NOTE | 2024-06-20 15:07 | P.PN_ITS ---
Subjective 2 Subjective: Patient was seen this morning, he is alert oriented x 3, following all commands, does tell me that he can transfer on his own, but he has difficulty walking, no lightheadedness, no dizziness, still having bowel movements, still passing gas from below we discussed his positive central line culture showing MRSA species, will continue IV antibiotics, discussed with infectious disease, he voiced understanding, all questions answered Vitals/I&O/Wt Last Vital Signs Temp 98 F 06/20/24 12:00 Pulse 82 06/20/24 12:00 Resp 17 06/20/24 12:00 BP 107/69 06/20/24 12:00 Pulse Ox 98 06/20/24 12:00 O2 Del Method Room Air 06/20/24 08:47 O2 Flow Rate 2 06/16/24 14:00 FiO2 28 06/15/24 09:19 06/20/24 06/20/24 06/20/24 06:59 14:59 22:59 Intake Total 1050 / 4235 700 / 700 Output Total 490 / 1460 Balance 560 / 2775 700 / 700 Weight last 48 hrs Weight 87.725 kg Weight 87.861 kg Physical Exam 2 Const: COMMON NORMALS: no acute distress and patient oriented x3 Resp: COMMON NORMALS: normal respiratory effort, No retractions, No use of accessory muscles and clear to auscultation bilaterally AUSCULTATION: clear to auscultation bilaterally Cardio: COMMON NORMALS: regular rate, regular rhythm, S1 normal heart sound present and S2 normal heart sound present RATE: regular rate RHYTHM: r egular rhythm HEART SOUNDS: S1 normal heart sound present and S2 normal heart sound present GI: COMMON NORMALS: Normal to inspection, nondistended, normoactive bowel sounds present and non-tender Extremity: COMMON NORMALS: no pedal edema Neuro: COMMON NORMALS: patient oriented x3 Psych: COMMON NORMALS: mental status grossly normal Urinary Catheter Management: Ye: Cath Placed During This Visit: yes Reason for Continuing Indwelling Catheter: Required Immobilization for Trauma or Surgery or Anesthesia Urinary Catheter Date of Insertion: 06/08/24 Urinary Catheter Time of Insertion: 00:50 Data 06/20/24 04:07 06/20/24 04:07 Micro: Microbiology 06/16/24 14:05 Catheter Tip Culture - Final Central Line Methicillin Resis Staph Aureus A&P Assessment and plan (1) Shock: (2) Diabetic ketoacidosis: (3) Nonocclusive mesenteric ischemia: (4) S/P exploratory laparotomy: (5) S/P small bowel resection: (6) Lactic acidosis: (7) CLABSI (central line-associated bloodstream infection): Plan Acute encephalopathy, resolved ? CT head within normal limits ? Continues to have febrile episodes -Monitor mentation closely -Neurochecks -Alert to person, to place, can follow commands, -Monitor mentation closely - Haldol as needed -Dilaudid for pain control Diabetic ketoacidosis: Resolved Lantus 20 units every morning High-dose insulin sliding scale Weaning off TPN Septic shock: Resolved Continues to have intermittent fevers, resolved -Repeat blood cultures so far negative -UA within normal limits -CT chest abdomen pelvis no acute findings, no abscess -Right internal jugular central line removed, catheter tip cultured, cultures positive for MRSA, concerns for CLABSI -Prior sputum cultures growing MRSA, probably covered -Continue broad-spectrum antibiotic therapy -Continue vancomycin, meropenem. Continue with fluconazole. Will plan to continue overall 10 days of antimicrobials. Concerns for CLABSI -Since patient central line was removed no recurrent fevers -His central line tip culture growing MRSA species -So far his blood cultures drawn on same day central line was removed were negative -Continue Zyvox -Will discuss case with infectious disease Mesenteric ischemia: Nonocclusive: Post exploratory laparotomy and small bowel resection on 06/08 and 06/09 and enterocolonic enteroenteric anastomosis along with abdominal wall closure on 06/11. CIARA drain in place. Not removed Appreciate surgical recommendations. Advance diet as tolerated Wound care as per surgical team. Off TPN Speech therapy eval, spoke to general surgery, started on a full liquid diet, moderately thickened Respiratory failure: Extubated to nasal cannula, status post Lasix dose, appears euvolemic Respiratory cultures, growing MRSA Sputum culture growing MRSA. Current IV antibiotics. Currently on nasal cannula Hypernatremia: Resolved Hypokalemia replace IV Glycemic control: Insulin sliding scale Nutrition: TPN CODE STATUS: Full code PUD prophylaxis: Protonix DVT prophylaxis: SCD Discharge planning: Depending on the clinical picture going forward. Plan for today continue IV antibiotics, PT OT, discussed with infectious disease, Attestations 2 Medical Necessity Statement*: Patient requires hospitalization for concerns for CLABSI requiring IV antibiotics, Diagnoses Shock R57.9 Diabetic ketoacidosis E11.10 Nonocclusive mesenteric ischemia K55.059 S/P exploratory laparotomy Z98.890 S/P small bowel resection Z90.49 Lactic acidosis E87.20 CLABSI (central line-associated bloodstream infection) T80.211A
[2024-06-20] MEDS: DAPTOMYCIN IV (17:19)
[2024-06-20] MEDS: SODIUM CHLORIDE 0.9% IV (17:19)
[2024-06-20 17:26] LABS: Glucose Point of Care 59 mg/dL (70-110)
[2024-06-20 18:07] LABS: Glucose Point of Care 128 mg/dL (70-110)
[2024-06-20] MEDS: enoxaparin 40 mg/0.4 mL Syringe SUBCUT (18:12)
[2024-06-20 21:01] LABS: Glucose Point of Care 194 mg/dL (70-110)
[2024-06-20] MEDS: pantoprazole 40 mg SDV IVP (21:34)
[2024-06-21] VITALS (10 sets, daily range): BP systolic 104–120; BP diastolic 53–76; PULSE 65–85; RESP 15–20; TEMP 36.4–36.8; O2SAT 97–100
[2024-06-21 00:54] LABS: Glucose Point of Care 56 mg/dL (70-110)
[2024-06-21 03:58] LABS: Glucose Point of Care 103 mg/dL (70-110)
[2024-06-21 05:09] LABS: Basophils % 0.4 %; Eosinophils # 0.1 10^3/uL (0.0-0.8); Eosinophils % 2.7 %; Hematocrit 27.9 % (37-53); Lymphocytes # 1.3 10^3/uL (0.8-4.8); Lymphocytes % 29.2 %; Mean Corpuscular HGB Conc 32.6 g/dL (30-55); Mean Corpuscular Hemoglobin 29.6 pg (27-33); Mean Corpuscular Volume 90.9 fl (82-101); Mean Platelet Volume 9.4 fL (7.4-10.4); Monocytes # 0.3 10^3/uL (0.2-0.9); Neutrophils # 2.69 10^3/uL (1.8-7.7); Neutrophils % 60.1 %; Nucleated Red Blood Cells % 0 %; Platelet Count 235 10^3/cmm (157-399); Red Blood Count 3.07 10^6/uL (3.85-5.65); Red Cell Distribution Width 13.4 % (12.1-15.1); White Blood Count 4.48 10^3/uL (3.29-11.43)
[2024-06-21 05:29] LABS: Alanine Aminotransferase 32 U/L (0-41); Albumin Level 2.4 g/dL (3.5-5.2); Alkaline Phosphatase 69 U/L (40-130); Anion Gap 11.1 (5-19); Aspartate Amino Transferase 56 U/L (0-40); Blood Urea Nitrogen 9 mg/dL (6-20); Calcium 7.5 mg/dL (8.5-10.5); Carbon Dioxide 30 mmol/L (22-29); Chloride 105 mmol/L (98-107); Glomerular Filtration Rate 249.3 mL/min (90-130); Glucose 161 mg/dL (65-115); Magnesium 1.8 mg/dL (1.7-2.3); Osmolality Calculated 298 mOsm/kg (285-295); Phosphorus 3.5 mg/dL (2.5-4.5); Potassium 3.1 mmol/L (3.5-5.1); Sodium 143 mmol/L (136-145); Total Bilirubin 0.2 mg/dL (0.15-1.2); Total Protein 4.4 g/dL (6.6-8.7)
[2024-06-21 06:26] LABS: Glucose Point of Care 177 mg/dL (70-110)
--- NOTE | 2024-06-21 07:43 | P.PN_ITS ---
Subjective 2 Subjective: Postoperative day 13 status post exploratory laparotomy and bowel resection, postoperative day 12 status post washout and ileocecectomy and postoperative day 8 status post exploratory laparotomy creation of enteroenteric anastomosis enterocolic anastomosis washout and closure. Very good progression remains alert and oriented, has been having bowel movements and no abdominal pain. Vitals/I&O/Wt Last Vital Signs Temp 97.8 F 06/21/24 04:00 Pulse 65 06/21/24 06:00 Resp 15 06/21/24 04:00 BP 120/53 06/21/24 04:00 Pulse Ox 98 06/21/24 04:00 O2 Del Method Room Air 06/21/24 04:00 O2 Flow Rate 2 06/16/24 14:00 FiO2 28 06/15/24 09:19 06/20/24 06/21/24 06/21/24 22:59 06:59 14:59 Intake Total 1580 / 2400 1480 / 3880 Output Total 800 / 800 Balance 1580 / 2400 680 / 3080 Weight last 48 hrs Weight 193 lb 3.2 oz Weight 193 lb 6.4 oz Physical Exam 2 GI: OTHER: Abdomen soft nontender nondistended, surgical incisions are healing well Urinary Catheter Management: Ye: Cath Placed During This Visit: yes Reason for Continuing Indwelling Catheter: Required Immobilization for Trauma or Surgery or Anesthesia Urinary Catheter Date of Insertion: 06/08/24 Urinary Catheter Time of Insertion: 00:50 Data 06/21/24 04:25 06/21/24 04:25 A&P Assessment and plan (1) Nonocclusive mesenteric ischemia: (2) S/P exploratory laparotomy: (3) S/P small bowel resection: Plan Patient is showing very good progression after exploratory laparotomy and bowel resection x 2 for nonocclusive mesenteric ischemia. He continues to tolerate diet and have regular bowel movements, has been having around 4 bowel movements daily but he states that the quality of the bowel movements is soft and improving. Patient is stable for discharge from the surgical standpoint at this time. He can follow-up with me in 2 weeks in the clinic for staple removal. -Continue with low residue diet -Pain control as needed -Ambulate as tolerated -CIARA drain was removed -Return to clinic in 2 weeks for staple removal Attestations 2 Medical Necessity Statement*: per medical team Coding Level of Care Code Acute Code for Chg Fwd Diagnoses Nonocclusive mesenteric ischemia K55.059 S/P exploratory laparotomy Z98.890 S/P small bowel resection Z90.49
[2024-06-21] MEDS: potassium chloride ER 20 mEq Tablet 40 MEQ PO (08:58)
[2024-06-21] MEDS: insulin lispro 100 unit/1 mL SUBCUT ×2 (08:58→21:24)
[2024-06-21] MEDS: insulin glargine 100 units/1 mL 25 UNIT SUBCUT (08:58)
[2024-06-21 11:02] LABS: Glucose Point of Care 81 mg/dL (70-110)
--- NOTE | 2024-06-21 12:00 | P.PN_ITS ---
Subjective 2 Subjective: Patient was seen this morning continues to have bowel movement, passing gas no nausea, no vomiting, no cough, no shortness of breath, continues to complain of generalized weakness Vitals/I&O/Wt Last Vital Signs Temp 98.1 F 06/21/24 11:34 Pulse 75 06/21/24 11:34 Resp 16 06/21/24 11:34 BP 114/71 06/21/24 11:34 Pulse Ox 99 06/21/24 11:34 O2 Del Method Room Air 06/21/24 11:34 O2 Flow Rate 2 06/16/24 14:00 FiO2 28 06/15/24 09:19 06/20/24 06/21/24 06/21/24 22:59 06:59 14:59 Intake Total 1580 / 2400 1480 / 3880 360 / 360 Output Total 800 / 800 500 / 500 Balance 1580 / 2400 680 / 3080 -140 / -140 Weight last 48 hrs Weight 87.634 kg Weight 87.725 kg Physical Exam 2 Const: COMMON NORMALS: no acute distress and patient oriented x3 Resp: COMMON NORMALS: normal respiratory effort, No retractions, No use of accessory muscles and clear to auscultation bilaterally AUSCULTATION: clear to auscultation bilaterally Cardio: COMMON NORMALS: regular rate, regular rhythm, S1 normal heart sound present and S2 normal heart sound present RATE: regular rate RHYTHM: r egular rhythm HEART SOUNDS: S1 normal heart sound present and S2 normal heart sound present GI: COMMON NORMALS: Normal to inspection, nondistended, normoactive bowel sounds present and non-tender OTHER: Abdomen soft, surgical site clean and dry Extremity: COMMON NORMALS: no pedal edema Neuro: COMMON NORMALS: patient oriented x3 Psych: COMMON NORMALS: mental status grossly normal Urinary Catheter Management: Ye: Cath Placed During This Visit: yes Reason for Continuing Indwelling Catheter: Required Immobilization for Trauma or Surgery or Anesthesia Urinary Catheter Date of Insertion: 06/08/24 Urinary Catheter Time of Insertion: 00:50 Data 06/21/24 04:25 06/21/24 04:25 Micro: Microbiology 06/16/24 08:45 Blood Culture - Final Blood NO GROWTH AFTER 5 DAYS 06/16/24 08:42 Blood Culture - Final Blood NO GROWTH AFTER 5 DAYS A&P Assessment and plan (1) Shock: (2) Diabetic ketoacidosis: (3) Nonocclusive mesenteric ischemia: (4) S/P exploratory laparotomy: (5) S/P small bowel resection: (6) Lactic acidosis: (7) CLABSI (central line-associated bloodstream infection): Plan Acute encephalopathy, resolved ? CT head within normal limits ? Continues to have febrile episodes -Monitor mentation closely -Neurochecks -Alert to person, to place, can follow commands, -Monitor mentation closely - Haldol as needed -Dilaudid for pain control Diabetic ketoacidosis: Resolved Lantus 20 units every morning High-dose insulin sliding scale Weaning off TPN Septic shock: Resolved Continues to have intermittent fevers, resolved -Repeat blood cultures so far negative -UA within normal limits -CT chest abdomen pelvis no acute findings, no abscess -Right internal jugular central line removed, catheter tip cultured, cultures positive for MRSA, concerns for CLABSI -Prior sputum cultures growing MRSA, on daptomycin CLABSI -Since patient central line was removed no recurrent fevers -His central line tip culture growing MRSA species -So far his blood cultures drawn on same day central line was removed were negative -Spoke to infectious disease, switch to daptomycin, 10mg/kg IV every 24 hours for 8 remaining days -Will discuss case with infectious disease Mesenteric ischemia: Nonocclusive: Post exploratory laparotomy and small bowel resection on 06/08 and 06/09 and enterocolonic enteroenteric anastomosis along with abdominal wall closure on 06/11. CIARA drain in place. Not removed Appreciate surgical recommendations. Advance diet as tolerated Wound care as per surgical team. Off TPN Speech therapy evosiel, spoke to general surgery, started on a full liquid diet, moderately thickened -Completed 10 days of meropenem, Diflucan, Zyvox Respiratory failure: Extubated to nasal cannula, status post Lasix dose, appears euvolemic Respiratory cultures, growing MRSA Sputum culture growing MRSA, ct no evidence of pneumonia, completed 10 days of zyvox Currently on nasal cannula Hypernatremia: Resolved Hypokalemia replace IV Glycemic control: Insulin sliding scale Nutrition: TPN CODE STATUS: Full code PUD prophylaxis: Protonix DVT prophylaxis: SCD Discharge planning: Depending on the clinical picture going forward. Plan for today continue IV antibiotics, for CLABSI Attestations 2 Medical Necessity Statement*: Patient requires hospitalization for CLABSI, required IV antibiotics Diagnoses Shock R57.9 Diabetic ketoacidosis E11.10 Nonocclusive mesenteric ischemia K55.059 S/P exploratory laparotomy Z98.890 S/P small bowel resection Z90.49 Lactic acidosis E87.20 CLABSI (central line-associated bloodstream infection) T80.211A
[2024-06-21 16:35] LABS: Glucose Point of Care 122 mg/dL (70-110)
[2024-06-21] MEDS: DAPTOMYCIN IV (17:17)
[2024-06-21] MEDS: SODIUM CHLORIDE 0.9% IV (17:17)
[2024-06-21] MEDS: enoxaparin 40 mg/0.4 mL Syringe SUBCUT (18:12)
[2024-06-21 21:25] LABS: Glucose Point of Care 241 mg/dL (70-110)
[2024-06-21] MEDS: pantoprazole 40 mg SDV IVP (21:26)
[2024-06-22] VITALS (7 sets, daily range): BP systolic 99–118; BP diastolic 61–77; PULSE 66–83; RESP 15–16; TEMP 36.3–36.8; O2SAT 96–99
[2024-06-22 00:07] LABS: Glucose Point of Care 77 mg/dL (70-110)
[2024-06-22 04:56] LABS: Basophils % 0.5 %; Eosinophils # 0.1 10^3/uL (0.0-0.8); Eosinophils % 2.7 %; Hematocrit 25.6 % (37-53); Lymphocytes # 1.3 10^3/uL (0.8-4.8); Lymphocytes % 33.8 %; Mean Corpuscular HGB Conc 32.8 g/dL (30-55); Mean Corpuscular Hemoglobin 29.7 pg (27-33); Mean Corpuscular Volume 90.5 fl (82-101); Mean Platelet Volume 9.5 fL (7.4-10.4); Monocytes # 0.3 10^3/uL (0.2-0.9); Monocytes % 7.5 %; Neutrophils # 2.03 10^3/uL (1.8-7.7); Neutrophils % 54.4 %; Nucleated Red Blood Cells % 0 %; Platelet Count 198 10^3/cmm (157-399); Red Blood Count 2.83 10^6/uL (3.85-5.65); Red Cell Distribution Width 13.7 % (12.1-15.1); White Blood Count 3.73 10^3/uL (3.29-11.43)
[2024-06-22 05:12] LABS: Alanine Aminotransferase 38 U/L (0-41); Albumin Level 2.5 g/dL (3.5-5.2); Alkaline Phosphatase 70 U/L (40-130); Anion Gap 7.6 (5-19); Aspartate Amino Transferase 57 U/L (0-40); Blood Urea Nitrogen 9 mg/dL (6-20); Calcium 7.4 mg/dL (8.5-10.5); Carbon Dioxide 30 mmol/L (22-29); Chloride 104 mmol/L (98-107); Creatinine Clr Calc Pharmacy 304.8525; Globulin 1.8 g/dL (1.3-4.6); Glomerular Filtration Rate 249.3 mL/min (90-130); Glucose 156 mg/dL (65-115); Magnesium 1.8 mg/dL (1.7-2.3); Osmolality Calculated 288 mOsm/kg (285-295); Phosphorus 2.9 mg/dL (2.5-4.5); Potassium 3.6 mmol/L (3.5-5.1); Sodium 138 mmol/L (136-145); Total Bilirubin 0.2 mg/dL (0.15-1.2); Total Protein 4.3 g/dL (6.6-8.7)
[2024-06-22 06:18] LABS: Glucose Point of Care 165 mg/dL (70-110)
[2024-06-22] MEDS: insulin lispro 100 unit/1 mL SUBCUT ×2 (07:38→11:19)
[2024-06-22] MEDS: insulin glargine 100 units/1 mL 25 UNIT SUBCUT (08:50)
--- NOTE | 2024-06-22 10:06 | P.PN_ITS ---
Subjective 2 Subjective: Postoperative day 14 status post exploratory laparotomy and bowel resection, postoperative day 13 status post washout and ileocecectomy and postoperative day 9 status post exploratory laparotomy creation of enteroenteric anastomosis enterocolic anastomosis washout and closure. Very good progression remains alert and oriented, has been having bowel movements and no abdominal pain. Vitals/I&O/Wt Last Vital Signs Temp 98.2 F 06/22/24 07:21 Pulse 74 06/22/24 07:21 Resp 15 06/22/24 07:21 BP 118/68 06/22/24 07:21 Pulse Ox 98 06/22/24 07:21 O2 Del Method Room Air 06/22/24 07:21 O2 Flow Rate 2 06/16/24 14:00 FiO2 28 06/15/24 09:19 06/21/24 06/22/24 06/22/24 22:59 06:59 14:59 Intake Total 340 / 1180 2000 / 3180 360 / 360 Output Total 3050 / 4150 2700 / 6850 1200 / 1200 Balance -2710 / -2970 -700 / -3670 -840 / -840 Weight last 48 hrs Weight 191 lb 7 oz Weight 193 lb 3.2 oz Physical Exam 2 GI: OTHER: Abdomen soft nontender nondistended, surgical incision is well-healed. Urinary Catheter Management: Ye: Cath Placed During This Visit: yes Reason for Continuing Indwelling Catheter: Required Immobilization for Trauma or Surgery or Anesthesia Urinary Catheter Date of Insertion: 06/08/24 Urinary Catheter Time of Insertion: 00:50 Data 06/22/24 04:46 06/22/24 04:46 Micro: Microbiology 06/16/24 08:45 Blood Culture - Final Blood NO GROWTH AFTER 5 DAYS 06/16/24 08:42 Blood Culture - Final Blood NO GROWTH AFTER 5 DAYS A&P Assessment and plan (1) Abdominal pain: (2) Nonocclusive mesenteric ischemia: (3) S/P exploratory laparotomy: (4) S/P small bowel resection: Plan Continues to have excellent progression from the surgical standpoint. He is cleared for discharge once he is able to ambulate. His bowel movements have improved and now they are more solid in consistency. Follow-up will be in 2 weeks. Attestations 2 Medical Necessity Statement*: Per medical team Coding Level of Care Code Acute Code for Chg Fwd Diagnoses Abdominal pain R10.9 Nonocclusive mesenteric ischemia K55.059 S/P exploratory laparotomy Z98.890 S/P small bowel resection Z90.49
--- NOTE | 2024-06-22 10:41 | P.DS_ITS ---
Discharge Providers Date of Admission: 06/07/24 19:33 Date of Discharge: June 22, 2024 Attending Provider at Admission: Itzel Woods MD Attending Provider at Discharge: Isaac Nance MD Primary Care Provider: Juanjo Lancaster Diagnoses at Discharge Discharge Diagnosis (1) Abdominal pain: Status: Acute (2) Nonocclusive mesenteric ischemia: Status: Acute (3) S/P exploratory laparotomy: Status: Acute (4) S/P small bowel resection: Status: Acute Reason for Visit Reason for Visit: DKA Hospital Course Hospital Course Juanjo Baron is a 34 year old male with a past medical history of type 2 diabetes mellitus, hypertension, who presents to [facility] for nausea, vomiting, abdominal pain. Patient tells me that for the last day he has had nausea, vomiting, abdominal pain, felt lightheaded, felt dizzy, no constipation no diarrhea, no bloody or black stools. He was transferred from [facility] for concerns for diabetic ketoacidosis started on insulin drip, he was given fluid therapy, he was noted to be persistently hypotensive there so he was placed on Levophed, on Levophed of 2, currently he is normotensive off Levophed, on room air, respiratory rate 22, pulse 97, alert oriented x 4, following all commands, only significant plan is abdominal pain, denies alcoholism Patient had a prolonged hospital course, please look at my previous progress note for further detail Patient was transferred to [facility] from [facility], for concerns for diabetic ketoacidosis, managed on insulin drip, due to complications as below, he remained on insulin drip for prolonged period of time, eventually weaned off insulin drip, his anion gap closed, bicarb within normal limits, transition to subcu insulin. Patient will be discharged on Lantus 25 units subcu daily, with a insulin sliding scale, follow-up with primary care provider as outpatient. On discharge I stressed the importance to patient to be compliant with his insulin regimen, to monitor his blood sugars closely, record them in a blood sugar log, monitor for blood sugar greater than 600 or less than 50 if so come back to the emergency room, discussed with him the morbidity and mortality associated with diabetic ketoacidosis hyperglycemia. He voiced understanding, all questions answered, agreed to proceed Patient's hospitalization was complicated with mesenteric ischemia, nonocclusive, status post exploratory laparotomy and small bowel resection on 06/08, 06/09 with enterocolonic José enteric anastomosis along with abdominal wall closure 06/11, was managed on broad-spectrum IV antibiotic therapy, repeat CT scan abdomen pelvis with IV contrast did not show any radiographic evidence of abdominal abscess, overall patient clinically proved required prolonged bowel rest, managed on TPN, eventually weaned off TPN, transition to oral diet, having bowel movements, passing gas, no significant abdominal pain, CIARA drain removed. Will be discharged with a close follow-up with general surgery as outpatient. Patient's hospitalization was complicated with respiratory failure requiring pr olonged intubation, extubated, to nasal cannula, CT no evidence of pneumonia, discharged on room air Patient's hospitalization was complicated by recurrent fevers, likely from CLABSI, central line was removed, central line tip cultures growing MRSA, blood cultures from central line did not show any growth, no evidence of bacteremia, he remained afebrile. Arrangements for outpatient IV antibiotics were difficult to make and patient did not want to remain inpatient for much longer as he was here for over a week, [facility] team tried to arrange outpatient IV antibiotic therapy, recommendation was for daptomycin IV once daily, vancomycin unfortunately was not an option as we could not get his Vancomycin trough therapeutic, although he was on high doses of vancomycin up to 2 g every 8 hours could not get his Vanco trough above 10, high risk of side effects and adverse events with higher doses of vancomycin. Unfortunately patient does not have any insurance, is a self-pay, cannot afford IV antibiotics, could not arrange home IV antibiotics, nor could he come through the outpatient environment to get IV antibiotics as outpatient as he does not have a car and does not have available transportation, and does not have enough social support at. Patient was adamant about going home, as he was in the hospital for over a week. After discussing with him the risks and benefits of p.o. Zyvox, shared decision making, he voiced understanding, all questions answered, discussed the risk of recurrent infection, discussed the risk of endocarditis, sepsis, septic shock, morbidity and mortality associated, he voiced understanding, all questions answered, shared decision making, agreed to proceed with p.o. Zyvox. His MRSA cultures are sensitive to Zyvox, and he tolerated Zyvox well initially during his hospitalization, no complications reported, given that his repeat blood cultures are negative, he remains afebrile, clinically improving, no significant leukocytosis his inflammatory markers have significantly improved p.o. Zyvox is is a reasonable option given the difficult situation although not ideal. After discussing with him the risk and benefits of all options, shared decision making, he voiced understanding, all questions answered, agreed to proceed with p.o. Zyvox. Will discharge him on 7 remaining days of p.o. Zyvox for total of 14 days of antibiotics since the central line was removed. Physical Exam Const: COMMON NORMALS: no acute distress and patient oriented x3 Resp: COMMON NORMALS: normal respiratory effort, No retractions, No use of accessory muscles and clear to auscultation bilaterally AUSCULTATION: clear to auscultation bilaterally Cardio: COMMON NORMALS: regular rate, regular rhythm, S1 normal heart sound present and S2 normal heart sound present RATE: regular rate RHYTHM: regular rhythm HEART SOUNDS: S1 normal heart sound present and S2 normal heart sound present GI: COMMON NORMALS: Normal to inspection, nondistended, normoactive bowel sounds present and non-tender Extremity: COMMON NORMALS: no pedal edema Neuro: COMMON NORMALS: patient oriented x3 Psych: COMMON NORMALS: mental status grossly normal Urinary Catheter Management: Ye: Cath Placed During This Visit: yes Reason for Continuing Indwelling Catheter: Required Immobilization for Trauma or Surgery or Anesthesia Urinary Catheter Date of Insertion: 06/08/24 Urinary Catheter Time of Insertion: 00:50 Discharge Data Studies Completed and Pending Completed Studies During Hospitalization Category Date Time Status CT abdomen pelvis w con* [id number] Routine Cat Scan 06/07/24 21:[address] chest abdomen pelvis [CT chest abdpel w/*[id number] Cat Scan 06/16/24 08:22 Completed ] Routine CT head wo con* [id number] Routine Cat Scan 06/16/24 09:18 Completed CXRP [XR chest 1V portable [id number]] Routine Exams 06/16/24 10:09 Completed XR chest 1V portable [id number] DAILY Exams 06/09/24 08:00 Completed XR chest 1V portable [id number] DAILY Exams 06/10/24 08:00 Completed XR chest 1V portable [id number] DAILY Exams 06/11/24 08:00 Completed XR chest 1V portable [id number] Routine Exams 06/07/24 20:00 Completed XR chest 1V portable [id number] Routine Exams 06/14/24 07:00 Completed XR chest 1V portable [id number] Stat Exams 06/08/24 02:53 Completed Pathology: Surgical [PTH] Routine Pth 06/07/24 14:30 Completed Pathology: Surgical [PTH] Routine Pth 06/09/24 16:24 Completed Pathology: Surgical [PTH] Routine Pth 06/11/24 13:54 [place] [id number] Routine Ultrasound 06/13/24 19:00 Completed CV. echo complete* [id number] Routine Ultrasound 06/08/24 13:58 Completed Pending at discharge Category Date Time Status [place] Profile Routine Lab 06/09/24 17:53 Results Radiology Impressions Abdomen/Pelvis CT 06/07/24 21:04 IMPRESSION: 1. Findings consistent with high-grade small bowel obstruction with small bowel ischemia, including bowel loops with pneumatosis and presence of portal venous gas. There appears to be a transition point in the right hemiabdomen. Recommend emergent surgical consultation. 2. The distal most small bowel is decompressed. Fecalization of intraluminal contents can be seen with hypomotility. 3. Moderately to markedly dilated stomach filled with fluid and air. Patient may benefit from nasogastric tube decompression. ADDENDUM: 06/07/24 2252 THIS REPORT CONTAINS FINDINGS THAT MAY BE CRITICAL TO PATIENT CARE. The findings were verbally communicated via telephone conference with ISAAC SAAVEDRA at 10:49 PM CDT on 06/07/2024. The findings were acknowledged and understood. Chest/Abdomen/Pelvis CT 06/16/24 08:22 IMPRESSION: 1. No acute findings in the chest abdomen or pelvis. 2. Slight bibasal atelectasis. 3. Normal postoperative changes small bowel resection with anastomosis 4. Ye catheter. Head CT 06/16/24 09:18 IMPRESSION: 1. No evidence of intracranial hemorrhage or mass effect. 2. No acute intracranial findings. Chest X-Ray 06/16/24 10:09 Impression: Satisfactory insertion of right PICC line. Laboratory Results WBC 3.73 10^3/uL (3.29-11.43) 06/22/24 04:46 RBC 2.83 10^6/uL (3.85-5.65) L 06/22/24 04:46 Hgb 8.40 g/dL (11.27-16.99) L 06/22/24 04:46 Hct 25.6 % (37-53) L 06/22/24 04:46 MCV 90.5 fl (82-101) 06/22/24 04:46 MCH 29.7 pg (27-33) 06/22/24 04:46 MCHC 32.8 g/dL (30-55) 06/22/24 04:46 RDW 13.7 % (12.1-15.1) 06/22/24 04:46 Plt Count 198 10^3/cmm (157-399) 06/22/24 04:46 MPV 9.5 fL (7.4-10.4) 06/22/24 04:46 Neut % (Auto) 54.4 % 06/22/24 04:46 Lymph % (Auto) 33.8 % 06/22/24 04:46 [place] % (Auto) 7.5 % 06/22/24 04:46 Eos % (Auto) 2.7 % 06/22/24 04:46 Baso % (Auto) 0.5 % 06/22/24 04:46 Neut # (Auto) 2.03 10^3/uL (1.8-7.7) 06/22/24 04:46 Lymph # (Auto) 1.3 10^3/uL (0.8-4.8) 06/22/24 04:46 [place] # (Auto) 0.3 10^3/uL (0.2-0.9) 06/22/24 04:46 Eos # (Auto) 0.1 10^3/uL (0.0-0.8) 06/22/24 04:46 Baso # (Auto) 0.0 10^3/uL (0.0-0.1) 06/22/24 04:46 Nucleated RBC % (auto) 0 % 06/22/24 04:46 Total Counted 100 (0-100) 06/13/24 06:20 Atypical Lymphs % 1.0 % (0-5) 06/13/24 06:20 Absolute Neutrophils 3.6 10^3/cmm (1.4-6.5) 06/13/24 06:20 Segmented Neutrophils 48 % 06/13/24 06:20 Abs Segm Neuts (Man) 3.0 10/cmm (1.6-7.1) 06/13/24 06:20 Band Neutrophils 10.0 % 06/13/24 06:20 Abs Band Neuts (Man) 0.6 10^3/cmm (0.0-1.2) 06/13/24 06:20 Absolute Lymphocytes 0.7 10^3/cmm (1.2-3.4) L 06/13/24 06:20 Lymphocytes (Manual) 10 % 06/13/24 06:20 Monocytes (Manual) 7.0 % 06/13/24 06:20 Absolute Monocytes 0.4 10^3/cmm (0.1-0.6) 06/13/24 06:20 Eosinophils (Manual) 2 % 06/13/24 06:20 Absolute Eosinophils 0.1 10^3/cmm (0.0-0.7) 06/13/24 06:20 Basophils (Manual) 0.0 % 06/13/24 06:20 Absolute Basophils 0.0 10^3/cmm (0.0-0.2) 06/13/24 06:20 Metamyelocytes 13.0 % 06/13/24 06:20 Myelocytes 9.0 % 06/13/24 06:20 Nucleated RBCs # 0.0 /100WBC 06/22/24 04:46 Platelet Estimate Normal (Normal) 06/13/24 06:20 Specimen Type Arterial 06/16/24 13:20 Sample Site Radial, right 06/16/24 13:20 ABG pH 7.42 (7.35-7.45) 06/16/24 13:20 ABG pCO2 29.9 mmHg (35-45) L 06/16/24 13:20 ABG pO2 115.0 mmHg (80.0-100.0) H 06/16/24 13:20 ABG PO2/FiO2 Ratio 410 06/16/24 13:20 ABG HCO3 19.5 mmol/L (22-26) L 06/16/24 13:20 ABG O2 Saturation 98.7 06/14/24 02:58 ABG Base Excess -4.0 mmol/L (-2.0-2.0) L 06/16/24 13:20 Arnulfo Test Pos 06/16/24 13:20 A-a O2 Gradient 2.6 mmHg (5-10) L 06/14/24 02:58 Hematocrit 32.3 % (42-52) L 06/16/24 13:20 Hgb O2 Saturation 95.7 % (95-100) 06/14/24 02:58 Carboxyhemoglobin 0.9 %THgb (0.4-20.1) 06/14/24 02:58 Methemoglobin 2.2 % (0.4-1.5) H 06/14/24 02:58 Total Hemoglobin 9.0 g/dL (14-18) L 06/14/24 02:58 Sodium 153.0 mmol/L (131-143) H 06/14/24 02:58 Potassium 3.3 mmol/L (3.5-5.0) L 06/14/24 02:58 Glucose 224.0 mg/dL (70-115) H 06/14/24 02:58 Ionized Calcium 1.2 mmol/L (1.1-1.4) 06/14/24 02:58 O2 Delivery Device Nc 06/16/24 13:20 O2 Liters/Min 2.0 % 06/16/24 13:20 FiO2 28.0 % 06/16/24 13:20 Tidal Volume 0.50 06/14/24 02:58 PEEP 5.0 cmH20 06/14/24 02:58 Cardroom Plastic Card Grader ID [facility] 06/16/24 13:20 Crit Value Read Back [facility] 06/07/24 20:42 Blood Gas Notified Time 205106/07/24 20:42 Sodium 138 mmol/L (136-145) 06/22/24 04:46 Potassium 3.6 mmol/L (3.5-5.1) 06/22/24 04:46 Chloride 104 mmol/L (98-107) 06/22/24 04:46 Carbon Dioxide 30 mmol/L (22-29) H 06/22/24 04:46 Anion Gap 7.6 (5-19) 06/22/24 04:46 BUN 9 mg/dL (6-20) 06/22/24 04:46 Creatinine 0.4 mg/dL (0.7-1.2) L 06/22/24 04:46 GFR Calculation 249.3 mL/min (90-130) H 06/22/24 04:46 Glucose 156 mg/dL (65-115) H 06/22/24 04:46 POC Glucose 165 mg/dL (70-110) H 06/22/24 06:12 Estimat Average Glucose 326 06/07/24 20:32 Hemoglobin A1c 13.0 % (4.0-6.0) H 06/07/24 20:32 Calculated Osmolality 288 mOsm/kg (285-295) 06/22/24 04:46 Lactic Acid 0.7 mmol/L (0.5-2.2) 06/11/24 03:44 Lactic Acid (Sepsis) 1.7 mmol/L (0.5-2.2) 06/08/24 00:15 Lactate 0.7 mmol/L (0.5-2.2) 06/15/24 03:01 Calcium 7.4 mg/dL (8.5-10.5) L 06/22/24 04:46 Phosphorus 2.9 mg/dL (2.5-4.5) 06/22/24 04:46 Magnesium 1.8 mg/dL (1.7-2.3) 06/22/24 04:46 Iron 20 ug/dL (59-158) L 06/08/24 03:04 TIBC 160 mcg/dl 06/08/24 03:04 % Saturation 12.5 % (20-50) L 06/08/24 03:04 Unsat Iron Binding 140 ug/dL (112-347) 06/08/24 03:04 Total Bilirubin 0.2 mg/dL (0.15-1.2) 06/22/24 04:46 Direct Bilirubin 0.20 mg/dL (0.00-0.30) 06/07/24 20:32 AST 57 U/L (0-40) H 06/22/24 04:46 ALT 38 U/L (0-41) 06/22/24 04:46 Alkaline Phosphatase 70 U/L (40-130) 06/22/24 04:46 Creatine Kinase 149 U/L (39-308) 06/15/24 03:01 Troponin T Baseline 26 ng/L (0-15) H 06/07/24 20:18 Troponin T 120 Minute 28.37 ng/L (0-15) H 06/07/24 21:59 Delta Troponin T 2.37 ABS# (0-10) 06/07/24 21:59 Troponin T Hi Sens 6Hr 27.49 ng/L (0-15) H 06/08/24 03:04 Troponin T Hi Sens 6Hr Delta 1.49 ng/L (0-12) 06/08/24 03:04 C-Reactive Protein 11.8 mg/L (0.0-4.9) H 06/19/24 04:02 NT-Pro-B Natriuret Pep 69 pg/mL (0-125) 06/19/24 04:02 Total Protein 4.3 g/dL (6.6-8.7) L 06/22/24 04:46 Albumin 2.5 g/dL (3.5-5.2) L 06/22/24 04:46 Globulin 1.8 g/dL (1.3-4.6) 06/22/24 04:46 Triglycerides 346 mg/dL (0-150) H 06/07/24 20:32 Cholesterol 176 mg/dL (0-200) 06/07/24 20:32 LDL Cholesterol, Calc 69 mg/dL (50-129) 06/07/24 20:32 HDL Cholesterol 38 mg/dL (60-100) L 06/07/24 20:32 LDL/HDL Ratio 1.82 RATIO (0.00-3.22) 06/07/24 20:32 Cholesterol/HDL Ratio 4.63 mg/dL (1.0-5.00) 06/07/24 20:32 Lipase 83 U/L (13-60) H 06/07/24 20:32 Vitamin B12 1930 pg/mL (232-1245) H 06/08/24 03:04 Folate 5.5 ng/mL (4.5-32.2) 06/09/24 04:01 Procalcitonin 0.08 ng/mL (0-0.5) 06/19/24 04:02 TSH 0.70 uIU/mL (0.27-4.20) 06/07/24 20:18 Urine Color Yellow (Yellow) 06/16/24 09:30 Urine Appearance Clear (CLEAR) 06/16/24 09:30 Urine pH 5.5 (5-7) 06/16/24 09:30 Ur Specific [place] 1.030 (1.005-1.030) 06/16/24 09:30 Urine Protein Trace (Negative) A 06/16/24 09:30 Urine Glucose (UA) 3+ (Normal) H 06/16/24 09:30 Urine Ketones 4+ (Negative) 06/16/24 09:30 Urine Blood Negative (Negative) 06/16/24 09:30 Urine Nitrate Negative (Negative) 06/16/24 09:30 Urine Bilirubin Negative (Negative) 06/16/24 09:30 Urine Urobilinogen 1.0 mg/dL (Negative) 06/16/24 09:30 Ur Leukocyte Esterase Negative (Negative) 06/16/24 09:30 Urine RBC 0-2 /hpf (0-2) 06/16/24 09:30 Urine WBC 0-5 /hpf (0-5) 06/16/24 09:30 Ur Squamous Epith Cells 0-5 /hpf (0-5) 06/16/24 09:30 Amorphous Sediment Not Reportable 06/16/24 09:30 Urine Bacteria None seen /hpf (NONE) 06/16/24 09:30 Hyaline Casts 4.11 /lpf 06/16/24 09:30 Urine Mucus Trace /hpf 06/07/24 20:41 Urine Yeast Trace /hpf 06/07/24 20:41 Nasal MRSA (PCR) Not detected (Negative) 06/08/24 02:22 Vancomycin Trough 9.7 ug/mL (10-15) L 06/12/24 12:31 Random Vancomycin 14.0 ug/mL (20.0-40.0) L 06/11/24 03:44 Urine Opiates Screen Negative ng/mL (Negative) 06/07/24 20:41 Ur Barbiturates Screen Negative ng/mL (Negative) 06/07/24 20:41 Ur Phencyclidine Scrn Negative ng/mL (Negative) 06/07/24 20:41 Ur Amphetamines Screen Negative ng/mL (Negative) 06/07/24 20:41 U Benzodiazepines Scrn Negative ng/mL (Negative) 06/07/24 20:41 Urine Cocaine Screen Negative ng/mL (Negative) 06/07/24 20:41 U Marijuana (THC) Screen Negative ng/mL (Negative) 06/07/24 20:41 Ethyl Alcohol < 10 mg/dL (0-10) 06/07/24 20:32 Serum Ketones Positive (Negative) H 06/16/24 13:47 SNOW-1 Antibody <1.0 neg AI (<1.0 NEG) 06/10/24 04:16 SS-A/Ro IgG Antibody <1.0 neg AI (<1.0 NEG) 06/10/24 04:16 SS-B/La IgG Antibody <1.0 neg AI (<1.0 NEG) 06/10/24 04:16 Scl-70 Scleroderma Ab <1.0 neg AI (<1.0 NEG) 06/10/24 04:16 Anti-ds DNA IgG Ab <1 IU/mL 06/10/24 04:16 Adenovirus (PCR) Not detected (NOT DETECT) 06/16/24 09:30 C. pneumoniae DNA (PCR) Not detected (NOT DETECT) 06/16/24 09:30 C. difficile (PCR) Negative (Negative) 06/19/24 12:17 Coronavirus 229E (PCR) Not detected (NOT DETECT) 06/16/24 09:30 Human Metapneumovir PCR Not detected (NOT DETECT) 06/16/24 09:30 Influenza A (H1) PCR Not detected (NOT DETECT) 06/16/24 09:30 Influ A (H1/09) PCR Not detected (NOT DETECT) 06/16/24 09:30 Influenza A (H3) PCR Not detected (NOT DETECT) 06/16/24 09:30 Influenza Type A (PCR) Not detected (NOT DETECT) 06/16/24 09:30 Influenza Type B (PCR) Not detected (NOT DETECT) 06/16/24 09:30 M. pneumoniae (PCR) Not detected (NOT DETECT) 06/16/24 09:30 Parainfluenza 1 (PCR) Not detected (NOT DETECT) 06/16/24 09:30 Parainfluenza 2 (PCR) Not detected (NOT DETECT) 06/16/24 09:30 Parainfluenza 3 (PCR) Not detected (NOT DETECT) 06/16/24 09:30 Parainfluenza 4 (PCR) Not detected (NOT DETECT) 06/16/24 09:30 RSV Type A (PCR) Not detected (NOT DETECT) 06/16/24 09:30 RSV Type B (PCR) Not detected (NOT DETECT) 06/16/24 09:30 Entero/Rhino (PCR) Not detected (NOT DETECT) 06/16/24 09:30 SARS-CoV-2 (PCR) Not detected (NOT DETECT) 06/16/24 09:30 Blood Type O Positive 06/11/24 15:29 Rho(D) Type Rh positive 06/11/24 15:29 Antibody Screen Negative 06/11/24 15:29 Crossmatch See Detail 06/11/24 15:29 Vitals Last Vital Signs Temp 98.2 F 06/22/24 07:21 Pulse 74 06/22/24 07:21 Resp 15 06/22/24 07:21 BP 118/68 06/22/24 07:21 Pulse Ox 98 06/22/24 07:21 O2 Del Method Room Air 06/22/24 07:21 O2 Flow Rate 2 06/16/24 14:00 FiO2 28 06/15/24 09:19 Discharge Plan Discharge Patient Disposition: Home Condition: Stable Prescriptions: New insulin lispro [Humalog Joaquin KwikPen U-100] 100 unit/mL insulin pen, half- unit See Rx Instructions .ROUTE .COMPLEX Qty: 30 0RF Rx Instructions: Inject, subcut, 3 times daily, after meals, based on sliding scale provided linezolid [Zyvox] 600 mg tablet 600 mg PO BID 7 Days Qty: 14 0RF (DME) glucometer testing kit See Rx Instructions .Route .MEDSUPPLY Qty: 1 0RF Rx Instructions: Glucometer testing kit, lancets# 100, strips# 100 Instant Food Thickener Powder 1 ea PO TIDWMEAL Qty: 1020 0RF Rx Instructions: Please mildly thicken all liquids Continued metformin 500 mg tablet 500 mg PO BID 30 Days Qty: 30 0RF insulin glargine [Lantus Solostar U-100 Insulin] 100 unit/mL (3 mL) insulin pen 25 unit SUBCUT DAILY 30 Days Qty: 15 0RF Discontinued lisinopril 10 mg tablet 10 mg PO DAILY trazodone 50 mg tablet 50 mg PO .hs PRN (Reason: sleep) Qty: 30 3RF No Action (DME) Dexcom G6 Maintenance Machine Repairer Misc See Rx Instructions .Route Qty: 1 0RF Rx Instructions: As directed (DME) Dexcom G6 Transmitter Device See Rx Instructions .Route Qty: 1 0RF Rx Instructions: As directed (DME) Dexcom G6 Sensor Device See Rx Instructions .Route Qty: 3 0RF Rx Instructions: As directed (DME) blood-glucose meter Kit See Rx Instructions .Route Qty: 1 0RF Rx Instructions: As directed (DME) lancets Misc See Rx Instructions .Route Qty: 100 1RF Rx Instructions: As directed (DME) Blood Glucose Test Strip See Rx Instructions .Route Qty: 100 1RF Rx Instructions: As directed Discharge Orders: Discharge Order (Routine); Ordered 06/22/24 Ordered By: Isaac Nance Referrals: Aleksandar Romo MD [Physician] - 4-7 days Roxie Love MD [Family Provider] - 4-7 days Discharge Diet: Advance as tolerated Discharge Activity: Resume usual activity Patient Instructions: Linezolid (By mouth) (Zyvox), Linezolid (By mouth), Urinary Tract Infection in Men (DC), Acute Wound Care (DC), Exploratory Laparoscopy (DC), Opioid Safety, Post Anesthesia Care Activity Restrictions/Additional Instructions: - Dysphagia level 6 diet -Mildly thickened liquids -Follow-up with primary care provider 1 week -Follow-up with general surgery 1 week -Inject Lantus 25 units subcut daily -Please monitor your blood sugars closely -Monitor your blood sugars 3 times daily as after meals -Please record your blood sugars, and a blood sugar log -For your HumaLog -Please inject blood sugar after meals based on sliding scale provided -Do not inject insulin if you do not eat as hypoglycemia kills -This is a HumaLog sliding scale -Insulin sliding ?fingerstick? Insulin ?141-180?0 units/sq 181-220?2 units/sq ?221-260?4 units/sq ?261-300 6 units/sq ?301-350?8 units/sq ?351-400 10 units/sq ?401-450?12 units/sq >450? 14units/sq -If your blood sugar is greater than 500 go to the emergency room -If your blood sugar is less than 60 or at anytime you feel lightheaded or dizzy or diaphoretic or have chest palpitations check your blood sugar, and eat a hard candy or drink orange juice and go immediately to the emergency room -Remember hypoglycemia kills, so if his blood sugar is less than 60 we have to increase it by taking in a sugary meal such as a hard candy or orange juice and go to the emergency room -If you have any questions please call us where here to help Discharge Attestations Time Spent in Discharge Care*: greater than 30 min Quality Metrics Clinical Quality Measures [ No reported AMI, CVA or VTE this stay] Coding Level of Care Code 80137 Total time (in minutes) for Discharge: 45 Diagnoses Abdominal pain R10.9 Nonocclusive mesenteric ischemia K55.059 S/P exploratory laparotomy Z98.890 S/P small bowel resection Z90.49
[2024-06-22 10:45] LABS: Glucose Point of Care 211 mg/dL (70-110)
[2024-06-22] MEDS: SODIUM CHLORIDE 0.9% IV (12:53)
[2024-06-22] MEDS: DAPTOMYCIN IV (12:53)
--- NOTE | 2024-06-22 12:55 | PC.NURSE ---
Daptomycin given early per Dr. Nance for discharge
== END 2024-06-22 14:52 | disposition home or self-care (01) | DRG 853 ==
LOC: ICU 06-13 20:49 → MEDSURG 06-18 12:42
PROVIDERS: Internal Medicine; Student in an Organized Health Care Education/Training Program; Surgery; Admitting Provider Internal Medicine; Family Provider Family Medicine; PCP Nurse Practitioner Family; Visit Provider Family Medicine
PROC: 0DBA0ZZ Excision of Jejunum, Open Approach (ICD-10-PCS; CPT 49000; principal; 2024-06-08 00:45)
PROC: 0DBH0ZZ Excision of Cecum, Open Approach (ICD-10-PCS; CPT 49000; principal; 2024-06-09 12:00)
PROC: 0DBH0ZZ Excision of Cecum, Open Approach (ICD-10-PCS; CPT 44140; 2024-06-09 12:00)
PROC: 0D1A0ZA Bypass Jejunum to Jejunum, Open Approach (ICD-10-PCS; CPT 49000; principal; 2024-06-11 08:00)
PROC: 0D1A0ZA Bypass Jejunum to Jejunum, Open Approach (ICD-10-PCS; CPT 44140; 2024-06-11 08:00)
DX: A41.9 Sepsis, unspecified organism (principal); E11.10 Type 2 diabetes mellitus with ketoacidosis without coma; T80.211A Bloodstream infection due to central venous catheter, initial encounter; K55.019 Acute (reversible) ischemia of small intestine, extent unspecified; R65.21 Severe sepsis with septic shock; J96.00 Acute respiratory failure, unspecified whether with hypoxia or hypercapnia; N17.9 Acute kidney failure, unspecified; N39.0 Urinary tract infection, site not specified; G93.40 Encephalopathy, unspecified; K63.0 Abscess of intestine; I10 Essential (primary) hypertension; E87.5 Hyperkalemia; B95.62 Methicillin resistant Staphylococcus aureus infection as the cause of diseases classified elsewhere; Y71.1 Therapeutic (nonsurgical) and rehabilitative cardiovascular devices associated with adverse incidents; Y92.239 Unspecified place in hospital as the place of occurrence of the external cause; Y84.8 Other medical procedures as the cause of abnormal reaction of the patient, or of later complication, without mention of misadventure at the time of the procedure; Z79.4 Long term (current) use of insulin; Z79.84 Long term (current) use of oral hypoglycemic drugs
CPT/HCPCS: 36415; 36416; 36573; 36592; 36600; 51702; 70450; 71045; 71260; 74177; 80048; 80051; 80053; 80061; 80076; 80202; 80306; 80307; 81001; 82009; 82330; 82550; 82607; 82746; 82803; 82805; 82962; 83036; 83540; 83550; 83605; 83690; 83735; 83880; 84100; 84145; 84443; 84484; 85007; 85025; 86140; 86225; 86235; 86403; 86850; 86900; 86920; 87040; 87070; 87075; 87077; 87086; 87186; 87205; 87486; 87493; 87581; 87633; 88305; 88307; 92507; 92523; 92526; 92610; 93005; 93306; 93970; 94002; 94003; 94640; 94664; 94799; 96372; 96374; 96376; 97110; 97116; 97163; 97167; 97530; 97535; A4570; C1751; J0131; J0330; J0878; J1100; J1170; J1450; J1650; J1815; J1885; J1940; J2020; J2185; J2250; J2270; J2371; J2405; J2470; J2543; J2704; J3010; J3370; J3372; J3475; J3480; J3490; J7030; J7042; J7070; J7799; P9045

== ENCOUNTER → 2024-06-29 12:56 | Outpatient (BNVA) | payer SELFPAY | PROVIDERS: Family Provider Family Medicine; PCP Nurse Practitioner Family; Visit Provider Internal Medicine | DX: E11.69 Type 2 diabetes mellitus with other specified complication (principal); Z79.4 Long term (current) use of insulin; I10 Essential (primary) hypertension | CPT/HCPCS: 36415; 80053; 82306; 82310; 83970; 84681; 86337; 86341 ==

== ENCOUNTER → 2024-11-28 11:23 | Outpatient (BNVA) | payer MEDICAID, SELFPAY | PROVIDERS: Family Provider Family Medicine; PCP Nurse Practitioner Family; Visit Provider Nurse Practitioner Family | DX: E11.69 Type 2 diabetes mellitus with other specified complication (principal); Z79.4 Long term (current) use of insulin | CPT/HCPCS: 80048 ==